=== PATIENT | female | born 1940 | race Caucasian/White ===

== ENCOUNTER 2019-04-13 20:02 | Inpatient (IN) | payer MEDICARE ==
[~2019-04-13] VITALS: Ht 162.6 cm; Wt 77.3 kg
[2019-04-13] MEDS ORDERED: TENORMIN50 MG PO (20:10)
[2019-04-13] MEDS ORDERED: TAMOXIFEN CITRA20 MG (20:11)
[2019-04-13] MEDS ORDERED: MACROBID100 MG PO (20:11)
[2019-04-13 20:54] LABS: ALBUMIN 2.9 g/dL (3.4-5.0); BILIRUBIN - TOTAL 0.76 mg/dL (0.2-1.3); CALCIUM 8.2 mg/dL (8.5-10.1); CARBON DIOXIDE 24.2 mmol/L (21.0-32.0); CREATININE - SERUM 0.8 mg/dL (0.6-1.3); POTASSIUM - SERUM 3.2 mmol/L (3.5-5.1); PROTEIN - SERUM 6.4 g/dL (6.4-8.2)
--- NOTE | 2019-04-13 20:55 | NUR ---
PT INCONTINENT OF LARGE SOFT BROWN STOOL. PT CLEANSED, LINEN CHANGED.
[2019-04-13 21:00] LABS: BASOPHILS 0 % (0-2); EOSINOPHILS 2.4 % (0-7); HEMATOCRIT 34.5 % (36.0-48.0); HEMOGLOBIN 11.7 g/dL (12-16); IMMATURE GRANULOCYTES 0.2 % (0-5); LYMPHOCYTES 4.8 % (15-50); MCH 29.7 pg (26.0-34.0); MCHC 33.9 g/dL (31.0-37.0); MCV 87.6 fL (80.0-100.0); MEAN PLATELET VOLUME 9.6 fL (7.4-10.4); MONOCYTES 1.9 % (2-11); NEUTROPHILS 90.7 % (40-80); PLATELET COUNT 123 10x3/uL (130-400); RBC 3.94 10x6/uL (4.00-5.40); RDW 12.3 % (11.5-14.5); WBC 8.5 10x3/uL (4.8-10.8)
[2019-04-13] MEDS ORDERED: TENORETIC (21:06)
[2019-04-13] MEDS ORDERED: BIOTIN PO (21:06)
[2019-04-13] MEDS ORDERED: VITAMIN D31000 UNIT PO (21:06)
[2019-04-13] MEDS ORDERED: VITAMIN B-121000 MCG PO (21:07)
[2019-04-13] MEDS ORDERED: FERROUS GLUCONATE PO (21:12)
[2019-04-13] MEDS ORDERED: MIRALAX17 GM PO (21:13)
[2019-04-13] MEDS ORDERED: K-TAB10 MEQ PO (21:13)
[2019-04-13] MEDS ORDERED: HYTRIN1 MG PO (21:14)
[2019-04-13] MEDS ORDERED: VITAMIN A10000 UNIT PO (21:14)
[2019-04-13 21:36] LABS: APPEARANCE CLEAR (CLEAR); COLOR DK YELLOW (YELLOW)
[2019-04-13 21:37] LABS: BILIRUBIN NEGATIVE (NEGATIVE); GLUCOSE NEGATIVE (NEGATIVE); KETONE NEGATIVE (NEGATIVE); NITRITE NEGATIVE (NEGATIVE); PROTEIN 1+ mg/dL (NEGATIVE); UROBILINOGEN NORMAL (NORMAL)
[2019-04-13 21:38] LABS: WHITE CELLS - URINE 0-5 /hpf (NEGATIVE)
[2019-04-13 21:39] LABS: BACTERIA FEW /hpf (NEGATIVE); EPITHELIAL CELLS OCC /hpf (0-5)
--- NOTE | 2019-04-13 21:45 | NUR ---
PT RESTING ON BED. EYES CLOSED. PT FAMILY AT BEDSIDE.
[2019-04-13 21:54] VITALS: BP 117/52
[2019-04-13 22:08] LABS: CKMB 1.4 U/L (0.0-3.6); CREATINE KINASE 496 UL (21-215); LIPASE 959 U/L (73-393); MAGNESIUM - SERUM 1.7 mg/dL (1.8-2.4); TROPONIN-I < 0.017 ng/mL (0.000-0.060)
--- NOTE | 2019-04-13 22:30 | NUR ---
PT RESTING ON BED. NO S/S OF ACUTE DISTRESS NOTED. PT FAMILY AT BEDSIDE.
--- NOTE | 2019-04-13 23:20 | NUR ---
PT RESTING ON BED. PT REPORTS DECREASE IN SYMPTOMS. PT FAMILY AT BEDSIDE.
[2019-04-13 23:21] VITALS: BP 115/55
--- NOTE | 2019-04-14 00:46 | NUR ---
PT APPEARS TO BE SLEEPING ON BED. PT FAMILY AT BEDSIDE.
--- NOTE | 2019-04-14 01:45 | NUR ---
ADMITTED TO ROOM ALERT, FORGETFUL, POOR HISTORIAN DOES NOT KNOW WHAT MEDS SHE TAKES ONLY A BLOOD PRESSURE PILL, HUTTON CATH DRAINING FILOMENA COLORED URINE, IV NS INFUSING AT 200CC/HR, ORIENTIATED TO ROOM, CALL LIGHT IN REACH, SEE SHIFT ASSESSMENT, ISAIAS MAT IN USE
[2019-04-14 02:15] VITALS: BP 125/59; BMI 29.2
[2019-04-14 05:14] VITALS: BP 126/70
[2019-04-14 08:37] VITALS: BP 135/60
[2019-04-14 11:41] VITALS: BP 129/48
--- NOTE | 2019-04-14 14:11 | NUR ---
PT IS WITHOUT NEEDS.CALL LIGHT IN REACH
[2019-04-14 15:40] VITALS: BP 153/59
[2019-04-14 20:43] VITALS: BP 117/72
--- NOTE | 2019-04-14 21:00 | NUR ---
DISORIENTED TO TIME WITH NO ACUTE SIGNS OF DISTRESS, FAMILY AT BEDSIDE. FAMILY VOICES CONCERN ON LOC AND ABOUT RESULTS. TOLD FAMILY THAT I WOULD PASS ON IN REPORT ABOUT HAVING A PHONE CALL MADE ONCE MD SEES PT IN THE AM, SECURITY PASSWORD MADE. PLACED PT ON FALL PRECAUTIONS WITH POESY ALARM ON. IV TO THE RT AC WITH NO REDNESS OR SWELLING. HUTTON IN PLACE. DENIES PAIN OR OTHER NEEDS AT THIS TIME. CONTINUE WITH PLAN OF CARE.
[2019-04-15] VITALS (7 sets, daily range): BP systolic 109–150; BP diastolic 46–72
[2019-04-15 05:41] LABS: BASOPHILS 0.4 % (0-2); HEMATOCRIT 32.2 % (36.0-48.0); HEMOGLOBIN 10.8 g/dL (12-16); IMMATURE GRANULOCYTES 0.4 % (0-5); LYMPHOCYTES 23.7 % (15-50); MCH 29.2 pg (26.0-34.0); MCHC 33.5 g/dL (31.0-37.0); MEAN PLATELET VOLUME 11.1 fL (7.4-10.4); MONOCYTES 6.6 % (2-11); NEUTROPHILS 61.9 % (40-80); PLATELET COUNT 124 10x3/uL (130-400); RDW 12.8 % (11.5-14.5); WBC 7.5 10x3/uL (4.8-10.8)
[2019-04-15 06:19] LABS: ALBUMIN 2.2 g/dL (3.4-5.0); ALKALINE PHOSPHATASE 42 U/L (46-116); AMYLASE - SERUM 97 U/L (25-115); BILIRUBIN - TOTAL 0.32 mg/dL (0.2-1.3); CALCIUM 7.4 mg/dL (8.5-10.1); CARBON DIOXIDE 23.1 mmol/L (21.0-32.0); CHLORIDE - SERUM 108 mmol/L (98-107); CKMB 1.3 U/L (0.0-3.6); CREATINE KINASE 180 UL (21-215); CREATININE - SERUM 0.7 mg/dL (0.6-1.3); LIPASE 687 U/L (73-393); MAGNESIUM - SERUM 1.8 mg/dL (1.8-2.4); PHOSPHOROUS 1.7 mg/dL (2.5-4.9); POTASSIUM - SERUM 3.2 mmol/L (3.5-5.1); PROTEIN - SERUM 5.1 g/dL (6.4-8.2); SODIUM 140 mmol/L (136-145); eGFR NON AFRICAN AMERICAN 86 mL/min (90-120)
[2019-04-15 06:23] LABS: ALT (SGPT) 35 U/L (10-68); CALC OSMOLALITY 276 mosm/kg (275-300); GLUCOSE 77 mg/dL (74-106); TROPONIN-I < 0.017 ng/mL (0.000-0.060); UREA NITROGEN 11 mg/dL (7-18)
--- NOTE | 2019-04-15 07:15 | NUR ---
REC'D IN BED AWAKE AND ALERT WITH NOTED CONFUSION AT TIME. RESP EVEN AND UNLABORED WITH NO DISTRESS NOTED. CAN EXPRESS NEEDS AND WANTS. NO C/O NOTED OR VOICED. ASSESSMENT COMPLETED. C/LI N REACH AT BEDSIDE.
--- NOTE | 2019-04-15 07:16 | HP ---
PATIENT: ETIENNE PEREZ MEDICAL RECORD: [id number] ACCOUNT: [id number] LOCATION:D.MS [id number] : 40 ADMISSION DATE: 04/14/19 PCP: BETITO GRACE MD HISTORY AND PHYSICAL EXAMINATION REASON FOR ADMISSION: Fever and back pain. HISTORY OF PRESENT ILLNESS: The patient is a 78-year-old female who was in good state of health and yesterday, she was walking in her house and just passed out. She had no presyncopal symptoms. She awoke on the floor and her back was hurting so bad that she could not get up and answer the phone. Eventually her son came to her house to check on her and called EMS due to back pain and she was taken to the ED at [facility]. Evaluation there by the ER nurses showed normal CBC and BMP, and UA showed minimal bacteriuria. CT scan of the brain was unremarkable. They did discharge her home after being on telemetry without arrhythmias. As the patient got home, she developed onset of 105 fever. By her history, it was confusion and her called EMS and came to this Emergency Room for evaluation. The patient had an E. coli UTI treated approximately a week ago with Macrodantin, which was sensitive to, it did have some mild resistance. She denied any dysuria. No recent cough, headaches, visual changes, or confusion. She denies incontinence of bowel or bladder, history of seizures. She notes that her back pain is better, but she has not tried to get up to walk. PAST MEDICAL HISTORY: History of breast cancer with bilateral mastectomy followed by Dr. Chema Davidson at [facility], history of hyperlipidemia, DVT, hypertension, lipoma in axilla, meniscus tear, TMJ, osteoarthritis of left knee post-replacement, hypertension. PAST SURGICAL HISTORY: section, left knee replacement in 2017, bilateral mastectomies, tonsillectomy. SOCIAL HISTORY: Rare alcohol drinker, nonsmoker. She lives alone. Family in town cares for her. FAMILY HISTORY: Father of CAD, [place]. Mother had breast cancer and stroke. MEDICATIONS: Eliquis 5 mg p.o. b.i.d., atenolol 50 mg p.o. daily, potassium ER 10 mEq p.o. daily, tamoxifen 20 mg p.o. daily. ALLERGIES: None mentioned. REVIEW OF SYSTEMS: CONSTITUTIONAL: Fever as mentioned above, last evening. Has not felt malaise. HEENT: No recent visual change, sinus congestion, sore throat, or headache. RESPIRATORY: No SOB or cough. CARDIAC: No exertional chest pain, claudication or edema. GASTROINTESTINAL: No nausea, vomiting, change in stools or blood per rectum. Denies abdominal pain. GENITOURINARY: No dysuria, mild incontinence. GYNECOLOGIC: No vaginal bleeding. ENDOCRINE: Denies polyuria, polydipsia, heat or cold intolerance. NEUROLOGIC: No history of stroke, TIA, vascular headaches, seizures or head trauma. MUSCULOSKELETAL: Complaining of low back pain currently, but has improved about HISTORY AND PHYSICAL [id number] CHRIS,ETIENNE HAND 50% from her fall. Denies any radicular pain. PSYCHIATRIC: Denies depress mood. PHYSICAL EXAMINATION: VITAL SIGNS: On arrival to the ED her temperature is 101.5, now 98.1; blood pressure 104/53 initially, now 126/70; sats 95% on room air; heart rate 74 and regular. GENERAL: The patient is alert and oriented and gives a good history, but has no recollection of her fall or cause of her fall. HEENT: Eyes are clear. Pupils reactive. EOMI vision intact. NECK: Supple, without bruits, masses, JVD or tenderness. CHEST: Clear without wheeze or rales. HEART: Regular rate and rhythm without murmur. BREASTS: Surgically absent. LUNGS: Clear. ABDOMEN: Soft, nontender throughout. Bowel sounds are active. PELVIC: Deferred. EXTREMITIES: She has healed left total knee replacement scar, good range of motion of the knee. Straight leg raise negative bilaterally in lower extremities. I did not stand the patient at this point. I did not test gait. SKIN: No evidence of rash or bruising currently. NEUROLOGIC: Oriented to person, place, and time. Cranial nerves intact symmetrically. Reflexes intact symmetrically. IMAGING: CT scan reviewed of the brain from [facility] this morning shows no acute findings. LABORATORY DATA: Laboratory work there was within normal limits. Chest x-ray here shows some atelectasis in the left base. White count 8500 with 91% neutrophils, platelet count 123,000, hemoglobin 11.2. Potassium is low at 3.2. Sodium is 137. Lactic acid is 2. Magnesium low at 1.7. Creatinine kinase is 496. Cardiac enzymes are negative. Lipase is 959. UA 1+ protein, trace blood, 0-5 white cells, few bacteria. EKG apparently was not performed an EGD. ASSESSMENT: 1. Syncopal episode, etiology unknown. 2. Febrile illness, etiology unknown, recent urinary tract infection, asymptomatic. 3. Hypokalemia. 4. Hypomagnesemia. 5. History of hypertension, currently mildly hypotensive. 6. Low back pain from fall. 7. History of breast cancer. PLAN: The patient will be placed in a monitored bed. She is given fluid resuscitation. We will correct electrolyte abnormalities. Telemetry to rule out arrhythmia, lumbar spine series. I am not sure why her lipase is mildly elevated. She is not an alcohol user and denies any abdominal pain currently. We will trend that and perform CT scan of abdomen if indicated. TRANSINT:[id number] Voice Confirmation ID: [id number] DOCUMENT ID: [id number] HISTORY AND PHYSICAL [id number] ETIENNE PEREZ TIMOTHY MD at 0716 CC: [id number] DICTATION DATE: 04/14/19720 MANAGER FIELD INVESTIGATIONS: 04/14/19 0855 ADM IN [facility] [address] [place] [address]
--- NOTE | 2019-04-15 07:45 | NUR ---
TODD HUTTON AT THIS TIME. C/L IN REACH AT BEDSIDE.
--- NOTE | 2019-04-15 11:08 | EC ---
PATIENT:ETIENNE PEREZ DATE OF SERVICE: 04/14/19 SEX: F MEDICAL RECORD: [id number] DATE OF : 40 LOCATION:D.MS [facility] AGE OF PATIENT: 78 ADMISSION DATE: 04/14/19 REFERRING PHYSICIAN: INTERPRETING PHYSICIAN: SANA SAMAYOA MD ECHOCARDIOGRAM REPORT ECHO CHARGES 4 ECHO COMPLETE Date: 04/14/19 CLINICAL DIAGNOSIS: SYNCOPE, HYPOTENSION ECHOCARDIOGRAPHIC MEASUREMENTS (adult normal given) AC root (d.<3.7cm) 3.0 cm LV Septum d (<1.2 cm> 0.9 cm Valve Excursion 1.4 cm LV Septum (systole) 1.2 cm Left Atria (s.<4.0cm> 3.6 cm LVPW d(<1.2cm) 1.3 cm RV (d.<2.3cm) 2.6 cm LVPW (sytole) 1.5 cm LV diastole(<5.6CM) 4.8 cm MV E-F(>70mm/sec) cm LV systole 3.5 cm LVOT Diameter 1.7 cm MV exc.(>10mm) cm Est.ejection fraction (50-75%) % DOPPLER: LVIT cm/sec A 106 cm/sec E 73 cm/sec LA cm/sec RVSP 32.0 mmHg LVOT 136 cm/sec AOP1/2T m/s Asc. Ao 163 cm/sec RVOT 72 cm/sec RA cm/sec PA 91 cm/sec AV Gradient Peak 10.6 mmHg AV Mean 5.9 mmHg AV Area 1.9 cm MV Gradient Peak 5.1 mmHg MV Mean 2.2 mmHg MV Area cm COMMENTS: Regulatory Affairs Spec: Celina MONTE Manager Trade Marketing: 3 Dr. Buckley TAPE# PACS Pericardial Effusion N DATE OF SERVICE: Adequate 2D, color flow imaging, spectral Doppler, and M-mode. No LVH. LV internal dimension is normal. Wall motion is normal. EF is greater than or equal to 25%. Aortic valve is tricuspid. No evidence of stenosis by Doppler interrogation. Left atrium is normal at 3.6 cm. Mitral valve shows no prolapse. Trace MR. Right-sided chamber is grossly normal. Trace TR. TRANSINT:[id number] Voice Confirmation ID: [id number] DOCUMENT ID: [id number] ECHOCARDIOGRAM REPORT [id number] CHRSI,ETIENNE HAND SANA SAMAYOA MD at 1108 CC: [id number] DICTATION DATE: 04/14/19 1505 LEAD ELECTRICAL CONTROLS ENGINEER: 04/15/19 0056 ADM IN [facility] [address] [id number]
--- NOTE | 2019-04-15 11:21 | NUR ---
THIS NURSE WAS CALLED OVER RADIO TO ALERT HER OF PT HEART RATE BEING 200 UPON ENTERING PT ROOM SHE WAS UP WALKING WITH THERAPY. PT WAS ASSISTED BACK TO BED AFTER 15 MINUTES. REC'D ANOTHER CALL TO ALERT THAT PT HEART RATE IS NOW 170 AND UPON CHECKING ON PT SHE JUST LYING IN BED GETTING ULTRA SOUND DONE. CALL WAS PLACED TO DR. GRACE EXPLAIN PT CHANGE IN CONDITION REC'D NEW ORDERS FOR CARDIZEM 10 MG IVP X 1 AND THEN TO START CARDIZEM DRIP AT 5 MG/HR. REPORT WAS CALLED OVER TO NURSE RECEIVING PT. IN STABLE CONDITION UPON DEPARTURE. SON WAS CALLED AND NOTIFIED OF TRANSFER.
--- NOTE | 2019-04-15 12:10 | NUR ---
TRANSFER FROM GA BY W/Gina MCGEE TO ROOM. CALL LIGHT IN REACH. WILL CONT. PLAN OF CARE. TELEMETRY UCAF HR 120. WILL MONITOR.
--- NOTE | 2019-04-15 13:46 | NUR ---
CONVERTED TO SR HR 95. WILL CONT. PLAN OF CARE.
[2019-04-16] VITALS: BP 131/52
[2019-04-16 04:00] VITALS: BP 124/50
[2019-04-16 05:50] LABS: BASOPHILS 0.2 % (0-2); HEMATOCRIT 28.3 % (36.0-48.0); HEMOGLOBIN 9.9 g/dL (12-16); IMMATURE GRANULOCYTES 0.4 % (0-5); LYMPHOCYTES 21.8 % (15-50); MCH 29.6 pg (26.0-34.0); MEAN PLATELET VOLUME 10.3 fL (7.4-10.4); MONOCYTES 4.8 % (2-11); NEUTROPHILS 66.8 % (40-80); PLATELET COUNT 137 10x3/uL (130-400); RBC 3.35 10x6/uL (4.00-5.40); RDW 12.7 % (11.5-14.5); WBC 9.3 10x3/uL (4.8-10.8)
[2019-04-16 05:53] LABS: MCV 84.5 fL (80.0-100.0)
[2019-04-16 06:12] LABS: CALC OSMOLALITY 281 mosm/kg (275-300); CALCIUM 7.5 mg/dL (8.5-10.1); CARBON DIOXIDE 20.3 mmol/L (21.0-32.0); CHLORIDE - SERUM 109 mmol/L (98-107); CREATININE - SERUM 0.7 mg/dL (0.6-1.3); POTASSIUM - SERUM 3.2 mmol/L (3.5-5.1); SODIUM 141 mmol/L (136-145); TROPONIN-I < 0.017 ng/mL (0.000-0.060); UREA NITROGEN 9 mg/dL (7-18); eGFR NON AFRICAN AMERICAN 86 mL/min (90-120)
[2019-04-16 06:23] LABS: GLUCOSE 130 mg/dL (74-106)
--- NOTE | 2019-04-16 07:15 | NUR ---
RECEIVED PT IN BED AAOX3 CONFUSED TO SITUATION RESP UNLABORED SKIN W/D COLOR WNL RAC RED AND SWOLLEN IV INFILTRATED DCD WITH IV CATHETER INTACT RESITED TO LFA WITH 20 GA IV CATHETER X 1 USING ASEPTIC TECHNIQUE PT TOLERATED WELL
[2019-04-16 10:38] VITALS: BP 138/58
--- NOTE | 2019-04-16 13:31 | CN ---
PATIENT NAME:ETIENNE RAMIREZ MEDICAL RECORD: [id number] : 40 LOCATION:D. D.2118 ADMIT DATE: 04/14/19 ACCOUNT: [id number] CONSULTING PHYSICIAN: OCHOA ADAM MD REFERRING PHYSICIAN: BETITO GRACE MD DATE OF CONSULTATION: 04/15/2019 DIAGNOSES: 1. Atrial fibrillation with rapid ventricular response. 2. Syncope. 3. Urinary tract infection. 4. Hypertension. 5. Hyperlipidemia. HISTORY OF PRESENT ILLNESS: Mrs. Ramirez had an episode of syncope, presented to [facility] ER where she had a workup including head CT, prolonged telemetry and cardiac enzymes, all of which were normal. She then went home, became confused, had a temperature, was now admitted with UTI. She today went into atrial fibrillation with rapid ventricular response, heart rate in the 200 range. She remains in atrial fibrillation with heart rates in the 130-160 range. At this time, her systolic blood pressures in the 150 range. She is on atenolol at home. She has had no history of syncope. She had an echocardiogram yesterday. The dictation reads an ejection fraction greater than 25%; however, I have reviewed the echo myself and her ejection fraction is greater than 55%. I think that was a typographical error. She has normal overall cardiac structures and normal valvular structures. No bad mitral regurgitation or mitral stenosis. Her atenolol has been on hold since she was admitted. PHYSICAL EXAMINATION: CONSTITUTIONAL/GENERAL APPEARANCE: Well nourished, well developed, appears stated age. EYES: Lids and conjunctivae noninjected. No discharge. No pallor. ENT: Lips within normal limit. No cyanosis. No pallor. NECK: Carotid arteries, bilateral normal upstroke. No bruits. No thrills. No jugular venous pressure or distention. CERVICAL LYMPH NODES: Nontender. Nonenlarged. THYROID: Not enlarged. No nodules. CARDIOVASCULAR: Precordial exam, nondisplaced. No heaves or pericardial thrills. Rate and rhythm, regular. Heart sounds, normal S1, normal S2. No S3, no gallop, no rub. Systolic murmur, not heard. Diastolic murmur, not heard. RESPIRATORY: Respiratory effort, unlabored. Normal curvature. No thoracic deformity. No chest wall tenderness. Percussion, resonant. Auscultation, clear. No wheezes, no rales, no rhonchi. ABDOMEN: Soft, nondistended, nontender. No abdominal pain, no vomiting and normal appetite. MUSCULOSKELETAL: No joint tenderness, normal gait, normal tone. SKIN: Warm and dry. OVERALL IMPRESSION: Atrial fibrillation with rapid ventricular response. This is most likely the etiology of her syncope at home. We will, at this time, discontinue her atenolol, start her on sotalol, bridge her with a Cardizem drip to slow her down acutely. Hopefully she will convert to sinus rhythm with the recent echo. No other cardiac workup is necessary other than a troponin in the morning. CONSULT REPORT [id number] ETIENNE RAMIREZ HAND TRANSINT:[id number] Voice Confirmation ID: [id number] DOCUMENT ID: [id number] OCHOA ADAM MD at 1331 CC: [id number] DICTATION DATE: 04/15/19 1154 CONSTRUCTION COST ESTIMATOR: 04/15/19 1242 ADM IN [place] [id number] [id number]
[2019-04-16 13:50] VITALS: BP 135/62
[2019-04-16 17:40] VITALS: BP 167/87
--- NOTE | 2019-04-16 19:35 | NUR ---
PT RESTING IN BED WITH EYES CLOSED. RESPIRATIONS EVEN AND UNLABORED. I AM MAKING MY ROUNDS TO SEE IF SHE NEEDS ANYTHING. SHE IS ALERT WITH VERBAL STIMULI.HER SON IS AT THE BEDSIDE. SHE IS ORIENTED TO PERSON ONLY.SHE ASKS IF I HAVE SEEN THE CAT.REORIENTED TO PLACE,TIME AND SITUATION.NEEDS FURTHER REINFORCEMENT.BED IN THE LOWEST POSITION AND BED ALARM ON FOR SAFETY. CALL LIGHT IN REACH. SHE DENIES NEEDS OR PAIN.
[2019-04-16 20:00] VITALS: BP 134/80
--- NOTE | 2019-04-16 23:25 | NUR ---
PT TRYING TO GET OUT OF BED. BED ALARM ON. SHE IS CONFUSED AND AGITATED. SHE STATES SHE IS READY TO GO LAY ON HER COUCH. ATTEMPTED TO REORIENT TO TIME AND PLACE. SHE BECAME EVEN MORE AGITATED SAYING SHE IS NOT IN A HOSPITAL, SHE IS AT HOME AND THERE ARE SNOW MEN WITH AXES AND WHITE POSSUMS OUTSIDE HER DOOR. SHE BANGS ON THE WALL AND APPEARS TO THINK THAT THE WALL IS A DOOR TO OUTSIDE. ATTEMPTED AGAIN TO REORIENT WITH THE HELP OF MICHELLE RODRIGEZ AND HUMPHREY PÉREZ. GOT HER BACK IN BED. SHE IS LESS AGITATED. SHE DENIES PAIN OR NEEDING TO GO TO THE BATHROOM. GAVE HER FRESH WATER AND SHE TOOK A FEW SIPS. PAGED. ORDERS FOR PRN RESTORIL GIVEN. PT IS NOW RESTING IN BED. NO DISRESS NOTED. RESPIRATIONS EVEN AND UNLABORED. BED LOW AND BED ALARM SET. WILL CONTINUE TO MONITOR.
[2019-04-17 05:44] LABS: CALC OSMOLALITY 283 mosm/kg (275-300); CALCIUM 7.8 mg/dL (8.5-10.1); CARBON DIOXIDE 23.9 mmol/L (21.0-32.0); CHLORIDE - SERUM 110 mmol/L (98-107); CREATININE - SERUM 0.7 mg/dL (0.6-1.3); GLUCOSE 98 mg/dL (74-106); POTASSIUM - SERUM 3.9 mmol/L (3.5-5.1); SODIUM 143 mmol/L (136-145); UREA NITROGEN 10 mg/dL (7-18); eGFR NON AFRICAN AMERICAN 86 mL/min (90-120)
[2019-04-17 09:39] VITALS: BP 150/55
[2019-04-17 12:53] VITALS: Ht 162.6 cm; Wt 77.3 kg
[2019-04-17 13:31] VITALS: BP 119/75
[2019-04-17 17:27] VITALS: BP 176/75
--- NOTE | 2019-04-17 19:30 | NUR ---
INITIAL ROUNDS AND ASSESSMENT COMPLETED. PT RESTING WITH EYES CLOSED. FAMILY X 3 AT BEDSIDE. SR /77 PER TELEMETRY. NONLABORED RESPIRATIONS ON ROOM AIR. SALINE LOCK TO LFA. CPOC.
--- NOTE | 2019-04-17 23:35 | NUR ---
PT AWAKE/ALERT, ANSWERING QUESTIONS APPROPRIATELY. DINNER TRAY WAS HEATED AND SHE ATE 50%. C/O NECK PAIN. ULTRAM GIVEN. CURRENTLY SITTING IN BEDSIDE CHAIR WITH CALL LIGHT IN REACH.
--- NOTE | 2019-04-18 02:14 | NUR ---
SITTING UP IN BEDSIDE CHAIR, AWAKE AND WATCHING TV. NO NEEDS VOICED. ALERT/ORIENTED. NAD. CPOC.
[2019-04-18 04:00] VITALS: BP 143/74
[2019-04-18 05:00] LABS: BASOPHILS 0.5 % (0-2); HEMATOCRIT 33.1 % (36.0-48.0); HEMOGLOBIN 11.3 g/dL (12-16); IMMATURE GRANULOCYTES 0.9 % (0-5); LYMPHOCYTES 20.1 % (15-50); MCH 29.9 pg (26.0-34.0); MCHC 34.1 g/dL (31.0-37.0); MEAN PLATELET VOLUME 10.6 fL (7.4-10.4); MONOCYTES 7.3 % (2-11); NEUTROPHILS 65.2 % (40-80); RBC 3.78 10x6/uL (4.00-5.40); RDW 12.7 % (11.5-14.5)
[2019-04-18 05:11] LABS: MCV 87.6 fL (80.0-100.0); PLATELET COUNT 213 10x3/uL (130-400)
[2019-04-18 05:51] LABS: ANION GAP 13.2 mmol/L (8-16); CALCIUM 8.4 mg/dL (8.5-10.1); CARBON DIOXIDE 24.5 mmol/L (21.0-32.0); CREATININE - SERUM 0.8 mg/dL (0.6-1.3); POTASSIUM - SERUM 3.7 mmol/L (3.5-5.1)
[2019-04-18 09:22] VITALS: BP 150/72
--- NOTE | 2019-04-18 10:52 | NUR ---
TELEMETRY SR. UP AMBULATING HALLWAY WITH PT ASSIST. WILL CONT. PLAN OF CARE.
--- NOTE | 2019-04-18 12:31 | CN ---
PATIENT NAME:ETIENNE PEREZ MEDICAL RECORD: [id number] : 40 LOCATION:. D.2118 ADMIT DATE: 04/14/19 ACCOUNT: [id number] CONSULTING PHYSICIAN: REBECCA MENDIETA MD REFERRING PHYSICIAN: BETITO GRACE MD DATE OF CONSULTATION: 04/17/2019 PSYCHIATRIC CONSULTATION IDENTIFYING DATA: The patient is 78 years old and she is admitted to the hospital secondary to both a urinary tract infection and pancreatitis. CHIEF COMPLAINT: Hallucinations. HISTORY OF PRESENT ILLNESS: The patient is a very nice lady who is a very cooperative. She tells me that she has been having hallucinations and that they do not really bother her, but they bother her son. She tells me that she recognizes that they are hallucinations and the one she can tell me about most recently is a anderson sitting up in the corner of her dining room wearing some kind of a harness. She says she recognize it is abnormal and not real, she is not distressed by it. She tells me she has not had any hallucinations since she has been in the hospital, but that is not consistent with what I am seeing in the chart or at least not consistent with what I am understanding to be in the chart. The patient has some abnormalities, particularly anemia today. But generally there is no fever, she is not taking medications that would be prone to cause visual hallucinations and I understand why the presence of these is something of a mystery. Taking her history, she tells me that she lives alone. Her son does the yard work, but she does the grocery shopping, handles the mail, pays the bills, does her own cooking and generally is independent. She says she has not had any trouble doing that. Unfortunately, on her mental status exam, she identifies the month as 03/26/2019. Slightly off, but still it is off. She also has serious impairment of her short-term memory and indeed some of her long-term memory is impaired. She knew she worked outside the home, but she could not remember what she did. She clearly is struggling to remember specific details about her past and is trying to mask that embarrassment with humor. She is really quite pleasant. She has no history of drug or alcohol abuse. No history of mental illness and I am sure functioned well socially and occupationally. She has been for 20 years. ASSESSMENT: Probable dementia, type uncertain, probably Alzheimer's. PLAN: The hallucinations or something of a mystery. They may well be related to something toxic or metabolic related to some of the medicine she had previously taken and/or the combination of some electrolyte or infectious process. She did have a very serious E. coli infection that apparently has been successfully treated. There is no fever now. She is, however, anemic, but that does not cause hallucinations. I suspect a possible delirium, but she is not really showing evidence of a delirium. I would be reluctant to treat her with medications at this point and would suggest that she just simply go home with supportive care and observation. Unfortunately, I have nothing to compare her previous level of functioning or even the accuracy of what she is telling me. She may be much more dependent upon others than she is indicating at this point. There is no evidence of acute or direct dangerousness. It is obvious that she CONSULT REPORT [id number] ETIENNE PEREZ has very supportive and close sons who are involved with her care. If these problems persist or worsen, a low dose of an antipsychotic might be appropriate to address it. I am just reluctant to do that right now given her current presentation. With the high clinical suspicion of an underlying dementia starting her on a cholinesterase inhibitor would be a reasonable to move. From a social standpoint, her family needs to be making plans about what will happen if she becomes unable to care for herself mentally or physically. TRANSINT:[id number] Voice Confirmation ID: [id number] DOCUMENT ID: [id number] REBECCA MENDIETA MD at 1231 CC: [id number] DICTATION DATE: 04/17/19 1541 SALES SUPPORT REP: 04/17/19 1621 ADM IN [facility] [address] [place] [address]
--- NOTE | 2019-04-18 12:35 | NUR ---
REHAB PRESCREEN THANK YOU FOR THIS EVAL, AT THIS TIME THIS PATIENT HAS BLUE CROSS INSURANCE AND DOES REQUIRE A PRIOR AUTH BEFORE BEING ABLE TO DETURMINE IF ACCEPTED. WILL FOLLOW UNTIL WE GET A REPLY FROM INSURANCE. MERARY CORTES LPN CLINICAL LIASION
[2019-04-18 14:35] VITALS: BP 167/73
[2019-04-18 18:19] VITALS: BP 198/75
--- NOTE | 2019-04-18 19:50 | NUR ---
INITIAL ROUNDS AND ASSESSMENT COMPLETED. SONS IN ROOM VISITING WITH PATIENT. THEY SAY SHE HAS BEEN MENTALLY BETTER TODAY, BUT STILL HAVING SOME ISSUES WITH SEEING THINGS, BUT MUCH IMPROVED COMPARED TO HER FIRST FEW DAYS. PT IS ALERT/ORIENTATION IS DIFFICULT TO DETERMINE BECAUSE SHE SEEMS TO CATCH HERSELF WHEN SHE BEGINS TO RAMBLE AND THEN CHANGES THE SUBJECT OR SAYS SHE KNOWS SHE ISN'T REALLY SEEING ANYTHING. CPOC. CALL LIGHT IN REACH.
[2019-04-18 20:00] VITALS: BP 143/68
--- NOTE | 2019-04-18 22:39 | NUR ---
PT RESTING IN BED. BEDTIME MEDS GIVEN.CPOC.
--- NOTE | 2019-04-19 06:27 | NUR ---
PT RESTING IN BED WITH BED ALARM IN PLACE. SHE HAS REFUSED THE LAST TWO SETS OF VITAL SIGNS WITH SOME CONFUSION NOTED. CPOC AND REPORT TO ONCOMING NURSE.
[2019-04-19 08:13] VITALS: BP 157/82
--- NOTE | 2019-04-19 10:28 | NUR ---
HAS CONVERTED BACK TO SR. LEAVING FOR X-RAY BY W/C. WILL CONT. PLAN OF CARE.
[2019-04-19 11:32] VITALS: BP 142/68
[2019-04-19 17:10] VITALS: BP 113/59
--- NOTE | 2019-04-19 19:49 | NUR ---
INITIAL ROUNDS AND ASSESSMENT COMPLETED. PT RESTING IN BED. RESPS EVEN/NONLABORED ON ROOM AIR. UCAF 120 PER TELEMETRY. SALINE LOCK TO LFA. BED ALARM IN PLACE. SON NOW LEAVING FOR THE NIGHT. CPOC.
[2019-04-19 20:00] VITALS: BP 129/64
--- NOTE | 2019-04-19 21:16 | NUR ---
BEDTIME MED GIVEN. PT RESTING WITH NO DISTRESS. MILD CONFUSION NOTED. BED ALARM IN PLACE. CPOC. CALL LIGHT IN REACH. SON HAS GONE HOME FOR THE EVENING.
[2019-04-20] VITALS: BP 134/87
[2019-04-20 04:00] VITALS: BP 135/53
--- NOTE | 2019-04-20 05:27 | NUR ---
NO CHANGE FROM INITIAL SHIFT ASSESSMENT. PT RESTING IN BED. CPOC. STILL WITH SOME MILD CONFUSION/FORGETFULNESS. IV LASIX GIVEN EARLIER. BED ALARM IN PLACE.
[2019-04-20 05:39] LABS: BASOPHILS 0.7 % (0-2); EOSINOPHILS 4.4 % (0-7); HEMATOCRIT 28.5 % (36.0-48.0); HEMOGLOBIN 9.7 g/dL (12-16); IMMATURE GRANULOCYTES 1.4 % (0-5); LYMPHOCYTES 19.8 % (15-50); MCH 29.4 pg (26.0-34.0); MCV 86.4 fL (80.0-100.0); MEAN PLATELET VOLUME 9.9 fL (7.4-10.4); MONOCYTES 10.1 % (2-11); NEUTROPHILS 63.6 % (40-80); PLATELET COUNT 253 10x3/uL (130-400); RDW 12.4 % (11.5-14.5); WBC 11.3 10x3/uL (4.8-10.8)
[2019-04-20 06:11] LABS: CALC OSMOLALITY 281 mosm/kg (275-300); CALCIUM 8.3 mg/dL (8.5-10.1); CARBON DIOXIDE 29.7 mmol/L (21.0-32.0); CHLORIDE - SERUM 103 mmol/L (98-107); CREATININE - SERUM 0.7 mg/dL (0.6-1.3); GLUCOSE 129 mg/dL (74-106); SODIUM 141 mmol/L (136-145); UREA NITROGEN 10 mg/dL (7-18); eGFR NON AFRICAN AMERICAN 86 mL/min (90-120)
[2019-04-20 06:31] LABS: POTASSIUM - SERUM 2.8 mmol/L (3.5-5.1)
--- NOTE | 2019-04-20 07:15 | NUR ---
RECEIVED PT SITTING IN CHAIR AAOX3 NOT AWARE OF SITUATION RESP UNLABORED SKIN W/D COLOR WNL DENIES ANY PAIN OR DISCOMFORT SR ON MONITOR FLIPP ED BACK TO SR AT 2100 ACCORDING TO NIGHT NURSE KEYONNA HERNANDEZ RN
[2019-04-20 09:27] VITALS: BP 135/62
[2019-04-20 13:39] VITALS: BP 140/69
[2019-04-20 14:16] LABS: ANION GAP 12.9 mmol/L (8-16); CALCIUM 8.3 mg/dL (8.5-10.1); CARBON DIOXIDE 28.6 mmol/L (21.0-32.0); POTASSIUM - SERUM 3.5 mmol/L (3.5-5.1)
--- NOTE | 2019-04-20 17:27 | MORECARE ---
CASE MANAGEMENT DISCHARGE SUMMARY PATIENT: ETIENNE PEREZ HAND UNIT: [id number] ADM DATE: 04/14/19 AGE: 78 : 40 SEX: F ROOM/BED: D.9998 AUTHOR: SU LAURENT PHYSICIAN: REFERRING PHYSICIAN: BETITO GRACE MD DATE OF SERVICE: 04/20/19 Discharge Plan Patient Name: ETIENNE PEREZ Facility: [facility]:[place] : 1940 Planned Disposition: Anticipated Discharge Date: Discharge Date: Expected LOS: Initial Reviewer: [email or web address] Initial Review Date: 04/20/2019 Generated: 04/20/19 6:26 pm Comments DCP- Discharge Planning Updated by [email or web address]: Guanakito Ramos on 04/20/19 4:[address] Patient Name: ETIENNE PEREZ Admission Status: ER Accout number: [id number] Admission Date: 04-14-2019 : 1940 Admission Diagnosis: Attending: BETITO GRACE Current LOS: 6 Anticipated DC Date: Planned Disposition: Primary Insurance: [employer] [facility] Discharge Planning Comments: CM RECEIVED ORDER FOR INPATIENT REHAB PRESCREENING. CM ATTEMPTED TO MEET WITH PT FOR INITIAL ASSESSMENT OF DISCHARGE NEEDS. PT WAS HAVING PATIENT CARE BY SCHOOL CAFETERIA HEAD COOK IN ROOM AT THE TIME. CM TO ATTEMPT ASSESSMENT OF PT AT A LATER TIME. Commercial Construction Project Manager: Guanakito Ramos Patient Name: ETIENNE PEREZ Page [id number] at 1727 All edits/amendments must be made on the electronic document DICTATION DATE: 04/20/191725 CLINICAL TECHNICIAN: HIEN 04/20/191725 RPT#: [id number] DC DATE: STATUS: ADM IN [facility] [address] [place] [address] END OF REPORT
[2019-04-20 17:49] VITALS: BP 131/56
--- NOTE | 2019-04-20 19:36 | NUR ---
BEDSIDE REPORT RECEIVED. PATIENT IS AAO X 2 WITH COACHING FROM FAMILY. PATIENT SITTING UP IN CHAIR. RESPIRATIONS ARE EVEN AND UNLABORED. NO S/S OF DISTRESS. NO C/O PAIN. CALL LIGHT WITHIN REACH. BED ALARM ENABLED. WILL CPOC.
[2019-04-20 20:00] VITALS: BP 135/61
--- NOTE | 2019-04-20 23:49 | NUR ---
RECEIVED TELEPHONE CALL FROM PATIENT SON MAY. MAY WAS CONCERNED THAT IS MOTHER HAD CALLED HIM 5 TIMES AND IS CONFUSED. PATIENT STATED TO HIM THAT THERE WERE STRIPPERS DANCING AROUND. PATIENT SHE WAS NAKED AND NEEDED PANTS. I WENT TO CHECK ON PATIENT. PATIENT IN NO DISTRESS. PATIENT HAS GOTTEN INCREASINGLY CONFUSED THROUGHOUT THE NIGHT. PATIENT SON MAY REQUESTS THAT DR. GRACE CALL HIM. CELL PHONE [phone]
[2019-04-21] VITALS: BP 133/49
[2019-04-21 04:00] VITALS: BP 152/64
[2019-04-21 05:43] LABS: ANION GAP 11.8 mmol/L (8-16); CALCIUM 8.4 mg/dL (8.5-10.1); CARBON DIOXIDE 29.3 mmol/L (21.0-32.0); CREATININE - SERUM 0.9 mg/dL (0.6-1.3); POTASSIUM - SERUM 3.1 mmol/L (3.5-5.1)
--- NOTE | 2019-04-21 07:15 | NUR ---
RECEIVED PT IN BED EYES CLOSED RESP UNLABORED NAD NOTED WILL CONTINUE TO MONITOR
[2019-04-21 09:45] VITALS: BP 153/54
--- NOTE | 2019-04-21 10:06 | MORECARE ---
CASE MANAGEMENT DISCHARGE SUMMARY PATIENT: ETIENNE PEREZ HAND UNIT: [id number] ADM DATE: 04/14/19 AGE: 78 : 40 SEX: F ROOM/BED: D.3418 AUTHOR: SU LAURENT PHYSICIAN: REFERRING PHYSICIAN: BETITO GRACE MD DATE OF SERVICE: 04/21/19 Discharge Plan Patient Name: ETIENNE PEREZ Facility: [facility]:[place] : 1940 Planned Disposition: Inpatient Rehab Anticipated Discharge Date: Discharge Date: Expected LOS: Initial Reviewer: [id number] Initial Review Date: 04/20/2019 Generated: 04/21/19 11:05 am Comments DCP- Discharge Planning Updated by WANG: Guanakito Ramos on 04/20/19 4:[address] Patient Name: ETIENNE PEREZ Admission Status: ER Accout number: [id number] Admission Date: 04-14-2019 : 1940 Admission Diagnosis: Attending: BETITO GRACE Current LOS: 6 Anticipated DC Date: Planned Disposition: Primary Insurance: [facility] Discharge Planning Comments: CM RECEIVED ORDER FOR INPATIENT REHAB PRESCREENING. CM ATTEMPTED TO MEET WITH PT FOR INITIAL ASSESSMENT OF DISCHARGE NEEDS. PT WAS HAVING PATIENT CARE BY BUTTONHOLE MAKER HAND IN ROOM AT THE TIME. CM TO ATTEMPT ASSESSMENT OF PT AT A LATER TIME. Lightning Rod Erector: Guanakito Ramos Coverage Notice Reviewer: [id number] - Guanakito Ramos Notice Issued Date-Time: 04/21/2019 8:40 Notice Type: IM Discharge Notice Notice Delivered To: Patient Relationship to Patient: School Principal Name: Delivery Method: HAND - Hand Delivered Cheyenne Days: Prior Verbal Notification: Recipient Understood Notice: Yes Recipient Signature: Yes Med Rec Note Co-signed by Attending: Coverage Notice Comment: Last DP export: 04/20/19 4:27 Patient Name: ETIENNE PEREZ Page 87028 at 1006 All edits/amendments must be made on the electronic document DICTATION DATE: 04/21/19 1005 FOOD PRODUCTION SUPERVISOR: HIEN 04/21/19 1005 RPT#: [id number] DC DATE: STATUS: ADM IN [facility] [address] [place] [address] END OF REPORT
--- NOTE | 2019-04-21 10:13 | MORECARE ---
CASE MANAGEMENT DISCHARGE SUMMARY PATIENT: ETIENNE PEREZ HAND UNIT: [id number] ADM DATE: 04/14/19 AGE: 78 : 40 SEX: F ROOM/BED: D.1596 AUTHOR: SU LAURENT PHYSICIAN: REFERRING PHYSICIAN: BETITO GRACE MD DATE OF SERVICE: 04/21/19 Discharge Plan Patient Name: ETIENNE PEREZ [facility] : 1940 Planned Disposition: Inpatient Rehab Anticipated Discharge Date: Discharge Date: Expected LOS: Initial Reviewer: [id number] Initial Review Date: 04/20/2019 Generated: 04/21/19 11:12 am Comments DCP- Discharge Planning Updated by [id number]: Guanakito Ramos on 04/21/19 9:[address] Patient Name: ETIENNE PEREZ Admission Status: ER Accout number: [id number] Admission Date: 04-14-2019 : 1940 Admission Diagnosis: Attending: BETITO GRACE Current LOS: 7 Anticipated DC Date: Planned Disposition: Inpatient Rehab Primary Insurance: [employer] [facility] PLANNED EXTERNAL PROVIDER: [facility] INPATIENT REHAB Discharge Planning Comments: CM MET WITH PT IN ROOM TO DISCUSS DISCHARGE PLANNING AND NEEDS. PT REPORTS LIVING AT HOME INDEPENDENTLY AND ALONE. PT REPORTS ONE STEP OUTSIDE INTO THE HOME AND HER LAUNDRY ROOM IS DOWNSTAIRS IN THE HOME, APPROXIMATELY 12-14 STEPS. PT HAS A CANE WITH NO MEDICAL EQUIPMENT PROVIDER PREFERNECE. PT HAS NO OUTSIDE SERVICES ASSISTING IN THE HOME. CM DISCUSSED AVAILABILITY OF HOME HEALTH, REHAB SERVICES AND MEDICAL EQUIPMENT. PT WOULD LIKE REHAB AT [facility], REPORTS HER SON WILL PICK HER UP FOR DISCHARGE HOME. IMPORTANT MESSAGE FROM MEDICARE PROVIDED AND EXPLAINED. PT ASKING FOR REHAB AT [facility]. CM WAITING RESULTS OF INPATIENT REHAB PRESCREENING. Bankruptcy Processor: Guanakito Raoms DCP- Discharge Planning Updated by [id number]: Guanakito Ramos on 04/20/19 4:[address] Patient Name: ETIENNE PEREZ Admission Status: ER Accout number: [id number] Admission Date: 04-14-2019 : 1940 Admission Diagnosis: Attending: BETITO GRACE Current LOS: 6 Anticipated DC Date: Planned Disposition: Primary Insurance: [employer] [facility] P[facility] Discharge Planning Comments: CM RECEIVED ORDER FOR INPATIENT REHAB PRESCREENING. CM ATTEMPTED TO MEET WITH PT FOR INITIAL ASSESSMENT OF DISCHARGE NEEDS. PT WAS HAVING PATIENT CARE BY ENVIRONMENTAL TECHNICAL OFFICER IN ROOM AT THE TIME. CM TO ATTEMPT ASSESSMENT OF PT AT A LATER TIME. Bankruptcy Processor: Guanakito Ramos DCPIA - Discharge Planning Initial Assessment Updated by [id number]: Guanakito Ramos on 04/21/19 10:06 am * Is the patient Alert and Oriented? Yes * How many steps to enter\exit or inside your home? 1-O 12-I * PCP DR. GRACE * [facility]. * Preadmission Environment Home Alone * ADLs Independent * Equipment Cane * Other Equipment NO MEDICAL EQUIPMENT PROVIDER PREFERENCE * List name and contact numbers for known caregivers / representatives who currently or will assist patient after discharge: MAY PEREZ, SON, * Verbal permission to speak to the caregivers and representatives has been obtained from the patient. Yes * Community resources currently utilized None * Please name any agencies selected above. NONE * Additional services required to return to the preadmission environment? Yes * Has this patient been hospitalized within the prior 30 days at any hospital? No Coverage Notice Reviewer: [id number] - Guanakito Ramos Notice Issued Date-Time: 04/21/2019 8:40 Notice Type: IM Discharge Notice Notice Delivered To: Patient Relationship to Patient: Full Fashioned Garment Knitter Name: Delivery Method: HAND - Hand Delivered Cheyenne Days: Prior Verbal Notification: Recipient Understood Notice: Yes Recipient Signature: Yes Med Rec Note Co-signed by Attending: Coverage Notice Comment: Last DP export: 04/21/19 9:06 Patient Name: ETIENNE PEREZ Page 83430 at 1013 All edits/amendments must be made on the electronic document DICTATION DATE: 04/21/19 1012 SILK SCREEN ETCHER: HIEN 04/21/19 1012 RPT#: [id number] DC DATE: STATUS: ADM IN [facility] [address] [place] [address] END OF REPORT
[2019-04-21 12:37] VITALS: BP 134/67
--- NOTE | 2019-04-21 13:54 | NUR ---
OT NOTE: PT MORE CONFUSED THAN YESTERDAY. PERFORMED BED MOB WITH MIN ASSIST; AMB TO BATHROOM WITH MIN ASSIST; TOILET HYGIENE WITH MIN ASSIST; CLOTHING MGMT WITH MIN/MOD ASSIST; ABLE TO JR SOCKS WITH SET UP. MARVEL CASANOVA, OTR/L
--- NOTE | 2019-04-21 13:55 | NUR ---
OT NOTE: PT COMPLETED TOILETING TASKS WITH MIN A. PT COMPLETED ADL MOB WITH CGA. PT COMPLETED BED MOB WITH SBA. PT REQUIRED EXTENSIVE CUES SECONDARY TO CONFUSION. THANK YOU, RHONDA SANCHEZ
--- NOTE | 2019-04-21 15:02 | NUR ---
Rehab Note- The patient has been signed off by PT to nursing and OT Eval completed and patient is high level of independence. THe patient is too high level for inpatient acute rehab. Spoke with JAY Dudley. Thank you for this referral! Karin Ochoa RN Clinical Liaison, [facility] Rehab
--- NOTE | 2019-04-21 15:18 | MORECARE ---
CASE MANAGEMENT DISCHARGE SUMMARY PATIENT: ETIENNE PEREZ HAND UNIT: [id number] ADM DATE: 04/14/19 AGE: 78 : 40 SEX: F ROOM/BED: D.1719 AUTHOR: SU LAURENT PHYSICIAN: REFERRING PHYSICIAN: BETITO GRACE MD DATE OF SERVICE: 04/21/19 Discharge Plan Patient Name: ETIENNE PEREZ [facility] : 1940 Planned Disposition: Senior Living Facility Anticipated Discharge Date: Discharge Date: Expected LOS: Initial Reviewer: [id number] Initial Review Date: 04/20/2019 Generated: 04/21/19 4:17 pm Comments DCP- Discharge Planning Updated by [id number]: Guanakito Ramos on 04/21/19 9:[address] Patient Name: ETIENNE PEREZ Admission Status: ER Accout number: [id number] Admission Date: 04-14-2019 : 1940 Admission Diagnosis: Attending: BETITO GRACE Current LOS: 7 Anticipated DC Date: Planned Disposition: Inpatient Rehab Primary Insurance: [employer] [facility] PLANNED EXTERNAL PROVIDER: [facility] INPATIENT REHAB Discharge Planning Comments: CM MET WITH PT IN ROOM TO DISCUSS DISCHARGE PLANNING AND NEEDS. PT REPORTS LIVING AT HOME INDEPENDENTLY AND ALONE. PT REPORTS ONE STEP OUTSIDE INTO THE HOME AND HER LAUNDRY ROOM IS DOWNSTAIRS IN THE HOME, APPROXIMATELY 12-14 STEPS. PT HAS A CANE WITH NO MEDICAL EQUIPMENT PROVIDER PREFERNECE. PT HAS NO OUTSIDE SERVICES ASSISTING IN THE HOME. CM DISCUSSED AVAILABILITY OF HOME HEALTH, REHAB SERVICES AND MEDICAL EQUIPMENT. PT WOULD LIKE REHAB AT [facility], REPORTS HER SON WILL PICK HER UP FOR DISCHARGE HOME. IMPORTANT MESSAGE FROM MEDICARE PROVIDED AND EXPLAINED. PT ASKING FOR REHAB AT [facility]. CM WAITING RESULTS OF INPATIENT REHAB PRESCREENING. Hand Bobbin Cleaner: Guanakito Ramos DCP- Discharge Planning Updated by [id number]: Guanakito Ramos on 04/20/19 4:[address] Patient Name: ETIENNE PEREZ Admission Status: ER Accout number: [id number] Admission Date: 04-14-2019 : 1940 Admission Diagnosis: Attending: BETITO GRACE Current LOS: 6 Anticipated DC Date: Planned Disposition: Primary Insurance: [employer] [facility] PFFS Discharge Planning Comments: CM RECEIVED ORDER FOR INPATIENT REHAB PRESCREENING. CM ATTEMPTED TO MEET WITH PT FOR INITIAL ASSESSMENT OF DISCHARGE NEEDS. PT WAS HAVING PATIENT CARE BY RETAIL DEPARTMENT SUPERVISOR IN ROOM AT THE TIME. CM TO ATTEMPT ASSESSMENT OF PT AT A LATER TIME. Hand Bobbin Cleaner: Guanakito Ramos DCPIA - Discharge Planning Initial Assessment Updated by [id number]: Guanakito Ramos on 04/21/19 10:06 am * Is the patient Alert and Oriented? Yes * How many steps to enter\exit or inside your home? 1-O / 12-I * PCP DR. GRACE * Pharmacy [facility] ON [facility]. * Preadmission Environment Home Alone * ADLs Independent * Equipment Cane * Other Equipment NO MEDICAL EQUIPMENT PROVIDER PREFERENCE * List name and contact numbers for known caregivers / representatives who currently or will assist patient after discharge: MAY PEREZ, SON, * Verbal permission to speak to the caregivers and representatives has been obtained from the patient. Yes * Community resources currently utilized None * Please name any agencies selected above. NONE * Additional services required to return to the preadmission environment? Yes * Has this patient been hospitalized within the prior 30 days at any hospital? No Coverage Notice Reviewer: [id number] - Guanakito Ramos Notice Issued Date-Time: 04/21/2019 8:40 Notice Type: IM Discharge Notice Notice Delivered To: Patient Relationship to Patient: Disease And Insect Control Boss Name: Delivery Method: HAND - Hand Delivered Cheyenne Days: Prior Verbal Notification: Recipient Understood Notice: Yes Recipient Signature: Yes Med Rec Note Co-signed by Attending: Coverage Notice Comment: Last DP export: 04/21/19 9:13 Patient Name: ETIENNE PEREZ Page 11548 at 1518 All edits/amendments must be made on the electronic document DICTATION DATE: 04/21/191516 DIESEL ENGINE ERECTOR: HIEN 04/21/191516 RPT#: [id number] DC DATE: STATUS: ADM IN [facility] [address] [place] [address] END OF REPORT
--- NOTE | 2019-04-21 15:28 | MORECARE ---
CASE MANAGEMENT DISCHARGE SUMMARY PATIENT: ETIENNE PEREZ UNIT: [id number] ADM DATE: 04/14/19 AGE: 78 : 40 SEX: F ROOM/BED: D.4188 AUTHOR: SU LAURENT PHYSICIAN: REFERRING PHYSICIAN: BETITO GRACE MD DATE OF SERVICE: 04/21/19 Discharge Plan Patient Name: ETIENNE PEREZ Facility: [facility]:[place] : 1940 Planned Disposition: Intermediate Facility Anticipated Discharge Date: Discharge Date: Expected LOS: Initial Reviewer: [id number] Initial Review Date: 04/20/2019 Generated: 04/21/19 4:27 pm Comments DCP- Discharge Planning Updated by [id number]: Guanakito Ramos on 04/21/19 2:[address] Patient Name: ETIENNE PEREZ Encounter No: [id number] : 1940 Primary Insurance: [employer] [facility] PF Anticipated DC Date: Planned Disposition: Intermediate Facility External Planned Provider: WAITING PATIENT DECISION DCP follow-up note: CM RECEIVED MESSAGE FROM RAJESH OF [facility] INPATIENT REHAB, PT TOO HIGH FUNCTIONING FOR INPATIENT REHAB, INSURANCE WILL NOT APPROVE. CM SPOKE TO PT IN ROOM REGARDING SENIOR LIVING REHAB OR HOME HEALTH. PROVIDER LISTINGS GIVEN FOR BOTH SERVICES. PT WANT TO TALK TO DR. GRACE AND HER SON PRIOR TO MAKING FURTHER DECISIONS. CM WAITING PT TO SPEAK TO DOCTOR AND HER SON REGARDING SENIOR LIVING REHAB VS HOME HEALTH. CM TO CONTINUE TO FOLLOW AND ASSIST NEEDED. PATITO JARRELL DCP- Discharge Planning Updated by [id number]: Guanakito Ramos on 04/21/19 9:[address] Patient Name: ETIENNE PEREZ Admission Status: ER Accout number: [id number] Admission Date: 04-14-2019 : 1940 Admission Diagnosis: Attending: BETITO GRACE Current LOS: 7 Anticipated DC Date: Planned Disposition: Inpatient Rehab Primary Insurance: abeo [facility] PF PLANNED EXTERNAL PROVIDER: [facility] INPATIENT REHAB Discharge Planning Comments: CM MET WITH PT IN ROOM TO DISCUSS DISCHARGE PLANNING AND NEEDS. PT REPORTS LIVING AT HOME INDEPENDENTLY AND ALONE. PT REPORTS ONE STEP OUTSIDE INTO THE HOME AND HER LAUNDRY ROOM IS DOWNSTAIRS IN THE HOME, APPROXIMATELY 12-14 STEPS. PT HAS A CANE WITH NO MEDICAL EQUIPMENT PROVIDER PREFERNECE. PT HAS NO OUTSIDE SERVICES ASSISTING IN THE HOME. CM DISCUSSED AVAILABILITY OF HOME HEALTH, REHAB SERVICES AND MEDICAL EQUIPMENT. PT WOULD LIKE REHAB AT [facility], REPORTS HER SON WILL PICK HER UP FOR DISCHARGE HOME. IMPORTANT MESSAGE FROM MEDICARE PROVIDED AND EXPLAINED. PT ASKING FOR REHAB AT [facility]. CM WAITING RESULTS OF INPATIENT REHAB PRESCREENING. Windows Server Architect: Guanakito Ramos DCP- Discharge Planning Updated by [id number]: Guanakito Ramos on 04/20/19 4:[address] Patient Name: ETIENNE PEREZ Admission Status: ER Accout number: [id number] Admission Date: 04-14-2019 : 1940 Admission Diagnosis: Attending: BETITO GRACE Current LOS: 6 Anticipated DC Date: Planned Disposition: Primary Insurance: [employer] [facility] Discharge Planning Comments: CM RECEIVED ORDER FOR INPATIENT REHAB PRESCREENING. CM ATTEMPTED TO MEET WITH PT FOR INITIAL ASSESSMENT OF DISCHARGE NEEDS. PT WAS HAVING PATIENT CARE BY HOSE INSPECTOR AND PATCHER IN ROOM AT THE TIME. CM TO ATTEMPT ASSESSMENT OF PT AT A LATER TIME. Windows Server Architect: Guanakito Ramos DCPIA - Discharge Planning Initial Assessment Updated by [email or web address]: Guanakito Ramos on 04/21/19 10:06 am * Is the patient Alert and Oriented? Yes * How many steps to enter\exit or inside your home? 1-O / 12-I * PCP DR. GRACE * Pharmacy [facility] ON [facility]. * Preadmission Environment Home Alone * ADLs Independent * Equipment Cane * Other Equipment NO MEDICAL EQUIPMENT PROVIDER PREFERENCE * List name and contact numbers for known caregivers / representatives who currently or will assist patient after discharge: MAY PEREZ, SON, * Verbal permission to speak to the caregivers and representatives has been obtained from the patient. Yes * Community resources currently utilized None * Please name any agencies selected above. NONE * Additional services required to return to the preadmission environment? Yes * Has this patient been hospitalized within the prior 30 days at any hospital? No Coverage Notice Reviewer: [id number] Chinyere Ramos Notice Issued Date-Time: 04/21/2019 8:40 Notice Type: IM Discharge Notice Notice Delivered To: Patient Relationship to Patient: Two Needle Machine Operator Name: Delivery Method: HAND - Hand Delivered Cheyenne Days: Prior Verbal Notification: Recipient Understood Notice: Yes Recipient Signature: Yes Med Rec Note Co-signed by Attending: Coverage Notice Comment: Last DP export: 04/21/19 2:18 Patient Name: ETIENNE PEREZ Page 70221 at 1528 All edits/amendments must be made on the electronic document DICTATION DATE: 04/21/191526 UNDERWATER ROBOTICIST: HIEN 04/21/191526 RPT#: [id number] DC DATE: STATUS: ADM IN [facility] [address] [place] [address] END OF REPORT
[2019-04-21 18:06] VITALS: BP 115/58
[2019-04-21 20:00] VITALS: BP 138/53
[2019-04-22] VITALS: BP 131/47
[2019-04-22 04:00] VITALS: BP 137/59
[2019-04-22 06:34] LABS: ANION GAP 11.6 mmol/L (8-16); CALCIUM 8.7 mg/dL (8.5-10.1); CARBON DIOXIDE 31.2 mmol/L (21.0-32.0); CREATININE - SERUM 0.8 mg/dL (0.6-1.3); POTASSIUM - SERUM 3.8 mmol/L (3.5-5.1)
[2019-04-22 09:06] VITALS: BP 142/72
--- NOTE | 2019-04-22 09:40 | MORECARE ---
CASE MANAGEMENT DISCHARGE SUMMARY PATIENT: ETIENNE PEREZ UNIT: [id number] ADM DATE: 04/14/19 AGE: 78 : 40 SEX: F ROOM/BED: D.7668 AUTHOR: SU LAURENT PHYSICIAN: REFERRING PHYSICIAN: BETITO GRACE MD DATE OF SERVICE: 04/22/19 Discharge Plan Patient Name: ETIENNE PEREZ Facility: [facility]:[place] : 1940 Planned Disposition: Fdc Facility Anticipated Discharge Date: 04/22/19 Discharge Date: Expected LOS: 8 Initial Reviewer: [id number] Initial Review Date: 04/20/2019 Generated: 04/22/19 10:40 am Comments DCP- Discharge Planning Updated by [id number]: Guanakito Ramos on 04/21/19 2:[address] Patient Name: ETIENNE PEREZ Encounter No: [id number] : 1940 Primary Insurance: [employer] [facility] PFFS Anticipated DC Date: Planned Disposition: Fdc Facility External Planned Provider: WAITING PATIENT DECISION DCP follow-up note: CM RECEIVED MESSAGE FROM RAJESH OF [facility] INPATIENT REHAB, PT TOO HIGH FUNCTIONING FOR INPATIENT REHAB, INSURANCE WILL NOT APPROVE. CM SPOKE TO PT IN ROOM REGARDING RETIREMENT REHAB OR HOME HEALTH. PROVIDER LISTINGS GIVEN FOR BOTH SERVICES. PT WANT TO TALK TO DR. GRACE AND HER SON PRIOR TO MAKING FURTHER DECISIONS. CM WAITING PT TO SPEAK TO DOCTOR AND HER SON REGARDING RETIREMENT REHAB VS HOME HEALTH. CM TO CONTINUE TO FOLLOW AND ASSIST NEEDED. PATITO JARRELL DCP- Discharge Planning Updated by [id number]: Guanakito Ramos on 04/21/19 9:[address] Patient Name: ETIENNE PEREZ Admission Status: ER Accout number: [id number] Admission Date: 04-14-2019 : 1940 Admission Diagnosis: Attending: BETITO GRACE Current LOS: 7 Anticipated DC Date: Planned Disposition: Inpatient Rehab Primary Insurance: [employer] [facility] PFFS PLANNED EXTERNAL PROVIDER: [facility] INPATIENT REHAB Discharge Planning Comments: CM MET WITH PT IN ROOM TO DISCUSS DISCHARGE PLANNING AND NEEDS. PT REPORTS LIVING AT HOME INDEPENDENTLY AND ALONE. PT REPORTS ONE STEP OUTSIDE INTO THE HOME AND HER LAUNDRY ROOM IS DOWNSTAIRS IN THE HOME, APPROXIMATELY 12-14 STEPS. PT HAS A CANE WITH NO MEDICAL EQUIPMENT PROVIDER PREFERNECE. PT HAS NO OUTSIDE SERVICES ASSISTING IN THE HOME. CM DISCUSSED AVAILABILITY OF HOME HEALTH, REHAB SERVICES AND MEDICAL EQUIPMENT. PT WOULD LIKE REHAB AT [facility], REPORTS HER SON WILL PICK HER UP FOR DISCHARGE HOME. IMPORTANT MESSAGE FROM MEDICARE PROVIDED AND EXPLAINED. PT ASKING FOR REHAB AT [facility]. CM WAITING RESULTS OF INPATIENT REHAB PRESCREENING. Systems Auditor: Guanakito Ramos DCP- Discharge Planning Updated by [id number]: Guanakito Ramos on 04/20/19 4:[address] Patient Name: ETIENNE PEREZ Admission Status: ER Accout number: [id number] Admission Date: 04-14-2019 : 1940 Admission Diagnosis: Attending: BETITO GRACE Current LOS: 6 Anticipated DC Date: Planned Disposition: Primary Insurance: [employer] [facility] Discharge Planning Comments: CM RECEIVED ORDER FOR INPATIENT REHAB PRESCREENING. CM ATTEMPTED TO MEET WITH PT FOR INITIAL ASSESSMENT OF DISCHARGE NEEDS. PT WAS HAVING PATIENT CARE BY GEEK SQUAD AUTOTECH IN ROOM AT THE TIME. CM TO ATTEMPT ASSESSMENT OF PT AT A LATER TIME. Systems Auditor: Guanakito Ramos DCPIA - Discharge Planning Initial Assessment Updated by [email or web address]: Guanakito Ramos on 04/21/19 10:06 am * Is the patient Alert and Oriented? Yes * How many steps to enter\exit or inside your home? 1-O / 12-I * PCP DR. GRACE * Pharmacy [facility]. * Preadmission Environment Home Alone * ADLs Independent * Equipment Cane * Other Equipment NO MEDICAL EQUIPMENT PROVIDER PREFERENCE * List name and contact numbers for known caregivers / representatives who currently or will assist patient after discharge: MAY PEREZ, SON, * Verbal permission to speak to the caregivers and representatives has been obtained from the patient. Yes * Community resources currently utilized None * Please name any agencies selected above. NONE * Additional services required to return to the preadmission environment? Yes * Has this patient been hospitalized within the prior 30 days at any hospital? No External Providers External Provider: [facility] Next Contact Date: 04/22/2019 Service Request Date: Service Type: Resolution: Reviewer: Comments: Coverage Notice Reviewer: [id number] - Guanakito Ramos Notice Issued Date-Time: 04/21/2019 8:40 Notice Type: IM Discharge Notice Notice Delivered To: Patient Relationship to Patient: Pathology Manager Name: Delivery Method: HAND - Hand Delivered Cheyenne Days: Prior Verbal Notification: Recipient Understood Notice: Yes Recipient Signature: Yes Med Rec Note Co-signed by Attending: Coverage Notice Comment: Last DP export: 04/21/19 2:28 Patient Name: ETIENNE PEREZ Page 37679 at 0940 All edits/amendments must be made on the electronic document DICTATION DATE: 04/22/19938 REPAIRER VENEER SHEET: HIEN 04/22/19938 RPT#: [id number] DC DATE: STATUS: ADM IN [facility] [address] [place] [address] END OF REPORT
--- NOTE | 2019-04-22 10:06 | MORECARE ---
CASE MANAGEMENT DISCHARGE SUMMARY PATIENT: ETIENNE PEREZ HAND UNIT: [id number] ADM DATE: 04/14/19 AGE: 78 : 40 SEX: F ROOM/BED: D.3818 AUTHOR: SU LAURENT PHYSICIAN: REFERRING PHYSICIAN: BETITO GRACE MD DATE OF SERVICE: 04/22/19 Discharge Plan Patient Name: ETIENNE PEREZ Facility: [facility]:[place] : 1940 Planned Disposition: Senior Living Facility Anticipated Discharge Date: 04/22/19 Discharge Date: Expected LOS: 8 Initial Reviewer: [id number] Initial Review Date: 04/20/2019 Generated: 04/22/19 11:06 am Comments DCP- Discharge Planning Updated by [id number]: Guanakito Sanders on 04/22/19 9:[address] Patient Name: ETIENNE PEREZ Encounter No: [id number] : 1940 Primary Insurance: [employer] [facility] Anticipated DC Date: 04-22-2019 Planned Disposition: Senior Living Facility External Planned Provider[facility] DCP follow-up note: CM REVIEWED CHART. CM MET WITH PT IN ROOM, PT REPORTS SPEAKING TO THE DOCTOR AND ONE OF HER SONS, THEY WANT [facility] FOR REHAB. CHOICE SIGNED. CM NOTIFIED PT THAT THE DOCTOR IS READY FOR HER TO DISCHARGE TO REHAB TODAY. PT IN AGREEMENT WITH PLAN FOR REHAB TODAY AT [facility]. CM CALLED AND PROVIDED REFERRAL TO [facility] AT [phone]. CM NOTIFIED [facility] THAT PT IS READY TO DISCHARGE TO REHAB TODAY. CM FAXED REFERRAL TO [facility] FOR [facility] AT [phone]. CM WAITING ADMISSION DETERMINATION FROM [facility]. Guanakito Sanders, CASE JOSEPH DCP- Discharge Planning Updated by [id number]: Guanakito Sanders on 04/21/19 2:[address] Patient Name: ETIENNE PEREZ Encounter No: [id number] : 1940 Primary Insurance: [employer] [facility] PFFS Anticipated DC Date: Planned Disposition: Senior Living Facility External Planned Provider: WAITING PATIENT DECISION DCP follow-up note: CM RECEIVED MESSAGE FROM RAJESH OF [facility] INPATIENT REHAB, PT TOO HIGH FUNCTIONING FOR INPATIENT REHAB, INSURANCE WILL NOT APPROVE. CM SPOKE TO PT IN ROOM REGARDING RETIREMENT REHAB OR HOME HEALTH. PROVIDER LISTINGS GIVEN FOR BOTH SERVICES. PT WANT TO TALK TO DR. GRACE AND HER SON PRIOR TO MAKING FURTHER DECISIONS. CM WAITING PT TO SPEAK TO DOCTOR AND HER SON REGARDING RETIREMENT REHAB VS HOME HEALTH. CM TO CONTINUE TO FOLLOW AND ASSIST NEEDED. GUANAKITO SANDERS, CASE MANAGEMENT DCP- Discharge Planning Updated by [id number]: Guanakito Sanders on 04/21/19 9:[address] Patient Name: ETIENNE PEREZ Admission Status: ER Accout number: [id number] Admission Date: 04-14-2019 : 1940 Admission Diagnosis: Attending: BETITO GRACE Current LOS: 7 Anticipated DC Date: Planned Disposition: Inpatient Rehab Primary Insurance: EDUS [facility] PLANNED EXTERNAL PROVIDER: [facility] INPATIENT REHAB Discharge Planning Comments: CM MET WITH PT IN ROOM TO DISCUSS DISCHARGE PLANNING AND NEEDS. PT REPORTS LIVING AT HOME INDEPENDENTLY AND ALONE. PT REPORTS ONE STEP OUTSIDE INTO THE HOME AND HER LAUNDRY ROOM IS DOWNSTAIRS IN THE HOME, APPROXIMATELY 12-14 STEPS. PT HAS A CANE WITH NO MEDICAL EQUIPMENT PROVIDER PREFERNECE. PT HAS NO OUTSIDE SERVICES ASSISTING IN THE HOME. CM DISCUSSED AVAILABILITY OF HOME HEALTH, REHAB SERVICES AND MEDICAL EQUIPMENT. PT WOULD LIKE REHAB AT [facility], REPORTS HER SON WILL PICK HER UP FOR DISCHARGE HOME. IMPORTANT MESSAGE FROM MEDICARE PROVIDED AND EXPLAINED. PT ASKING FOR REHAB AT [facility]. CM WAITING RESULTS OF INPATIENT REHAB PRESCREENING. Business Proposal Rep: Guanakito Sanders DCP- Discharge Planning Updated by [id number]: Guanakito Sanders on 04/20/19 4:[address] Patient Name: ETIENNE PEREZ Admission Status: ER Accout number: [id number] Admission Date: 04-14-2019 : 1940 Admission Diagnosis: Attending: BETITO GRACE Current LOS: 6 Anticipated DC Date: Planned Disposition: Primary Insurance: [employer] [facility] Discharge Planning Comments: CM RECEIVED ORDER FOR INPATIENT REHAB PRESCREENING. CM ATTEMPTED TO MEET WITH PT FOR INITIAL ASSESSMENT OF DISCHARGE NEEDS. PT WAS HAVING PATIENT CARE BY SCREEN CUTTER AND TRIMMER IN ROOM AT THE TIME. CM TO ATTEMPT ASSESSMENT OF PT AT A LATER TIME. Business Proposal Rep: Guanakito Rachel DCPIA - Discharge Planning Initial Assessment Updated by [id number]: Guanakito Sanders on 04/21/19 10:06 am * Is the patient Alert and Oriented? Yes * How many steps to enter\exit or inside your home? 1-O / 12-I * PCP DR. GRACE * Pharmacy [facility]. * Preadmission Environment Home Alone * ADLs Independent * Equipment Cane * Other Equipment NO MEDICAL EQUIPMENT PROVIDER PREFERENCE * List name and contact numbers for known caregivers / representatives who currently or will assist patient after discharge: MAY PEREZ, SON, * Verbal permission to speak to the caregivers and representatives has been obtained from the patient. Yes * Community resources currently utilized None * Please name any agencies selected above. NONE * Additional services required to return to the preadmission environment? Yes * Has this patient been hospitalized within the prior 30 days at any hospital? No Coverage Notice Reviewer: [id number] Sanders Notice Issued Date-Time: 04/21/2019 8:40 Notice Type: IM Discharge Notice Notice Delivered To: Patient Relationship to Patient: Bath Mix Operator Name: Delivery Method: HAND - Hand Delivered Cheyenne Days: Prior Verbal Notification: Recipient Understood Notice: Yes Recipient Signature: Yes Med Rec Note Co-signed by Attending: Coverage Notice Comment: Reviewer: [id number] Sanders Notice Issued Date-Time: 04/22/2019 9:25 Notice Type: Patient Choice Letter Notice Delivered To: Patient Relationship to Patient: Bath Mix Operator Name: Delivery Method: HAND - Hand Delivered Cheyenne Days: Prior Verbal Notification: Recipient Understood Notice: Yes Recipient Signature: Yes Med Rec Note Co-signed by Attending: Coverage Notice Comment: [facility] Last DP export: 04/22/19 8:40 Patient Name: ETIENNE PEREZ Page 51750 at 1006 All edits/amendments must be made on the electronic document DICTATION DATE: 04/22/19 1006 RUBBER CURER: HIEN 04/22/19 1006 RPT#: [id number] DC DATE: STATUS: ADM IN [facility] [address] [place] [address] END OF REPORT
--- NOTE | 2019-04-22 11:59 | NUR ---
OT NOTE: LESS CONFUSION TODAY. HUMOR BEGINING TO RETURN. AMB TO BATHROOM WITH MIN ASSIST; TOILETING WITH CGA; AMB TO SINK TO PERFORM SINK HYGIENE WITH CGA; BED MOB WITH CGA; UE AROM EXS WITH MIN REST BREAKS AND NO SOB. MARVEL CASANOVA, OTR/L
[2019-04-22 12:04] VITALS: BP 129/72
[2019-04-22 16:29] VITALS: BP 132/62
--- NOTE | 2019-04-22 17:08 | NUR ---
OT NOTE: PT COMPLETED TOILETING TASKS WITH SBA. PT COMPLETED ADL MOB TASKS WITH SBA/CGA. PT COMPLETED EOB SITTING BALANCE WITH SBA. PT IS LESS CONFUSED TODAY AND REQUIRED LESS CUES. THANK YOU,RHONDA SANCHEZ
--- NOTE | 2019-04-22 17:08 | MORECARE ---
CASE MANAGEMENT DISCHARGE SUMMARY PATIENT: ETIENNE PEREZ HAND UNIT: [id number] ADM DATE: 04/14/19 AGE: 78 : 40 SEX: F ROOM/BED: D.1145 AUTHOR: SU LAURENT PHYSICIAN: REFERRING PHYSICIAN: BETITO GRACE MD DATE OF SERVICE: 04/22/19 Discharge Plan Patient Name: ETIENNE PEREZ Facility: [facility]:[place] : 1940 Planned Disposition: Care Home Facility Anticipated Discharge Date: 04/22/19 Discharge Date: Expected LOS: 8 Initial Reviewer: [id number] Initial Review Date: 04/20/2019 Generated: 04/22/19 6:08 pm Comments DCP- Discharge Planning Updated by [email or web address]: Guanakito Sanders on 04/22/19 4:[address] Patient Name: ETIENNE PEREZ Encounter No: [id number] : 1940 Primary Insurance: [employer] [facility] PFFS Anticipated DC Date: 04-22-2019 Planned Disposition: Care Home Facility External Planned Provider: [facility], MEDICARE REHAB BED DCP follow-up note: JAY CALLED [facility] AT [phone]. [facility] ADVISED SHE IS WORKING ON REFERRAL FOR REHAB NOW, SHE IS NOT SURE IF THEY WILL HAVE AVAILABLE BED AT [facility] BUT SHE WILL CHECK AND PROCEED WITH REFERRAL. CM WAITING ADMISSION DETERMINATION FROM [facility]. Guanakito Sanedrs, CASE MANAGEMENT DCP- Discharge Planning Updated by [id number]: Guanakito Sanders on 04/22/19 9:[address] Patient Name: ETIENNE PEREZ Encounter No: [id number] : 1940 Primary Insurance: [employer] [facility] PFFS Anticipated DC Date: 04-22-2019 Planned Disposition: Care Home Facility External Planned Provider: [facility], MEDICARE REHAB BED DCP follow-up note: CM REVIEWED CHART. CM MET WITH PT IN ROOM, PT REPORTS SPEAKING TO THE DOCTOR AND ONE OF HER SONS, THEY WANT [facility] FOR REHAB. CHOICE SIGNED. CM NOTIFIED PT THAT THE DOCTOR IS READY FOR HER TO DISCHARGE TO REHAB TODAY. PT IN AGREEMENT WITH PLAN FOR REHAB TODAY AT [facility]. CM CALLED AND PROVIDED REFERRAL TO [facility] AT [phone]. CM NOTIFIED [facility] THAT PT IS READY TO DISCHARGE TO REHAB TODAY. CM FAXED REFERRAL TO [facility] AT [phone]. CM WAITING ADMISSION DETERMINATION FROM [facility]. Guanakito Sanders CASE MANAGEMENT DCP- Discharge Planning Updated by [id number]: Guanakito Sanders on 04/21/19 2:[address] Patient Name: ETIENNE PEREZ Encounter No: [id number] : 1940 Primary Insurance: [employer]er[employer] [facility] Anticipated DC Date: Planned Disposition: Care Home Facility External Planned Provider: WAITING PATIENT DECISION DCP follow-up note: CM RECEIVED MESSAGE FROM RAJESH OF [facility] INPATIENT REHAB, PT TOO HIGH FUNCTIONING FOR INPATIENT REHAB, INSURANCE WILL NOT APPROVE. CM SPOKE TO PT IN ROOM REGARDING INTERMEDIATE REHAB OR HOME HEALTH. PROVIDER LISTINGS GIVEN FOR BOTH SERVICES. PT WANT TO TALK TO DR. GRACE AND HER SON PRIOR TO MAKING FURTHER DECISIONS. CM WAITING PT TO SPEAK TO DOCTOR AND HER SON REGARDING INTERMEDIATE REHAB VS HOME HEALTH. CM TO CONTINUE TO FOLLOW AND ASSIST NEEDED. GUANAKITO SANDERS CASE JOSEPH DCP- Discharge Planning Updated by [id number]: Guanakito Sanders on 04/21/19 9:[address] Patient Name: ETIENNE PEREZ Admission Status: ER Accout number: [id number] Admission Date: 04-14-2019 : 1940 Admission Diagnosis: Attending: BETITO GRACE Current LOS: 7 Anticipated DC Date: Planned Disposition: Inpatient Rehab Primary Insurance: [employer]eran [facility] PLANNED EXTERNAL PROVIDER: [facility] INPATIENT REHAB Discharge Planning Comments: CM MET WITH PT IN ROOM TO DISCUSS DISCHARGE PLANNING AND NEEDS. PT REPORTS LIVING AT HOME INDEPENDENTLY AND ALONE. PT REPORTS ONE STEP OUTSIDE INTO THE HOME AND HER LAUNDRY ROOM IS DOWNSTAIRS IN THE HOME, APPROXIMATELY 12-14 STEPS. PT HAS A CANE WITH NO MEDICAL EQUIPMENT PROVIDER PREFERNECE. PT HAS NO OUTSIDE SERVICES ASSISTING IN THE HOME. CM DISCUSSED AVAILABILITY OF HOME HEALTH, REHAB SERVICES AND MEDICAL EQUIPMENT. PT WOULD LIKE REHAB AT [facility], REPORTS HER SON WILL PICK HER UP FOR DISCHARGE HOME. IMPORTANT MESSAGE FROM MEDICARE PROVIDED AND EXPLAINED. PT ASKING FOR REHAB AT [facility]. CM WAITING RESULTS OF INPATIENT REHAB PRESCREENING. Test Operator: Guanakito Sanders DCP- Discharge Planning Updated by WANG: Guanakito aSnders on 04/20/19 4:[address] Patient Name: ETIENNE PEREZ Admission Status: ER Accout number: [id number] Admission Date: 04-14-2019 : 1940 Admission Diagnosis: Attending: BETITO GRACE Current LOS: 6 Anticipated DC Date: Planned Disposition: Primary Insurance: [employer] [facility] PFFS Discharge Planning Comments: CM RECEIVED ORDER FOR INPATIENT REHAB PRESCREENING. CM ATTEMPTED TO MEET WITH PT FOR INITIAL ASSESSMENT OF DISCHARGE NEEDS. PT WAS HAVING PATIENT CARE BY GRAVEL INSPECTOR IN ROOM AT THE TIME. CM TO ATTEMPT ASSESSMENT OF PT AT A LATER TIME. Test Operator: Guanakito Sanders DCPIA - Discharge Planning Initial Assessment Updated by [id number]: Guanakito Sanders on 04/21/19 10:06 am * Is the patient Alert and Oriented? Yes * How many steps to enter\exit or inside your home? 1-O / 12-I * PCP DR. GRACE * Pharmacy [facility]. * Preadmission Environment Home Alone * ADLs Independent * Equipment Cane * Other Equipment NO MEDICAL EQUIPMENT PROVIDER PREFERENCE * List name and contact numbers for known caregivers / representatives who currently or will assist patient after discharge: MAY PEREZ, SON, * Verbal permission to speak to the caregivers and representatives has been obtained from the patient. Yes * Community resources currently utilized None * Please name any agencies selected above. NONE * Additional services required to return to the preadmission environment? Yes * Has this patient been hospitalized within the prior 30 days at any hospital? No Coverage Notice Reviewer: [id number] Chinyere Sanders Notice Issued Date-Time: 04/21/2019 8:40 Notice Type: IM Discharge Notice Notice Delivered To: Patient Relationship to Patient: Tool Planner Name: Delivery Method: HAND - Hand Delivered Cheyenne Days: Prior Verbal Notification: Recipient Understood Notice: Yes Recipient Signature: Yes Med Rec Note Co-signed by Attending: Coverage Notice Comment: Reviewer: [id number] Sanders Notice Issued Date-Time: 04/22/2019 9:25 Notice Type: Patient Choice Letter Notice Delivered To: Patient Relationship to Patient: Tool Planner Name: Delivery Method: HAND - Hand Delivered Cheyenne Days: Prior Verbal Notification: Recipient Understood Notice: Yes Recipient Signature: Yes Med Rec Note Co-signed by Attending: Coverage Notice Comment: [facility] Last DP export: 04/22/19 9:06 Patient Name: ETIENNE PEREZ Page 81271 at 1708 All edits/amendments must be made on the electronic document DICTATION DATE: 04/22/191707 CARDIAC NURSE PRACTITIONER: HIEN 04/22/191707 RPT#: [id number] DC DATE: STATUS: ADM IN [facility] [address] [place] [address] END OF REPORT
[2019-04-22 20:00] VITALS: BP 190/70
[2019-04-23] VITALS: BP 127/52
[2019-04-23 04:00] VITALS: BP 123/65
--- NOTE | 2019-04-23 07:04 | MORECARE ---
CASE MANAGEMENT DISCHARGE SUMMARY PATIENT: ETIENNE PEREZ HAND UNIT: [id number] ADM DATE: 04/14/19 AGE: 78 : 40 SEX: F ROOM/BED: D.4083 AUTHOR: SU LAURENT PHYSICIAN: REFERRING PHYSICIAN: BETITO GRACE MD DATE OF SERVICE: 04/23/19 Discharge Plan Patient Name: ETIENNE PEREZ Facility: [facility]:[place] : 1940 Planned Disposition: Senior Care Facility Anticipated Discharge Date: 04/23/19 Discharge Date: Expected LOS: 9 Initial Reviewer: [id number] Initial Review Date: 04/20/2019 Generated: 04/23/19 8:03 am Comments DCP- Discharge Planning Updated by [id number]: Guanakito Sanders on 04/22/19 4:[address] Patient Name: ETIENNE PEREZ Encounter No: [id number] : 1940 Primary Insurance: [employer] [facility] PFFS Anticipated DC Date: 04-22-2019 Planned Disposition: Senior Care Facility External Planned Provider: [facility], MEDICARE REHAB BED DCP follow-up note: JAY CALLED [facility] AT [phone]. [facility] ADVISED SHE IS WORKING ON REFERRAL FOR REHAB NOW, SHE IS NOT SURE IF THEY WILL HAVE AVAILABLE BED AT [facility] BUT SHE WILL CHECK AND PROCEED WITH REFERRAL. CM WAITING ADMISSION DETERMINATION FROM [facility]. Guanakito Sanders, CASE MANAGEMENT DCP- Discharge Planning Updated by [id number]: Guanakito Sanders on 04/22/19 9:[address] Patient Name: ETIENNE PEREZ Encounter No: [id number] : 1940 Primary Insurance: [employer] [facility] PFFS Anticipated DC Date: 04-22-2019 Planned Disposition: Senior Care Facility External Planned Provider: [facility], MEDICARE REHAB BED DCP follow-up note: CM REVIEWED CHART. CM MET WITH PT IN ROOM, PT REPORTS SPEAKING TO THE DOCTOR AND ONE OF HER SONS, THEY WANT [facility] FOR REHAB. CHOICE SIGNED. CM NOTIFIED PT THAT THE DOCTOR IS READY FOR HER TO DISCHARGE TO REHAB TODAY. PT IN AGREEMENT WITH PLAN FOR REHAB TODAY AT [facility]. CM CALLED AND PROVIDED REFERRAL TO [facility] [place] AT [phone]. CM NOTIFIED [facility] THAT PT IS READY TO DISCHARGE TO REHAB TODAY. CM FAXED REFERRAL TO [facility] AT [phone]. CM WAITING ADMISSION DETERMINATION FROM [facility]. Guanakito Sanders CASE MANAGEMENT DCP- Discharge Planning Updated by [id number]: Guanakito Sanders on 04/21/19 2:[address] Patient Name: ETIENNE PEREZ Encounter No: [id number] : 1940 Primary Insurance: ZE[employer] [facility] Anticipated DC Date: Planned Disposition: Senior Care Facility External Planned Provider: WAITING PATIENT DECISION DCP follow-up note: CM RECEIVED MESSAGE FROM RAJESH OF [facility] INPATIENT REHAB, PT TOO HIGH FUNCTIONING FOR INPATIENT REHAB, INSURANCE WILL NOT APPROVE. CM SPOKE TO PT IN ROOM REGARDING ALF REHAB OR HOME HEALTH. PROVIDER LISTINGS GIVEN FOR BOTH SERVICES. PT WANT TO TALK TO DR. GRACE AND HER SON PRIOR TO MAKING FURTHER DECISIONS. CM WAITING PT TO SPEAK TO DOCTOR AND HER SON REGARDING ALF REHAB VS HOME HEALTH. CM TO CONTINUE TO FOLLOW AND ASSIST NEEDED. GUANAKITO SANDERS CASE JOSEPH DCP- Discharge Planning Updated by [id number]: Guanakito Sanders on 04/21/19 9:[address] Patient Name: ETIENNE PEREZ Admission Status: ER Accout number: [id number] Admission Date: 04-14-2019 : 1940 Admission Diagnosis: Attending: BETITO GRACE Current LOS: 7 Anticipated DC Date: Planned Disposition: Inpatient Rehab Primary Insurance: ZEFR [facility] PLANNED EXTERNAL PROVIDER: [facility] INPATIENT REHAB Discharge Planning Comments: CM MET WITH PT IN ROOM TO DISCUSS DISCHARGE PLANNING AND NEEDS. PT REPORTS LIVING AT HOME INDEPENDENTLY AND ALONE. PT REPORTS ONE STEP OUTSIDE INTO THE HOME AND HER LAUNDRY ROOM IS DOWNSTAIRS IN THE HOME, APPROXIMATELY 12-14 STEPS. PT HAS A CANE WITH NO MEDICAL EQUIPMENT PROVIDER PREFERNECE. PT HAS NO OUTSIDE SERVICES ASSISTING IN THE HOME. CM DISCUSSED AVAILABILITY OF HOME HEALTH, REHAB SERVICES AND MEDICAL EQUIPMENT. PT WOULD LIKE REHAB AT [facility], REPORTS HER SON WILL PICK HER UP FOR DISCHARGE HOME. IMPORTANT MESSAGE FROM MEDICARE PROVIDED AND EXPLAINED. PT ASKING FOR REHAB AT [facility]. CM WAITING RESULTS OF INPATIENT REHAB PRESCREENING. Printing Press Machinist: Guanakito Sanders DCP- Discharge Planning Updated by WANG: Guanakito Sanedrs on 04/20/19 4:[address] Patient Name: ETIENEN PEREZ Admission Status: ER Accout number: [id number] Admission Date: 04-14-2019 : 1940 Admission Diagnosis: Attending: BETITO GRACE Current LOS: 6 Anticipated DC Date: Planned Disposition: Primary Insurance: [employer] [facility] PFFS Discharge Planning Comments: CM RECEIVED ORDER FOR INPATIENT REHAB PRESCREENING. CM ATTEMPTED TO MEET WITH PT FOR INITIAL ASSESSMENT OF DISCHARGE NEEDS. PT WAS HAVING PATIENT CARE BY BEHAVIOR ANALYST IN ROOM AT THE TIME. CM TO ATTEMPT ASSESSMENT OF PT AT A LATER TIME. Printing Press Machinist: Guanakito Sanders DCPIA - Discharge Planning Initial Assessment Updated by [id number]: Guanakito Sanders on 04/21/19 10:06 am * Is the patient Alert and Oriented? Yes * How many steps to enter\exit or inside your home? 1-O / 12-I * PCP DR. GRACE * Pharmacy [facility]. * Preadmission Environment Home Alone * ADLs Independent * Equipment Cane * Other Equipment NO MEDICAL EQUIPMENT PROVIDER PREFERENCE * List name and contact numbers for known caregivers / representatives who currently or will assist patient after discharge: MAY PEREZ, SON, * Verbal permission to speak to the caregivers and representatives has been obtained from the patient. Yes * Community resources currently utilized None * Please name any agencies selected above. NONE * Additional services required to return to the preadmission environment? Yes * Has this patient been hospitalized within the prior 30 days at any hospital? No Coverage Notice Reviewer: [id number] Chinyere Sanders Notice Issued Date-Time: 04/21/2019 8:40 Notice Type: IM Discharge Notice Notice Delivered To: Patient Relationship to Patient: Seamer Name: Delivery Method: HAND - Hand Delivered Cheyenne Days: Prior Verbal Notification: Recipient Understood Notice: Yes Recipient Signature: Yes Med Rec Note Co-signed by Attending: Coverage Notice Comment: Reviewer: [id number] Sanders Notice Issued Date-Time: 04/22/2019 9:25 Notice Type: Patient Choice Letter Notice Delivered To: Patient Relationship to Patient: Seamer Name: Delivery Method: HAND - Hand Delivered Cheyenne Days: Prior Verbal Notification: Recipient Understood Notice: Yes Recipient Signature: Yes Med Rec Note Co-signed by Attending: Coverage Notice Comment: [facility] Last DP export: 04/22/19 4:08 Patient Name: ETIENNE PEREZ Page 90226 at 0704 All edits/amendments must be made on the electronic document DICTATION DATE: 04/23/19702 REINFORCING ROD LAYER: HIEN 04/23/19702 RPT#: [id number] DC DATE: STATUS: ADM IN [facility] [address] [place] [address] END OF REPORT
--- NOTE | 2019-04-23 07:22 | MORECARE ---
CASE MANAGEMENT DISCHARGE SUMMARY PATIENT: ETIENNE PEREZ HAND UNIT: [id number] ADM DATE: 04/14/19 AGE: 78 : 40 SEX: F ROOM/BED: D.0640 AUTHOR: SU LAURENT PHYSICIAN: REFERRING PHYSICIAN: BETITO GRACE MD DATE OF SERVICE: 04/23/19 Discharge Plan Patient Name: ETIENNE PEREZ Facility: [facility]:[place] : 1940 Planned Disposition: Correction Facility Anticipated Discharge Date: 04/23/19 Discharge Date: Expected LOS: 9 Initial Reviewer: [id number] Initial Review Date: 04/20/2019 Generated: 04/23/19 8:22 am Comments DCP- Discharge Planning Updated by [email or web address]: Guanakito Sanders on 04/22/19 4:[address] Patient Name: ETIENNE PEREZ Encounter No: [id number] : 1940 Primary Insurance: [employer] [facility] PFFS Anticipated DC Date: 04-22-2019 Planned Disposition: Correction Facility External Planned Provider: [facility], MEDICARE REHAB BED DCP follow-up note: JAY CALLED [facility] [place] AT [phone]. [facility] ADVISED SHE IS WORKING ON REFERRAL FOR REHAB NOW, SHE IS NOT SURE IF THEY WILL HAVE AVAILABLE BED AT [facility] BUT SHE WILL CHECK AND PROCEED WITH REFERRAL. CM WAITING ADMISSION DETERMINATION FROM [facility]. Guanakito Sanders, CASE MANAGEMENT DCP- Discharge Planning Updated by [id number]: Guanakito Sanders on 04/22/19 9:[address] Patient Name: ETIENNE PEREZ Encounter No: [id number] : 1940 Primary Insurance: [employer] [facility] PFFS Anticipated DC Date: 04-22-2019 Planned Disposition: Correction Facility External Planned Provider: [facility], MEDICARE REHAB BED DCP follow-up note: CM REVIEWED CHART. CM MET WITH PT IN ROOM, PT REPORTS SPEAKING TO THE DOCTOR AND ONE OF HER SONS, THEY WANT [facility] [place] FOR REHAB. CHOICE SIGNED. CM NOTIFIED PT THAT THE DOCTOR IS READY FOR HER TO DISCHARGE TO REHAB TODAY. PT IN AGREEMENT WITH PLAN FOR REHAB TODAY AT [facility]. CM CALLED AND PROVIDED REFERRAL TO [facility] [place] AT [phone]. CM NOTIFIED [facility] THAT PT IS READY TO DISCHARGE TO REHAB TODAY. CM FAXED REFERRAL TO [facility] FOR [place] AT [phone]. CM WAITING ADMISSION DETERMINATION FROM [facility]. Guanakito Sanders CASE MANAGEMENT DCP- Discharge Planning Updated by [id number]: Guanakito Sanders on 04/21/19 2:[address] Patient Name: ETIENNE PEREZ Encounter No: [id number] : 1940 Primary Insurance: [employer] [facility] Anticipated DC Date: Planned Disposition: Correction Facility External Planned Provider: WAITING PATIENT DECISION DCP follow-up note: CM RECEIVED MESSAGE FROM RAJESH OF [facility] INPATIENT REHAB, PT TOO HIGH FUNCTIONING FOR INPATIENT REHAB, INSURANCE WILL NOT APPROVE. CM SPOKE TO PT IN ROOM REGARDING [facility] OR HOME HEALTH. PROVIDER LISTINGS GIVEN FOR BOTH SERVICES. PT WANT TO TALK TO DR. GRACE AND HER SON PRIOR TO MAKING FURTHER DECISIONS. CM WAITING PT TO SPEAK TO DOCTOR AND HER SON REGARDING [facility] VS HOME HEALTH. CM TO CONTINUE TO FOLLOW AND ASSIST NEEDED. GUANAKITO SANDERS CASE JOSEPH DCP- Discharge Planning Updated by [id number]: Guanakito Sanders on 04/21/19 9:[address] Patient Name: ETIENNE PEREZ Admission Status: ER Accout number: [id number] Admission Date: 04-14-2019 : 1940 Admission Diagnosis: Attending: BETITO GRACE Current LOS: 7 Anticipated DC Date: Planned Disposition: Inpatient Rehab Primary Insurance: [employer] [facility] PLANNED EXTERNAL PROVIDER: [facility] INPATIENT REHAB Discharge Planning Comments: CM MET WITH PT IN ROOM TO DISCUSS DISCHARGE PLANNING AND NEEDS. PT REPORTS LIVING AT HOME INDEPENDENTLY AND ALONE. PT REPORTS ONE STEP OUTSIDE INTO THE HOME AND HER LAUNDRY ROOM IS DOWNSTAIRS IN THE HOME, APPROXIMATELY 12-14 STEPS. PT HAS A CANE WITH NO MEDICAL EQUIPMENT PROVIDER PREFERNECE. PT HAS NO OUTSIDE SERVICES ASSISTING IN THE HOME. CM DISCUSSED AVAILABILITY OF HOME HEALTH, REHAB SERVICES AND MEDICAL EQUIPMENT. PT WOULD LIKE REHAB AT [facility], REPORTS HER SON WILL PICK HER UP FOR DISCHARGE HOME. IMPORTANT MESSAGE FROM MEDICARE PROVIDED AND EXPLAINED. PT ASKING FOR REHAB AT [facility]. CM WAITING RESULTS OF INPATIENT REHAB PRESCREENING. Armor Senior Sergeant: Guanakito Sanders DCP- Discharge Planning Updated by WANG: Guanakito Sanders on 04/20/19 4:[address] Patient Name: ETIENNE PEREZ Admission Status: ER Accout number: [id number] Admission Date: 04-14-2019 : 1940 Admission Diagnosis: Attending: BETITO GRACE Current LOS: 6 Anticipated DC Date: Planned Disposition: Primary Insurance: [employer] [facility] PFFS Discharge Planning Comments: CM RECEIVED ORDER FOR INPATIENT REHAB PRESCREENING. CM ATTEMPTED TO MEET WITH PT FOR INITIAL ASSESSMENT OF DISCHARGE NEEDS. PT WAS HAVING PATIENT CARE BY COLORED LIQUID PLASTIC APPLIER IN ROOM AT THE TIME. CM TO ATTEMPT ASSESSMENT OF PT AT A LATER TIME. Armor Senior Sergeant: Guanakito Sanders DCPIA - Discharge Planning Initial Assessment Updated by WANG: Guanakito Sanders on 04/21/19 10:06 am * Is the patient Alert and Oriented? Yes * How many steps to enter\exit or inside your home? 1-O / 12-I * PCP DR. GRACE * Pharmacy [facility] ON [facility]. * Preadmission Environment Home Alone * ADLs Independent * Equipment Cane * Other Equipment NO MEDICAL EQUIPMENT PROVIDER PREFERENCE * List name and contact numbers for known caregivers / representatives who currently or will assist patient after discharge: MAY PEREZ, SON, * Verbal permission to speak to the caregivers and representatives has been obtained from the patient. Yes * Community resources currently utilized None * Please name any agencies selected above. NONE * Additional services required to return to the preadmission environment? Yes * Has this patient been hospitalized within the prior 30 days at any hospital? No External Providers External Provider: [facility] Next Contact Date: 04/22/2019 Service Request Date: Service Type: Resolution: Reviewer: Comments: Coverage Notice Reviewer: WANG Sanders Notice Issued Date-Time: 04/21/2019 8:40 Notice Type: IM Discharge Notice Notice Delivered To: Patient Relationship to Patient: Shuttle Buggy Operator Name: Delivery Method: HAND - Hand Delivered Cheyenne Days: Prior Verbal Notification: Recipient Understood Notice: Yes Recipient Signature: Yes Med Rec Note Co-signed by Attending: Coverage Notice Comment: Reviewer: WANG Sanders Notice Issued Date-Time: 04/22/2019 9:25 Notice Type: Patient Choice Letter Notice Delivered To: Patient Relationship to Patient: Shuttle Buggy Operator Name: Delivery Method: HAND - Hand Delivered Cheyenne Days: Prior Verbal Notification: Recipient Understood Notice: Yes Recipient Signature: Yes Med Rec Note Co-signed by Attending: Coverage Notice Comment: [facility] Last DP export: 04/23/19 6:04 Patient Name: ETIENNE PEREZ Page 03714 at 0722 All edits/amendments must be made on the electronic document DICTATION DATE: 04/23/19721 CHAIN MACHINE OPERATOR: HIEN 04/23/19721 RPT#: [id number] DC DATE: STATUS: ADM IN [facility] [address] [place] [address] END OF REPORT
--- NOTE | 2019-04-23 07:29 | MORECARE ---
CASE MANAGEMENT DISCHARGE SUMMARY PATIENT: ETIENNE PEREZ HAND UNIT: [id number] ADM DATE: 04/14/19 AGE: 78 : 40 SEX: F ROOM/BED: D.8323 AUTHOR: SU LAURENT PHYSICIAN: REFERRING PHYSICIAN: BETITO GRACE MD DATE OF SERVICE: 04/23/19 Discharge Plan Patient Name: ETIENNE PEREZ Facility: [facility]:[place] : 1940 Planned Disposition: Retirement Facility Anticipated Discharge Date: 04/23/19 Discharge Date: Expected LOS: 9 Initial Reviewer: [id number] Initial Review Date: 04/20/2019 Generated: 04/23/19 8:28 am Comments DCP- Discharge Planning Updated by [email or web address]: Guanakito Ramos on 04/23/19 6:[address] Patient Name: ETIENNE PEREZ Encounter No: [id number] : 1940 Primary Insurance: [employer] [facility] PFFS Anticipated DC Date: 04-23-2019 Planned Disposition: Retirement Facility External Planned Provider: [facility], MEDICARE REHAB BED DCP follow-up note: CM FAXED UPDATED REFERRAL INFORMATION TO [facility] [place] AT [phone]. CM CONTINUES TO WAIT EVALUATION RESULTS FOR ADMISSION TO [facility]. CM WAITING ADMISSION DETERMINATION FROM [facility]. PATITO Jarrell DCP- Discharge Planning Updated by [id number]: Guanakito Ramos on 04/22/19 4:[address] Patient Name: ETIENNE PEREZ Encounter No: [id number] : 1940 Primary Insurance: [employer] [facility] PFFS Anticipated DC Date: 04-22-2019 Planned Disposition: Retirement Facility External Planned Provider: [facility], MEDICARE REHAB BED DCP follow-up note: JAY CALLED [facility] [place] AT [phone]. [facility] ADVISED SHE IS WORKING ON REFERRAL FOR REHAB NOW, SHE IS NOT SURE IF THEY WILL HAVE AVAILABLE BED AT [place] BUT SHE WILL CHECK AND PROCEED WITH REFERRAL. CM WAITING ADMISSION DETERMINATION FROM [facility]. Guanakito Rachel, CASE MANAGEMENT DCP- Discharge Planning Updated by [id number]: Guanakito Ramos on 04/22/19 9:[address] Patient Name: ETIENNE PEREZ Encounter No: [id number] : 1940 Primary Insurance: [employer] [facility] PF Anticipated DC Date: 04-22-2019 Planned Disposition: Retirement Facility External Planned Provider: [facility], MEDICARE REHAB BED DCP follow-up note: CM REVIEWED CHART. CM MET WITH PT IN ROOM, PT REPORTS SPEAKING TO THE DOCTOR AND ONE OF HER SONS, THEY WANT [place] FOR REHAB. CHOICE SIGNED. CM NOTIFIED PT THAT THE DOCTOR IS READY FOR HER TO DISCHARGE TO REHAB TODAY. PT IN AGREEMENT WITH PLAN FOR REHAB TODAY AT [place]. CM CALLED AND PROVIDED REFERRAL TO [facility] [place] AT [phone]. CM NOTIFIED [facility] THAT PT IS READY TO DISCHARGE TO REHAB TODAY. CM FAXED REFERRAL TO [facility] [place] AT [phone]. CM WAITING ADMISSION DETERMINATION FROM [facility]. PATITO Jarrell DCP- Discharge Planning Updated by [id number]: Guanakito Ramos on 04/21/19 2:[address] Patient Name: ETIENNE PEREZ Encounter No: [id number] : 1940 Primary Insurance: [employer] [facility] PF Anticipated DC Date: Planned Disposition: Retirement Facility External Planned Provider: WAITING PATIENT DECISION DCP follow-up note: CM RECEIVED MESSAGE FROM RAJESH [facility] INPATIENT REH[facility], PT TOO HIGH FUNCTIONING FOR INPATIENT REHAB, INSURANCE WILL NOT APPROVE. CM SPOKE TO PT IN ROOM REGARDING PRISON REHAB OR HOME HEALTH. PROVIDER LISTINGS GIVEN FOR BOTH SERVICES. PT WANT TO TALK TO DR. GRACE AND HER SON PRIOR TO MAKING FURTHER DECISIONS. CM WAITING PT TO SPEAK TO DOCTOR AND HER SON REGARDING PRISON REHAB VS HOME HEALTH. CM TO CONTINUE TO FOLLOW AND ASSIST NEEDED. PATITO JARRELL DCP- Discharge Planning Updated by [id number]: Guanakito Ramos on 04/21/19 9:[address] Patient Name: ETIENNE PEREZ Admission Status: ER Accout number: [id number] Admission Date: 04-14-2019 : 06-07-1941 Admission Diagnosis: Attending: BETITO GRACE Current LOS: 7 Anticipated DC Date: Planned Disposition: Inpatient Rehab Primary Insurance: [employer] [facility] PLANNED EXTERNAL PROVIDER: [facility] INPATIENT REHAB Discharge Planning Comments: CM MET WITH PT IN ROOM TO DISCUSS DISCHARGE PLANNING AND NEEDS. PT REPORTS LIVING AT HOME INDEPENDENTLY AND ALONE. PT REPORTS ONE STEP OUTSIDE INTO THE HOME AND HER LAUNDRY ROOM IS DOWNSTAIRS IN THE HOME, APPROXIMATELY 12-14 STEPS. PT HAS A CANE WITH NO MEDICAL EQUIPMENT PROVIDER PREFERNECE. PT HAS NO OUTSIDE SERVICES ASSISTING IN THE HOME. CM DISCUSSED AVAILABILITY OF HOME HEALTH, REHAB SERVICES AND MEDICAL EQUIPMENT. PT WOULD LIKE REHAB AT [facility], REPORTS HER SON WILL PICK HER UP FOR DISCHARGE HOME. IMPORTANT MESSAGE FROM MEDICARE PROVIDED AND EXPLAINED. PT ASKING FOR REHAB AT [facility]. CM WAITING RESULTS OF INPATIENT REHAB PRESCREENING. Spinneret Person: Guanakito Ramos DCP- Discharge Planning Updated by [email or web address]: Guanakito Ramos on 04/20/19 4:[address] Patient Name: ETIENNE PEREZ Admission Status: ER Accout number: [id number] Admission Date: 04-14-2019 : 1940 Admission Diagnosis: Attending: BETITO GRACE Current LOS: 6 Anticipated DC Date: Planned Disposition: Primary Insurance: [employer] [facility] Discharge Planning Comments: CM RECEIVED ORDER FOR INPATIENT REHAB PRESCREENING. CM ATTEMPTED TO MEET WITH PT FOR INITIAL ASSESSMENT OF DISCHARGE NEEDS. PT WAS HAVING PATIENT CARE BY LATHE MACHINE OPERATOR IN ROOM AT THE TIME. CM TO ATTEMPT ASSESSMENT OF PT AT A LATER TIME. Spinneret Person: Guanakito Ramos DCPIA - Discharge Planning Initial Assessment Updated by [id number]: Guanakito Ramos on 04/21/19 10:06 am * Is the patient Alert and Oriented? Yes * How many steps to enter\exit or inside your home? 1-O / 12-I * PCP DR. GRACE * Pharmacy [facility]. * Preadmission Environment Home Alone * ADLs Independent * Equipment Cane * Other Equipment NO MEDICAL EQUIPMENT PROVIDER PREFERENCE * List name and contact numbers for known caregivers / representatives who currently or will assist patient after discharge: MAY PEREZ, SON, * Verbal permission to speak to the caregivers and representatives has been obtained from the patient. Yes * Community resources currently utilized None * Please name any agencies selected above. NONE * Additional services required to return to the preadmission environment? Yes * Has this patient been hospitalized within the prior 30 days at any hospital? No Coverage Notice Reviewer: [id number] Ramos Notice Issued Date-Time: 04/21/2019 8:40 Notice Type: IM Discharge Notice Notice Delivered To: Patient Relationship to Patient: Processing Archivist Name: Delivery Method: HAND - Hand Delivered Cheyenne Days: Prior Verbal Notification: Recipient Understood Notice: Yes Recipient Signature: Yes Med Rec Note Co-signed by Attending: Coverage Notice Comment: Reviewer: [id number] Ramos Notice Issued Date-Time: 04/22/2019 9:25 Notice Type: Patient Choice Letter Notice Delivered To: Patient Relationship to Patient: Processing Archivist Name: Delivery Method: HAND - Hand Delivered Cheyenne Days: Prior Verbal Notification: Recipient Understood Notice: Yes Recipient Signature: Yes Med Rec Note Co-signed by Attending: Coverage Notice Comment: [facility] Last DP export: 04/23/19 6:22 Patient Name: ETIENNE PEREZ Page 71494 at 0729 All edits/amendments must be made on the electronic document DICTATION DATE: 04/23/19727 SPRAY MACHINE TENDER: HIEN 04/23/19727 RPT#: [id number] DC DATE: STATUS: ADM IN [facility] [address] [place] [address] END OF REPORT
[2019-04-23 08:09] LABS: ANION GAP 8.3 mmol/L (8-16); CALCIUM 8.7 mg/dL (8.5-10.1); CARBON DIOXIDE 32.4 mmol/L (21.0-32.0); CREATININE - SERUM 0.9 mg/dL (0.6-1.3); POTASSIUM - SERUM 3.7 mmol/L (3.5-5.1)
[2019-04-23 08:30] VITALS: BP 130/62
--- NOTE | 2019-04-23 09:19 | MORECARE ---
CASE MANAGEMENT DISCHARGE SUMMARY PATIENT: ETIENNE PEREZ HAND UNIT: [id number] ADM DATE: 04/14/19 AGE: 78 : 40 SEX: F ROOM/BED: D.3879 AUTHOR: SU LAURENT PHYSICIAN: REFERRING PHYSICIAN: BETITO GRACE MD DATE OF SERVICE: 04/23/19 Discharge Plan Patient Name: ETIENNE PEREZ Facility: [facility]:[place] : 1940 Planned Disposition: Assisted Facility Anticipated Discharge Date: 04/23/19 Discharge Date: Expected LOS: 9 Initial Reviewer: [id number] Initial Review Date: 04/20/2019 Generated: 04/23/19 10:18 am Comments DCP- Discharge Planning Updated by [id number]: Guanakito Ramos on 04/23/19 6:[address] Patient Name: ETIENNE PEREZ Encounter No: [id number] : 1940 Primary Insurance: [employer] [facility] PFFS Anticipated DC Date: 04-23-2019 Planned Disposition: Assisted Facility External Planned Provider: [facility], MEDICARE REHAB BED DCP follow-up note: CM FAXED UPDATED REFERRAL INFORMATION TO [facility] [place] AT [phone]. CM CONTINUES TO WAIT EVALUATION RESULTS FOR ADMISSION TO [facility]. CM WAITING ADMISSION DETERMINATION FROM [facility]. PATITO Jarrell DCP- Discharge Planning Updated by [id number]: Guanakito Ramos on 04/22/19 4:[address] Patient Name: ETIENNE PEREZ Encounter No: [id number] : 1940 Primary Insurance: [employer] [facility] PFFS Anticipated DC Date: 04-22-2019 Planned Disposition: Assisted Facility External Planned Provider: [facility], MEDICARE REHAB BED DCP follow-up note: JAY CALLED [facility] [place] AT [phone]. [facility] ADVISED SHE IS WORKING ON REFERRAL FOR REHAB NOW, SHE IS NOT SURE IF THEY WILL HAVE AVAILABLE BED AT [facility] BUT SHE WILL CHECK AND PROCEED WITH REFERRAL. CM WAITING ADMISSION DETERMINATION FROM [facility]. Guanakito Angelica, CASE MANAGEMENT DCP- Discharge Planning Updated by [id number]: Guanakito Ramos on 04/22/19 9:[address] Patient Name: ETIENNE PEREZ Encounter No: [id number] : 1940 Primary Insurance: [employer] [facility] PF Anticipated DC Date: 04-22-2019 Planned Disposition: Assisted Facility External Planned Provider: [facility], MEDICARE REHAB BED DCP follow-up note: CM REVIEWED CHART. CM MET WITH PT IN ROOM, PT REPORTS SPEAKING TO THE DOCTOR AND ONE OF HER SONS, THEY WANT [facility] FOR REHAB. CHOICE SIGNED. CM NOTIFIED PT THAT THE DOCTOR IS READY FOR HER TO DISCHARGE TO REHAB TODAY. PT IN AGREEMENT WITH PLAN FOR REHAB TODAY AT [facility]. CM CALLED AND PROVIDED REFERRAL TO [facility] [place] AT [phone]. CM NOTIFIED [facility] THAT PT IS READY TO DISCHARGE TO REHAB TODAY. CM FAXED REFERRAL TO [facility] [place] AT [phone]. CM WAITING ADMISSION DETERMINATION FROM [facility]. PATITO Jarrell DCP- Discharge Planning Updated by [id number]: Guanakiot Ramos on 04/21/19 2:[address] Patient Name: ETIENNE PEREZ Encounter No: [id number] : 1940 Primary Insurance: [employer] [facility] PF Anticipated DC Date: Planned Disposition: Assisted Facility External Planned Provider: WAITING PATIENT DECISION DCP follow-up note: CM RECEIVED MESSAGE FROM [facility] INPATIENT REH[facility], PT TOO HIGH FUNCTIONING FOR INPATIENT REHAB, INSURANCE WILL NOT APPROVE. CM SPOKE TO PT IN ROOM REGARDING SENIOR CARE REHAB OR HOME HEALTH. PROVIDER LISTINGS GIVEN FOR BOTH SERVICES. PT WANT TO TALK TO DR. GRACE AND HER SON PRIOR TO MAKING FURTHER DECISIONS. CM WAITING PT TO SPEAK TO DOCTOR AND HER SON REGARDING SENIOR CARE REHAB VS HOME HEALTH. CM TO CONTINUE TO FOLLOW AND ASSIST NEEDED. PATITO JARRELL DCP- Discharge Planning Updated by [id number]: Guanakito Ramos on 04/21/19 9:[address] Patient Name: ETIENNE PEREZ Admission Status: ER Accout number: [id number] Admission Date: 04-14-2019 : 06-07-1941 Admission Diagnosis: Attending: BETITO GRACE Current LOS: 7 Anticipated DC Date: Planned Disposition: Inpatient Rehab Primary Insurance: [employer] [facility] PLANNED EXTERNAL PROVIDER: [facility] INPATIENT REHAB Discharge Planning Comments: CM MET WITH PT IN ROOM TO DISCUSS DISCHARGE PLANNING AND NEEDS. PT REPORTS LIVING AT HOME INDEPENDENTLY AND ALONE. PT REPORTS ONE STEP OUTSIDE INTO THE HOME AND HER LAUNDRY ROOM IS DOWNSTAIRS IN THE HOME, APPROXIMATELY 12-14 STEPS. PT HAS A CANE WITH NO MEDICAL EQUIPMENT PROVIDER PREFERNECE. PT HAS NO OUTSIDE SERVICES ASSISTING IN THE HOME. CM DISCUSSED AVAILABILITY OF HOME HEALTH, REHAB SERVICES AND MEDICAL EQUIPMENT. PT WOULD LIKE REHAB AT [facility], REPORTS HER SON WILL PICK HER UP FOR DISCHARGE HOME. IMPORTANT MESSAGE FROM MEDICARE PROVIDED AND EXPLAINED. PT ASKING FOR REHAB AT [facility]. CM WAITING RESULTS OF INPATIENT REHAB PRESCREENING. Law Writer: Guanakito Ramos DCP- Discharge Planning Updated by [id number]: Guanakito Ramos on 04/20/19 4:[address] Patient Name: ETIENNE PEREZ Admission Status: ER Accout number: [id number] Admission Date: 04-14-2019 : 1940 Admission Diagnosis: Attending: BETITO GRACE Current LOS: 6 Anticipated DC Date: Planned Disposition: Primary Insurance: [employer] [facility] Discharge Planning Comments: CM RECEIVED ORDER FOR INPATIENT REHAB PRESCREENING. CM ATTEMPTED TO MEET WITH PT FOR INITIAL ASSESSMENT OF DISCHARGE NEEDS. PT WAS HAVING PATIENT CARE BY WINE CELLAR WORKER IN ROOM AT THE TIME. CM TO ATTEMPT ASSESSMENT OF PT AT A LATER TIME. Law Writer: Guanakito Ramos DCPIA - Discharge Planning Initial Assessment Updated by [id number]: Guanakito Ramos on 04/21/19 10:06 am * Is the patient Alert and Oriented? Yes * How many steps to enter\exit or inside your home? 1-O / 12-I * PCP DR. GRACE * Pharmacy [facility]. * Preadmission Environment Home Alone * ADLs Independent * Equipment Cane * Other Equipment NO MEDICAL EQUIPMENT PROVIDER PREFERENCE * List name and contact numbers for known caregivers / representatives who currently or will assist patient after discharge: MAY PEREZ, SON, * Verbal permission to speak to the caregivers and representatives has been obtained from the patient. Yes * Community resources currently utilized None * Please name any agencies selected above. NONE * Additional services required to return to the preadmission environment? Yes * Has this patient been hospitalized within the prior 30 days at any hospital? No Coverage Notice Reviewer: [id number] Ramos Notice Issued Date-Time: 04/21/2019 8:40 Notice Type: IM Discharge Notice Notice Delivered To: Patient Relationship to Patient: Mold Cleaner Name: Delivery Method: HAND - Hand Delivered Cheyenne Days: Prior Verbal Notification: Recipient Understood Notice: Yes Recipient Signature: Yes Med Rec Note Co-signed by Attending: Coverage Notice Comment: Reviewer: [id number] Ramos Notice Issued Date-Time: 04/22/2019 9:25 Notice Type: Patient Choice Letter Notice Delivered To: Patient Relationship to Patient: Mold Cleaner Name: Delivery Method: HAND - Hand Delivered Chey[place] Days: Prior Verbal Notification: Recipient Understood Notice: Yes Recipient Signature: Yes Med Rec Note Co-signed by Attending: Coverage Notice Comment: 1 - [facility] 2 - [facility] DP export: 04/23/19 6:29 Patient Name: ETIENNE PEREZ Page 15577 at 0919 All edits/amendments must be made on the electronic document DICTATION DATE: 04/23/19917 HAND BOOTMAKER: HIEN 04/23/19917 RPT#: [id number] DC DATE: STATUS: ADM IN [facility] [address] [place] [address] END OF REPORT
--- NOTE | 2019-04-23 09:26 | MORECARE ---
CASE MANAGEMENT DISCHARGE SUMMARY PATIENT: ETIENNE PEREZ HAND UNIT: [id number] ADM DATE: 04/14/19 AGE: 78 : 40 SEX: F ROOM/BED: D.8301 AUTHOR: SU LAURENT PHYSICIAN: REFERRING PHYSICIAN: BETITO GRACE MD DATE OF SERVICE: 04/23/19 Discharge Plan Patient Name: ETIENNE PEREZ Facility: [facility]:[place] : 1940 Planned Disposition: [facility] Facility Anticipated Discharge Date: 04/23/19 Discharge Date: Expected LOS: 9 Initial Reviewer: WANG Initial Review Date: 04/20/2019 Generated: 04/23/19 10:25 am Comments DCP- Discharge Planning Updated by WANG: Guanakito Sanders on 04/23/19 8:[address] Patient Name: ETIENNE PEREZ Encounter No: [id number] : 1940 Primary Insurance: [facility] PFFS Anticipated DC Date: 04-23-2019 Planned Disposition: [facility] Facility External Planned Provider: [facility], MEDICARE REHAB BED DCP follow-up note: CM FAXED UPDATED REFERRAL INFORMATION TO [facility] FOR [facility] AT [phone]. CM CONTINUES TO WAIT EVALUATION RESULTS FOR ADMISSION TO [facility] AND [facility]. CM WAITING ADMISSION DETERMINATION FROM [facility]. Guanakito Sanders, CASE MANAGEMENT Appended by Guanakito Sanders on 04/23/2019 9:20 CDT: JAY SPOKE TO PT IN ROOM REGARDING REFERRAL TO [facility], ADVISED THAT [facility] MAY NOT HAVE A BED. PT ASKED THAT REFERRAL BE SENT TO HER SECOND CHOICE, [facility], WHERE HER FRIEND IS IN MILITARY SCIENCE TEACHER CARE. CM NOTIFIED [facility] WHO SCREENS FOR BOTH [facility] AND [facility]. NETTA VERIFIED THAT [facility] DOES NOT HAVE ANY REHAB BEDS AT THIS TIME AND SHE WILL SEND REFERRAL TODAY TO [facility]. JAY ADVISED THAT PT IS READY TO DISCHARGE TODAY. PT IN AGREEMENT WITH DISCHARGE PLAN TO [facility], CHOICE HAS ALREADY BEEN SIGNED. CM WAITING ADMISSION DETERMINATION FROM [facility] NURSING AND RE[facility]AB. PATITO JARRELL MANAGEMENT DCP- Discharge Planning Updated by [id number]: Guanakito Sanders on 04/22/19 4:[address] Patient Name: ETIENNE PEREZ Encounter No: [id number] : 1940 Primary Insurance: [employer] [facility] PFFS Anticipated DC Date: 04-22-2019 Planned Disposition: [facility] Facility External Planned Provider: [facility], MEDICARE REHAB BED DCP follow-up note: CM CALLED [facility] FOR [facility] AT [phone]. [facility]TA ADVISED SHE IS WORKING ON REFERRAL FOR REHAB NOW, SHE IS NOT SURE IF THEY WILL HAVE AVAILABLE BED AT [facility] BUT SHE WILL CHECK AND PROCEED WITH REFERRAL. CM WAITING ADMISSION DETERMINATION FROM [facility]. Guanakito Sandesr CASE MANAGEMENT DCP- Discharge Planning Updated by [id number]: Guanakito Sanders on 04/22/19 9:[address] Patient Name: ETIENNE PEREZ Encounter No: [id number] : 1940 Primary Insurance: [employer] [facility] PFFS Anticipated DC Date: 04-22-2019 Planned Disposition: [facility] Facility External Planned Provider: [facility], MEDICARE REHAB BED DCP follow-up note: CM REVIEWED CHART. CM MET WITH PT IN ROOM, PT REPORTS SPEAKING TO THE DOCTOR AND ONE OF HER SONS, THEY WANT [facility] FOR REHAB. CHOICE SIGNED. CM NOTIFIED PT THAT THE DOCTOR IS READY FOR HER TO DISCHARGE TO REHAB TODAY. PT IN AGREEMENT WITH PLAN FOR REHAB TODAY AT [facility]. CM CALLED AND PROVIDED REFERRAL TO [facility] AT [phone]. CM NOTIFIED [facility] THAT PT IS READY TO DISCHARGE TO REHAB TODAY. CM FAXED REFERRAL TO [facility] FOR [facility] AT [phone]. CM WAITING ADMISSION DETERMINATION FROM [facility]. Guanakito Sanders CASE MANAGEMENT DCP- Discharge Planning Updated by [id number]: Guanakito Sanders on 04/21/19 2:[address] Patient Name: ETIENNE PEREZ Encounter No: [id number] : 1940 Primary Insurance: [employer] [facility] PFFS Anticipated DC Date: Planned Disposition: [facility] Facility External Planned Provider: WAITING PATIENT DECISION DCP follow-up note: CM RECEIVED MESSAGE FROM [facility] IN[facility]IENT RE[facility], PT TOO HIGH FUNCTIONING FOR INPATIENT REHAB, INSURANCE WILL NOT APPROVE. CM SPOKE TO PT IN ROOM REGARDING RETIREMENT REHAB OR HOME HEALTH. PROVIDER LISTINGS GIVEN FOR BOTH SERVICES. PT WANT TO TALK TO DR. GRACE AND HER SON PRIOR TO MAKING FURTHER DECISIONS. CM WAITING PT TO SPEAK TO DOCTOR AND HER SON REGARDING RETIREMENT REHAB VS HOME HEALTH. CM TO CONTINUE TO FOLLOW AND ASSIST NEEDED. GUANAKITO SANDERS, CASE MANAGEMENT DCP- Discharge Planning Updated by [id number]: Guanakito Sanders on 04/21/19 9:[address] Patient Name: ETIENNE PEREZ Admission Status: ER Accout number: [id number] Admission Date: 04-14-2019 : 1940 Admission Diagnosis: Attending: BETITO GRACE Current LOS: 7 Anticipated DC Date: Planned Disposition: Inpatient Rehab Primary Insurance: [employer] [facility] PLANNED EXTERNAL PROVIDER: [facility] INPATIENT REHAB Discharge Planning Comments: CM MET WITH PT IN ROOM TO DISCUSS DISCHARGE PLANNING AND NEEDS. PT REPORTS LIVING AT HOME INDEPENDENTLY AND ALONE. PT REPORTS ONE STEP OUTSIDE INTO THE HOME AND HER LAUNDRY ROOM IS DOWNSTAIRS IN THE HOME, APPROXIMATELY 12-14 STEPS. PT HAS A CANE WITH NO MEDICAL EQUIPMENT PROVIDER PREFERNECE. PT HAS NO OUTSIDE SERVICES ASSISTING IN THE HOME. CM DISCUSSED AVAILABILITY OF HOME HEALTH, REHAB SERVICES AND MEDICAL EQUIPMENT. PT WOULD LIKE REHAB AT [facility], REPORTS HER SON WILL PICK HER UP FOR DISCHARGE HOME. IMPORTANT MESSAGE FROM MEDICARE PROVIDED AND EXPLAINED. PT ASKING FOR REHAB AT [facility]. CM WAITING RESULTS OF INPATIENT REHAB PRESCREENING. Bulk Delivery Driver: Guanakito Sanders DCP- Discharge Planning Updated by [id number]: Guanakito Sanders on 04/20/19 4:[address] Patient Name: ETIENNE PEREZ Admission Status: ER Accout number: [id number] Admission Date: 04-14-2019 : 1940 Admission Diagnosis: Attending: BETITO GRACE Current LOS: 6 Anticipated DC Date: Planned Disposition: Primary Insurance: [employer] [facility] Discharge Planning Comments: CM RECEIVED ORDER FOR INPATIENT REHAB PRESCREENING. CM ATTEMPTED TO MEET WITH PT FOR INITIAL ASSESSMENT OF DISCHARGE NEEDS. PT WAS HAVING PATIENT CARE BY BELL PERSON IN ROOM AT THE TIME. CM TO ATTEMPT ASSESSMENT OF PT AT A LATER TIME. Bulk Delivery Driver: Guanakito [place] DCPIA - Discharge Planning Initial Assessment Updated by [id number]: Guanakito Sanders on 04/21/19 10:06 am * Is the patient Alert and Oriented? Yes * How many steps to enter\exit or inside your home? 1-O / 12-I * PCP DR. GRACE * Pharmacy [facility]. * Preadmission Environment Home Alone * ADLs Independent * Equipment Cane * Other Equipment NO MEDICAL EQUIPMENT PROVIDER PREFERENCE * List name and contact numbers for known caregivers / representatives who currently or will assist patient after discharge: MAY PEREZ, SON, * Verbal permission to speak to the caregivers and representatives has been obtained from the patient. Yes * Community resources currently utilized None * Please name any agencies selected above. NONE * Additional services required to return to the preadmission environment? Yes * Has this patient been hospitalized within the prior 30 days at any hospital? No Coverage Notice Reviewer: [id number] Sanders Notice Issued Date-Time: 04/21/2019 8:40 Notice Type: IM Discharge Notice Notice Delivered To: Patient Relationship to Patient: Printing Equipment Mechanic Apprentice Name: Delivery Method: HAND - Hand Delivered Cheyenne Days: Prior Verbal Notification: Recipient Understood Notice: Yes Recipient Signature: Yes Med Rec Note Co-signed by Attending: Coverage Notice Comment: Reviewer: [id number] Chinyere Sanders Notice Issued Date-Time: 04/22/2019 9:25 Notice Type: Patient Choice Letter Notice Delivered To: Patient Relationship to Patient: Printing Equipment Mechanic Apprentice Name: Delivery Method: HAND - Hand Delivered Cheyenne Days: Prior Verbal Notification: Recipient Understood Notice: Yes Recipient Signature: Yes Med Rec Note Co-signed by Attending: Coverage Notice Comment: 1 - [facility] 2 - [facility] DP export: 04/23/19 8:19 Patient Name: ETIENNE PEREZ Page 12213 at 0926 All edits/amendments must be made on the electronic document DICTATION DATE: 04/23/19924 MEAT WASHER: HIEN 04/23/19924 RPT#: [id number] DC DATE: STATUS: ADM IN [facility] [address] [place] [address] END OF REPORT
[2019-04-23 12:30] VITALS: BP 138/47
--- NOTE | 2019-04-23 15:45 | NUR ---
OT NOTE: PT COMPLETED HYGIENE TASKS WITH MIN A. THANK YOU,RHONDA ASNCHEZ
[2019-04-23 16:37] VITALS: BP 140/61
--- NOTE | 2019-04-23 17:32 | MORECARE ---
CASE MANAGEMENT DISCHARGE SUMMARY PATIENT: ETIENNE PEREZ HAND UNIT: [id number] ADM DATE: 04/14/19 AGE: 78 : 40 SEX: F ROOM/BED: D.8566 AUTHOR: SU LAURENT PHYSICIAN: REFERRING PHYSICIAN: BETITO GRACE MD DATE OF SERVICE: 04/23/19 Discharge Plan Patient Name: ETIENNE PEREZ Facility: [facility]:[place] : 1940 Planned Disposition: [facility] Facility Anticipated Discharge Date: 04/24/19 Discharge Date: Expected LOS: 10 Initial Reviewer: [id number] Initial Review Date: 04/20/2019 Generated: 04/23/19 6:31 pm Comments DCP- Discharge Planning Updated by [id number]: Guanakito Sanders on 04/23/19 4:[address] Patient Name: ETIENNE PEREZ Encounter No: [id number] : 1940 Primary Insurance: [employer] [facility] PFFS Anticipated DC Date: 04-24-2019 Planned Disposition: [facility] Facility External Planned Provider: [facility], MEDICARE REHAB BED DCP follow-up note: CM RECEIVED CALL FROM [facility], THEY HAVE A BED AT [facility] FOR PT, PT CAN ADMIT TOMORROW. [facility] HAS NOTIFIED PT AND PT'S SON. [facility] TO [facility] AT 1000AM, 04-24-19. CM NOTIFIED STAINED GLASS INSTALLER NURSE AND DR. GRACE VIA PHONE. FOR DISCHARGEON 04-24-19, FAX DISCHARGE INFORMATION TO [facility] AT [phone], NURSE REPORT TO BE CALLED TO [facility] AT [phone]. [facility] FOR [facility] AT 1000AM . Guanakito Sanders, CASE MANAGEMENT DCP- Discharge Planning Updated by [id number]: Guanakito Sanders on 04/23/19 8:[address] Patient Name: ETIENNE PEREZ Encounter No: [id number] : 1940 Primary Insurance: [employer] [facility] PFFS Anticipated DC Date: 04-23-2019 Planned Disposition: [facility] Facility External Planned Provider: [facility], MEDICARE REHAB BED DCP follow-up note: CM FAXED UPDATED REFERRAL INFORMATION TO [facility] AT [phone]. CM CONTINUES TO WAIT EVALUATION RESULTS FOR ADMISSION TO [facility]. CM WAITING [facility] Guanakito Sanders, CASE MANAGEMENT Appended by Guanakito Sanders on 04/23/2019 9:20 CDT: CM SPOKE TO PT IN ROOM REGARDING REFERRAL TO [facility], ADVISED THAT [facility] MAY NOT HAVE A BED. PT ASKED THAT REFERRAL BE SENT TO HER SECOND CHOICE, [facility], WHERE HER FRIEND IS IN SKILLED NURSING CARE. CM NOTIFIED [facility] G[facility]TT [facility] WHO SCREENS FOR BOTH [facility] AND [facility]. [facility] VERIFIED THAT [facility] DOES NOT HAVE ANY REHAB BEDS AT THIS TIME AND SHE WILL SEND REFERRAL TODAY TO [facility]. CM ADVISED THAT PT IS READY TO DISCHARGE TODAY. PT IN AGREEMENT WITH DISCHARGE PLAN TO [facility], CHOICE HAS ALREADY BEEN SIGNED. CM WAITING ADMISSION DETERMINATION FROM [facility] NURSING AND REHAB. GUANAKITO SANDERS CASE MANAGEMENT DCP- Discharge Planning Updated by [id number]: Guanakito Sanders on 04/22/19 4:[address] Patient Name: ETIENNE PEREZ Encounter No: [id number] : 1940 Primary Insurance: [facility] PF Anticipated DC Date: 04-22-2019 Planned Disposition: [facility] Facility External Planned Provider: [facility], MEDICARE REHAB BED DCP follow-up note: JAY CALLED [facility] FOR [facility] AT [phone]. [facility] ADVISED SHE IS WORKING ON REFERRAL FOR REHAB NOW, SHE IS NOT SURE IF THEY WILL HAVE AVAILABLE BED AT [facility] BUT SHE WILL CHECK AND PROCEED WITH REFERRAL. CM WAITING ADMISSION DETERMINATION FROM [facility]. Guanakito Sanders CASE MANAGEMENT DCP- Discharge Planning Updated by [id number]: Guanakito Sanders on 04/22/19 9:[address] Patient Name: ETIENNE PEREZ Encounter No: [id number] : 1940 Primary Insurance: [employer] [facility] PFFS Anticipated DC Date: 04-22-2019 Planned Disposition: [facility] Facility External Planned Provider: [facility], MEDICARE REHAB BED DCP follow-up note: CM REVIEWED CHART. CM MET WITH PT IN ROOM, PT REPORTS SPEAKING TO THE DOCTOR AND ONE OF HER SONS, THEY WANT [facility] FOR REHAB. CHOICE SIGNED. CM NOTIFIED PT THAT THE DOCTOR IS READY FOR HER TO DISCHARGE TO REHAB TODAY. PT IN AGREEMENT WITH PLAN FOR REHAB TODAY AT [facility]. CM CALLED AND PROVIDED REFERRAL TO [facility] AT [phone]. CM NOTIFIED [facility] THAT PT IS READY TO DISCHARGE TO REHAB TODAY. CM FAXED REFERRAL TO [facility] FOR [facility] AT [phone]. CM WAITING ADMISSION DETERMINATION FROM [facility]. Guanakito Sanders CASE MANAGEMENT DCP- Discharge Planning Updated by [id number]: Guanakito Sanders on 04/21/19 2:[address] Patient Name: ETIENNE PEREZ Encounter No: [id number] : 1940 Primary Insurance: [facility] PF Anticipated DC Date: Planned Disposition: [facility] Facility External Planned Provider: WAITING PATIENT DECISION DCP follow-up note: CM RECEIVED MESSAGE FROM RAJESH OF [facility] INPATIENT REHAB, PT TOO HIGH FUNCTIONING FOR INPATIENT REHAB, INSURANCE WILL NOT APPROVE. CM SPOKE TO PT IN ROOM REGARDING [facility] REHAB OR HOME HEALTH. PROVIDER LISTINGS GIVEN FOR BOTH SERVICES. PT WANT TO TALK TO DR. GRACE AND HER SON PRIOR TO MAKING FURTHER DECISIONS. CM WAITING PT TO SPEAK TO DOCTOR AND HER SON REGARDING [facility] REHAB VS HOME HEALTH. CM TO CONTINUE TO FOLLOW AND ASSIST NEEDED. GUANAKITO SANDERS CASE JOSEPH DCP- Discharge Planning Updated by [id number]: Guanakito Sanders on 04/21/19 9:[address] Patient Name: ETIENNE PEREZ Admission Status: ER Accout number: [id number] Admission Date: 04-14-2019 : 1940 Admission Diagnosis: Attending: BETITO GRACE Current LOS: 7 Anticipated DC Date: Planned Disposition: Inpatient Rehab Primary Insurance: [facility] PLANNED EXTERNAL PROVIDER: [facility] INPATIENT REHAB Discharge Planning Comments: CM MET WITH PT IN ROOM TO DISCUSS DISCHARGE PLANNING AND NEEDS. PT REPORTS LIVING AT HOME INDEPENDENTLY AND ALONE. PT REPORTS ONE STEP OUTSIDE INTO THE HOME AND HER LAUNDRY ROOM IS DOWNSTAIRS IN THE HOME, APPROXIMATELY 12-14 STEPS. PT HAS A CANE WITH NO MEDICAL EQUIPMENT PROVIDER PREFERNECE. PT HAS NO OUTSIDE SERVICES ASSISTING IN THE HOME. CM DISCUSSED AVAILABILITY OF HOME HEALTH, REHAB SERVICES AND MEDICAL EQUIPMENT. PT WOULD LIKE REHAB AT [facility], REPORTS HER SON WILL PICK HER UP FOR DISCHARGE HOME. IMPORTANT MESSAGE FROM MEDICARE PROVIDED AND EXPLAINED. PT ASKING FOR REHAB AT [facility]. CM WAITING RESULTS OF INPATIENT REHAB PRESCREENING. Anesthesiology Resident: Guanakito Sanders DCP- Discharge Planning Updated by [id number]: Guanakito Sanders on 04/20/19 4:[address] Patient Name: ETIENNE PEREZ Admission Status: ER Accout number: [id number] Admission Date: 04-14-2019 : 1940 Admission Diagnosis: Attending: BETITO GRACE Current LOS: 6 Anticipated DC Date: Planned Disposition: Primary Insurance: [facility] Discharge Planning Comments: CM RECEIVED ORDER FOR INPATIENT REHAB PRESCREENING. CM ATTEMPTED TO MEET WITH PT FOR INITIAL ASSESSMENT OF DISCHARGE NEEDS. PT WAS HAVING PATIENT CARE BY SALES REPRESENTATIVE PRINTING PAPER IN ROOM AT THE TIME. CM TO ATTEMPT ASSESSMENT OF PT AT A LATER TIME. Anesthesiology Resident: Guanakito Sanders DCPIA - Discharge Planning Initial Assessment Updated by [id number]: Guanakito Sanders on 04/21/19 10:06 am * Is the patient Alert and Oriented? Yes * How many steps to enter\exit or inside your home? 1-O / 12-I * PCP DR. GRACE * [facility]. * Preadmission Environment Home Alone * ADLs Independent * Equipment Cane * Other Equipment NO MEDICAL EQUIPMENT PROVIDER PREFERENCE * List name and contact numbers for known caregivers / representatives who currently or will assist patient after discharge: MAY PEREZ, SON, * Verbal permission to speak to the caregivers and representatives has been obtained from the patient. Yes * Community resources currently utilized None * Please name any agencies selected above. NONE * Additional services required to return to the preadmission environment? Yes * Has this patient been hospitalized within the prior 30 days at any hospital? No Coverage Notice Reviewer: [id number] Chinyere Sanders Notice Issued Date-Time: 04/21/2019 8:40 Notice Type: IM Discharge Notice Notice Delivered To: Patient Relationship to Patient: Hl7 Developer Name: Delivery Method: HAND - Hand Delivered Cheyenne Days: Prior Verbal Notification: Recipient Understood Notice: Yes Recipient Signature: Yes Med Rec Note Co-signed by Attending: Coverage Notice Comment: Reviewer: [id number] Chinyere Sanders Notice Issued Date-Time: 04/22/2019 9:25 Notice Type: Patient Choice Letter Notice Delivered To: Patient Relationship to Patient: Hl7 Developer Name: Delivery Method: HAND - Hand Delivered Cheyenne Days: Prior Verbal Notification: Recipient Understood Notice: Yes Recipient Signature: Yes Med Rec Note Co-signed by Attending: Coverage Notice Comment: 1 - [facility] 2 - [facility] DP export: 04/23/19 8:26 Patient Name: ETIENNE PEREZ Page 05843 at 1732 All edits/amendments must be made on the electronic document DICTATION DATE: 04/23/191730 STORE RECEIVER: HIEN 04/23/191730 RPT#: [id number] DC DATE: STATUS: ADM IN [facility] [address] [place] [address] END OF REPORT
--- NOTE | 2019-04-23 19:17 | NUR ---
BEDSIDE REPORT RECEIVED. PATIENT ALERT AND ORIENTED X 2, RESTING COMFORTABLY IN BED. RESPIRATIONS ARE EVEN AND UNLABORED. NO S/S OF DISTRESS. NO C/O PAIN. CALL LIGHT WITHIN REACH. WILL CPOC.
[2019-04-23 20:00] VITALS: BP 148/65
[2019-04-24] VITALS: BP 130/51
[2019-04-24 04:00] VITALS: BP 146/52
[2019-04-24] MEDS ORDERED: BETAPACE 120 M120 MG PO (08:20)
--- NOTE | 2019-04-24 09:40 | MORECARE ---
CASE MANAGEMENT DISCHARGE SUMMARY PATIENT: ETIENNE PEREZ HAND UNIT: [id number] ADM DATE: 04/14/19 AGE: 78 : 40 SEX: F ROOM/BED: D.9908 AUTHOR: SU LAURENT PHYSICIAN: REFERRING PHYSICIAN: BETITO GRACE MD DATE OF SERVICE: 04/24/19 Discharge Plan Patient Name: ETIENNE PEREZ Facility: [facility]:[place] : 1940 Planned Disposition: Retirement Facility Anticipated Discharge Date: 04/24/19 Discharge Date: Expected LOS: 10 Initial Reviewer: [id number] Initial Review Date: 04/20/2019 Generated: 04/24/19 10:40 am Comments DCP- Discharge Planning Updated by [id number]: Guanakito Sanders on 04/23/19 4:[address] Patient Name: ETIENNE PEREZ Encounter No: [id number] : 1940 Primary Insurance: [employer] [facility] P[facility]S Anticipated DC Date: 04-24-2019 Planned Disposition: Retirement Facility External Planned Provider: [facility], MEDICARE REHAB BED DCP follow-up note: CM RECEIVED CALL FROM [facility], THEY HAVE A BED AT [facility] FOR [facility], PT CAN ADMIT TOMORROW. [facility] HAS NOTIFIED PT AND PT'S SON. [facility] TO [facility] AT 1000AM, 04-24-19. CM NOTIFIED ENGINE COWLING INSTALLER NURSE AND DR. GRACE VIA PHONE. FOR DISCHARGEON 04-24-19, FAX DISCHARGE INFORMATION TO [facility] AT [phone], NURSE REPORT TO BE CALLED TO [facility] AT [phone]. [facility] TO ARRANGE VAN TRANSPORTATION FOR BOLT SORTER AT 1000AM . Guanakito Sanders, CASE MANAGEMENT DCP- Discharge Planning Updated by [id number]: Guanakito Sanders on 04/23/19 8:[address] Patient Name: ETIENNE PEREZ Encounter No: [id number] : 1940 Primary Insurance: [employer] [facility] PFFS Anticipated DC Date: 04-23-2019 Planned Disposition: Retirement Facility External Planned Provider: [facility], MEDICARE REHAB BED DCP follow-up note: CM FAXED UPDATED REFERRAL INFORMATION TO [facility] AT [phone]. CM CONTINUES TO WAIT EVALUATION RESULTS FOR ADMISSION TO [facility]. CM WAITING [facility]. Guanakito Sanders, CASE MANAGEMENT Appended by Guanakito Sanders on 04/23/2019 9:20 CDT: CM SPOKE TO PT IN ROOM REGARDING REFERRAL TO [facility], ADVISED THAT [facility] MAY NOT HAVE A BED. PT ASKED THAT REFERRAL BE SENT TO HER SECOND CHOICE, [facility], WHERE HER FRIEND IS IN AEROSPACE CONTROL AND [employer]ING [employer]S CARE. CM NOTIFIED [facility] WHO SCREENS FOR BOTH [facility] AND [facility]. [facility] VERIFIED THAT [facility] DOES NOT HAVE ANY REHAB BEDS AT THIS TIME AND SHE WILL SEND REFERRAL TODAY TO [facility]. CM ADVISED THAT PT IS READY TO DISCHARGE TODAY. PT IN AGREEMENT WITH DISCHARGE PLAN TO [facility], CHOICE HAS ALREADY BEEN SIGNED. CM WAITING ADMISSION DETERMINATION FROM [facility]. GUANAKITO SANDERS CASE MANAGEMENT DCP- Discharge Planning Updated by [id number]: Guanakito Sanders on 04/22/19 4:[address] Patient Name: ETIENNE PEREZ Encounter No: [id number] : 1940 Primary Insurance: [employer] [facility] PF Anticipated DC Date: 04-22-2019 Planned Disposition: Retirement Facility External Planned Provider: [facility], MEDICARE REHAB BED DCP follow-up note: JAY CALLED [facility] AT [phone]. [facility] ADVISED SHE IS WORKING ON REFERRAL FOR REHAB NOW, SHE IS NOT SURE IF THEY WILL HAVE AVAILABLE BED AT [facility] BUT SHE WILL CHECK AND PROCEED WITH REFERRAL. CM WAITING ADMISSION DETERMINATION FROM [facility]. Guanakito Sanders CASE MANAGEMENT DCP- Discharge Planning Updated by [id number]: Guanakito Sanders on 04/22/19 9:[address] Patient Name: ETIENNE PEREZ Encounter No: [id number] : 1940 Primary Insurance: [employer] [facility] PFFS Anticipated DC Date: 04-22-2019 Planned Disposition: Retirement Facility External Planned Provider: [facility], MEDICARE REHAB BED DCP follow-up note: CM REVIEWED CHART. CM MET WITH PT IN ROOM, PT REPORTS SPEAKING TO THE DOCTOR AND ONE OF HER SONS, THEY WANT [facility] FOR REHAB. CHOICE SIGNED. CM NOTIFIED PT THAT THE DOCTOR IS READY FOR HER TO DISCHARGE TO REHAB TODAY. PT IN AGREEMENT WITH PLAN FOR REHAB TODAY AT [facility]. CM CALLED AND PROVIDED REFERRAL TO [facility] AT [phone]. CM NOTIFIED [facility] THAT PT IS READY TO DISCHARGE TO REHAB TODAY. CM FAXED REFERRAL TO [facility] AT [phone]. CM WAITING ADMISSION DETERMINATION FROM [facility]. Guanakito Sanders CASE MANAGEMENT DCP- Discharge Planning Updated by [id number]: Guanakito Sanders on 04/21/19 2:[address] Patient Name: ETIENNE PEREZ Encounter No: [id number] : 1940 Primary Insurance: [employer] [facility] PF Anticipated DC Date: Planned Disposition: Retirement Facility External Planned Provider: WAITING PATIENT DECISION DCP follow-up note: CM RECEIVED MESSAGE FROM RAJESH OF [facility] INPATIENT REHAB, PT TOO HIGH FUNCTIONING FOR INPATIENT REHAB, INSURANCE WILL NOT APPROVE. CM SPOKE TO PT IN ROOM REGARDING SNF REHAB OR HOME HEALTH. PROVIDER LISTINGS GIVEN FOR BOTH SERVICES. PT WANT TO TALK TO DR. GRACE AND HER SON PRIOR TO MAKING FURTHER DECISIONS. CM WAITING PT TO SPEAK TO DOCTOR AND HER SON REGARDING SNF REHAB VS HOME HEALTH. CM TO CONTINUE TO FOLLOW AND ASSIST NEEDED. GUANAKITO SANDERS CASE JOSEPH DCP- Discharge Planning Updated by [id number]: Guanakito Sanders on 04/21/19 9:[address] Patient Name: ETIENNE PEREZ Admission Status: ER Accout number: [id number] Admission Date: 04-14-2019 : 1940 Admission Diagnosis: Attending: BETITO GRACE Current LOS: 7 Anticipated DC Date: Planned Disposition: Inpatient Rehab Primary Insurance: [employer] [facility] PLANNED EXTERNAL PROVIDER: [facility] INPATIENT REHAB Discharge Planning Comments: CM MET WITH PT IN ROOM TO DISCUSS DISCHARGE PLANNING AND NEEDS. PT REPORTS LIVING AT HOME INDEPENDENTLY AND ALONE. PT REPORTS ONE STEP OUTSIDE INTO THE HOME AND HER LAUNDRY ROOM IS DOWNSTAIRS IN THE HOME, APPROXIMATELY 12-14 STEPS. PT HAS A CANE WITH NO MEDICAL EQUIPMENT PROVIDER PREFERNECE. PT HAS NO OUTSIDE SERVICES ASSISTING IN THE HOME. CM DISCUSSED AVAILABILITY OF HOME HEALTH, REHAB SERVICES AND MEDICAL EQUIPMENT. PT WOULD LIKE REHAB AT [facility], REPORTS HER SON WILL PICK HER UP FOR DISCHARGE HOME. IMPORTANT MESSAGE FROM MEDICARE PROVIDED AND EXPLAINED. PT ASKING FOR REHAB AT [facility]. CM WAITING RESULTS OF INPATIENT REHAB PRESCREENING. Shellfish Dredge Operator: Guanakito Sanders DCP- Discharge Planning Updated by [id number]: Guanakito Sanders on 04/20/19 4:[address] Patient Name: ETIENNE PEREZ Admission Status: ER Accout number: [id number] Admission Date: 04-14-2019 : 1940 Admission Diagnosis: Attending: BETITO GRACE Current LOS: 6 Anticipated DC Date: Planned Disposition: Primary Insurance: [employer] [facility] Discharge Planning Comments: CM RECEIVED ORDER FOR INPATIENT REHAB PRESCREENING. CM ATTEMPTED TO MEET WITH PT FOR INITIAL ASSESSMENT OF DISCHARGE NEEDS. PT WAS HAVING PATIENT CARE BY HAMMERER IN ROOM AT THE TIME. CM TO ATTEMPT ASSESSMENT OF PT AT A LATER TIME. Shellfish Dredge Operator: Guanakito Sanders DCPIA - Discharge Planning Initial Assessment Updated by [id number]: Guanakito Sanders on 04/21/19 10:06 am * Is the patient Alert and Oriented? Yes * How many steps to enter\exit or inside your home? 1-O / 12-I * PCP DR. GRACE * [facility] [address]. * Preadmission Environment Home Alone * ADLs Independent * Equipment Cane * Other Equipment NO MEDICAL EQUIPMENT PROVIDER PREFERENCE * List name and contact numbers for known caregivers / representatives who currently or will assist patient after discharge: MAY PEREZ, SON, * Verbal permission to speak to the caregivers and representatives has been obtained from the patient. Yes * Community resources currently utilized None * Please name any agencies selected above. NONE * Additional services required to return to the preadmission environment? Yes * Has this patient been hospitalized within the prior 30 days at any hospital? No Coverage Notice Reviewer: [id number] Chinyere Sanders Notice Issued Date-Time: 04/21/2019 8:40 Notice Type: IM Discharge Notice Notice Delivered To: Patient Relationship to Patient: Physiology Teacher Name: Delivery Method: HAND - Hand Delivered Cheyenne Days: Prior Verbal Notification: Recipient Understood Notice: Yes Recipient Signature: Yes Med Rec Note Co-signed by Attending: Coverage Notice Comment: Reviewer: [id number] Chinyere Sanders Notice Issued Date-Time: 04/22/2019 9:25 Notice Type: Patient Choice Letter Notice Delivered To: Patient Relationship to Patient: Physiology Teacher Name: Delivery Method: HAND - Hand Delivered Cheyenne Days: Prior Verbal Notification: Recipient Understood Notice: Yes Recipient Signature: Yes Med Rec Note Co-signed by Attending: Coverage Notice Comment: 1 - [facility] 2 - [facility] Reviewer: [id number] Chinyere Sanders Notice Issued Date-Time: 04/24/2019 7:50 Notice Type: IM Discharge Notice Notice Delivered To: Patient Relationship to Patient: Physiology Teacher Name: Delivery Method: HAND - Hand Delivered Cheyenne Days: Prior Verbal Notification: Recipient Understood Notice: Yes Recipient Signature: Yes Med Rec Note Co-signed by Attending: Coverage Notice Comment: Last DP export: 04/23/19 4:32 Patient Name: ETIENNE PEREZ Page 31248 at 0940 All edits/amendments must be made on the electronic document DICTATION DATE: 04/24/19939 STAFF ANESTHETIST: HIEN 04/24/19939 RPT#: [id number] DC DATE: STATUS: ADM IN [facility] [address] [place] [address] END OF REPORT
--- NOTE | 2019-04-24 09:48 | MORECARE ---
CASE MANAGEMENT DISCHARGE SUMMARY PATIENT: ETIENNE PEREZ HAND UNIT: [id number] ADM DATE: 04/14/19 AGE: 78 : 40 SEX: F ROOM/BED: D.4700 AUTHOR: SU LAURENT PHYSICIAN: REFERRING PHYSICIAN: BETITO GRACE MD DATE OF SERVICE: 04/24/19 Discharge Plan Patient Name: ETIENNE PEREZ Facility: [facility]:[place] : 1940 Planned Disposition: [facility] Facility Anticipated Discharge Date: 04/24/19 Discharge Date: Expected LOS: 10 Initial Reviewer: [id number] Initial Review Date: 04/20/2019 Generated: 04/24/19 10:48 am Comments DCP- Discharge Planning Updated by [id number]: Guanakito Sanders on 04/24/19 8:[address] Patient Name: ETIENNE PEREZ Encounter No: [id number] : 1940 Primary Insurance: [employer] [facility] PFFS Anticipated DC Date: 04-24-2019 Planned Disposition: [facility] Facility External Planned Provider: [facility], MEDICARE REHAB BED DCP follow-up note: CM RECEIVED DISCHARGE ORDER, FAXED DISCHARGE INFORMATION TO [facility] AT [phone], CM NOTIFIED PT WHO WAS ALREADY AWARE, PT REPORTS HER FAMILY IS AWARE OF DISCHARGE TO [facility] THIS MORNING. ALL IN AGREEMENT WITH PLAN. . IMPORTANT MESSAGE FROM MEDICARE PROVIDED AND EXPLAINED. IRONER MACHINE NURSE NOTIFIED. NURSE REPORT TO BE CALLED TO [facility] AT [phone]. [facility] TO ARRANGE VAN TRANSPORTATION FOR CONFIGURATION MANAGEMENT ANALYST AT 1000AM . Guanakito Sanders, CASE MANAGEMENT DCP- Discharge Planning Updated by [id number]: Guanakito Sanders on 04/23/19 4:[address] Patient Name: ETIENNE PEREZ Encounter No: [id number] : 1940 Primary Insurance: [employer] [facility] PFFS Anticipated DC Date: 04-24-2019 Planned Disposition: [facility] Facility External Planned Provider: [facility], MEDICARE REHAB BED DCP follow-up note: CM RECEIVED CALL FROM [facility], THEY HAVE A BED AT [facility] FOR PT, PT CAN ADMIT TOMORROW. [facility] HAS NOTIFIED PT AND PT'S SON. [facility] TO CONFIGURATION MANAGEMENT ANALYST AT 1000AM, 04-24-19. CM NOTIFIED IRONER MACHINE NURSE AND DR. GRACE VIA PHONE. FOR DISCHARGEON 04-24-19, FAX DISCHARGE INFORMATION TO [facility] AT [phone], NURSE REPORT TO BE CALLED TO [facility] AT [phone]. [facility] TO ARRANGE VAN TRANSPORTATION FOR CONFIGURATION MANAGEMENT ANALYST AT 1000AM . PATITO Jarrell DCP- Discharge Planning Updated by [id number]: Guanakito Sanders on 04/23/19 8:[address] Patient Name: ETIENNE PEREZ Encounter No: [id number] : 1940 Primary Insurance: [employer] [facility] PF Anticipated DC Date: 04-23-2019 Planned Disposition: [facility] Facility External Planned Provider: [facility], MEDICARE REHAB BED DCP follow-up note: CM FAXED UPDATED REFERRAL INFORMATION TO [facility] AT [phone]. CM CONTINUES TO WAIT EVALUATION RESULTS FOR ADMISSION TO [facility]. CM WAITING ADMISSION DETERMINATION FROM [facility]. uGanakito Sanders, CASE MANAGEMENT Appended by Guanakito Sanders on 04/23/2019 9:20 CDT: CM SPOKE TO PT IN ROOM REGARDING REFERRAL TO [facility], ADVISED THAT [facility] MAY NOT HAVE A BED. PT ASKED THAT REFERRAL BE SENT TO HER SECOND CHOICE, [facility], WHERE HER FRIEND IS IN SORTER/ASSAY TECH CARE. CM NOTIFIED [facility] WHO SCREENS FOR BOTH [facility] AND [facility]. [facility] VERIFIED THAT [facility] DOES NOT HAVE ANY REHAB BEDS AT THIS TIME AND SHE WILL SEND REFERRAL TODAY TO [facility]. CM ADVISED THAT PT IS READY TO DISCHARGE TODAY. PT IN AGREEMENT WITH DISCHARGE PLAN TO [facility], [facility] HAS ALREADY BEEN SIGNED. CM WAITING ADMISSION DETERMINATION FROM [facility]. PATITO JARRELL DCP- Discharge Planning Updated by [id number]: Guanakito Sanders on 04/22/19 4:[address] Patient Name: ETIENNE PEREZ Encounter No: [id number] : 1940 Primary Insurance: [employer] [facility] PF Anticipated DC Date: 04-22-2019 Planned Disposition: [facility] Facility External Planned Provider: [facility], MEDICARE REHAB BED DCP follow-up note: JAY CALLED [facility] FOR [facility] AT [phone]. [facility] ADVISED SHE IS WORKING ON REFERRAL FOR REHAB NOW, SHE IS NOT SURE IF THEY WILL HAVE AVAILABLE BED AT [facility] BUT SHE WILL CHECK AND PROCEED WITH REFERRAL. JAY WAITING ADMISSION DETERMINATION FROM [facility]. Guanakito Sanders CASE MANAGEMENT DCP- Discharge Planning Updated by [id number]: Guanakito Sanders on 04/22/19 9:[address] Patient Name: ETIENNE PEREZ Encounter No: [id number] : 1940 Primary Insurance: [employer] [facility] PFFS Anticipated DC Date: 04-22-2019 Planned Disposition: [facility] Facility External Planned Provider: [facility], MEDICARE REHAB BED DCP follow-up note: CM REVIEWED CHART. CM MET WITH PT IN ROOM, PT REPORTS SPEAKING TO THE DOCTOR AND ONE OF HER SONS, THEY WANT [facility] FOR REHAB. CHOICE SIGNED. CM NOTIFIED PT THAT THE DOCTOR IS READY FOR HER TO DISCHARGE TO REHAB TODAY. PT IN AGREEMENT WITH PLAN FOR REHAB TODAY AT [facility]. CM CALLED AND PROVIDED REFERRAL TO [facility] AT [phone]. CM NOTIFIED [facility] THAT PT IS READY TO DISCHARGE TO REHAB TODAY. CM FAXED REFERRAL TO [facility] FOR [facility] AT [phone]. CM WAITING ADMISSION DETERMINATION FROM [facility]. PATITO Jarrell DCP- Discharge Planning Updated by [id number]: Guanakito Sanders on 04/21/19 2:[address] Patient Name: ETIENNE PEREZ Encounter No: [id number] : 1940 Primary Insurance: [employer] [facility] PFFS Anticipated DC Date: Planned Disposition: [facility] Facility External Planned Provider: WAITING PATIENT DECISION DCP follow-up note: CM RECEIVED MESSAGE FROM [facility] REH[facility], PT TOO HIGH FUNCTIONING FOR INPATIENT REHAB, INSURANCE WILL NOT APPROVE. CM SPOKE TO PT IN ROOM REGARDING ASSISTED REHAB OR HOME HEALTH. PROVIDER LISTINGS GIVEN FOR BOTH SERVICES. PT WANT TO TALK TO DR. GRACE AND HER SON PRIOR TO MAKING FURTHER DECISIONS. CM WAITING PT TO SPEAK TO DOCTOR AND HER SON REGARDING ASSISTED REHAB VS HOME HEALTH. CM TO CONTINUE TO FOLLOW AND ASSIST NEEDED. GUANAKITO SANDERS, CASE MANAGEMENT DCP- Discharge Planning Updated by [id number]: Guanakito Sanders on 04/21/19 9:[address] Patient Name: ETIENNE PEREZ Admission Status: ER Accout number: [id number] Admission Date: 04-14-2019 : 1940 Admission Diagnosis: Attending: BETITO GRACE Current LOS: 7 Anticipated DC Date: Planned Disposition: Inpatient Rehab Primary Insurance: [employer] [facility] PLANNED EXTERNAL PROVIDER: [facility] INPATIENT REHAB Discharge Planning Comments: CM MET WITH PT IN ROOM TO DISCUSS DISCHARGE PLANNING AND NEEDS. PT REPORTS LIVING AT HOME INDEPENDENTLY AND ALONE. PT REPORTS ONE STEP OUTSIDE INTO THE HOME AND HER LAUNDRY ROOM IS DOWNSTAIRS IN THE HOME, APPROXIMATELY 12-14 STEPS. PT HAS A CANE WITH NO MEDICAL EQUIPMENT PROVIDER PREFERNECE. PT HAS NO OUTSIDE SERVICES ASSISTING IN THE HOME. CM DISCUSSED AVAILABILITY OF HOME HEALTH, REHAB SERVICES AND MEDICAL EQUIPMENT. PT WOULD LIKE REHAB AT [facility], REPORTS HER SON WILL PICK HER UP FOR DISCHARGE HOME. IMPORTANT MESSAGE FROM MEDICARE PROVIDED AND EXPLAINED. PT ASKING FOR REHAB AT [facility]. CM WAITING RESULTS OF INPATIENT REHAB PRESCREENING. Database Marketing Specialist: Guanakito Sanders DCP- Discharge Planning Updated by [id number]: Guanakito Sanders on 04/20/19 4:[address] Patient Name: ETIENNE PEREZ Admission Status: ER Accout number: [id number] Admission Date: 04-14-2019 : 1940 Admission Diagnosis: Attending: BETITO GRACE Current LOS: 6 Anticipated DC Date: Planned Disposition: Primary Insurance: [employer] [facility] Discharge Planning Comments: CM RECEIVED ORDER FOR INPATIENT REHAB PRESCREENING. CM ATTEMPTED TO MEET WITH PT FOR INITIAL ASSESSMENT OF DISCHARGE NEEDS. PT WAS HAVING PATIENT CARE BY TEMPLATE CUTTER IN ROOM AT THE TIME. CM TO ATTEMPT ASSESSMENT OF PT AT A LATER TIME. Database Marketing Specialist: Guanakito Sanders DCPIA - Discharge Planning Initial Assessment Updated by [id number]: Guanakito Sanders on 04/21/19 10:06 am * Is the patient Alert and Oriented? Yes * How many steps to enter\exit or inside your home? 1-O / 12-I * PCP DR. GRACE * Pharmacy [facility] [address]. * Preadmission Environment Home Alone * ADLs Independent * Equipment Cane * Other Equipment NO MEDICAL EQUIPMENT PROVIDER PREFERENCE * List name and contact numbers for known caregivers / representatives who currently or will assist patient after discharge: MAY PEREZ, SON, * Verbal permission to speak to the caregivers and representatives has been obtained from the patient. Yes * Community resources currently utilized None * Please name any agencies selected above. NONE * Additional services required to return to the preadmission environment? Yes * Has this patient been hospitalized within the prior 30 days at any hospital? No Coverage Notice Reviewer: WANG Sanders Notice Issued Date-Time: 04/24/2019 7:50 Notice Type: IM Discharge Notice Notice Delivered To: Patient Relationship to Patient: Staffing Associate Name: Delivery Method: HAND - Hand Delivered Cheyenne Days: Prior Verbal Notification: Recipient Understood Notice: Yes Recipient Signature: Yes Med Rec Note Co-signed by Attending: Coverage Notice Comment: Reviewer: WANG Sanders Notice Issued Date-Time: 04/21/2019 8:40 Notice Type: IM Discharge Notice Notice Delivered To: Patient Relationship to Patient: Staffing Associate Name: Delivery Method: HAND - Hand Delivered Cheyenne Days: Prior Verbal Notification: Recipient Understood Notice: Yes Recipient Signature: Yes Med Rec Note Co-signed by Attending: Coverage Notice Comment: Reviewer: WANG Sanders Notice Issued Date-Time: 04/22/2019 9:25 Notice Type: Patient Choice Letter Notice Delivered To: Patient Relationship to Patient: Staffing Associate Name: Delivery Method: HAND - Hand Delivered Cheyenne Days: Prior Verbal Notification: Recipient Understood Notice: Yes Recipient Signature: Yes Med Rec Note Co-signed by Attending: Coverage Notice Comment: 1 - [facility] 2 - [facility] Last DP export: 04/24/19 8:40 Patient Name: ETIENNE PEREZ Page [id number] at 0948 All edits/amendments must be made on the electronic document DICTATION DATE: 04/24/19947 KILN HEAD HOUSE OPERATOR: HIEN 04/24/19947 RPT#: [id number] DC DATE: STATUS: ADM IN [facility] [address] [place] [address] END OF REPORT
[2019-04-24 09:59] VITALS: BP 119/79
--- NOTE | 2019-04-24 11:20 | NUR ---
IV AND TELEMETRY DCD. DC PLANS CALLED TO REHAB CENTER. [facility]AVING [facility].
--- NOTE | 2019-06-08 07:28 | DS ---
PATIENT:ETIENNE PEREZ :40 MEDICAL RECORD: [id number] DISCHARGE SUMMARY ADMISSION DATE: 04/14/19 DISCHARGE DATE: 04/24/19 DISCHARGE DIAGNOSES: Atrial fibrillation with rapid ventricular response, syncope, UTI, hypertension, hyperlipidemia, altered mental status, syncopal episode due atrial fibrillation with RVR, altered mental status, febrile illness, hypomagnesemia, and hallucinosis. HOSPITAL COURSE: A 78-year-old female who had a syncopal episode at home. She initially went to the [facility] ED and was discharged to return here when she became more symptomatic. She was found to be in AFib with RVR. She was admitted, placed on telemetry. IV Cardizem. Cardiology consult with Dr. Lopez reviewed her echo, so she has good EF greater than 50% and no valvular issues. The patient gradually converted to sinus rhythm, was placed on sotalol. She complained of continued cervical and low back pain since admission. This was most likely from her fall at home with syncope. She underwent a C-spine series, showed severe multilevel cervical spondylosis and arthritis, but no fracture. Two-view lumbar spine series showed no evidence of fracture, dislocation, grade I anterolisthesis at L5-S1, multilevel intervertebral disc space narrowing consistent with degenerative disc disease, worse in the L1-L2. Due to continued pain, she underwent lumbar MRI, which showed no acute fracture. Severe bilateral neural foraminal narrowing at T12-L1, moderate spinal canal stenosis L2-L3, L3-L4, and L4-L5 because of altered mental status after CT was unremarkable, the brain MRI was performed showing no findings of intracranial ischemia or hemorrhage. Moderate cerebral atrophy with severe microangiopathic change throughout both cerebral hemispheres. Dr. Forte was consulted. After discussion with this, I assured him, I felt most likely her problems were due to sundowning and multiple medications and being more confused, mainly at night. It was Dr. 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 He was reluctant to treat with medication but the patient was actually clearing, although he did state at a low dose any psychotic might be appropriate. She persisted having trouble with hallucinosis at night. The patient continued to improve her low back pain improved with physical therapy. She had no hallucinosis for the last 48 hours or shortness of breath. Her chest x-ray showed clearing of pulmonary edema. Her Lasix was discontinued. She remained in sinus rhythm with all pleural effusion and was transferred to rehab for further PT. DISCHARGE DIET: Low sodium. DISCHARGE MEDICATIONS: Sotalol 120 mg p.o. b.i.d., tamoxifen 20 mg p.o. daily, vitamin D 1000 units p.o. daily, vitamin B12 1000 mcg tablet daily, ferrous gluconate 236 mg p.o. daily. MiraLax 17 mg daily, K-Tab 10 mEq p.o. daily, Hytrin 1 mg p.o. at bedtime, vitamin A 10,000 unit capsule p.o. daily. She will discontinue atenolol, and nitrofurantoin. ACTIVITY: Return to clinic to see me 1 week after discharge from rehab with BMP and UA at that time. TRANSINT:[id number] Voice Confirmation ID: [id number] DOCUMENT ID: [id number] DISCHARGE SUMMARY REPORT [id number] ETIENNE PEREZ TIMOTHY MD at 0728 CC: [id number] DICTATION DATE: 06/07/19 0953 CONSUMER INSIGHT MANAGER: 06/08/19 0101 DIS IN 04/24/19 [id number] [place] [address]
== END 2019-04-24 11:21 | DRG 690 ==
LOC: D.ER 20:02 → D.M2 04-14 00:38 → D.MS 04-14 00:38 → D.M2 04-15 11:40
PROVIDERS: Family Medicine; ADMIT Family Medicine; ATTEND Family Medicine
DX: N39.0 Urinary tract infection, site not specified (principal); F05 Delirium due to known physiological condition; M54.5 Low back pain; W19.XXXA Unspecified fall, initial encounter; R55 Syncope and collapse; E78.5 Hyperlipidemia, unspecified; I10 Essential (primary) hypertension; E83.42 Hypomagnesemia; E87.6 Hypokalemia; I95.9 Hypotension, unspecified; I48.91 Unspecified atrial fibrillation; I65.22 Occlusion and stenosis of left carotid artery; G30.9 Alzheimer's disease, unspecified; F02.80 Dementia in other diseases classified elsewhere, unspecified severity, without behavioral disturbance, psychotic disturbance, mood disturbance, and anxiety; M48.061 Spinal stenosis, lumbar region without neurogenic claudication; M54.2 Cervicalgia; Z86.718 Personal history of other venous thrombosis and embolism; Z85.3 Personal history of malignant neoplasm of breast

== ENCOUNTER 2019-06-30 16:47 | Inpatient (IN) | payer MEDICARE ==
[~2019-06-30] VITALS: Ht 162.6 cm; Wt 77.1 kg
[~2019-06-30 16:47] MED LIST: BETAPACE 120 M120 MG PO; BIOTIN PO; FERROUS GLUCONATE PO; HYTRIN1 MG PO; K-TAB10 MEQ PO; MACROBID100 MG PO; MIRALAX17 GM PO; TAMOXIFEN CITRA20 MG; TENORETIC; TENORMIN50 MG PO; VITAMIN A10000 UNIT PO; VITAMIN B-121000 MCG PO; VITAMIN D31000 UNIT PO
[2019-06-30 17:51] LABS: BASOPHILS 0 % (0-2); EOSINOPHILS 0.6 % (0-7); HEMATOCRIT 35.8 % (36.0-48.0); HEMOGLOBIN 12.4 g/dL (12-16); IMMATURE GRANULOCYTES 0.3 % (0-5); LYMPHOCYTES 1.7 % (15-50); MCHC 34.6 g/dL (31.0-37.0); MCV 86.5 fL (80.0-100.0); MEAN PLATELET VOLUME 9.2 fL (7.4-10.4); MONOCYTES 2.1 % (2-11); NEUTROPHILS 95.3 % (40-80); RBC 4.14 10x6/uL (4.00-5.40); RDW 12.5 % (11.5-14.5); WBC 12.3 10x3/uL (4.8-10.8)
[2019-06-30 17:53] LABS: PLATELET COUNT 156 10x3/uL (130-400)
[2019-06-30 18:05] LABS: CALC OSMOLALITY 286 mosm/kg (275-300); CALCIUM 8.8 mg/dL (8.5-10.1); CARBON DIOXIDE 27.2 mmol/L (21.0-32.0); CHLORIDE - SERUM 103 mmol/L (98-107); CREATININE - SERUM 1.1 mg/dL (0.6-1.3); GLUCOSE 158 mg/dL (74-106); SODIUM 142 mmol/L (136-145); UREA NITROGEN 15 mg/dL (7-18); eGFR NON AFRICAN AMERICAN 51 mL/min (90-120)
[2019-06-30 18:06] LABS: INR 1.05 (0.85-1.17); PROTIME 13.2 SECONDS (11.6-15.0)
[2019-06-30 18:10] LABS: APPEARANCE HAZY (CLEAR); BILIRUBIN NEGATIVE (NEGATIVE); COLOR YELLOW (YELLOW); GLUCOSE NEGATIVE (NEGATIVE); KETONE NEGATIVE (NEGATIVE); NITRITE NEGATIVE (NEGATIVE); PROTEIN NEGATIVE (NEGATIVE); UROBILINOGEN NORMAL (NORMAL)
[2019-06-30 18:18] LABS: BACTERIA MODERATE /hpf (NEGATIVE); RED CELLS - URINE 0-5 /hpf (0-5); WHITE CELLS - URINE 0-5 /hpf (NEGATIVE)
[2019-06-30 18:21] LABS: ALBUMIN 3.3 g/dL (3.4-5.0); ALKALINE PHOSPHATASE 60 U/L (46-116); ALT (SGPT) 26 U/L (10-68); BILIRUBIN - TOTAL 0.46 mg/dL (0.2-1.3); CKMB 0.5 U/L (0.0-3.6); CREATINE KINASE 42 UL (21-215); TROPONIN-I < 0.017 ng/mL (0.000-0.060)
[2019-06-30 19:23] VITALS: BP 116/62
[2019-06-30 19:45] VITALS: BP 129/60; BMI 29.2
--- NOTE | 2019-06-30 20:00 | NUR ---
PT BROUGHT TO FLOOR VIA WHEELCHAIR. AMBULATED WITHOUT DIFFICULTY. AOX4, SON AND DAUGHTER IN LAW AT BEDSIDE. VSS, STATES NO PAIN AT THIS TIME. SCDS PLACED BILAT AND EDUCATED ON USE. IV RIGHT HAND INFUSING NS BOLUS AT THIS TIME. TELE PLACED ON PT, HR 76SR. PROVIDED ICE WATER AND EXTRA PAIRS OF MEDIUM BRIEFS. DENIES OTHER NEEDS. CL IN REACH, WILL CTM
[2019-07-01 01:58] VITALS: BP 122/53
--- NOTE | 2019-07-01 04:30 | NUR ---
PT NAUSEOUS AND VOMITED IN FLOOR. CLEANED UP CLEAR EMESIS. PT STATES SHE FEELS LIKE SHE HAS INDIGESTION. GAVE ZOFRAN ORDERED. PROVIDED CRACKERS AND SPRITE. DENIES NEEDS. CL IN REACH, WILL CTM
[2019-07-01 04:51] LABS: BASOPHILS 0.1 % (0-2); EOSINOPHILS 0.5 % (0-7); HEMATOCRIT 32.8 % (36.0-48.0); HEMOGLOBIN 11.1 g/dL (12-16); IMMATURE GRANULOCYTES 0.2 % (0-5); LYMPHOCYTES 0.4 % (15-50); MCH 29.8 pg (26.0-34.0); MCHC 33.8 g/dL (31.0-37.0); MCV 88.2 fL (80.0-100.0); MEAN PLATELET VOLUME 9.4 fL (7.4-10.4); NEUTROPHILS 97.8 % (40-80); RBC 3.72 10x6/uL (4.00-5.40); RDW 12.8 % (11.5-14.5); WBC 14.9 10x3/uL (4.8-10.8)
[2019-07-01 04:54] LABS: PLATELET COUNT 119 10x3/uL (130-400)
[2019-07-01 05:11] LABS: ANION GAP 16.3 mmol/L (8-16); BILIRUBIN - TOTAL 0.62 mg/dL (0.2-1.3); CALCIUM 7.8 mg/dL (8.5-10.1); CARBON DIOXIDE 21.9 mmol/L (21.0-32.0); POTASSIUM - SERUM 3.2 mmol/L (3.5-5.1); PROTEIN - SERUM 5.7 g/dL (6.4-8.2)
[2019-07-01 05:17] LABS: ALBUMIN 2.4 g/dL (3.4-5.0)
[2019-07-01 08:09] VITALS: BP 94/37
--- NOTE | 2019-07-01 08:13 | NUR ---
PATIENT AWAKE WATCHING TV. REPOSITIONED IN BED. SAYS HER "PAIN HAS GOTTEN BETTER SINCE SHE THREW UP." CL IN REACH. NO NEEDS AT THIS TIME. DENIES NAUSEA. STATES PAIN IS "OK." NYDIA
--- NOTE | 2019-07-01 11:16 | NUR ---
PAGING DR GRACE OFFICE TO REPORT NO CHANGE IN LACTIC ACID LEVELS.
--- NOTE | 2019-07-01 13:19 | NUR ---
SCD'S PROVIDED. EMESIS BAGS PROVIDED. CL IN REACH. WCTM
--- NOTE | 2019-07-01 14:45 | NUR ---
PATIENT FOUND STANDING UP TANGLED IN IV TUBING AND TELEMETRY. BM ON BACK OF LEFT FOOT AND UPPER BUTTOCK. CLEANED UP. PROVIDED NEW TEGADERM FOR IV IT WAS FDC OFF. A TELEMETRY BAG TO HANG AROUND HER NECK. NEW NON SLIP SOCKS. WELL A BAG TO PUT HER DIRTY CLOTHES IN. BED ALARM ON BED NOW. PATIENT KEEP TALKING ABOUT HOW THE HALLWAY DOOR WAS THE BATHROOM EVEN THOUGH WE WERE IN THE BATHROOM. KNEW PRESIDENT WAS TRUMP. REORIENTED. CL IN REACH. TM
[2019-07-01 15:49] VITALS: BP 120/49
--- NOTE | 2019-07-01 15:52 | NUR ---
PATIENT WAS UP. BED ALARM GOING OFF. TELEMETRY TAKEN OFF. ASSISTED BACK TO LAY DOWN. TELEMETRY AND ELECTRODES REAPPLIED. CL IN REACH. BED ALARM ON. WCTM
--- NOTE | 2019-07-01 17:47 | NUR ---
PATIENT TELEMETRY REAPPLIED. CL IN REACH. NO NEEDS AT THIS TIME. WCTM
--- NOTE | 2019-07-01 20:00 | NUR ---
ALERT RESTING IN BED, FAMILY AT BEDSIDE, DENIES PAIN OR NEEDS AT THIS TIME, CALL LIGHT IN REACH AND FALL PRECAUTIONS IN PLACE SEE SHIFT ASSESSEMNT
[2019-07-02] VITALS: BP 111/43
[2019-07-02 05:16] LABS: BASOPHILS 0.1 % (0-2); EOSINOPHILS 3.7 % (0-7); HEMATOCRIT 29.4 % (36.0-48.0); HEMOGLOBIN 10.2 g/dL (12-16); IMMATURE GRANULOCYTES 0.2 % (0-5); LYMPHOCYTES 3.5 % (15-50); MCH 30.7 pg (26.0-34.0); MCHC 34.7 g/dL (31.0-37.0); MCV 88.6 fL (80.0-100.0); MEAN PLATELET VOLUME 9.7 fL (7.4-10.4); MONOCYTES 3.5 % (2-11); PLATELET COUNT 108 10x3/uL (130-400); RBC 3.32 10x6/uL (4.00-5.40)
[2019-07-02 05:28] LABS: WBC 8.3 10x3/uL (4.8-10.8)
[2019-07-02 05:47] LABS: ALBUMIN 2.1 g/dL (3.4-5.0); BILIRUBIN - TOTAL 0.36 mg/dL (0.2-1.3); CALCIUM 7.5 mg/dL (8.5-10.1); CARBON DIOXIDE 23.3 mmol/L (21.0-32.0); CREATININE - SERUM 1.1 mg/dL (0.6-1.3); MAGNESIUM - SERUM 1.6 mg/dL (1.8-2.4); PROTEIN - SERUM 5.2 g/dL (6.4-8.2)
[2019-07-02 05:49] LABS: ANION GAP 13.4 mmol/L (8-16); POTASSIUM - SERUM 2.7 mmol/L (3.5-5.1)
--- NOTE | 2019-07-02 07:12 | HP ---
PATIENT: ETIENNE PEREZ MEDICAL RECORD: [id number] ACCOUNT: [id number] LOCATION:[id number] : 40 ADMISSION DATE: 06/30/19 PCP: BETITO GRACE MD HISTORY AND PHYSICAL EXAMINATION REASON FOR ADMISSION: Fever and chills. HISTORY OF PRESENT ILLNESS: The patient is a 78-year-old female who was seen in followup in the office 2 days ago. At that time, she was noted to have asymptomatic pyuria and was placed on Macrobid based on a urine culture from April. She had 1 dose this evening developed onset of chills and fever to 101. She has been hospitalized in April of this year for similar episode and had an extended hospital course developed atrial fibrillation and altered mental status. For that reason, I have recommended her son bring her to the ED. On arrival, she was alert and oriented. Her temperature dropped after two Tylenol and four ibuprofen. She denies dysuria, back pain, but says occasionally he has trouble emptying her bladder. She denies cough, nausea, or vomiting. PAST MEDICAL HISTORY: PAF with RVR in April 2019, history of breast cancer, post bilateral mastectomies, hyperlipidemia, remote DVT, hypertension, meniscus tear right knee. TMJ, osteoarthritis of left knee post-replacement, and hypertension. PAST SURGICAL HISTORY: section, left knee replacement in 2016, bilateral mastectomies, and tonsillectomy. SOCIAL HISTORY: Rare alcohol drinker. She is a nonsmoker, lives alone, but family is in town and helps her. FAMILY HISTORY: Mother had breast cancer and stroke and from stroke. Father of CAD and [place]. ALLERGIES: None mentioned. HOME MEDICATIONS: Potassium chloride 10 mEq daily, vitamin A 10,000 units daily, tamoxifen 20 mg daily, MiraLax 17 grams daily, vitamin B12 1000 mcg p.o. daily, vitamin D 1000 units p.o. daily, sotalol 120 mg b.i.d., and nitrofurantoin 100 mg p.o. b.i.d. REVIEW OF SYSTEMS: GENERAL: Fever and chills as mentioned tonight. Otherwise, it felt well. RESPIRATORY: No SOB or cough. CARDIAC: No chest pain, claudication, palpitations. GASTROINTESTINAL: No nausea, vomiting, change in stools or blood per rectum. GENITOURINARY: She has mild urinary hesitancy at times, but no dysuria. No recent foul odor or blood in her urine. PSYCHIATRIC: Denies depressed mood. NEUROLOGIC: Denies headache, visual change, confusion. PHYSICAL EXAMINATION: VITAL SIGNS: Temperature is 98.4, heart rate was 75 and regular, respirations are 18, blood pressure 116/62 with a sat of 95% on room air. GENERAL: The patient is alert and oriented times 3, in no acute distress. HEENT: Eyes are clear. HISTORY AND PHYSICAL [id number] CHRIS,ETIENNE HAND NECK: No bruits or masses. CHEST WALL: Shows bilateral mastectomy scars well healed. HEART: Regular rate without MGR. PMI clear bilaterally. No retractions. ABDOMEN: Soft, nontender, no CVA tenderness. EXTREMITIES: No CCE. SKIN GENITOURINARY: Deferred. NEUROLOGIC: Oriented to person, place, and time. Cranial nerves intact. Gait is normal. LABORATORY DATA: White count is 12.3 thousand with 95% neutrophils, H and H is 12.4 and 35.8 respectively. Chemistry shows potassium of 3, GFR 51, glucose of 158, nonfasting. Lactic acid is high at 3. Liver functions are normal. BUN and creatinine are 15 and 1.1. UA is hazy, shows 2-5 epithelial cells, 0-5 white and red cells, moderate bacteria. INR is 1.01. Portable chest x-ray is unremarkable. ASSESSMENT: 1. UTI, possible urosepsis. 2. Hypokalemia. 3. History of breast cancer. PLAN: The patient will be admitted and placed on IV Rocephin 1 gram q.12 hours based on her prior culture. She was given sepsis protocol, IV fluids, potassium replacement will be begun. Further workup pending clinical course. TRANSINT:[id number] Voice Confirmation ID: [id number] DOCUMENT ID: [id number] BETITO GRACE MD at 0712 CC: [id number] DICTATION DATE: 06/30/192040 ORNAMENTAL IRONWORKER HELPER: 06/30/192133 ADM IN [id number] [place] [address]
[2019-07-02 08:43] VITALS: BP 105/47
[2019-07-02 09:03] VITALS: Ht 162.6 cm; Wt 77.1 kg
--- NOTE | 2019-07-02 10:22 | NUR ---
PATIENT RECIEVED THIS AM FROM PREVIOUS NURSE RESTING IN BED. ORIENTED X4 AT THIS TIME. PREVIOUS NURSE REPORTS SOME CONFUSION LATER YESTERDAY AND DURING PM. SON STATES THIS IS NEW FOR PATIEN BUT DOES OCCUR WITH UTI. PATIENT MADE NPO FOR SCAN LATER TODAY DUE TO N/V WITH EATING. CL IN REACH, FALL PRECAUTIONS IN PLACE.
[2019-07-02 16:40] VITALS: BP 123/76
[2019-07-02 20:00] VITALS: BP 107/46
--- NOTE | 2019-07-02 20:00 | NUR ---
PT SITTING UP IN BED WITHOUT DISTRESS, AOX4. SON AT BEDSIDE. DENIES NAUSEA OR PAIN. NO NEEDS. CL IN REACH, WILL CTM
[2019-07-03] VITALS: BP 112/61
--- NOTE | 2019-07-03 02:00 | NUR ---
PT BED ALARM SOUNDING, UPON ENTERING ROOM PT WAS SITTING ON SIDE OF BED CONFUSED AND TANGLED UP WITH IV LINES AND TELE MONITOR. IV WAS PULLED OUT OF HAND. STATED IT WAS HURTING HER HAND SO SHE PULLED IT OUT. CONFUSED TO SITUATION. REORIENTED PT, RESITED 22G IV TO LEFT HAND. HELPED PT GET COMFORTABLE IN BED, DENIES OTHER NEEDS. CL IN REACH, ISAIAS ON. WILL CTM
[2019-07-03 04:00] VITALS: BP 116/60
[2019-07-03 06:41] LABS: ANION GAP 10.3 mmol/L (8-16); CALCIUM 8.1 mg/dL (8.5-10.1); CREATININE - SERUM 0.9 mg/dL (0.6-1.3); POTASSIUM - SERUM 3.3 mmol/L (3.5-5.1)
--- NOTE | 2019-07-03 07:57 | MORECARE ---
CASE MANAGEMENT DISCHARGE SUMMARY PATIENT: ETIENNE PEREZ HAND UNIT: [id number] ADM DATE: 06/30/19 AGE: 78 : 40 SEX: F ROOM/BED: D.2205 AUTHOR: SU LAURENT PHYSICIAN: REFERRING PHYSICIAN: BETITO GRACE MD DATE OF SERVICE: 07/03/19 Discharge Plan Patient Name: ETIENNE PEREZ [facility] [facility] 1940 Planned Disposition: Home Anticipated Discharge Date: Discharge Date: Expected LOS: Initial Reviewer: [email or web address] Initial Review Date: 06/30/2019 Generated: 07/03/19 8:57 am DCPIA - Discharge Planning Initial Assessment Updated by [email or web address]: Idalmis Evans on 07/03/19 7:57 am * Is the patient Alert and Oriented? Yes * How many steps to enter\exit or inside your home? 15 down * PCP * Pharmacy [facility] [address] * Preadmission Environment Home Alone * ADLs Independent * Equipment Cane Walker * List name and contact numbers for known caregivers / representatives who currently or will assist patient after discharge: MAY PEREZ (SON)[phone] * Verbal permission to speak to the caregivers and representatives has been obtained from the patient. N/A * Community resources currently utilized None * Additional services required to return to the preadmission environment? No * Can the patient safely return to the preadmission environment? Yes * Has this patient been hospitalized within the prior 30 days at any hospital? No Patient Name: ETIENNE PEREZ Page 25640 at 0757 All edits/amendments must be made on the electronic document DICTATION DATE: 07/03/19756 CHANGE CONTROL COORDINATOR: HIEN 07/03/19756 RPT#: [id number] DC DATE: STATUS: ADM IN [facility] [address] [place] [address] END OF REPORT
--- NOTE | 2019-07-03 08:05 | MORECARE ---
CASE MANAGEMENT DISCHARGE SUMMARY PATIENT: ETIENNE PEREZ HAND UNIT: [id number] ADM DATE: 06/30/19 AGE: 78 : 40 SEX: F ROOM/BED: D.2205 AUTHOR: SU LAURENT PHYSICIAN: REFERRING PHYSICIAN: BETITO GRACE MD DATE OF SERVICE: 07/03/19 Discharge Plan Patient Name: ETIENNE PEREZ Facility: [facility]:[place] : 1940 Planned Disposition: Home Anticipated Discharge Date: Discharge Date: Expected LOS: Initial Reviewer: [email or web address] Initial Review Date: 06/30/2019 Generated: 07/03/19 9:04 am Comments DCP- Discharge Planning Updated by [email or web address]: Idalmis Evans on 07/03/19 6:[address] Patient Name: ETIENNE PEREZ Admission Status: ER Accout number: [id number] Admission Date: 06-30-2019 : 1940 Admission Diagnosis: Attending: BETITO GRACE Current LOS: 3 Anticipated DC Date: Planned Disposition: Home Primary Insurance: [employer] [facility] Discharge Planning Comments: CM met with patient to complete initial dc planning assessment. CM educated patient on the CM role and verbal consent given by patient to complete assessment. Patient lives at home by herself where she stated that she is independent with her care. At discharge patient plans to return home and feels this is a safe discharge. One of her sons will be her stage driver home. CM discussed availability of home health, rehab services, and medical equipment. She uses a cane at times and has a walker but does not use it. She did not think she needed home health either. Patient denied known discharge needs at this time. CM will continue to follow and will assist as needed with dc plans/needs. It Operations Analyst: Idalmis Evans DCPIA - Discharge Planning Initial Assessment Updated by [email or web address]: Idalmis Evans on 07/03/19 7:57 am * Is the patient Alert and Oriented? Yes * How many steps to enter\exit or inside your home? 15 down * PCP MICRONESIAN * [facility] [address] * Preadmission Environment Home Alone * ADLs Independent * Equipment Cane Walker * List name and contact numbers for known caregivers / representatives who currently or will assist patient after discharge: MAY PEREZ (SON)[phone] * Verbal permission to speak to the caregivers and representatives has been obtained from the patient. N/A * Community resources currently utilized None * Additional services required to return to the preadmission environment? No * Can the patient safely return to the preadmission environment? Yes * Has this patient been hospitalized within the prior 30 days at any hospital? No Last DP export: 07/03/19 6:57 Patient Name: ETIENNE PEREZ Page [id number] at 0805 All edits/amendments must be made on the electronic document DICTATION DATE: 07/03/19803 OIL [employer] FIELD SUPERVISOR: HIEN 07/03/19803 RPT#: [id number] DC DATE: STATUS: ADM IN [facility] [address] [place] [address] END OF REPORT
[2019-07-03 09:03] VITALS: BP 127/71
--- NOTE | 2019-07-03 09:31 | NUR ---
PT ALERT X 4. BREATH SOUNDS CLEAR BILAT. TELEMETRY IN PLACE. IV TO LEFT HAND, PATENT, DRESSING CDI. TRACE EDEMA TO BLE. PT REPORTING NO PAIN AT THIS TIME. BED LOW, CALL LIGHT IN REACH. NO OTHER NEEDS A THIS TIME.
[2019-07-03 12:10] VITALS: BP 133/61
[2019-07-03] MEDS ORDERED: DIFLUCAN100 MG PO (13:29)
[2019-07-03] MEDS ORDERED: MACROBID100 MG PO (13:29)
[2019-07-03] MEDS ORDERED: KLOR-CON 1010 MEQ PO (13:33)
--- NOTE | 2019-07-03 17:02 | NUR ---
DISCHARGE PAPERWORK SIGNED, ALL QUESTIONS ANSWERED. IV TO LEFT HAND DC'D, TIP INTACT. ESCORTED OUT BY WHEELCHAIR.
--- NOTE | 2019-07-07 07:28 | MORECARE ---
CASE MANAGEMENT DISCHARGE SUMMARY PATIENT: ETIENNE PEREZ HAND UNIT: [id number] ADM DATE: 07/03/19 AGE: 78 : 40 SEX: F ROOM/BED: D.2205 AUTHOR: SU LAURENT PHYSICIAN: REFERRING PHYSICIAN: BETITO GRACE MD DATE OF SERVICE: 07/07/19 Discharge Plan Patient Name: ETIENNE PEREZ Facility: [facility]:[place] : 1940 Planned Disposition: Home Anticipated Discharge Date: Discharge Date: 07/03/2019 Expected LOS: Initial Reviewer: [email or web address] Initial Review Date: 06/30/2019 Generated: 07/07/19 8:28 am Comments DCP- Discharge Planning Updated by [email or web address]: Idalmis Evans on 07/03/19 6:[address] Patient Name: ETIENNE PEREZ Admission Status: ER Accout number: [id number] Admission Date: 06-30-2019 : 1940 Admission Diagnosis: Attending: BETITO GRACE Current LOS: 3 Anticipated DC Date: Planned Disposition: Home Primary Insurance: [employer] [facility] Discharge Planning Comments: CM met with patient to complete initial dc planning assessment. CM educated patient on the CM role and verbal consent given by patient to complete assessment. Patient lives at home by herself where she stated that she is independent with her care. At discharge patient plans to return home and feels this is a safe discharge. One of her sons will be her piledriver carpenter home. CM discussed availability of home health, rehab services, and medical equipment. She uses a cane at times and has a walker but does not use it. She did not think she needed home health either. Patient denied known discharge needs at this time. CM will continue to follow and will assist as needed with dc plans/needs. Gold Prospector: Idalmis Evans DCPIA - Discharge Planning Initial Assessment Updated by [email or web address]: Idalmis Evans on 07/03/19 7:57 am * Is the patient Alert and Oriented? Yes * How many steps to enter\exit or inside your home? 15 down * PCP ANGUILLAN * [facility] [address] * Preadmission Environment Home Alone * ADLs Independent * Equipment Cane Walker * List name and contact numbers for known caregivers / representatives who currently or will assist patient after discharge: MAY PEREZ (SON)[phone] * Verbal permission to speak to the caregivers and representatives has been obtained from the patient. N/A * Community resources currently utilized None * Additional services required to return to the preadmission environment? No * Can the patient safely return to the preadmission environment? Yes * Has this patient been hospitalized within the prior 30 days at any hospital? No Last DP export: 07/03/19 7:05 Patient Name: ETIENNE PEREZ Page [phone] at 0728 All edits/amendments must be made on the electronic document DICTATION DATE: 07/07/19727 DIRECTOR CONSTRUCTION SERVICES: HIEN 07/07/19727 RPT#: [id number] DC DATE:07/03/19 STATUS: DIS IN [facility] [address] [place] [address] END OF REPORT
== END 2019-07-03 17:02 | disposition home or self-care (01) | DRG 690 ==
LOC: D.ER 16:47 → D.MS 18:44 → OBSVTIME 19:00 → D.MS 07-03 12:04
PROVIDERS: Family Medicine; ADMIT Family Medicine; ATTEND Family Medicine
DX: N39.0 Urinary tract infection, site not specified (principal); E87.6 Hypokalemia; Z85.3 Personal history of malignant neoplasm of breast; E78.5 Hyperlipidemia, unspecified; I10 Essential (primary) hypertension; K81.9 Cholecystitis, unspecified

== ENCOUNTER 2019-07-09 13:20 | Inpatient (IN) | payer MEDICARE ==
[~2019-07-09] VITALS: Ht 162.6 cm; Wt 72.7 kg
[~2019-07-09 13:20] MED LIST changes: +DIFLUCAN100 MG PO; +KLOR-CON 1010 MEQ PO
[2019-07-09 14:04] LABS: BASOPHILS 0.2 % (0-2); EOSINOPHILS 2.6 % (0-7); HEMATOCRIT 31.4 % (36.0-48.0); HEMOGLOBIN 10.7 g/dL (12-16); IMMATURE GRANULOCYTES 0.4 % (0-5); LYMPHOCYTES 5.2 % (15-50); MCH 29.6 pg (26.0-34.0); MCHC 34.1 g/dL (31.0-37.0); MEAN PLATELET VOLUME 9.6 fL (7.4-10.4); MONOCYTES 4.1 % (2-11); NEUTROPHILS 87.5 % (40-80); RBC 3.61 10x6/uL (4.00-5.40); RDW 12.8 % (11.5-14.5); WBC 16.4 10x3/uL (4.8-10.8)
[2019-07-09 14:05] VITALS: BP 117/40; BMI 31.8
[2019-07-09 14:10] LABS: PLATELET COUNT 162 10x3/uL (130-400)
[2019-07-09 14:12] LABS: ANION GAP 20.4 mmol/L (8-16); CALCIUM 8.8 mg/dL (8.5-10.1); CARBON DIOXIDE 18.1 mmol/L (21.0-32.0); CREATININE - SERUM 2.9 mg/dL (0.6-1.3); POTASSIUM - SERUM 3.5 mmol/L (3.5-5.1)
[2019-07-09 14:19] LABS: ALBUMIN 2.8 g/dL (3.4-5.0); BILIRUBIN - DIRECT 0.17 mg/dL (0.00-0.30); BILIRUBIN - INDIRECT 0.27 mg/dL (0.00-1.00); BILIRUBIN - TOTAL 0.44 mg/dL (0.2-1.3); PROTEIN - SERUM 6.2 g/dL (6.4-8.2)
[2019-07-09 16:30] VITALS: BP 117/40
[2019-07-09 20:00] VITALS: BP 126/51
[2019-07-09 23:41] VITALS: BP 117/49
--- NOTE | 2019-07-09 23:43 | NUR ---
LYING IN BED RESTING WITH EYES CLOSED NO SIGNS OR SYMPTOMS OF DISTRESS. RESPIRATIONS EVEN AND UNLABORED. BOWELL SOUNDS ACTIVE x4. ALERT TO PERSON PLACE AND SITUATION BUT DOES SHOW SOME CONFUSION AT TIMES. UP WITH ASSIST. CALL LIGHT IS WITHIN REACH AND BEDS IN LOWEST POSITION. PT ADVISE TO CALL FOR HELP WHEN FGETTING OUT OF BED. WILL CONTINE TO TO MONITOR.
[2019-07-10 04:00] VITALS: BP 121/77
--- NOTE | 2019-07-10 04:24 | NUR ---
I have reviewed this patient and I concur with the Shift Assessment completed by the Licensed Practical Nurse today this shift.
--- NOTE | 2019-07-10 05:31 | NUR ---
LYING IN BED WITH EYES OPEN. NO SIGNS OR SYMPTOMS OF DISTRESS NOTED. ASSIST TO RESTROOM. VOID X1. PT STATES LAST BM WAS 07/08/2019. 55 SR ON TELEMTRY. NO COMPLAINTS OF PAIN AT THIS TIME. BED IN LOWEST POSITION, BED ALARM ACTIVATED AND CALL LIGHT WITHIN REACH. ADVISED TO CALL AND NOT FALL. WILL CONTINUE TO MONITOR.
[2019-07-10 08:00] VITALS: BP 124/54
[2019-07-10 08:31] LABS: BASOPHILS 0.3 % (0-2); EOSINOPHILS 8.6 % (0-7); HEMATOCRIT 28.1 % (36.0-48.0); HEMOGLOBIN 9.5 g/dL (12-16); IMMATURE GRANULOCYTES 0.9 % (0-5); LYMPHOCYTES 16.7 % (15-50); MCH 29.2 pg (26.0-34.0); MCHC 33.8 g/dL (31.0-37.0); MCV 86.5 fL (80.0-100.0); MEAN PLATELET VOLUME 9.3 fL (7.4-10.4); MONOCYTES 7.7 % (2-11); NEUTROPHILS 65.8 % (40-80); PLATELET COUNT 171 10x3/uL (130-400); RBC 3.25 10x6/uL (4.00-5.40); RDW 12.8 % (11.5-14.5); WBC 9.2 10x3/uL (4.8-10.8)
[2019-07-10 08:39] LABS: ANION GAP 14.5 mmol/L (8-16); CALCIUM 8.5 mg/dL (8.5-10.1); CARBON DIOXIDE 21.7 mmol/L (21.0-32.0); POTASSIUM - SERUM 3.2 mmol/L (3.5-5.1)
--- NOTE | 2019-07-10 10:50 | NUR ---
IN/OUT CATH DONE FOR UA COLLECTION.
[2019-07-10 11:06] LABS: APPEARANCE CLEAR (CLEAR); COLOR YELLOW (YELLOW); SPECIFIC GRAVITY 1.015 (1.005-1.020)
[2019-07-10 11:07] LABS: BILIRUBIN NEGATIVE (NEGATIVE); GLUCOSE NEGATIVE (NEGATIVE); KETONE NEGATIVE (NEGATIVE); NITRITE NEGATIVE (NEGATIVE); PROTEIN TRACE mg/dL (NEGATIVE); UROBILINOGEN NORMAL (NORMAL)
[2019-07-10 12:43] VITALS: BP 138/60
--- NOTE | 2019-07-10 16:02 | MORECARE ---
CASE MANAGEMENT DISCHARGE SUMMARY PATIENT: ETIENNE PEREZ HAND UNIT: [id number] ADM DATE: 07/09/19 AGE: 78 : 40 SEX: F ROOM/BED: D.2105 AUTHOR: SU LAURENT PHYSICIAN: REFERRING PHYSICIAN: BETITO GRACE MD DATE OF SERVICE: 07/10/19 Discharge Plan Patient Name: ETIENNE PEREZ [facility] [facility] 1940 Planned Disposition: Anticipated Discharge Date: Discharge Date: Expected LOS: Initial Reviewer: [email or web address] Initial Review Date: 07/09/2019 Generated: 07/10/19 5:02 pm Patient Name: ETIENNE PEREZ Page 63077 at 1602 All edits/amendments must be made on the electronic document DICTATION DATE: 07/10/19 1602 SUPERVISOR PRESSING DEPARTMENT: HEIN 07/10/19 1602 RPT#: [id number] DC DATE: STATUS: ADM IN [facility] [address] [place] [address] END OF REPORT
[2019-07-10 16:13] VITALS: BP 131/62
[2019-07-10 20:00] VITALS: BP 149/67
[2019-07-11] VITALS: BP 136/68
[2019-07-11 04:00] VITALS: BP 126/53
[2019-07-11 05:09] LABS: BASOPHILS 0.6 % (0-2); EOSINOPHILS 10.6 % (0-7); HEMATOCRIT 26.3 % (36.0-48.0); HEMOGLOBIN 8.8 g/dL (12-16); LYMPHOCYTES 20.2 % (15-50); MCHC 33.5 g/dL (31.0-37.0); MCV 86.8 fL (80.0-100.0); MEAN PLATELET VOLUME 9.4 fL (7.4-10.4); NEUTROPHILS 57.6 % (40-80); PLATELET COUNT 187 10x3/uL (130-400); RBC 3.03 10x6/uL (4.00-5.40); RDW 12.8 % (11.5-14.5); WBC 7.8 10x3/uL (4.8-10.8)
[2019-07-11 05:31] LABS: ANION GAP 16.5 mmol/L (8-16); CALCIUM 8.1 mg/dL (8.5-10.1); CARBON DIOXIDE 17.8 mmol/L (21.0-32.0); CREATININE - SERUM 1.5 mg/dL (0.6-1.3); POTASSIUM - SERUM 3.3 mmol/L (3.5-5.1)
--- NOTE | 2019-07-11 07:05 | HP ---
PATIENT: ETIENNE PEREZ MEDICAL RECORD: [id number] ACCOUNT: [id number] LOCATION:[address] : 40 ADMISSION DATE: 07/09/19 PCP: BETITO GRACE MD HISTORY AND PHYSICAL EXAMINATION REASON FOR ADMISSION: Acute renal insufficiency. HISTORY OF PRESENT ILLNESS: The patient is a 78-year-old female who was discharged approximately a week and half ago for presumed UTI due to Beatrice, lactic acidosis, and acalculous cholecystitis. The patient's ejection fraction on her PIPIDA scan was 10%, but she is able to tolerate diet, did not want to have surgery unless indicated. She felt that oral potassium has been making her sick from a GI standpoint. Nonetheless, she improved, has tolerating diet, was discharged on 07/03/2019 to home with family care. She came in for followup in the office today and family states she seems more fatigued today. She admits not eating or drinking very much because it makes her stomach hurt. She still feels her potassium bothers her. She had no change in stools, blood per rectum or fever. On exam today, she was normotensive with heart rates in the 50s. The patient had stat BMP that showed a creatinine of 2.8, BUN of 55, potassium 3.7. Her UA was improved. For this reason, being admitted to observation for IV fluids and further evaluation. PAST MEDICAL HISTORY: Acalculous cholecystitis; recurrent UTI; Beatrice cystitis; history of remote breast cancer; history of paroxysmal atrial fibrillation with RVR, April of 2019; history of hyperlipidemia; remote DVT; hypertension; meniscus tear, right knee; TMJ; osteoarthritis of left knee post-replacement. PAST SURGICAL HISTORY: section, left knee replacement in 2017, bilateral mastectomies, tonsillectomy. SOCIAL HISTORY: Rare alcohol drinker, nonsmoker, lives alone, but has family locally. Admits she has not been eating and drinking very much recently. FAMILY HISTORY: Father of CAD and RI. Mother had breast cancer, stroke and from stroke. ALLERGIES: DYAZIDE, NORVASC, AND TERAZOSIN. HOME MEDICATIONS: Potassium chloride 10 mEq b.i.d., Macrobid 100 mg b.i.d., sotalol 120 mg b.i.d., terazosin 1 mg at bedtime, vitamin B12 100 mcg p.o. daily, vitamin D3 1000 units p.o. daily, Biotin 1000 mcg p.o. daily, Tenoretic 50/25 one q.a.m., tamoxifen 20 mg daily. REVIEW OF SYSTEMS: GENERAL: Fatigue without fever. HEENT: No recent visual change, hearing difficulty. RESPIRATORY: Mild shortness of breath on exertion. CARDIAC: No chest pain or palpitations. CARDIAC: No chest pain. GASTROINTESTINAL: No nausea, unless she eats or takes potassium. She has had no vomiting, diarrhea, postprandial dyspepsia or abdominal bloating or diarrhea. MUSCULOSKELETAL: Chronic arthralgias in the lumbar spine and right knee. ENDOCRINE: Denies polyuria, polydipsia, heat or cold intolerance. NEUROLOGIC: No history of stroke, TIA, vascular headaches, or seizures. HISTORY AND PHYSICAL [id number] CHRIS,ETIENNE HAND SKIN: Denies itching or rash. PHYSICAL EXAMINATION: GENERAL: The patient appears weak, but answers questions appropriately. VITAL SIGNS: Show temperature 99 degrees Fahrenheit, sat of 93% on room air, weight of 168, height 63 inches, BMI 29.3, blood pressure of 110/60, heart rate of 55 and regular. HEENT: Eyes are clear. Pupils are reactive. NECK: No bruits or masses. CHEST: Distant breath sounds without wheeze fine crackles in the left base. HEART: Bradycardic without gallop. ABDOMEN: Soft, nontender. No organomegaly. No CVA tenderness. BREASTS: Absent surgically. EXTREMITIES: 2+ pedal edema to the knees. She is able to walk with a cane unassisted. NEUROLOGICAL: Oriented to person, place, and time. Cranial nerves intact. Gait is normal. LABORATORY DATA: Stat BMP shows a potassium of 3.7, BUN 55, creatinine of 3.8. Her baseline is 0.9. UA, 5-7 white cells. ASSESSMENT: 1. Acute renal insufficiency, probably to poor oral intake and diuretic therapy. 2. History of paroxysmal atrial fibrillation, currently in sinus rhythm with bradycardia. 3. Hypertension, controlled. 4. Acalculous cholecystitis. 5. History of hyperkalemia, resolved. 6. Hypokalemia, resolved. 7. History of remote deep venous thrombosis. PLAN: The patient will be admitted for IV fluids. Renal diet. Monitor for continued GI symptomatology from her gallbladder and if so she may need a cholecystectomy at some point. TRANSINT:[id number] Voice Confirmation ID: [id number] DOCUMENT ID: [id number] BETITO GRACE MD at 0705 CC: [id number] DICTATION DATE: 07/09/19 1252 PUBLIC HEALTH ADVISOR: 07/09/19 1626 ADM IN [facility] [id number] [place] [address]
[2019-07-11 07:56] VITALS: BP 149/59
[2019-07-11 11:19] VITALS: BP 142/52
[2019-07-11 15:15] VITALS: BP 142/54
--- NOTE | 2019-07-11 19:23 | NUR ---
REPORT RECEIVED. PT UP IN CHAIR. FAMILY AT BEDSIDE. RR EVEN AND UNLABORED ON RA. NO S/SX OF DISTRESS OBSERVED. CALL LIGHT IN REACH. NO NEEDS EXPRESSSED. WILL CTM.
[2019-07-11 19:55] VITALS: BP 159/65
[2019-07-12 00:21] VITALS: BP 142/62
--- NOTE | 2019-07-12 01:20 | NUR ---
PTS CONFUSION HAS INCREASED DURING THE NIGHT. MAY, PTS SON CALLED VOICING CONCERNS THAT PT IS REPEATEDLY CALLING HIM AND IS "FRANTIC". SON VOICES CONCERNS THAT THIS IS A REOCCURING UTI, DESPITE THE CURRENT LAB RESULTS. RECEIVED NEW ORDERS FROM DR. GRACE XANAX 0.5MG NOW AND Q6 PRN. PT TOOK MEDICATION W/O DIFFICULTY, REDIRECTED PT BACK TO BED. NO FURHTER NEEDS EXPRESSED. CALL LIGHT IN REACH. WILL CTM.
[2019-07-12 05:20] LABS: BASOPHILS 0.9 % (0-2); EOSINOPHILS 14.6 % (0-7); HEMATOCRIT 26.5 % (36.0-48.0); HEMOGLOBIN 8.9 g/dL (12-16); IMMATURE GRANULOCYTES 1.1 % (0-5); LYMPHOCYTES 26.8 % (15-50); MCH 29.2 pg (26.0-34.0); MCHC 33.6 g/dL (31.0-37.0); MCV 86.9 fL (80.0-100.0); MEAN PLATELET VOLUME 9.7 fL (7.4-10.4); MONOCYTES 10.9 % (2-11); NEUTROPHILS 45.7 % (40-80); PLATELET COUNT 208 10x3/uL (130-400); RBC 3.05 10x6/uL (4.00-5.40); RDW 12.6 % (11.5-14.5); WBC 7.4 10x3/uL (4.8-10.8)
[2019-07-12 05:33] LABS: ANION GAP 14.6 mmol/L (8-16); CALCIUM 8.6 mg/dL (8.5-10.1); CREATININE - SERUM 1.2 mg/dL (0.6-1.3); POTASSIUM - SERUM 3.6 mmol/L (3.5-5.1)
[2019-07-12 07:53] VITALS: BP 164/71
--- NOTE | 2019-07-12 07:56 | NUR ---
PATIENT IS RESTING QUIETLY IN BED AT THIS TIME. DENEIES ANY NEEDS AT THIS TIME.
--- NOTE | 2019-07-12 11:23 | NUR ---
IV REMOVED FROM LEFT WRIST THAT WAS DISLODGED, CATHETER INTACT. PATIENT TOLERATED. ATTEMPTED IV IN RIGHT HAND AND WAS UNSUCCESSFUL. ATTEMPTED IV IN THE LEFT HAND BUT WAS UNSUCCESSFUL. CALLED ER TO SEE IF THEY COULD ATTEMPT. THEY INFORMED ME THAT THE VASCULAR ACCESS NURSE JUNE IS AVAILABLE THIS EVENING FOR VASCULAR ACCESS. DR GRACE ROUNDED THIS MORNING AND TOLD THE PATIENT THAT IF WE ARE UNABLE TO START AN IV, SHE COULD HAVE ONE STARTED IN SURGERY IN THE MORNING.
[2019-07-12 11:28] VITALS: BP 139/54
--- NOTE | 2019-07-12 12:58 | NUR ---
NEW IV PLACED IN THE LEFT UPPER ARM , 20 G PLACED BY MALINDA.
[2019-07-12 15:32] VITALS: BP 135/84
--- NOTE | 2019-07-12 19:10 | NUR ---
REPORT RECEIVED. PT CARE ASSUMED. PT IN BED RR EVEN AND UNALBORED. BOTH SONS PRESENT AT BEDSIDE. NO S/SX OF DISTRESS OBSERVED AT THIS TIME. NO NEEDS EXPRESSED. CALL LIGHT IN REACH, SR X2. WILL CTM.
[2019-07-12 20:30] VITALS: BP 145/59
[2019-07-13 00:45] VITALS: BP 144/56
[2019-07-13 04:25] VITALS: BP 137/58
--- NOTE | 2019-07-13 07:51 | NUR ---
PT SITTINGUP ON SIDE OF BED. ASSISTED TO BATHROOM X1 ASSIST. DENIES FURTHER NEEDS OR PAIN AT THIS TIME. AXO. SPOKE WITH SON ON PHONE ABOUT SURGERY LATER. VERBALIZED UNDERSTANDING. PT NOTIFIED OF SON'S CALL. BED IN LOWEST POSITION. CALL LIGHT WITHIN REACH. WILL CONTINUE TO MONITOR.
[2019-07-13 08:00] VITALS: BP 158/61
--- NOTE | 2019-07-13 09:30 | NUR ---
PT LEFT FOR SURGERY VIA BED. SON NOTIFIED.
[2019-07-13 13:09] VITALS: BP 152/69
--- NOTE | 2019-07-13 13:22 | NUR ---
PT BACK FROM SURGERY. SON WAS UPDATED ON SURGERY PER RECOVERY NURSE. PT IS SLEEPY BUT EASILY AROUSABLE. O2 SAT DROPPED TO 85% ON 2L. WHEN PT IS REMINDED TO TAKE DEEPER BREATHS O2 SAT INCREASES TO 95% ON 2L. SON @ BEDSIDE TO KEEP REMINDING HER. SEEMS STABLE AT THIS TIME. ALL OTHER VSS. DENIES NEEDS AT THIS TIME. CALL LIGHT WITHIN REACH. WILL CONTINUE TO MONITOR.
--- NOTE | 2019-07-13 16:21 | NUR ---
PT STATED SHE HAD SEVERE BACK PAIN BUT WAS UNABLE TO TELL ME HOW BAD ON A SCALE OF 1-10. PT WAS ROLLING BACK AND FORTH ON BED WITH EYES SHUT. ALSO ATTEMPTING TO TAKE OXYGEN OFF. WAS INSTRUCTED NOT TO TAKE NC OFF. SON @ BEDSIDE ENCOURAGING THE SAME. PT WAS ADJUSTED IN BED TO COMFORT AND RECIEVED NORCO PER ORDER. WILL CONTINUE TO MONITOR.
[2019-07-13 17:42] VITALS: BP 153/69
--- NOTE | 2019-07-13 17:47 | NUR ---
I have reviewed this patient and I concur with the Shift Assessment completed by the Licensed Practical Nurse today this shift.
--- NOTE | 2019-07-13 19:44 | NUR ---
AROUSES EASILY WITH VOICE AND DENIES NEEDS PT CO OF SLIGHT ABDOMINAL PAIN STIRISTRIPS OVER INCISIONS WITH JUST OLD SPOTTING OF BLOOD SKIN WARM AND DRY BED LOW AND LOCKED AND SON WITH PT
[2019-07-13 20:30] VITALS: BP 130/58
[2019-07-14 00:25] VITALS: BP 137/44
[2019-07-14 04:27] VITALS: BP 161/67
--- NOTE | 2019-07-14 07:15 | NUR ---
REPORT RECEIVED AND ASSUMED. PATIENT LAYING IN BED ON BACK WITH EYES CLOSED AND BREATHING EVENLY. PATIENT IS STABLE AND VSS. WILL CONTINUE WITH PLAN OF CARE. SR UPX 2 BED IN LOW POSITION AND CALL LIGHT IN REACH.
[2019-07-14 07:30] LABS: BASOPHILS 0.5 % (0-2); EOSINOPHILS 2.6 % (0-7); HEMATOCRIT 31.1 % (36.0-48.0); HEMOGLOBIN 10.3 g/dL (12-16); IMMATURE GRANULOCYTES 0.4 % (0-5); LYMPHOCYTES 9.8 % (15-50); MCH 29.1 pg (26.0-34.0); MCHC 33.1 g/dL (31.0-37.0); MCV 87.9 fL (80.0-100.0); MONOCYTES 5.4 % (2-11); NEUTROPHILS 81.3 % (40-80); PLATELET COUNT 232 10x3/uL (130-400); RBC 3.54 10x6/uL (4.00-5.40); RDW 12.6 % (11.5-14.5); WBC 15.3 10x3/uL (4.8-10.8)
[2019-07-14 07:43] LABS: ANION GAP 12.6 mmol/L (8-16); CALCIUM 8.8 mg/dL (8.5-10.1); CARBON DIOXIDE 24.7 mmol/L (21.0-32.0); POTASSIUM - SERUM 3.3 mmol/L (3.5-5.1)
--- NOTE | 2019-07-14 10:22 | OP ---
PATIENT NAME: ETIENNE PEREZ MEDICAL RECORD: [id number] :40 LOCATION:[address].2105 ADMISSION DATE:07/09/19 SURGEON: KIRK GALEAS MD DATE OF OPERATION: 07/13/2019 PREOPERATIVE DIAGNOSIS: 1. Biliary dyskinesia. 2. Epigastric abdominal pain. 3. Right upper quadrant abdominal pain. 4. Anemia. POSTOPERATIVE DIAGNOSES: 1. Biliary dyskinesia. 2. Epigastric abdominal pain. 3. Right upper quadrant abdominal pain. 4. Anemia. 5. Three significant gastric antral ulcers. Also, antral erosions. Certainly, the erosions and ulcers could account for the patient's anemia. 6. Hepatomegaly. PROCEDURE: 1. Laparoscopic cholecystectomy. 2. Intraoperative cholangiography, without immediate surgeon interpretation. 3. 14-gauge core needle liver biopsies. 4. EGD with antral biopsy. SURGEON: Kirk Galeas MD VENDOR QUALITY SUPERVISOR: None. BLOOD LOSS: Minimal. ANESTHESIA: General. COMPLICATIONS: None. The risks, possible complications and alternatives to the procedure were explained to the patient. She elects to proceed. The discussion specifically included, but was not limited to, bleeding requiring an emergency reoperation, infection, common ductal injury and an open procedure. OPERATIVE COURSE: The patient was conveyed to the operating room electively on 07/13/2019. General anesthesia was induced by the anesthesia staff. The abdomen was sterilely prepped and draped. A skin incision was accomplished in the left upper quadrant. A Veress needle was inserted through the skin incision into the peritoneal cavity. CO2 insufflation was begun. Once a sufficient pneumoperitoneum had been achieved, a 5-mm trocar was inserted in the right upper quadrant. Another 5-mm trocar was inserted in the left upper quadrant. Another 5-mm trocar was inserted far laterally in the right upper quadrant. A 12-mm trocar was inserted through an incision at the umbilicus. During insertion of the Veress needle and all trocars, there appeared to have been no injury to the bowels, any intraperitoneal or retroperitoneal structures. The indication for liver biopsy was hepatomegaly. Under laparoscopic guidance, OPERATIVE REPORT [id number] ETIENNE PEREZ I percutaneously accessed the right upper quadrant utilizing a 14-gauge core biopsy device. Cores were obtained over the convexity of the liver. The biopsy sites were made hemostatic with the electrocautery. I grasped the gallbladder. I advanced a cholangiogram trocar and punctured the fundus of the gallbladder. I aspirated bile. I then injected dye. Real time static cholangiographic images were obtained and these were sent to the radiologist for interpretation. I aspirated bile and removed the cholangiogram trocar. The gallbladder was grasped and retracted cephalad. The infundibulum was grasped and retracted laterally. Blunt dissection was begun in the triangle of Calot. One cystic artery and one cystic duct were identified. These were clipped multiply and divided between clips. The gallbladder was then placed within a bag retrieval device and was withdrawn through the umbilical fascial defect. The 12-mm trocar was replaced and the abdomen reinsufflated. I irrigated and aspirated the right upper quadrant. There was no bleeding even at low pressure of 8. The Atul-Lalen suture closure device and 0 Vicryl sutures were used to close the umbilical fascia. All the trocars were removed and the abdomen desufflated. The small trocar sites were closed with interrupted, intracuticular 3-0 Vicryls. The skin at the umbilicus was closed with interrupted 4-0 Vicryl Rapide sutures. Sterile dressings were applied. I then went about performing the EGD. A bite block was inserted. A gastroscope was inserted into the mouth. It was advanced easily into the hypopharynx. The esophagus was easily intubated as were the stomach and duodenum. Upon withdrawal, retroflexed and angulus views were obtained. Antral biopsies were obtained. The endoscope was then withdrawn under direct vision. From my standpoint, the patient can be dismissed home later today. I would recommend that she be placed on an acid adam or H2 adam pending the results of the antral biopsies which were performed to check for Helicobacter pylori. I would also recommend a stool softener and an analgesic. TRANSINT:[id number] Voice Confirmation ID: [id number] DOCUMENT ID: [id number] KIRK GALEAS MD at 1022 CC: BETITO GRACE [id number] DICTATION DATE: 07/13/19 1212 CERTIFIED TOWER CLIMBER: 07/13/19 1632 ADM IN [facility] [address] [place] [address]
--- NOTE | 2019-07-14 10:45 | NUR ---
PATIENT IS STABLE AND VSS. PATIENT DENIES ANY NEEDS OR PAIN. WILL CONTINUE TO MONITOR. SR UP X 2 BED IN LOW POSTION AND CALL LIGHT IN REACH.
[2019-07-14 11:01] VITALS: BP 183/81
[2019-07-14 12:54] VITALS: Ht 162.6 cm; Wt 72.7 kg
--- NOTE | 2019-07-14 14:40 | NUR ---
PATIENT UNCHANGED AND RESTING QUIETLY IN BED. WILL CONTINUE TO MONITOR.SR UP X 2 BED IN LOW POSITION AND CALL LIGHT IN REACH.
--- NOTE | 2019-07-14 16:02 | MORECARE ---
CASE MANAGEMENT DISCHARGE SUMMARY PATIENT: ETIENNE PEREZ HAND UNIT: [id number] ADM DATE: 07/09/19 AGE: 78 : 40 SEX: F ROOM/BED: D.2101 AUTHOR: SU LAURENT PHYSICIAN: REFERRING PHYSICIAN: BETITO GRACE MD DATE OF SERVICE: 07/14/19 Discharge Plan Patient Name: [facility]TIENNE PERE[facility] [facility] 1940 Planned Disposition: Anticipated Discharge Date: Discharge Date: Expected LOS: Initial Reviewer: [email or web address] Initial Review Date: 07/09/2019 Generated: 07/14/19 5:02 pm External Providers External Provider: [employer] Next Contact Date: 07/14/2019 Service Request Date: Service Type: Resolution: Reviewer: Comments: Last DP export: 07/10/19 3:02 pm Patient Name: ETIENNE PEREZ Page [phone] at 1602 All edits/amendments must be made on the electronic document DICTATION DATE: 07/14/19 160 APPLIANCE PARTS COUNTER CLERK: HIEN 07/14/19 160 RPT#: [id number] [place] DATE: STATUS: ADM IN [facility] [address] [place] [address] END OF REPORT
--- NOTE | 2019-07-14 16:10 | MORECARE ---
CASE MANAGEMENT DISCHARGE SUMMARY PATIENT: ETIENNE PEREZ HAND UNIT: [id number] ADM DATE: 07/09/19 AGE: 78 : 40 SEX: F ROOM/BED: D.2105 AUTHOR: SU LAURENT PHYSICIAN: REFERRING PHYSICIAN: BETITO GRACE MD DATE OF SERVICE: 07/14/19 Discharge Plan Patient Name: ETIENNE PEREZ [facility] [facility] 1940 Planned Disposition: Inpatient Rehab Anticipated Discharge Date: 07/16/19 Discharge Date: Expected LOS: 7 Initial Reviewer: [email or web address] Initial Review Date: 07/09/2019 Generated: 07/14/19 5:10 pm DCPIA - Discharge Planning Initial Assessment Updated by [email or web address]: Guanakito Ramos on 07/14/19 4:10 pm * Is the patient Alert and Oriented? Yes * How many steps to enter\exit or inside your home? 15 down * PCP DR GRACE * Pharmacy [facility] * Preadmission Environment Home Alone * ADLs Independent * Equipment Cane Walker * Other Equipment NO MEDICAL EQUIPMENT PROVIDER PREFERENCE * List name and contact numbers for known caregivers / representatives who currently or will assist patient after discharge: MAY PEREZ, SON, * Verbal permission to speak to the caregivers and representatives has been obtained from the patient. N/A * Community resources currently utilized None * Please name any agencies selected above. NONE * Additional services required to return to the preadmission environment? Yes * Can the patient safely return to the preadmission environment? Yes * Has this patient been hospitalized within the prior 30 days at any hospital? Yes Last DP export: 07/14/19 3:02 pm Patient Name: ETIENNE PEREZ Page [phone] at 1610 All edits/amendments must be made on the electronic document DICTATION DATE: 07/14/19 1610 COSMETOLOGIST APPRENTICE: HIEN 07/14/19 161 RPT#: [id number] DC DATE: STATUS: ADM IN [facility] [address] [place] [address] END OF REPORT
--- NOTE | 2019-07-14 16:18 | MORECARE ---
CASE MANAGEMENT DISCHARGE SUMMARY PATIENT: ETIENNE PEREZ HAND UNIT: [id number] ADM DATE: 07/09/19 AGE: 78 : 40 SEX: F ROOM/BED: D.8520 AUTHOR: ANASTASIIA,DOC PHYSICIAN: REFERRING PHYSICIAN: BETITO GRACE MD DATE OF SERVICE: 07/14/19 Discharge Plan Patient Name: ETIENNE PEREZ Facility: [facility]:[place] : 1940 Planned Disposition: Inpatient Rehab Anticipated Discharge Date: 07/16/19 Discharge Date: Expected LOS: 7 Initial Reviewer: [email or web address] Initial Review Date: 07/09/2019 Generated: 07/14/19 5:17 pm Comments DCP- Discharge Planning Updated by [email or web address]: Guanakito Ramos on 07/14/19 3:[address] Patient Name: ETIENNE PEREZ Admission Status: Elective Accout number: [id number] Admission Date: 07-09-2019 : 1940 Admission Diagnosis: Attending: BETITO GRACE Current LOS: 5 Anticipated DC Date: 07-16-2019 Planned Disposition: Inpatient Rehab Primary Insurance: [employer] [facility] PLANNED EXTERNAL PROVIDER: [facility] Discharge Planning Comments: CM RECEIVED ORDER FOR INPATIENT REHAB PRESCREENING. CM MET WITH PT IN ROOM TO DISCUSS DISCHARGE PLANNING AND NEEDS. PT REPORTS LIVING AT HOME INDEPENDENTLY AND ALONE. PT HAS CANE AND WALKER WITH NO MEDICAL EQUIPMENT PROVIDER PREFERENCE. PT HAS NO OUTSIDE SERVICES ASSISTING IN THE HOME. CM DISCUSSED AVAILABILITY OF HOME HEALTH, REHAB SERVICES AND MEDICAL EQUIPMENT. PT WOULD LIKE REHAB AND STATES SHE WOULD PREFER TO GO TO [facility] ON [address] AND IF THEY WILL NOT TAKE HER, THEN THE REHAB AT [place]. CHOICE SIGNED. IMPORTANT MESSAGE FROM MEDICARE PROVIDED AND EXPLAINED. CM CALLED MICHAEL OF [facility], , PROVIDED REFERRAL IFNORMATION. CM FAXED REFERRAL INFORMATION TO [facility] WITH CURRENT MAR AT [phone]. CM WAITING ADMISSION DETERMINATION FROM [facility]. Stadium Manager: Guanakito Ramos DCPIA - Discharge Planning Initial Assessment Updated by [email or web address]: Guanakito Ramos on 07/14/19 4:10 pm * Is the patient Alert and Oriented? Yes * How many steps to enter\exit or inside your home? 15 down * PCP DR GRACE * Pharmacy [facility] [address] * Preadmission Environment Home Alone * ADLs Independent * Equipment Cane Walker * Other Equipment NO MEDICAL EQUIPMENT PROVIDER PREFERENCE * List name and contact numbers for known caregivers / representatives who currently or will assist patient after discharge: MAY PEREZ, SON, * Verbal permission to speak to the caregivers and representatives has been obtained from the patient. N/A * Community resources currently utilized None * Please name any agencies selected above. NONE * Additional services required to return to the preadmission environment? Yes * Can the patient safely return to the preadmission environment? Yes * Has this patient been hospitalized within the prior 30 days at any hospital? Yes Coverage Notice Reviewer: [email or web address] Ramos Notice Issued Date-Time: 07/14/2019 8:30 Notice Type: IM Discharge Notice Notice Delivered To: Patient Relationship to Patient: Reimbursement Analyst Name: Delivery Method: HAND - Hand Delivered [place] Days: Prior Verbal Notification: Recipient Understood Notice: Yes Recipient Signature: Yes Med Rec Note Co-signed by Attending: Coverage Notice Comment: Reviewer: [email or web address] Ramos Notice Issued Date-Time: 07/14/2019 8:30 Notice Type: Patient Choice Letter Notice Delivered To: Patient Relationship to Patient: Reimbursement Analyst Name: Delivery Method: HAND - Hand Delivered [place] Days: Prior Verbal Notification: Recipient Understood Notice: Yes Recipient Signature: Yes Med Rec Note Co-signed by Attending: Coverage Notice Comment: 1- [facility], 2- [facility] IN[facility] REHAB Last DP export: 07/14/19 3:10 pm Patient Name: ETIENNE PEREZ Page [id number] at 1618 All edits/amendments must be made on the electronic document DICTATION DATE: 07/14/19 1617 SENIOR ENGINEERING MANAGER: HIEN 07/14/191616 RPT#: [id number] [place] DATE: STATUS: ADM IN [facility] [address] [place] [address] END OF REPORT
--- NOTE | 2019-07-14 17:52 | NUR ---
OT NOTE: PT REQUIRED MAX A WITH BED MOB TASKS. PT REQUIRED MAX A WITH LB HYGIENE TASKS. PT COMPLETED UE AROM AXS. PT VERY CONFUSED. ELLIS NOTIFIED NURSING THAT PT WOULD BENEFIT FROM ASSISTANCE WITH MEALS. [phone] THANK YOU, RHONDA SANCHEZ
--- NOTE | 2019-07-14 19:33 | NUR ---
AWAKE AND ALERT WITH FAMILY PRESENT X4 INCISIONS TO ABD WNL SOME PAIN AT SITE BED LOW AND SRX2 CALL LIGHT IS WITH PT
[2019-07-14 20:00] VITALS: BP 139/51
[2019-07-15] VITALS (7 sets, daily range): BP systolic 122–166; BP diastolic 51–62
--- NOTE | 2019-07-15 02:36 | NUR ---
I have reviewed this patient and I concur with the Shift Assessment completed by the Licensed Practical Nurse today this shift.
--- NOTE | 2019-07-15 12:39 | NUR ---
OT NOTE: PT DOING SO MUCH BETTER TODAY. MUCH LESS CONFUSED AND LETHARGIC. PT ABLE TO FEED SELF SMALL AMOUNT; BED MOB INCLUDING SUPINE TO SIT WITH MOD ASSIST AND C/O ABD PAIN. AROM IN R SHOULDER IS WNLS.. NO FURTHER C/O R SHOULDER PAIN SHE DID YESTERDAY. MIN ASSIST WITH SIT TO STAND; MIN/CGA FOR AMB IN ROOM WITH WALKER; MIN ASSIST WITH CLOTHING MGMT BUT REMAINS INCONT OF BLADDER. FUNCTIONAL TRANSFERS WITH WALKER AND MIN ASSIST. ABLE TO AMB INTO HALLWAY GREATER THAN 50 FT WITH CGA AND WALKER. MARVEL CASANOVA, OTR/L
--- NOTE | 2019-07-15 16:02 | NUR ---
OT NOTE: PT OCMPLETED TOILETING WITH SBA. PT COMPLETED GARMENT MANAGEMENT AND HYGIENE TASKS WITH SBA-CGA. PT COMPLETED ADL MOB WITH CGA. PT COMPLETED BUE AROM AXS WITH FUNCTIONAL TASKS. [phone] THANK YOU, RHONDA SANCHEZ
[2019-07-16 04:00] VITALS: BP 166/80
--- NOTE | 2019-07-16 04:53 | NUR ---
REPORT RECIEVED AND ROUNDING COMPLETE. PATIENT LAYING IN BED IN HIGH FOWLERS, EYES CLOSED BREATHING EVEN AND SHALLOW. PAITENT IS WEARING NASAL WITH 02 AT 2L. LEFT FOREAEM PIV SALINE LOCKED. PATIENT SHOWS NO S/SX OF DISTRESS AT THIS TIME. CALL LIGHT WITHIN REACH AND BED IN LOWEST LOCKED POSITION.
--- NOTE | 2019-07-16 07:18 | NUR ---
REPORT RECEIVED FROM HOMEBOUND TEACHER AND PATIENT CARE ASSUMED. PATIENT LAYING IN BED ON BACK WITH EYES CLOSED AND BREATHING EVENLY. PATIENT IS STABLE AND VSS. WILL CONTINUE WITH PLAN OF CARE. SR UP X 2 BED IN LOW POSITION AND CALL LIGHT IN REACH.
[2019-07-16 08:09] LABS: ANION GAP 10.1 mmol/L (8-16); CALCIUM 8.8 mg/dL (8.5-10.1); CARBON DIOXIDE 30.9 mmol/L (21.0-32.0); CREATININE - SERUM 0.9 mg/dL (0.6-1.3)
[2019-07-16 08:27] VITALS: BP 183/67
--- NOTE | 2019-07-16 08:43 | MORECARE ---
CASE MANAGEMENT DISCHARGE SUMMARY PATIENT: ETIENNE PEREZ HAND UNIT: [id number] ADM DATE: 07/09/19 AGE: 78 : 40 SEX: F ROOM/BED: D.0848 AUTHOR: SU LAURENT PHYSICIAN: REFERRING PHYSICIAN: BETITO GRACE MD DATE OF SERVICE: 07/16/19 Discharge Plan Patient Name: ETIENNE PEREZ Facility: [facility]:[place] : 1940 Planned Disposition: Inpatient Rehab Anticipated Discharge Date: 07/16/19 Discharge Date: Expected LOS: 7 Initial Reviewer: [id number] Initial Review Date: 07/09/2019 Generated: 07/16/19 9:43 am Comments DCP- Discharge Planning Updated by [id number]: Guanakito Ramos on 07/16/19 7:[address] Patient Name: ETIENNE PEREZ Encounter No: [id number] : 1940 Primary Insurance: [employer] [facility] PF Anticipated DC Date: 07-16-2019 Planned Disposition: Inpatient Rehab External Planned Provider: [facility] INPATIENT REHAB Discharge Planning Comments: CM CALLED MICHAEL OF [facility] INPATIENT REHAB, , PROVIDED REFERRAL UDPATE. RODRIGUEZ WILL FOLLOW UP WITH INSURANCE COMPANY. CM FAXED REFERRAL UPDATE TO [facility] WITH CURRENT MAR AT [phone]. CM WAITING AUTHORIZATION FROM PT'S INSURANCE COMPANY FOR INPAITIENT REHAB AT [facility]. New Accounts Representative: Guanakito Ramos DCP- Discharge Planning Updated by [email or web address]: Guanakito Ramos on 07/14/19 3:[address] Patient Name: ETIENNE PEREZ Admission Status: Elective Accout number: [id number] Admission Date: 07-09-2019 : 1940 Admission Diagnosis: Attending: BETITO GRACE Current LOS: 5 Anticipated DC Date: 07-16-2019 Planned Disposition: Inpatient Rehab Primary Insurance: [employer] [facility] PFFS PLANNED EXTERNAL PROVIDER: [facility] INPATIENT REHAB Discharge Planning Comments: CM RECEIVED ORDER FOR INPATIENT REHAB PRESCREENING. CM MET WITH PT IN ROOM TO DISCUSS DISCHARGE PLANNING AND NEEDS. PT REPORTS LIVING AT HOME INDEPENDENTLY AND ALONE. PT HAS CANE AND WALKER WITH NO MEDICAL EQUIPMENT PROVIDER PREFERENCE. PT HAS NO OUTSIDE SERVICES ASSISTING IN THE HOME. CM DISCUSSED AVAILABILITY OF HOME HEALTH, REHAB SERVICES AND MEDICAL EQUIPMENT. PT WOULD LIKE REHAB AND STATES SHE WOULD PREFER TO GO TO [facility] ON [address] AND IF THEY WILL NOT TAKE HER, THEN THE REHAB AT [place]. CHOICE SIGNED. IMPORTANT MESSAGE FROM MEDICARE PROVIDED AND EXPLAINED. CM CALLED MICHAEL OF [facility] INPATIENT REHAB, , PROVIDED REFERRAL IFNORMATION. CM FAXED REFERRAL INFORMATION TO [facility] WITH CURRENT MAR AT [phone]. CM WAITING ADMISSION DETERMINATION FROM [facility] INPATIENT REHAB. New Accounts Representative: Guanakito Ramos DCPIA - Discharge Planning Initial Assessment Updated by [email or web address]: Guanakito Ramos on 07/14/19 4:10 pm * Is the patient Alert and Oriented? Yes * How many steps to enter\exit or inside your home? 15 down * PCP DR GRACE * Pharmacy [facility] [address] * Preadmission Environment Home Alone * ADLs Independent * Equipment Cane Walker * Other Equipment NO MEDICAL EQUIPMENT PROVIDER PREFERENCE * List name and contact numbers for known caregivers / representatives who currently or will assist patient after discharge: MAY PEREZ, SON, * Verbal permission to speak to the caregivers and representatives has been obtained from the patient. N/A * Community resources currently utilized None * Please name any agencies selected above. NONE * Additional services required to return to the preadmission environment? Yes * Can the patient safely return to the preadmission environment? Yes * Has this patient been hospitalized within the prior 30 days at any hospital? Yes External Providers External Provider: [facility] Next Contact Date: 07/14/2019 Service Request Date: Service Type: Resolution: Reviewer: Comments: Coverage Notice Reviewer: [id number] Chinyere Ramos Notice Issued Date-Time: 07/14/2019 8:30 Notice Type: IM Discharge Notice Notice Delivered To: Patient Relationship to Patient: Title Curator Name: Delivery Method: HAND - Hand Delivered [place] Days: Prior Verbal Notification: Recipient Understood Notice: Yes Recipient Signature: Yes Med Rec Note Co-signed by Attending: Coverage Notice Comment: Reviewer: [id number] Chinyere Ramos Notice Issued Date-Time: 07/14/2019 8:30 Notice Type: Patient Choice Letter Notice Delivered To: Patient Relationship to Patient: Title Curator Name: Delivery Method: HAND - Hand Delivered [place] Days: Prior Verbal Notification: Recipient Understood Notice: Yes Recipient Signature: Yes Med Rec Note Co-signed by Attending: Coverage Notice Comment: 1- [facility], 2- [facility] INPT REHAB Last DP export: 07/14/19 3:18 pm Patient Name: ETIENNE PEREZ Page [id number] at 0843 All edits/amendments must be made on the electronic document DICTATION DATE: 07/16/19842 UTILITY WORKER ROLLER SHOP: HIEN 07/16/19842 RPT#: [id number] DC DATE: STATUS: ADM IN [facility] [address] [place] [address] END OF REPORT
--- NOTE | 2019-07-16 09:48 | NUR ---
Nutrition Follow-up: Pt seemed confused. Sitting in chair with uneaten breakfast tray; thought it was her lunch tray. Denies N/V. Diet: Regular, Ensure TID Wt: 160# (07/16); 160# (07/14); 160# (07/12); 158# (07/11) Last BM: 07/13 per chart Labs noted: K+ 3.0, Glu 128 Meds noted: Micro-K, Miralax -May consider appetite stimulant. -Encourage PO intake. -Monitor wt; noted daily wts ordered.
--- NOTE | 2019-07-16 10:30 | NUR ---
SPOKE WITH SON CRISSY ON THE PHONE. ANSWERED QUESTIONS TO SATISFACTION. PATIENT SITTING UP IN BS. PATIENT IS STABLE AND VS. WILL CONTINUE TO MONITOR. SR UP X 2 BED IN LOW POSITION AND CALL LIGHT IN REACH.
[2019-07-16 11:11] VITALS: BP 166/61
--- NOTE | 2019-07-16 14:26 | MORECARE ---
CASE MANAGEMENT DISCHARGE SUMMARY PATIENT: ETIENNE PEREZ HAND UNIT: [id number] ADM DATE: 07/09/19 AGE: 78 : 40 SEX: F ROOM/BED: D.4002 AUTHOR: SU LAURENT PHYSICIAN: REFERRING PHYSICIAN: BETITO GRACE MD DATE OF SERVICE: 07/16/19 Discharge Plan Patient Name: ETIENNE PEREZ Facility: [facility]:[place] : 1940 Planned Disposition: Inpatient Rehab Anticipated Discharge Date: 07/16/19 Discharge Date: Expected LOS: 7 Initial Reviewer: [id number] Initial Review Date: 07/09/2019 Generated: 07/16/19 3:25 pm Comments DCP- Discharge Planning Updated by [email or web address]: Guanakito Ramos on 07/16/19 7:[address] Patient Name: ETIENNE PEREZ Encounter No: [id number] : 1940 Primary Insurance: [employer] [facility] PF Anticipated DC Date: 07-16-2019 Planned Disposition: Inpatient Rehab External Planned Provider: [facility] INPATIENT REHAB Discharge Planning Comments: CM CALLED MICHAEL OF [facility] INPATIENT REHAB, , PROVIDED REFERRAL UDPATE. RODRIGUEZ WILL FOLLOW UP WITH INSURANCE COMPANY. CM FAXED REFERRAL UPDATE TO [facility] WITH CURRENT MAR AT [phone]. CM WAITING AUTHORIZATION FROM PT'S INSURANCE COMPANY FOR INPAITIENT REHAB AT [facility]. Commercial Finance Analyst: Guanakito Ramos DCP- Discharge Planning Updated by [id number]: Guanakito Ramos on 07/14/19 3:[address] Patient Name: ETIENNE PEREZ Admission Status: Elective Accout number: [id number] Admission Date: 07-09-2019 : 1940 Admission Diagnosis: Attending: BETITO GRACE Current LOS: 5 Anticipated DC Date: 07-16-2019 Planned Disposition: Inpatient Rehab Primary Insurance: [employer] [facility] PFFS PLANNED EXTERNAL PROVIDER: [facility] INPATIENT REHAB Discharge Planning Comments: CM RECEIVED ORDER FOR INPATIENT REHAB PRESCREENING. CM MET WITH PT IN ROOM TO DISCUSS DISCHARGE PLANNING AND NEEDS. PT REPORTS LIVING AT HOME INDEPENDENTLY AND ALONE. PT HAS CANE AND WALKER WITH NO MEDICAL EQUIPMENT PROVIDER PREFERENCE. PT HAS NO OUTSIDE SERVICES ASSISTING IN THE HOME. CM DISCUSSED AVAILABILITY OF HOME HEALTH, REHAB SERVICES AND MEDICAL EQUIPMENT. PT WOULD LIKE REHAB AND STATES SHE WOULD PREFER TO GO TO [facility] ON [address] AND IF THEY WILL NOT TAKE HER, THEN THE REHAB AT [place]. CHOICE SIGNED. IMPORTANT MESSAGE FROM MEDICARE PROVIDED AND EXPLAINED. CM CALLED MICHAEL OF [facility] INPATIENT REHAB, , PROVIDED REFERRAL IFNORMATION. CM FAXED REFERRAL INFORMATION TO [facility] WITH CURRENT MAR AT [phone]. CM WAITING ADMISSION DETERMINATION FROM [facility] INPATIENT REHAB. Commercial Finance Analyst: Guanakito Ramos DCPIA - Discharge Planning Initial Assessment Updated by [email or web address]: Guanakito Ramos on 07/14/19 4:10 pm * Is the patient Alert and Oriented? Yes * How many steps to enter\exit or inside your home? 15 down * PCP DR GRACE * Pharmacy [facility] [address] * Preadmission Environment Home Alone * ADLs Independent * Equipment Cane Walker * Other Equipment NO MEDICAL EQUIPMENT PROVIDER PREFERENCE * List name and contact numbers for known caregivers / representatives who currently or will assist patient after discharge: MAY PEREZ, SON, * Verbal permission to speak to the caregivers and representatives has been obtained from the patient. N/A * Community resources currently utilized None * Please name any agencies selected above. NONE * Additional services required to return to the preadmission environment? Yes * Can the patient safely return to the preadmission environment? Yes * Has this patient been hospitalized within the prior 30 days at any hospital? Yes External Providers External Provider: [facility] Next Contact Date: 07/16/2019 Service Request Date: Service Type: Resolution: Reviewer: Comments: Coverage Notice Reviewer: [id number] Chinyere Ramos Notice Issued Date-Time: 07/14/2019 8:30 Notice Type: IM Discharge Notice Notice Delivered To: Patient Relationship to Patient: Rubber Factory Worker Name: Delivery Method: HAND - Hand Delivered Cheyenne Days: Prior Verbal Notification: Recipient Understood Notice: Yes Recipient Signature: Yes Med Rec Note Co-signed by Attending: Coverage Notice Comment: Reviewer: [id number] Chinyere Ramos Notice Issued Date-Time: 07/14/2019 8:30 Notice Type: Patient Choice Letter Notice Delivered To: Patient Relationship to Patient: Rubber Factory Worker Name: Delivery Method: HAND - Hand Delivered [place] Days: Prior Verbal Notification: Recipient Understood Notice: Yes Recipient Signature: Yes Med Rec Note Co-signed by Attending: Coverage Notice Comment: 1- [facility], 2- [facility] INPT REHAB Last DP export: 07/16/19 7:43 am Patient Name: ETIENNE PEREZ Page [id number] at 1426 All edits/amendments must be made on the electronic document DICTATION DATE: 07/16/191424 RESEARCH BIOLOGIST: HIEN 07/16/19 1425 RPT#: [id number] DC DATE: STATUS: ADM IN [facility] [address] [place] [address] END OF REPORT
--- NOTE | 2019-07-16 14:36 | MORECARE ---
CASE MANAGEMENT DISCHARGE SUMMARY PATIENT: ETIENNE PEREZ UNIT: [id number] ADM DATE: 07/09/19 AGE: 78 : 40 SEX: F ROOM/BED: D.8410 AUTHOR: ANASTASIIA,DOC PHYSICIAN: REFERRING PHYSICIAN: BETITO GRACE MD DATE OF SERVICE: 07/16/19 Discharge Plan Patient Name: ETIENNE PEREZ Facility: [facility]:[place] : 1940 Planned Disposition: Home Anticipated Discharge Date: 07/16/19 Discharge Date: Expected LOS: 7 Initial Reviewer: [id number] Initial Review Date: 07/09/2019 Generated: 07/16/19 3:36 pm Comments DCP- Discharge Planning Updated by [email or web address]: Guanakito Sanders on 07/16/19 1:[address] Patient Name: ETIENNE PEREZ Encounter No: [id number] : 1940 Primary Insurance: [employer] [facility] PF Anticipated DC Date: 07-16-2019 Planned Disposition: Inpatient Rehab External Planned Provider: [facility] INPATIENT REHAB Discharge Planning Comments: CM CALLED MICHAEL OF [facility] INPATIENT REHAB, , PROVIDED REFERRAL UDPATE. MICHAEL WILL FOLLOW UP WITH INSURANCE COMPANY. CM FAXED REFERRAL UPDATE TO [facility] WITH CURRENT MAR AT [phone]. CM WAITING AUTHORIZATION FROM PT'S INSURANCE COMPANY FOR INPAITIENT REHAB AT [facility]. Pan Devulcanizer Helper: Guanakito Sanders Appended by Guanakito Sanders on 07/16/2019 14:30 WATER PURIFIER OPERATOR: CM RECEIVED CALL FROM MICHAEL OF [facility] / [facility] INPATIENT REHAB, PT IS TOO HIGH FUNCTIONING FOR INPATIENT REHAB, RECOMMENDED SENIOR LIVING REHAB OR HOME WITH HOME HEALTH. CM MET WITH PT IN ROOM TO DISCUSS DISCHARGE PLANNING AND NEEDS. CM DISCUSSED AVAILABILITY OF SENIOR LIVING REHAB WELL HOME HEALTH. PT DOES NOT WANT REHAB AT SENIOR LIVING FACILITY. PT FEELS SHE IS STRONG ENOUGH TO GO HOME AND CONTINUE HOME HEALTH WITH [facility] FOR PHYSICAL THERAPY. CHOICE SIGNED. CM NOTIFIED AYALA OF DR. GRACE'S OFFICE AND RECEIVED RETURN CALL AND WAS ADVSISED THAT THE DOCTOR WILL PROVIDE HOME HEALTH ORDERS. CM OBTAINED HOME HEALTH ORDER, CALLED AND SPOKE TO PARDEEP OF [facility], , PROVIDED REFERRAL INFORMATION. CM FAXED REFERRAL INFORMATION TO [facility] AT [phone]. PT TO ADMIT FOR HOME HEALTH ON SATURDAY. FOR DISCHARGE, NOTIFY [facility] AT [phone], FAX DISCHARGE INFORMATION TO [facility] AT [phone]. GUANAKITO SANDERS, CASE MANAGEMENT DCP- Discharge Planning Updated by [email or web address]: Guanakito Sanders on 07/14/19 3:[address] Patient Name: ETIENNE PEREZ Admission Status: Elective Accout number: [id number] Admission Date: 07-09-2019 : 1940 Admission Diagnosis: Attending: BETITO GRACE Current LOS: 5 Anticipated DC Date: 07-16-2019 Planned Disposition: Inpatient Rehab Primary Insurance: [employer] [facility] PLANNED EXTERNAL PROVIDER: [facility] INPATIENT REHAB Discharge Planning Comments: CM RECEIVED ORDER FOR INPATIENT REHAB PRESCREENING. CM MET WITH PT IN ROOM TO DISCUSS DISCHARGE PLANNING AND NEEDS. PT REPORTS LIVING AT HOME INDEPENDENTLY AND ALONE. PT HAS CANE AND WALKER WITH NO MEDICAL EQUIPMENT PROVIDER PREFERENCE. PT HAS NO OUTSIDE SERVICES ASSISTING IN THE HOME. CM DISCUSSED AVAILABILITY OF HOME HEALTH, REHAB SERVICES AND MEDICAL EQUIPMENT. PT WOULD LIKE REHAB AND STATES SHE WOULD PREFER TO GO TO [facility] ON [facility] AND IF THEY WILL NOT TAKE HER, THEN THE REHAB AT [place]. CHOICE SIGNED. IMPORTANT MESSAGE FROM MEDICARE PROVIDED AND EXPLAINED. CM CALLED MICHAEL OF [facility] INPATIENT REHAB, , PROVIDED REFERRAL IFNORMATION. CM FAXED REFERRAL INFORMATION TO [facility] WITH CURRENT MAR AT [phone]. CM WAITING ADMISSION DETERMINATION FROM [facility] INPATIENT REHAB. Pan Devulcanizer Helper: Guanakito Sanders DCPIA - Discharge Planning Initial Assessment Updated by [id number]: Guanakito Sanders on 07/14/19 4:10 pm * Is the patient Alert and Oriented? Yes * How many steps to enter\exit or inside your home? 15 down * PCP DR GRACE * Pharmacy [facility] [address] * Preadmission Environment Home Alone * ADLs Independent * Equipment Cane Walker * Other Equipment NO MEDICAL EQUIPMENT PROVIDER PREFERENCE * List name and contact numbers for known caregivers / representatives who currently or will assist patient after discharge: MAY PEREZ, SON, * Verbal permission to speak to the caregivers and representatives has been obtained from the patient. N/A * Community resources currently utilized None * Please name any agencies selected above. NONE * Additional services required to return to the preadmission environment? Yes * Can the patient safely return to the preadmission environment? Yes * Has this patient been hospitalized within the prior 30 days at any hospital? Yes Coverage Notice Reviewer: [id number] Sanders Notice Issued Date-Time: 07/14/2019 8:30 Notice Type: IM Discharge Notice Notice Delivered To: Patient Relationship to Patient: Aeronautical Design Engineer Name: Delivery Method: HAND - Hand Delivered Chey[place] Days: Prior Verbal Notification: Recipient Understood Notice: Yes Recipient Signature: Yes Med Rec Note Co-signed by Attending: Coverage Notice Comment: Reviewer: WANG Sanders Notice Issued Date-Time: 07/14/2019 8:30 Notice Type: Patient Choice Letter Notice Delivered To: Patient Relationship to Patient: Aeronautical Design Engineer Name: Delivery Method: HAND - Hand Delivered Che[place] Days: Prior Verbal Notification: Recipient Understood Notice: Yes Recipient Signature: Yes Med Rec Note Co-signed by Attending: Coverage Notice Comment: 1- [facility], 2- [facility] INPT REHAB Last DP export: 07/16/19 1:26 pm Patient Name: ETIENNE PEREZ Page [phone] at 1436 All edits/amendments must be made on the electronic document DICTATION DATE: 07/16/19 1436 EXCELLENCE COACH: HIEN 07/16/19 1436 RPT#: [id number] DC DATE: STATUS: ADM IN [facility] [address] [place] [address] END OF REPORT
--- NOTE | 2019-07-16 15:00 | NUR ---
PATIENT SITTING UP IN CHAIR. UPON ENTERING ROOM, PATIENT IS PULLING OFF TELEMETRY AND HAD ALREADY PULLED OUT IV. ATTEMPTED TO REPLACE TELEMETRY AND START NEW PIV AND PATIENT PUSHED MY HAND AWAY X 4 AND STATES"I DONT NEED ALL THAT." WILL CONTINUE TO MONITOR. CALL LIGHT IN REACH.
[2019-07-16 15:06] VITALS: BP 126/55
--- NOTE | 2019-07-16 15:25 | NUR ---
OT NOTE: PT COMPLETED TOILETING TASKS WITH CGA. PT COMPLETED HYGIENE TASKS WITH MOD A. PT COMPLETED ADL MOB WITH CGA. PT COMPLETED UE AROM AXS. [phone] THANK YOU, RHONDA SANCHEZ
--- NOTE | 2019-07-16 15:45 | NUR ---
PATIENT SITTING UP IN BS CHAIR WATCHING TV. PATIENT IS STABLE AND VSS. PATIENT DENIES ANY NEEDS OR PAIN. WILL CONTINUE TO MONITOR. SR UP X 2 BED IN LOW POSITION AND CALL LIGHT IN REACH.
--- NOTE | 2019-07-16 17:25 | MORECARE ---
CASE MANAGEMENT DISCHARGE SUMMARY PATIENT: ETIENNE PEREZ UNIT: [id number] ADM DATE: 07/09/19 AGE: 78 : 40 SEX: F ROOM/BED: D.1739 AUTHOR: ANASTASIIA,DOC PHYSICIAN: REFERRING PHYSICIAN: BETITO GRACE MD DATE OF SERVICE: 07/16/19 Discharge Plan Patient Name: ETIENNE PEREZ Facility: [facility]:[place] : 1940 Planned Disposition: Prison Facility Anticipated Discharge Date: 07/16/19 Discharge Date: Expected LOS: 7 Initial Reviewer: [id number] Initial Review Date: 07/09/2019 Generated: 07/16/19 6:24 pm Comments DCP- Discharge Planning Updated by [id number]: Guanakito Sanders on 07/16/19 1:[address] Patient Name: ETIENNE PEREZ Encounter No: [id number] : 1940 Primary Insurance: [email or web address] [facility] PFFS Anticipated DC Date: 07-16-2019 Planned Disposition: Inpatient Rehab External Planned Provider: [facility] INPATIENT REHAB Discharge Planning Comments: CM CALLED MICHAEL OF [facility] INPATIENT [facility], , PROVIDED REFERRAL UDPATE. MICHAEL WILL FOLLOW UP WITH INSURANCE COMPANY. CM FAXED REFERRAL UPDATE TO [facility] WITH CURRENT MAR AT [phone]. CM WAITING AUTHORIZATION FROM PT'S INSURANCE COMPANY FOR INPAITIENT REHAB AT [facility]. Egg Sorter: Guanakito Sanders Appended by Guanakito Sanders on 07/16/2019 14:30 RIVER BOAT CAPTAIN: CM RECEIVED CALL FROM MICHAEL OF [facility] / [facility] INPATIENT RE[facility], PT IS TOO HIGH FUNCTIONING FOR INPATIENT REHAB, RECOMMENDED [facility] RE[facility] OR HOME WITH HOME HEALTH. CM MET WITH PT IN ROOM TO DISCUSS DISCHARGE PLANNING AND NEEDS. CM DISCUSSED AVAILABILITY OF [facility] HOME HEALTH. PT DOES NOT WANT REHAB AT [facility] FACILITY. PT FEELS SHE IS STRONG ENOUGH TO GO HOME AND CONTINUE HOME HEALTH WITH [facility] FOR PHYSICAL THERAPY. CHOICE SIGNED. JAY NOTIFIED AYALA OF DR. GRACE'S OFFICE AND RECEIVED RETURN CALL AND WAS ADVSISED THAT THE DOCTOR WILL PROVIDE HOME HEALTH ORDERS. CM OBTAINED HOME HEALTH ORDER, CALLED AND SPOKE TO PARDEEP OF [facility], , PROVIDED REFERRAL INFORMATION. CM FAXED REFERRAL INFORMATION TO [facility] AT [phone]. PT TO ADMIT FOR HOME HEALTH ON SATURDAY. FOR DISCHARGE, NOTIFY [facility] AT [phone], FAX DISCHARGE INFORMATION TO [facility] AT [phone]. GUANAKITO SANDERS, CASE MANAGEMENT DCP- Discharge Planning Updated by [id number]: Guanakito Sanders on 07/14/19 3:[address] Patient Name: ETIENNE PEREZ Admission Status: Elective Accout number: [id number] Admission Date: 07-09-2019 : 1940 Admission Diagnosis: Attending: BETITO GRACE Current LOS: 5 Anticipated DC Date: 07-16-2019 Planned Disposition: Inpatient Rehab Primary Insurance: [email or web address] [facility] [place] PLANNED EXTERNAL PROVIDER: [facility] INPATIENT REH[facility] Discharge Planning Comments: CM RECEIVED ORDER FOR INPATIENT REHAB PRESCREENING. CM MET WITH PT IN ROOM TO DISCUSS DISCHARGE PLANNING AND NEEDS. PT REPORTS LIVING AT HOME INDEPENDENTLY AND ALONE. PT HAS CANE AND WALKER WITH NO MEDICAL EQUIPMENT PROVIDER PREFERENCE. PT HAS NO OUTSIDE SERVICES ASSISTING IN THE HOME. CM DISCUSSED AVAILABILITY OF HOME HEALTH, REHAB SERVICES AND MEDICAL EQUIPMENT. PT WOULD LIKE REHAB AND STATES SHE WOULD PREFER TO GO TO [facility] ON [facility] AND IF THEY WILL NOT TAKE HER, THEN THE REHAB AT [place]. CHOICE SIGNED. IMPORTANT MESSAGE FROM MEDICARE PROVIDED AND EXPLAINED. CM CALLED MICHAEL OF [facility] IN[facility], , PROVIDED REFERRAL IFNORMATION. CM FAXED REFERRAL INFORMATION TO [facility] WITH CURRENT MAR AT [phone]. CM WAITING ADMISSION DETERMINATION FROM [facility] INPATIENT RE[facility]. Egg Sorter: Guanakito Sanders DCPIA - Discharge Planning Initial Assessment Updated by [id number]: Guanakito Sanders on 07/14/19 4:10 pm * Is the patient Alert and Oriented? Yes * How many steps to enter\exit or inside your home? 15 down * PCP DR GRACE * Pharmacy [facility] [address] * Preadmission Environment Home Alone * ADLs Independent * Equipment Cane Walker * Other Equipment NO MEDICAL EQUIPMENT PROVIDER PREFERENCE * List name and contact numbers for known caregivers / representatives who currently or will assist patient after discharge: MAY PEREZ, SON, * Verbal permission to speak to the caregivers and representatives has been obtained from the patient. N/A * Community resources currently utilized None * Please name any agencies selected above. NONE * Additional services required to return to the preadmission environment? Yes * Can the patient safely return to the preadmission environment? Yes * Has this patient been hospitalized within the prior 30 days at any hospital? Yes External Providers External Provider: [facility] Next Contact Date: 07/16/2019 Service Request Date: Service Type: Resolution: Reviewer: Comments: Coverage Notice Reviewer: WANG Sanders Notice Issued Date-Time: 07/14/2019 8:30 Notice Type: IM Discharge Notice Notice Delivered To: Patient Relationship to Patient: Salvage Machine Operator Name: Delivery Method: HAND - Hand Delivered Cheyenne Days: Prior Verbal Notification: Recipient Understood Notice: Yes Recipient Signature: Yes Med Rec Note Co-signed by Attending: Coverage Notice Comment: Reviewer: WANG Sanedrs Notice Issued Date-Time: 07/14/2019 8:30 Notice Type: Patient Choice Letter Notice Delivered To: Patient Relationship to Patient: Salvage Machine Operator Name: Delivery Method: HAND - Hand Delivered Cheyenne Days: Prior Verbal Notification: Recipient Understood Notice: Yes Recipient Signature: Yes Med Rec Note Co-signed by Attending: Coverage Notice Comment: 1- [facility], 2- [facility] INPT REHAB Reviewer: WANG Sanders Notice Issued Date-Time: 07/16/2019 12:15 Notice Type: IM Discharge Notice Notice Delivered To: Patient Relationship to Patient: Salvage Machine Operator Name: Delivery Method: HAND - Hand Delivered Cheyenne Days: Prior Verbal Notification: Recipient Understood Notice: Yes Recipient Signature: Yes Med Rec Note Co-signed by Attending: Coverage Notice Comment: Reviewer: WANG Sanders Notice Issued Date-Time: 07/16/2019 12:15 Notice Type: Patient Choice Letter Notice Delivered To: Patient Relationship to Patient: Salvage Machine Operator Name: Delivery Method: HAND - Hand Delivered Cheynene Days: Prior Verbal Notification: Recipient Understood Notice: Yes Recipient Signature: Yes Med Rec Note Co-signed by Attending: Coverage Notice Comment: [facility] DECLINED SNF REHAB Reviewer: WANG Sanders Notice Issued Date-Time: 07/16/2019 16:30 Notice Type: Patient Choice Letter Notice Delivered To: Family Member Relationship to Patient: Son Salvage Machine Operator Name: MAY PEREZ Delivery Method: HAND - Hand Delivered Cheyenne Days: Prior Verbal Notification: Recipient Understood Notice: Yes Recipient Signature: Yes Med Rec Note Co-signed by Attending: Coverage Notice Comment: [facility] Last DP export: 07/16/19 1:36 pm Patient Name: ETIENNE PEREZ Page [id number] at 1725 All edits/amendments must be made on the electronic document DICTATION DATE: 07/16/191723 TOBACCO STRIPPER HAND: HIEN 07/16/191723 RPT#: [id number] DC DATE: STATUS: ADM IN [facility] [address] [place] [address] END OF REPORT
--- NOTE | 2019-07-16 17:33 | MORECARE ---
CASE MANAGEMENT DISCHARGE SUMMARY PATIENT: ETIENNE PEREZ HAND UNIT: [id number] ADM DATE: 07/09/19 AGE: 78 : 40 SEX: F ROOM/BED: D.2105 AUTHOR: SU LAURENT PHYSICIAN: REFERRING PHYSICIAN: BETITO GRACE MD DATE OF SERVICE: 07/16/19 Discharge Plan Patient Name: ETIENNE PEREZ Facility: [facility]:[place] : 1940 Planned Disposition: Halfway Facility Anticipated Discharge Date: 07/16/19 Discharge Date: Expected LOS: 7 Initial Reviewer: [id number] Initial Review Date: 07/09/2019 Generated: 07/16/19 6:32 pm Comments DCP- Discharge Planning Updated by [email or web address]: Guanakito Sanders on 07/16/19 4:[address] Patient Name: ETIENNE PEREZ Encounter No: [id number] : 1940 Primary Insurance: [employer] PFFS Anticipated DC Date: 07-16-2019 Planned Disposition: Halfway Facility External [facility] DCP follow-up note: CM RECEIVED REQUEST TO MEET WITH PT AND SON IN ROOM. CM MET WITH PT AND SON, MAY, IN ROOM. PT'S SON HAS DISCUSSED PLAN WITH PT AND THEY WANT REHAB AT [facility]. CHOICE SIGNED. PT'S SON CONCERNED THAT PT IS STILL CONFUSED AND WAS WONDERING IF WHITE COUNT HAD BEEN CHECKED AND IF IT WAS NORMAL. CM NOTIFIED BEDSIDE NURSE OF PT'S SON'S CONCERN. CM CALLED NETTA GARRETT OF [facility], , INFORMED OF REHAB REFERRAL AND REQUESTED ASSESSMENT SOON POSSIBLE. NETTA WILL ASSESS TOMORROW MORNING, 07-17-19. CM FAXED REFERRAL TO [facility] AT [phone]. CM WAITING ADMISSION DETERMINATION FROM [facility] INSURANCE AUTHORIZATION FOR REHAB SERVICES. Guanakito Sanders, CASE MANAGEMENT DCP- Discharge Planning Updated by [id number]: Guanakito Sanders on 07/16/19 1:[address] Patient Name: ETIENNE PEREZ Encounter No: [id number] : 06-07-1941 Primary Insurance: [employer] [facility] PF Anticipated DC Date: 07-16-2019 Planned Disposition: Inpatient Rehab External Planned Provider: [facility] INPATIENT REH[facility] Discharge Planning Comments: CM CALLED MICHAEL OF [facility] INPATIENT REH[facility], , PROVIDED REFERRAL UDPATE. MICHAEL WILL FOLLOW UP WITH INSURANCE COMPANY. CM FAXED REFERRAL UPDATE TO [facility] WITH CURRENT MAR AT [phone]. CM WAITING AUTHORIZATION FROM PT'S INSURANCE COMPANY FOR INPAITIENT REHAB AT [facility]. Ampoule Filler And Sealer: Guanakito Sanders Appended by Guanakito Sanders on 07/16/2019 14:30 CONFLICTS ANALYST: CM RECEIVED CALL FROM MICHAEL OF [facility] / [facility] INPATIENT REH[facility], PT IS TOO HIGH FUNCTIONING FOR INPATIENT REHAB, RECOMMENDED SNF REHAB OR HOME WITH HOME HEALTH. CM MET WITH PT IN ROOM TO DISCUSS DISCHARGE PLANNING AND NEEDS. CM DISCUSSED AVAILABILITY OF SNF REHAB WELL HOME HEALTH. PT DOES NOT WANT REHAB AT SNF FACILITY. PT FEELS SHE IS STRONG ENOUGH TO GO HOME AND CONTINUE HOME HEALTH WITH [facility] FOR PHYSICAL THERAPY. CHOICE SIGNED. CM NOTIFIED AYALA OF DR. GRACE'S OFFICE AND RECEIVED RETURN CALL AND WAS ADVSISED THAT THE DOCTOR WILL PROVIDE HOME HEALTH ORDERS. CM OBTAINED HOME HEALTH ORDER, CALLED AND SPOKE TO PARDEEP OF [facility], , PROVIDED REFERRAL INFORMATION. CM FAXED REFERRAL INFORMATION TO [facility] AT [phone]. PT TO ADMIT FOR HOME HEALTH ON SATURDAY. FOR DISCHARGE, NOTIFY [facility] AT [phone], FAX DISCHARGE INFORMATION TO [facility] AT [phone]. GUANAKITO SANDERS, CASE MANAGEMENT DCP- Discharge Planning Updated by [id number]: Guanakito Sanders on 07/14/19 3:[address] Patient Name: ETIENNE PEREZ Admission Status: Elective Accout number: [id number] Admission Date: 07-09-2019 : 1940 Admission Diagnosis: Attending: BETITO GRACE Current LOS: 5 Anticipated DC Date: 07-16-2019 Planned Disposition: Inpatient Rehab Primary Insurance: [employer] [facility] PFFS PLANNED EXTERNAL PROVIDER: [facility] INPATIENT REHAB Discharge Planning Comments: CM RECEIVED ORDER FOR INPATIENT REHAB PRESCREENING. CM MET WITH PT IN ROOM TO DISCUSS DISCHARGE PLANNING AND NEEDS. PT REPORTS LIVING AT HOME INDEPENDENTLY AND ALONE. PT HAS CANE AND WALKER WITH NO MEDICAL EQUIPMENT PROVIDER PREFERENCE. PT HAS NO OUTSIDE SERVICES ASSISTING IN THE HOME. CM DISCUSSED AVAILABILITY OF HOME HEALTH, REHAB SERVICES AND MEDICAL EQUIPMENT. PT WOULD LIKE REHAB AND STATES SHE WOULD PREFER TO GO TO [facility] ON [address] AND IF THEY WILL NOT TAKE HER, THEN THE REHAB AT [place]. CHOICE SIGNED. IMPORTANT MESSAGE FROM MEDICARE PROVIDED AND EXPLAINED. CM CALLED MICHAEL OF [facility] INPATIENT REH[facility], , PROVIDED REFERRAL IFNORMATION. CM FAXED REFERRAL INFORMATION TO [facility] WITH CURRENT MAR AT [phone]. CM WAITING ADMISSION DETERMINATION FROM [facility] INPATIENT REHAB. Ampoule Filler And Sealer: Guanakito Sanders DCPIA - Discharge Planning Initial Assessment Updated by [id number]: Guanakito Sanders on 07/14/19 4:10 pm * Is the patient Alert and Oriented? Yes * How many steps to enter\exit or inside your home? 15 down * PCP DR GRACE * [facility] [address] * Preadmission Environment Home Alone * ADLs Independent * Equipment Cane Walker * Other Equipment NO MEDICAL EQUIPMENT PROVIDER PREFERENCE * List name and contact numbers for known caregivers / representatives who currently or will assist patient after discharge: MAY PEREZ, SON, * Verbal permission to speak to the caregivers and representatives has been obtained from the patient. N/A * Community resources currently utilized None * Please name any agencies selected above. NONE * Additional services required to return to the preadmission environment? Yes * Can the patient safely return to the preadmission environment? Yes * Has this patient been hospitalized within the prior 30 days at any hospital? Yes Coverage Notice Reviewer: [id number] Chinyere Sanders Notice Issued Date-Time: 07/14/2019 8:30 Notice Type: IM Discharge Notice Notice Delivered To: Patient Relationship to Patient: Automatic Transmission Mechanic Name: Delivery Method: HAND - Hand Delivered Cheyenne Days: Prior Verbal Notification: Recipient Understood Notice: Yes Recipient Signature: Yes Med Rec Note Co-signed by Attending: Coverage Notice Comment: Reviewer: [id number] Sanders Notice Issued Date-Time: 07/14/2019 8:30 Notice Type: Patient Choice Letter Notice Delivered To: Patient Relationship to Patient: Automatic Transmission Mechanic Name: Delivery Method: HAND - Hand Delivered Cheyenne Days: Prior Verbal Notification: Recipient Understood Notice: Yes Recipient Signature: Yes Med Rec Note Co-signed by Attending: Coverage Notice Comment: 1- [facility], 2- [facility] IN[facility] REHAB Reviewer: WANG Sanders Notice Issued Date-Time: 07/16/2019 12:15 Notice Type: IM Discharge Notice Notice Delivered To: Patient Relationship to Patient: Automatic Transmission Mechanic Name: Delivery Method: HAND - Hand Delivered Cheyenne Days: Prior Verbal Notification: Recipient Understood Notice: Yes Recipient Signature: Yes Med Rec Note Co-signed by Attending: Coverage Notice Comment: Reviewer: WANG Sanders Notice Issued Date-Time: 07/16/2019 12:15 Notice Type: Patient Choice Letter Notice Delivered To: Patient Relationship to Patient: Automatic Transmission Mechanic Name: Delivery Method: HAND - Hand Delivered Cheyenne Days: Prior Verbal Notification: Recipient Understood Notice: Yes Recipient Signature: Yes Med Rec Note Co-signed by Attending: Coverage Notice Comment: [facility] DECL[facility] SN[facility] RE[facility] Reviewer: WANG Sanders Notice Issued Date-Time: 07/16/2019 16:30 Notice Type: Patient Choice Letter Notice Delivered To: Family Member Relationship to Patient: Son Automatic Transmission Mechanic Name: MAY PEREZ Delivery Method: HAND - Hand Delivered Cheyenne Days: Prior Verbal Notification: Recipient Understood Notice: Yes Recipient Signature: Yes Med Rec Note Co-signed by Attending: Coverage Notice Comment: [facility] Last DP export: 07/16/19 4:24 pm Patient Name: ETIENNE PEREZ Page [id number] at 1733 All edits/amendments must be made on the electronic document DICTATION DATE: 07/16/191731 NET MANAGER: HIEN 07/16/191731 RPT#: [id number] DC DATE: STATUS: ADM IN [facility] [address] [place] [address] END OF REPORT
--- NOTE | 2019-07-16 18:39 | NUR ---
PATIENT LAYING IN BED ON BACK VISITING WITH FAMILY. PATIENT IS STABLE AND VSS. PATIENT CONTINUES TO REFUSE IV AND TELEMETRY. WILL CONTINUE TO MONTIOR. SR UP X 2 BED IN LOW POSITION AND CALL LIGHT IN REACH.
[2019-07-16 20:00] VITALS: BP 144/54
[2019-07-16 23:00] VITALS: BP 138/54
[2019-07-17 04:00] VITALS: BP 150/70
--- NOTE | 2019-07-17 07:10 | NUR ---
REPORT RECEIVED FROM PARACHUTE MARKER AND PATIENT CARE ASSUMED. PATIENT LAYING IN BED AWAKE, ALERT AND ORIENTED X 4. PATIENT IS STABLE AND VSS. PATIENT DENIES ANY NEEDS OR PAIN. WILL CONTINUE WITH PLAN OF CARE. SR UP X 2 BED IN LOW POSITION AND CALL LIGHT IN REACH.
--- NOTE | 2019-07-17 07:56 | MORECARE ---
CASE MANAGEMENT DISCHARGE SUMMARY PATIENT: ETIENNE PEREZ HAND UNIT: [id number] ADM DATE: 07/09/19 AGE: 78 : 40 SEX: F ROOM/BED: D.2105 AUTHOR: SU LAURENT PHYSICIAN: REFERRING PHYSICIAN: BETITO GRACE MD DATE OF SERVICE: 07/17/19 Discharge Plan Patient Name: ETIENNE PEREZ Facility: [facility]:[place] : 1940 Planned Disposition: Long-Term Facility Anticipated Discharge Date: 07/17/19 Discharge Date: Expected LOS: 8 Initial Reviewer: [id number] Initial Review Date: 07/09/2019 Generated: 07/17/19 8:56 am Comments DCP- Discharge Planning Updated by [id number]: Guanakito Sanders on 07/16/19 4:[address] Patient Name: ETIENNE PEREZ Encounter No: [id number] : 1940 Primary Insurance: [employer] PFFS Anticipated DC Date: 07-16-2019 Planned Disposition: Long-Term Facility External [facility] DCP follow-up note: CM RECEIVED REQUEST TO MEET WITH PT AND SON IN ROOM. CM MET WITH PT AND SON, MAY, IN ROOM. PT'S SON HAS DISCUSSED PLAN WITH PT AND THEY WANT REHAB AT [facility]. CHOICE SIGNED. PT'S SON CONCERNED THAT PT IS STILL CONFUSED AND WAS WONDERING IF WHITE COUNT HAD BEEN CHECKED AND IF IT WAS NORMAL. CM NOTIFIED BEDSIDE NURSE OF PT'S SON'S CONCERN. CM CALLED NETTA GARRETT OF [facility], , INFORMED OF REHAB REFERRAL AND REQUESTED ASSESSMENT SOON POSSIBLE. NETTA WILL ASSESS TOMORROW MORNING, 07-17-19. CM FAXED REFERRAL TO [facility] AT [phone]. CM WAITING ADMISSION DETERMINATION FROM [facility] INSURANCE AUTHORIZATION FOR REHAB SERVICES. Guanakito Sanders, CASE MANAGEMENT DCP- Discharge Planning Updated by [id number]: Guanakito Sanders on 07/16/19 1:[address] Patient Name: ETIENNE PEREZ Encounter No: [id number] : 06-07-1941 Primary Insurance: [employer] [facility] PF Anticipated DC Date: 07-16-2019 Planned Disposition: Inpatient Rehab External Planned Provider: [facility] INPATIENT REHAB Discharge Planning Comments: CM CALLED MICHAEL OF [facility] INPATIENT RE[facility], , PROVIDED REFERRAL UDPATE. MICHAEL WILL FOLLOW UP WITH INSURANCE COMPANY. CM FAXED REFERRAL UPDATE TO [facility] WITH CURRENT MAR AT [phone]. CM WAITING AUTHORIZATION FROM PT'S INSURANCE COMPANY FOR INPAITIENT REHAB AT [facility]. Line Worker: Guanakito Sanders Appended by Guanakito Sanders on 07/16/2019 14:30 ASSISTANT PORTFOLIO MANAGER: CM RECEIVED CALL FROM MICHAEL OF [facility] / [facility] INPATIENT REHAB, PT IS TOO HIGH FUNCTIONING FOR INPATIENT REHAB, RECOMMENDED [facility] REHAB OR HOME WITH HOME HEALTH. CM MET WITH PT IN ROOM TO DISCUSS DISCHARGE PLANNING AND NEEDS. CM DISCUSSED AVAILABILITY OF [facility] REH[facility] WELL HOME HEALTH. PT DOES NOT WANT REHAB AT [facility]. PT FEELS SHE IS STRONG ENOUGH TO GO HOME AND CONTINUE HOME HEALTH WITH [facility] FOR PHYSICAL THERAPY. CHOICE SIGNED. CM NOTIFIED AYALA OF DR. GRACE'S OFFICE AND RECEIVED RETURN CALL AND WAS ADVSISED THAT THE DOCTOR WILL PROVIDE HOME HEALTH ORDERS. CM OBTAINED HOME HEALTH ORDER, CALLED AND SPOKE TO PARDEEP OF [employer], , PROVIDED REFERRAL INFORMATION. CM FAXED REFERRAL INFORMATION TO [employer] AT [phone]. PT TO ADMIT FOR HOME HEALTH ON SATURDAY. FOR DISCHARGE, NOTIFY [employer] AT [phone], FAX DISCHARGE INFORMATION TO [employer] AT [phone]. GUANAKITO SANDERS, CASE MANAGEMENT DCP- Discharge Planning Updated by [id number]: Guanakito Sanders on 07/14/19 3:[address] Patient Name: ETIENNE PEREZ Admission Status: Elective Accout number: [id number] Admission Date: 07-09-2019 : 1940 Admission Diagnosis: Attending: BETITO GRACE Current LOS: 5 Anticipated DC Date: 07-16-2019 Planned Disposition: Inpatient Rehab Primary Insurance: [email or web address] [facility] PFFS PLANNED EXTERNAL PROVIDER: [facility] INPATIENT REHAB Discharge Planning Comments: CM RECEIVED ORDER FOR INPATIENT REHAB PRESCREENING. CM MET WITH PT IN ROOM TO DISCUSS DISCHARGE PLANNING AND NEEDS. PT REPORTS LIVING AT HOME INDEPENDENTLY AND ALONE. PT HAS CANE AND WALKER WITH NO MEDICAL EQUIPMENT PROVIDER PREFERENCE. PT HAS NO OUTSIDE SERVICES ASSISTING IN THE HOME. CM DISCUSSED AVAILABILITY OF HOME HEALTH, REHAB SERVICES AND MEDICAL EQUIPMENT. PT WOULD LIKE REHAB AND STATES SHE WOULD PREFER TO GO TO [facility] ON [address] AND IF THEY WILL NOT TAKE HER, THEN THE REHAB AT [place]. CHOICE SIGNED. IMPORTANT MESSAGE FROM MEDICARE PROVIDED AND EXPLAINED. CM CALLED MICHAEL OF [facility], , PROVIDED REFERRAL IFNORMATION. CM FAXED REFERRAL INFORMATION TO [facility] WITH CURRENT MAR AT [phone]. CM WAITING ADMISSION DETERMINATION FROM [facility] INPATIENT RE[facility]. Line Worker: Guanakito Sanders DCPIA - Discharge Planning Initial Assessment Updated by [id number]: Guanakito Sanders on 07/14/19 4:10 pm * Is the patient Alert and Oriented? Yes * How many steps to enter\exit or inside your home? 15 down * PCP DR GRACE * [facility] [address] * Preadmission Environment Home Alone * ADLs Independent * Equipment Cane Walker * Other Equipment NO MEDICAL EQUIPMENT PROVIDER PREFERENCE * List name and contact numbers for known caregivers / representatives who currently or will assist patient after discharge: MAY PEREZ, SON, * Verbal permission to speak to the caregivers and representatives has been obtained from the patient. N/A * Community resources currently utilized None * Please name any agencies selected above. NONE * Additional services required to return to the preadmission environment? Yes * Can the patient safely return to the preadmission environment? Yes * Has this patient been hospitalized within the prior 30 days at any hospital? Yes Coverage Notice Reviewer: [id number] Chinyere Sanders Notice Issued Date-Time: 07/14/2019 8:30 Notice Type: IM Discharge Notice Notice Delivered To: Patient Relationship to Patient: Drywall Foreman Name: Delivery Method: HAND - Hand Delivered Cheyenne Days: Prior Verbal Notification: Recipient Understood Notice: Yes Recipient Signature: Yes Med Rec Note Co-signed by Attending: Coverage Notice Comment: Reviewer: [email or web address] Sanders Notice Issued Date-Time: 07/14/2019 8:30 Notice Type: Patient Choice Letter Notice Delivered To: Patient Relationship to Patient: Drywall Foreman Name: Delivery Method: HAND - Hand Delivered Cheyenne Days: Prior Verbal Notification: Recipient Understood Notice: Yes Recipient Signature: Yes Med Rec Note Co-signed by Attending: Coverage Notice Comment: 1- [facility], 2- [facility] IN[facility] REHAB Reviewer: WANG Sanders Notice Issued Date-Time: 07/16/2019 12:15 Notice Type: IM Discharge Notice Notice Delivered To: Patient Relationship to Patient: Drywall Foreman Name: Delivery Method: HAND - Hand Delivered Cheyenne Days: Prior Verbal Notification: Recipient Understood Notice: Yes Recipient Signature: Yes Med Rec Note Co-signed by Attending: Coverage Notice Comment: Reviewer: WANG Sanders Notice Issued Date-Time: 07/16/2019 12:15 Notice Type: Patient Choice Letter Notice Delivered To: Patient Relationship to Patient: Drywall Foreman Name: Delivery Method: HAND - Hand Delivered Cheyenne Days: Prior Verbal Notification: Recipient Understood Notice: Yes Recipient Signature: Yes Med Rec Note Co-signed by Attending: Coverage Notice Comment: [facility] RE[facility] Reviewer: WANG Sanders Notice Issued Date-Time: 07/16/2019 16:30 Notice Type: Patient Choice Letter Notice Delivered To: Family Member Relationship to Patient: Son Drywall Foreman Name: MAY PEREZ Delivery Method: HAND - Hand Delivered Cheyenne Days: Prior Verbal Notification: Recipient Understood Notice: Yes Recipient Signature: Yes Med Rec Note Co-signed by Attending: Coverage Notice Comment: [facility] Last DP export: 07/16/19 4:33 pm Patient Name: ETIENNE PEREZ Page [id number] at 0756 All edits/amendments must be made on the electronic document DICTATION DATE: 07/17/19 0756 DECKER OPERATOR: HIEN 07/17/19 0756 RPT#: [id number] DC DATE: STATUS: ADM IN [facility] [address] [place] [address] END OF REPORT
--- NOTE | 2019-07-17 08:03 | MORECARE ---
CASE MANAGEMENT DISCHARGE SUMMARY PATIENT: ETIENNE PEREZ HAND UNIT: [id number] ADM DATE: 07/09/19 AGE: 78 : 40 SEX: F ROOM/BED: D.2105 AUTHOR: SU LAURENT PHYSICIAN: REFERRING PHYSICIAN: BETITO GRACE MD DATE OF SERVICE: 07/17/19 Discharge Plan Patient Name: ETIENNE PEREZ Facility: [facility]:[place] : 1940 Planned Disposition: Intermediate Facility Anticipated Discharge Date: 07/17/19 Discharge Date: Expected LOS: 8 Initial Reviewer: [id number] Initial Review Date: 07/09/2019 Generated: 07/17/19 9:02 am Comments DCP- Discharge Planning Updated by [email or web address]: Guanakito Sanders on 07/16/19 4:[address] Patient Name: ETIENNE PEREZ Encounter No: [id number] : 1940 Primary Insurance: [employer] PFFS Anticipated DC Date: 07-16-2019 Planned Disposition: Intermediate Facility External [facility] DCP follow-up note: CM RECEIVED REQUEST TO MEET WITH PT AND SON IN ROOM. CM MET WITH PT AND SON, MAY, IN ROOM. PT'S SON HAS DISCUSSED PLAN WITH PT AND THEY WANT REHAB AT [facility]. CHOICE SIGNED. PT'S SON CONCERNED THAT PT IS STILL CONFUSED AND WAS WONDERING IF WHITE COUNT HAD BEEN CHECKED AND IF IT WAS NORMAL. CM NOTIFIED BEDSIDE NURSE OF PT'S SON'S CONCERN. CM CALLED NETTA GARRETT OF [facility], , INFORMED OF REHAB REFERRAL AND REQUESTED ASSESSMENT SOON POSSIBLE. NETTA WILL ASSESS TOMORROW MORNING, 07-17-19. CM FAXED REFERRAL TO [facility] AT [phone]. CM WAITING ADMISSION DETERMINATION FROM [facility] INSURANCE AUTHORIZATION FOR REHAB SERVICES. Guanakito Sanders, CASE MANAGEMENT DCP- Discharge Planning Updated by [id number]: Guanakito Sanders on 07/16/19 1:[address] Patient Name: ETIENNE PEREZ Encounter No: [id number] : 06-07-1941 Primary Insurance: [employer] [facility] PF Anticipated DC Date: 07-16-2019 Planned Disposition: Inpatient Rehab External Planned Provider: [facility] INPATIENT REHAB Discharge Planning Comments: CM CALLED MICHAEL OF [facility] INPATIENT REH[facility], , PROVIDED REFERRAL UDPATE. MICHAEL WILL FOLLOW UP WITH INSURANCE COMPANY. CM FAXED REFERRAL UPDATE TO [facility] WITH CURRENT MAR AT [phone]. CM WAITING AUTHORIZATION FROM PT'S INSURANCE COMPANY FOR INPAITIENT REHAB AT [facility]. Beater Out Leveling Machine: Guanakito Sanders Appended by Guanakito Sanders on 07/16/2019 14:30 CRIPPLE CHASER: CM RECEIVED CALL FROM MICHAEL OF [facility] / [facility] INPATIENT REHAB, PT IS TOO HIGH FUNCTIONING FOR INPATIENT REHAB, RECOMMENDED [facility] OR HOME WITH HOME HEALTH. CM MET WITH PT IN ROOM TO DISCUSS DISCHARGE PLANNING AND NEEDS. CM DISCUSSED AVAILABILITY OF [facility] WELL HOME HEALTH. PT DOES NOT WANT REHAB AT [facility]. PT FEELS SHE IS STRONG ENOUGH TO GO HOME AND CONTINUE HOME HEALTH WITH [facility] FOR [facility]YSICAL THERAPY. CHOICE SIGNED. CM NOTIFIED AYALA OF DR. GRACE'S OFFICE AND RECEIVED RETURN CALL AND WAS ADVSISED THAT THE DOCTOR WILL PROVIDE HOME HEALTH ORDERS. CM OBTAINED HOME HEALTH ORDER, CALLED AND SPOKE TO PARDEEP OF [employer], , PROVIDED REFERRAL INFORMATION. CM FAXED REFERRAL INFORMATION TO [employer] AT [phone]. PT TO ADMIT FOR HOME HEALTH ON SATURDAY. FOR DISCHARGE, NOTIFY [facility] AT [phone], FAX DISCHARGE INFORMATION TO [facility] AT [phone]. GUANAKITO SANDERS, CASE MANAGEMENT DCP- Discharge Planning Updated by [id number]: Guanakito Sanders on 07/14/19 3:[address] Patient Name: ETIENNE PEREZ Admission Status: Elective Accout number: [id number] Admission Date: 07-09-2019 : 1940 Admission Diagnosis: Attending: BETITO GRACE Current LOS: 5 Anticipated DC Date: 07-16-2019 Planned Disposition: Inpatient Rehab Primary Insurance: [employer] [facility] PFFS PLANNED EXTERNAL PROVIDER: [facility] INPATIENT REHAB Discharge Planning Comments: CM RECEIVED ORDER FOR INPATIENT REHAB PRESCREENING. CM MET WITH PT IN ROOM TO DISCUSS DISCHARGE PLANNING AND NEEDS. PT REPORTS LIVING AT HOME INDEPENDENTLY AND ALONE. PT HAS CANE AND WALKER WITH NO MEDICAL EQUIPMENT PROVIDER PREFERENCE. PT HAS NO OUTSIDE SERVICES ASSISTING IN THE HOME. CM DISCUSSED AVAILABILITY OF HOME HEALTH, REHAB SERVICES AND MEDICAL EQUIPMENT. PT WOULD LIKE REHAB AND STATES SHE WOULD PREFER TO GO TO [facility] ON [address] AND IF THEY WILL NOT TAKE HER, THEN THE REHAB AT [place]. CHOICE SIGNED. IMPORTANT MESSAGE FROM MEDICARE PROVIDED AND EXPLAINED. CM CALLED MICHAEL OF [facility] INPATIENT REH[facility], , PROVIDED REFERRAL IFNORMATION. CM FAXED REFERRAL INFORMATION TO [facility] WITH CURRENT MAR AT [phone]. CM WAITING ADMISSION DETERMINATION FROM [facility] INPATIENT REHAB. Beater Out Leveling Machine: Guanakito Sanders DCPIA - Discharge Planning Initial Assessment Updated by [id number]: Guanakito Sanders on 07/14/19 4:10 pm * Is the patient Alert and Oriented? Yes * How many steps to enter\exit or inside your home? 15 down * PCP DR GRACE * [facility] [address] * Preadmission Environment Home Alone * ADLs Independent * Equipment Cane Walker * Other Equipment NO MEDICAL EQUIPMENT PROVIDER PREFERENCE * List name and contact numbers for known caregivers / representatives who currently or will assist patient after discharge: MAY PEREZ, SON, * Verbal permission to speak to the caregivers and representatives has been obtained from the patient. N/A * Community resources currently utilized None * Please name any agencies selected above. NONE * Additional services required to return to the preadmission environment? Yes * Can the patient safely return to the preadmission environment? Yes * Has this patient been hospitalized within the prior 30 days at any hospital? Yes Coverage Notice Reviewer: [email or web address] Chinyeer Sanders Notice Issued Date-Time: 07/14/2019 8:30 Notice Type: IM Discharge Notice Notice Delivered To: Patient Relationship to Patient: Studio Couch Frame Builder Name: Delivery Method: HAND - Hand Delivered Cheyenne Days: Prior Verbal Notification: Recipient Understood Notice: Yes Recipient Signature: Yes Med Rec Note Co-signed by Attending: Coverage Notice Comment: Reviewer: [id number] Sanders Notice Issued Date-Time: 07/14/2019 8:30 Notice Type: Patient Choice Letter Notice Delivered To: Patient Relationship to Patient: Studio Couch Frame Builder Name: Delivery Method: HAND - Hand Delivered Cheyenne Days: Prior Verbal Notification: Recipient Understood Notice: Yes Recipient Signature: Yes Med Rec Note Co-signed by Attending: Coverage Notice Comment: [facility]- [facility], 2- [facility] Reviewer: WANG Sanders Notice Issued Date-Time: 07/16/2019 12:15 Notice Type: IM Discharge Notice Notice Delivered To: Patient Relationship to Patient: Studio Couch Frame Builder Name: Delivery Method: HAND - Hand Delivered Cheyenne Days: Prior Verbal Notification: Recipient Understood Notice: Yes Recipient Signature: Yes Med Rec Note Co-signed by Attending: Coverage Notice Comment: Reviewer: WANG Sanders Notice Issued Date-Time: 07/16/2019 12:15 Notice Type: Patient Choice Letter Notice Delivered To: Patient Relationship to Patient: Studio Couch Frame Builder Name: Delivery Method: HAND - Hand Delivered Cheyenne Days: Prior Verbal Notification: Recipient Understood Notice: Yes Recipient Signature: Yes Med Rec Note Co-signed by Attending: Coverage Notice Comment: [facility] Reviewer: WANG Sanders Notice Issued Date-Time: 07/16/2019 16:30 Notice Type: Patient Choice Letter Notice Delivered To: Family Member Relationship to Patient: Son Studio Couch Frame Builder Name: MAY PEREZ Delivery Method: HAND - Hand Delivered Cheyenne Days: Prior Verbal Notification: Recipient Understood Notice: Yes Recipient Signature: Yes Med Rec Note Co-signed by Attending: Coverage Notice Comment: [facility] Last DP export: 07/17/19 6:56 a Patient Name: ETIENNE PEREZ Page [id number] at 0803 All edits/amendments must be made on the electronic document DICTATION DATE: 07/17/19801 FUNDRAISING ASSISTANT: HIEN 07/17/19 08 RPT#: [id number] DC DATE: STATUS: ADM IN [facility] [address] [place] [address] END OF REPORT
[2019-07-17 09:10] LABS: BASOPHILS 0.6 % (0-2); EOSINOPHILS 8.8 % (0-7); HEMATOCRIT 27.8 % (36.0-48.0); HEMOGLOBIN 9.2 g/dL (12-16); IMMATURE GRANULOCYTES 0.2 % (0-5); LYMPHOCYTES 20.8 % (15-50); MCHC 33.1 g/dL (31.0-37.0); MCV 87.7 fL (80.0-100.0); MEAN PLATELET VOLUME 9.5 fL (7.4-10.4); NEUTROPHILS 61.6 % (40-80); PLATELET COUNT 268 10x3/uL (130-400); RBC 3.17 10x6/uL (4.00-5.40); RDW 12.6 % (11.5-14.5); WBC 8.8 10x3/uL (4.8-10.8)
[2019-07-17 09:16] LABS: ANION GAP 9.6 mmol/L (8-16); CALCIUM 8.4 mg/dL (8.5-10.1); CARBON DIOXIDE 30.8 mmol/L (21.0-32.0); POTASSIUM - SERUM 3.4 mmol/L (3.5-5.1)
--- NOTE | 2019-07-17 09:30 | NUR ---
PATIENT IS STABLE AND VSS. PATIENT UP TO BR WITH STAND BY ASSISTANCE. PATIENT TO BS CHAIR. ISAIAS ALARM IN CHAIR AND TURNED ON. WILL CONTINUE TO MONITOR. CALL LIGHT IN REACH.
--- NOTE | 2019-07-17 11:28 | NUR ---
OT NOTE: PT EXPRESSED CONCERNS WITH DIET, LE EDEMA, AND [employer]IVERS[employer] PRECAUTIONS OF PREPARER. ELLIS RELAYED PT CONCERNS TO DISTRICT MANAGER MAJOR [employer]S SALES. PT COMPLETED SUPINE TO SIT WITH SPV. PT COMPLETED EOB SITTING WITH SPV. PT COMPLETED BUE EXS AT EOB WITH SPV. [phone] THANK YOU, RHONDA SANCHEZ
--- NOTE | 2019-07-17 11:40 | NUR ---
OT NOTE: PT COMPLETED BED MOB TASKS WITH SBA. PT COMPLETED ADL MOB WITH CANE REQUIRED CGA. PT COMPLETED TOILETING TASKS WITH SBA. 7-250 THANK YOU,RHONDA SANCHEZ
[2019-07-17 13:18] VITALS: BP 155/58
[2019-07-17] MEDS ORDERED: LISINOPRIL10 MG PO (13:22)
[2019-07-17] MEDS ORDERED: MEGACE400 MG/10 PO (13:28)
--- NOTE | 2019-07-17 15:42 | MORECARE ---
CASE MANAGEMENT DISCHARGE SUMMARY PATIENT: ETIENNE PEREZ HAND UNIT: [id number] ADM DATE: 07/09/19 AGE: 78 : 40 SEX: F ROOM/BED: D.210 AUTHOR: SU LAURENT PHYSICIAN: REFERRING PHYSICIAN: BETITO GRACE MD DATE OF SERVICE: 07/17/19 Discharge Plan Patient Name: ETIENNE PEREZ Facility: [facility]:[place] : 1940 Planned Disposition: Correction Facility Anticipated Discharge Date: 07/17/19 Discharge Date: Expected LOS: 8 Initial Reviewer: [id number] Initial Review Date: 07/09/2019 Generated: 07/17/19 4:41 pm Comments DCP- Discharge Planning Updated by [id number]: David Sanders on 07/17/19 2:[address] Patient Name: ETIENNE PEREZ Encounter No: [id number] : 1940 Primary Insurance: [employer] [facility] P[facility]S Anticipated DC Date: 07-17-2019 Planned Disposition: Correction Facility External Planned Provider: [facility], MEDICARE REHAB BED DCP follow-up note: CM SPOKE TO NETTA TAMI OF [facility], , WHO ASSESSED PT TODAY, SHE IS TRYING TO GET INSURANCE AUTHORIZATION FOR PT TO GO TO [facility] TODAY AND WILL LET CM KNOW WHEN THEY GET IT. CM SPOKE TO DR. GRACE WHO ENTERED DISCHARGE ORDERS. CM FAXED DISCHARGE INFORMATION TO [facility] AT [phone]. CM NOTIFIED NETTA OF DISCHARGE, THEY ARE STILL WAITING ON INSURANCE AUTHORIZATION. CM WAITING INSURANCE AUTHORIZATION FOR REHAB SERVICES FOR HER INSURANCE COMPANY FOR [facility]. David Sanders, CASE MANAGEMENT DCP- Discharge Planning Updated by [id number]: David Sanders on 07/16/19 4:[address] Patient Name: ETIENNE PEREZ Encounter No: [id number] : 1940 Primary Insurance: [employer] [facility] PFFS Anticipated DC Date: 07-16-2019 Planned Disposition: Correction Facility External Planned Provider: [facility], MEDICARE REHAB BED DCP follow-up note: CM RECEIVED REQUEST TO MEET WITH PT AND SON IN ROOM. CM MET WITH PT AND SON, MAY, IN ROOM. PT'S SON HAS DISCUSSED PLAN WITH PT AND THEY WANT REHAB AT [facility]. CHOICE SIGNED. PT'S SON CONCERNED THAT PT IS STILL CONFUSED AND WAS WONDERING IF WHITE COUNT HAD BEEN CHECKED AND IF IT WAS NORMAL. CM NOTIFIED BEDSIDE NURSE OF PT'S SON'S CONCERN. CM CALLED NETTA GARRETT OF [facility], , INFORMED OF REHAB REFERRAL AND REQUESTED ASSESSMENT SOON POSSIBLE. NETTA WILL ASSESS TOMORROW MORNING, 07-17-19. CM FAXED REFERRAL TO [facility] AT [phone]. CM WAITING ADMISSION DETERMINATION FROM [facility] INSURANCE AUTHORIZATION FOR REHAB SERVICES. David Sanders, CASE MANAGEMENT DCP- Discharge Planning Updated by [id number]: David Sanders on 07/16/19 1:[address] Patient Name: ETIENNE PEREZ Encounter No: [id number] : 1940 Primary Insurance: [employer] [facility] Anticipated DC Date: 07-16-2019 Planned Disposition: Inpatient Rehab External Planned Provider: [facility] INPATIENT REHAB Discharge Planning Comments: CM CALLED MICHAEL OF [facility] INPATIENT REHAB, , PROVIDED REFERRAL UDPATE. MICHAEL WILL FOLLOW UP WITH INSURANCE COMPANY. CM FAXED REFERRAL UPDATE TO [facility] WITH CURRENT MAR AT [phone]. CM WAITING AUTHORIZATION FROM PT'S INSURANCE COMPANY FOR INPAITIENT REHAB AT [facility]. Advertising Operations Coordinator: David Sanders Appended by David Sanders on 07/16/2019 14:30 DIRECTOR DIGITAL CATALOGUE: CM RECEIVED CALL FROM MICHAEL OF [facility] / [facility] INPATIENT REHAB, PT IS TOO HIGH FUNCTIONING FOR INPATIENT REHAB, RECOMMENDED HALF-WAY REHAB OR HOME WITH HOME HEALTH. CM MET WITH PT IN ROOM TO DISCUSS DISCHARGE PLANNING AND NEEDS. CM DISCUSSED AVAILABILITY OF [facility]AY REHAB [facility] HOME HEALTH. PT DOES NOT WANT REHAB AT [facility]WAY FACILITY. PT FEELS SHE IS STRONG ENOUGH TO GO HOME AND CONTINUE HOME HEALTH WITH [facility] FOR PHYSICAL THERAPY. CHOICE SIGNED. JAY NOTIFIED AYALA OF DR. GRACE'S OFFICE AND RECEIVED RETURN CALL AND WAS ADVSISED THAT THE DOCTOR WILL PROVIDE HOME HEALTH ORDERS. CM OBTAINED HOME HEALTH ORDER, CALLED AND SPOKE TO PARDEEP OF [facility], , PROVIDED REFERRAL INFORMATION. CM FAXED REFERRAL INFORMATION TO [facility] AT [phone]. PT TO ADMIT FOR HOME HEALTH ON SATURDAY. FOR DISCHARGE, NOTIFY [facility] AT [phone], FAX DISCHARGE INFORMATION TO [facility] AT [phone]. DAVID SANDERS, CASE MANAGEMENT DCP- Discharge Planning Updated by [id number]: David Sanders on 07/14/19 3:[address] Patient Name: ETIENNE PEREZ Admission Status: Elective Accout number: [id number] Admission Date: 07-09-2019 : 1940 Admission Diagnosis: Attending: BETITO GRACE Current LOS: 5 Anticipated DC Date: 07-16-2019 Planned Disposition: Inpatient Rehab Primary Insurance: [employer] [facility] PLANNED EXTERNAL PROVIDER: [facility] INPATIENT REHAB Discharge Planning Comments: CM RECEIVED ORDER FOR INPATIENT REHAB PRESCREENING. CM MET WITH PT IN ROOM TO DISCUSS DISCHARGE PLANNING AND NEEDS. PT REPORTS LIVING AT HOME INDEPENDENTLY AND ALONE. PT HAS CANE AND WALKER WITH NO MEDICAL EQUIPMENT PROVIDER PREFERENCE. PT HAS NO OUTSIDE SERVICES ASSISTING IN THE HOME. CM DISCUSSED AVAILABILITY OF HOME HEALTH, REHAB SERVICES AND MEDICAL EQUIPMENT. PT WOULD LIKE REHAB AND STATES SHE WOULD PREFER TO GO TO [facility] ON [address] [facility] AND IF THEY WILL NOT TAKE HER, THEN THE REHAB AT [place]. CHOICE SIGNED. IMPORTANT MESSAGE FROM MEDICARE PROVIDED AND EXPLAINED. CM CALLED MICHAEL OF [facility] INPATIENT REHAB, , PROVIDED REFERRAL IFNORMATION. CM FAXED REFERRAL INFORMATION TO [facility] WITH CURRENT MAR AT [phone]. CM WAITING ADMISSION DETERMINATION FROM [facility] INPATIENT REHAB. Advertising Operations Coordinator: David Sanders DCPIA - Discharge Planning Initial Assessment Updated by [id number]: David Sanders on 07/14/19 4:10 pm * Is the patient Alert and Oriented? Yes * How many steps to enter\exit or inside your home? 15 down * PCP DR GRACE * Pharmacy [facility] [address] * Preadmission Environment Home Alone * ADLs Independent * Equipment Cane Walker * Other Equipment NO MEDICAL EQUIPMENT PROVIDER PREFERENCE * List name and contact numbers for known caregivers / representatives who currently or will assist patient after discharge: MAY PEREZ, SON, * Verbal permission to speak to the caregivers and representatives has been obtained from the patient. N/A * Community resources currently utilized None * Please name any agencies selected above. NONE * Additional services required to return to the preadmission environment? Yes * Can the patient safely return to the preadmission environment? Yes * Has this patient been hospitalized within the prior 30 days at any hospital? Yes Coverage Notice Reviewer: WANG Sanders Notice Issued Date-Time: 07/14/2019 8:30 Notice Type: IM Discharge Notice Notice Delivered To: Patient Relationship to Patient: Furnace Repair Mechanic Name: Delivery Method: HAND - Hand Delivered Cheyenne Days: Prior Verbal Notification: Recipient Understood Notice: Yes Recipient Signature: Yes Med Rec Note Co-signed by Attending: Coverage Notice Comment: Reviewer: WANG Sanders Notice Issued Date-Time: 07/14/2019 8:30 Notice Type: Patient Choice Letter Notice Delivered To: Patient Relationship to Patient: Furnace Repair Mechanic Name: Delivery Method: HAND - Hand Delivered Cheyenne Days: Prior Verbal Notification: Recipient Understood Notice: Yes Recipient Signature: Yes Med Rec Note Co-signed by Attending: Coverage Notice Comment: 1- [facility], 2- [facility] IN[facility] RE[facility]AB Reviewer: WANG Sanders Notice Issued Date-Time: 07/16/2019 12:15 Notice Type: IM Discharge Notice Notice Delivered To: Patient Relationship to Patient: Furnace Repair Mechanic Name: Delivery Method: HAND - Hand Delivered Cheyenne Days: Prior Verbal Notification: Recipient Understood Notice: Yes Recipient Signature: Yes Med Rec Note Co-signed by Attending: Coverage Notice Comment: Reviewer: WANG Sanders Notice Issued Date-Time: 07/16/2019 12:15 Notice Type: Patient Choice Letter Notice Delivered To: Patient Relationship to Patient: Furnace Repair Mechanic Name: Delivery Method: HAND - Hand Delivered Cheyenne Days: Prior Verbal Notification: Recipient Understood Notice: Yes Recipient Signature: Yes Med Rec Note Co-signed by Attending: Coverage Notice Comment: [facility] DECLINED SNF REHAB Reviewer: WANG Sanders Notice Issued Date-Time: 07/16/2019 16:30 Notice Type: Patient Choice Letter Notice Delivered To: Family Member Relationship to Patient: Son Furnace Repair Mechanic Name: MAY PEREZ Delivery Method: HAND - Hand Delivered Cheyenne Days: Prior Verbal Notification: Recipient Understood Notice: Yes Recipient Signature: Yes Med Rec Note Co-signed by Attending: Coverage Notice Comment: [facility] Last DP export: 07/17/19 7:03 a Patient Name: ETIENNE PEREZ Page 42209 at 1542 All edits/amendments must be made on the electronic document DICTATION DATE: 07/17/191540 DRAFTER PLUMBING: HIEN 07/17/191540 RPT#: [id number] DC DATE: STATUS: ADM IN [facility] [address] [place] [address] END OF REPORT
[2019-07-17 17:14] VITALS: BP 157/58
[2019-07-17 20:00] VITALS: BP 150/58
[2019-07-18] VITALS (7 sets, daily range): BP systolic 113–146; BP diastolic 6–72
--- NOTE | 2019-07-18 07:23 | NUR ---
REPORT RECEIVED FROM HOTEL SUPERINTENDENT AND PATIENT CARE ASSUMED. PATIENT LAYING IN BED AWAKE, ALERT AND ORIENTED X 4. PATIENT IS STABLE AND VSS. WILL CONTINUE TO MONITOR. SR UP X 2 BED IN LOW POSITION AND CALL LIGHT IN REACH.
--- NOTE | 2019-07-18 15:33 | MORECARE ---
CASE MANAGEMENT DISCHARGE SUMMARY PATIENT: ETIENNE PEREZ HAND UNIT: [id number] ADM DATE: 07/09/19 AGE: 78 : 40 SEX: F ROOM/BED: D.2946 AUTHOR: SU LAURENT PHYSICIAN: REFERRING PHYSICIAN: BETITO GRACE MD DATE OF SERVICE: 07/18/19 Discharge Plan Patient Name: ETIENNE PEREZ Facility: [facility]:[place] : 1940 Planned Disposition: Fdc Facility Anticipated Discharge Date: 07/17/19 Discharge Date: Expected LOS: 8 Initial Reviewer: [email or web address] Initial Review Date: 07/09/2019 Generated: 07/18/19 4:32 pm Comments DCP- Discharge Planning Updated by [id number]: Carley Lucio on 07/18/19 2:[address] Patient Name: ETIENNE PEREZ Admission Status: Elective Accout number: [id number] Admission Date: 07-09-2019 : 1940 Admission Diagnosis: Attending: BETITO GRACE Current LOS: 9 Anticipated DC Date: 07-17-2019 Planned Disposition: Fdc Facility Primary Insurance: [employer] [facility] PFFS Discharge Planning Comments: I SPOKE WITH NETTA WITH [facility] AND THEY RECEIVED AUTH BUT THEN THEIR BILLING OFFICE CALLED THEM AND PATIENT'S INSURANCE HAD NOT PAYED FOR HER LAST ADMISSION WITH THEM. THEY CAN NOT TAKE HER YET BUT THEY WILL CALL INSURANCE COMPANY FIRST THING SATURDAY AND LET US KNOW. I TALKED WITH PATIENT AND HER SON CRISSY AND HE IS AWARE. DOES NOT FEEL SHE WOULD BE SAFE FOR DC TO HOME WHERE SHE LIVES ALONE. CM TO FOLLOW. Apple Picking Supervisor: Carley Lucio DCP- Discharge Planning Updated by [id number]: David Sanders on 07/17/19 2:[address] Patient Name: ETIENNE PEREZ Encounter No: [id number] : 1940 Primary Insurance: [employer] [facility] PFFS Anticipated DC Date: 07-17-2019 Planned Disposition: Fdc Facility External Planned Provider: [facility] MED[facility] REHAB BED DCP follow-up note: CM SPOKE TO NETTA TAMI OF [place], , WHO ASSESSED PT TODAY, SHE IS TRYING TO GET INSURANCE AUTHORIZATION FOR PT TO GO TO [facility] AND REHAB TODAY AND WILL LET CM KNOW WHEN THEY GET IT. CM SPOKE TO DR. GRACE WHO ENTERED DISCHARGE ORDERS. CM FAXED DISCHARGE INFORMATION TO [facility] AT [phone]. CM NOTIFIED NETTA OF DISCHARGE, THEY ARE STILL WAITING ON INSURANCE AUTHORIZATION. CM WAITING INSURANCE AUTHORIZATION FOR REHAB SERVICES FOR HER INSURANCE COMPANY FOR [facility]. David Sanders CASE MANAGEMENT DCP- Discharge Planning Updated by [id number]: David Sanders on 07/16/19 4:[address] Patient Name: ETIENNE PEREZ Encounter No: [id number] : 1940 Primary Insurance: Therapydia [facility] Anticipated DC Date: 07-16-2019 Planned Disposition: Fdc Facility External [facility] DCP follow-up note: CM RECEIVED REQUEST TO MEET WITH PT AND SON IN ROOM. CM MET WITH PT AND SON, MAY, IN ROOM. PT'S SON HAS DISCUSSED PLAN WITH PT AND THEY WANT REHAB AT [place]. CHOICE SIGNED. PT'S SON CONCERNED THAT PT IS STILL CONFUSED AND WAS WONDERING IF WHITE COUNT HAD BEEN CHECKED AND IF IT WAS NORMAL. CM NOTIFIED BEDSIDE NURSE OF PT'S SON'S CONCERN. CM CALLED NETTA GARRETT OF [place], , INFORMED OF REHAB REFERRAL AND REQUESTED ASSESSMENT SOON POSSIBLE. NETTA WILL ASSESS TOMORROW MORNING, 07-17-19. CM FAXED REFERRAL TO [place] AT [phone]. CM WAITING ADMISSION DETERMINATION FROM [facility] AND [facility] INSURANCE AUTHORIZATION FOR REHAB SERVICES. David Sanders CASE JOSEPH DCP- Discharge Planning Updated by [email or web address]: David Sanders on 07/16/19 1:[address] Patient Name: ETIENNE PEREZ Encounter No: [id number] : 1940 Primary Insurance: [employer] [facility] PF Anticipated DC Date: 07-16-2019 Planned Disposition: Inpatient Rehab External Planned Provider: [facility] INPATIENT REHAB Discharge Planning Comments: CM CALLED MICHAEL OF [facility] INPATIENT REHAB, , PROVIDED REFERRAL UDPATE. MICHAEL WILL FOLLOW UP WITH INSURANCE COMPANY. CM FAXED REFERRAL UPDATE TO [facility] WITH CURRENT MAR AT [phone]. CM WAITING AUTHORIZATION FROM PT'S INSURANCE COMPANY FOR INPAITIENT REHAB AT [facility]. Apple Picking Supervisor: David Sanders Appended by David Sanders on 07/16/2019 14:30 DIRECTOR OF HEAD START: CM RECEIVED CALL FROM MICHAEL OF [facility] / [facility] INPATIENT REHAB, PT IS TOO HIGH FUNCTIONING FOR INPATIENT REHAB, RECOMMENDED GROUP HOME REHAB OR HOME WITH HOME HEALTH. CM MET WITH PT IN ROOM TO DISCUSS DISCHARGE PLANNING AND NEEDS. CM DISCUSSED AVAILABILITY OF GROUP HOME REHAB WELL HOME HEALTH. PT DOES NOT WANT REHAB AT GROUP HOME FACILITY. PT FEELS SHE IS STRONG ENOUGH TO GO HOME AND CONTINUE HOME HEALTH WITH [facility] FOR PHYSICAL THERAPY. CHOICE SIGNED. CM NOTIFIED AYALA OF DR. GRACE'S OFFICE AND RECEIVED RETURN CALL AND WAS ADVSISED THAT THE DOCTOR WILL PROVIDE HOME HEALTH ORDERS. CM OBTAINED HOME HEALTH ORDER, CALLED AND SPOKE TO PARDEEP OF [employer], , PROVIDED REFERRAL INFORMATION. CM FAXED REFERRAL INFORMATION TO [employer] AT [phone]. PT TO ADMIT FOR HOME HEALTH ON SATURDAY. FOR DISCHARGE, NOTIFY [employer] AT [phone], FAX DISCHARGE INFORMATION TO [employer] AT [phone]. DAVID SANDERS, CASE MANAGEMENT DCP- Discharge Planning Updated by [id number]: David Sanders on 07/14/19 3:[address] Patient Name: ETIENNE PEREZ Admission Status: Elective Accout number: [id number] Admission Date: 07-09-2019 : 1940 Admission Diagnosis: Attending: BETITO GRACE Current LOS: 5 Anticipated DC Date: 07-16-2019 Planned Disposition: Inpatient Rehab Primary Insurance: [employer] [facility] PLANNED EXTERNAL PROVIDER: [facility] INPATIENT REHAB Discharge Planning Comments: CM RECEIVED ORDER FOR INPATIENT REHAB PRESCREENING. CM MET WITH PT IN ROOM TO DISCUSS DISCHARGE PLANNING AND NEEDS. PT REPORTS LIVING AT HOME INDEPENDENTLY AND ALONE. PT HAS CANE AND WALKER WITH NO MEDICAL EQUIPMENT PROVIDER PREFERENCE. PT HAS NO OUTSIDE SERVICES ASSISTING IN THE HOME. CM DISCUSSED AVAILABILITY OF HOME HEALTH, REHAB SERVICES AND MEDICAL EQUIPMENT. PT WOULD LIKE REHAB AND STATES SHE WOULD PREFER TO GO TO [facility] ON [address] AND IF THEY WILL NOT TAKE HER, THEN THE REHAB AT [facility]. CHOICE SIGNED. IMPORTANT MESSAGE FROM MEDICARE PROVIDED AND EXPLAINED. CM CALLED MICHAEL OF [facility] INPATIENT REHAB, , PROVIDED REFERRAL IFNORMATION. CM FAXED REFERRAL INFORMATION TO [facility] WITH CURRENT MAR AT [phone]. CM WAITING ADMISSION DETERMINATION FROM [facility] INPATIENT REHAB. Apple Picking Supervisor: David Sanders DCPIA - Discharge Planning Initial Assessment Updated by [id number]: David Sanders on 07/14/19 4:10 pm * Is the patient Alert and Oriented? Yes * How many steps to enter\exit or inside your home? 15 down * PCP DR GRACE * Pharmacy [facility] [address] * Preadmission Environment Home Alone * ADLs Independent * Equipment Cane Walker * Other Equipment NO MEDICAL EQUIPMENT PROVIDER PREFERENCE * List name and contact numbers for known caregivers / representatives who currently or will assist patient after discharge: MAY PEREZ, JERAMIE, * Verbal permission to speak to the caregivers and representatives has been obtained from the patient. N/A * Community resources currently utilized None * Please name any agencies selected above. NONE * Additional services required to return to the preadmission environment? Yes * Can the patient safely return to the preadmission environment? Yes * Has this patient been hospitalized within the prior 30 days at any hospital? Yes Coverage Notice Reviewer: WANG Sanders Notice Issued Date-Time: 07/14/2019 8:30 Notice Type: IM Discharge Notice Notice Delivered To: Patient Relationship to Patient: Radio Division Officer Name: Delivery Method: HAND - Hand Delivered Cheyenne Days: Prior Verbal Notification: Recipient Understood Notice: Yes Recipient Signature: Yes Med Rec Note Co-signed by Attending: Coverage Notice Comment: Reviewer: WANG Sanders Notice Issued Date-Time: 07/14/2019 8:30 Notice Type: Patient Choice Letter Notice Delivered To: Patient Relationship to Patient: Radio Division Officer Name: Delivery Method: HAND - Hand Delivered Cheyenne Days: Prior Verbal Notification: Recipient Understood Notice: Yes Recipient Signature: Yes Med Rec Note Co-signed by Attending: Coverage Notice Comment: 1- [facility], 2- [facility] Reviewer: [id number] Sanders Notice Issued Date-Time: 07/16/2019 12:15 Notice Type: IM Discharge Notice Notice Delivered To: Patient Relationship to Patient: Radio Division Officer Name: Delivery Method: HAND - Hand Delivered Cheyenne Days: Prior Verbal Notification: Recipient Understood Notice: Yes Recipient Signature: Yes Med Rec Note Co-signed by Attending: Coverage Notice Comment: Reviewer: WANG Sanders Notice Issued Date-Time: 07/16/2019 12:15 Notice Type: Patient Choice Letter Notice Delivered To: Patient Relationship to Patient: Radio Division Officer Name: Delivery Method: HAND - Hand Delivered Cheyenne Days: Prior Verbal Notification: Recipient Understood Notice: Yes Recipient Signature: Yes Med Rec Note Co-signed by Attending: Coverage Notice Comment: [facility] DECLINED SNF REHAB Reviewer: [id number] Sanders Notice Issued Date-Time: 07/16/2019 16:30 Notice Type: Patient Choice Letter Notice Delivered To: Family Member Relationship to Patient: Son Radio Division Officer Name: MAY PEREZ Delivery Method: HAND - Hand Delivered Cheyenne Days: Prior Verbal Notification: Recipient Understood Notice: Yes Recipient Signature: Yes Med Rec Note Co-signed by Attending: Coverage Notice Comment: [facility] Last DP export: 07/17/19 2:42 p Patient Name: ETIENNE PEREZ Page [id number] at 1533 All edits/amendments must be made on the electronic document DICTATION DATE: 07/18/191531 PRODUCT MARKETING CONSULTANT: HIEN 07/18/191531 RPT#: [id number] DC DATE: STATUS: ADM IN [facility] [address] [place] [address] END OF REPORT
--- NOTE | 2019-07-18 17:16 | NUR ---
PATIENT IS STABLE AND VSS. PATIENT SITTING UP IN BED EATING SUPPER . PATIENT DENIES ANY NEEDS OR PAIN. WILL CONTINUE WITH PLAN OF CARE. SR UP X 2 BED IN LOW POSITION AND CALL LIGHT IN REACH.
[2019-07-19 04:36] VITALS: BP 133/58
[2019-07-19 06:20] LABS: ANION GAP 11.1 mmol/L (8-16); CALCIUM 8.2 mg/dL (8.5-10.1); CARBON DIOXIDE 26.4 mmol/L (21.0-32.0); CREATININE - SERUM 0.9 mg/dL (0.6-1.3); POTASSIUM - SERUM 3.5 mmol/L (3.5-5.1)
--- NOTE | 2019-07-19 07:30 | NUR ---
A/A/OX4. DENIES ANY PAIN OR DISCOMFORT AT PRESENT TIME AND NO REQUESTS VOICED. 02 ON VIA N/C AT 2 L/M WITH NO RESP DISTRESS NOTED. ASSESSMENT COMPLETED AND WILL CONTINUE POC. CALL LIGHT IN REACH AND BED IN LOWEST POSITION. ISAIAS BED ALARM OPERATIONAL.
[2019-07-19 08:00] VITALS: BP 125/51
[2019-07-19 12:00] VITALS: BP 154/64
--- NOTE | 2019-07-19 13:09 | NUR ---
C/O PAIN LEFT EPIGASTRIC AREA, NO N/V OR SOB WITH 02 ON VIA N/C. SON STATES SHE STARTED C/O THE PAIN AFTER HE GOT HER OUT OF CHAIR AND ASSISTED BACK TO BED. MEDICATED WITH NORCO DIRECTED AND EKG OBTAINED.
--- NOTE | 2019-07-19 14:32 | NUR ---
PT STATES PAIN HAS SUBSIDED AT THIS TIME.
--- NOTE | 2019-07-19 14:57 | NUR ---
RESTING AT THIS TIME. NO DISTRESS. PATIENT LYING IN BED WITH ATTENTION TOWARD TELEVISION. CALL LIGHT WITHIN REACH. NO DISTRESS. I CONCUR WITH THIS MANAGER PRODUCT MANAGEMENT ASSESSMENT.
--- NOTE | 2019-07-19 19:14 | NUR ---
PT AT REST WITHJ ERYES CLOSED EVEN RESP AT 21 AND BED LOW AND LOCKED CALL LIGHT IS IN REACH
[2019-07-19 20:30] VITALS: BP 120/47
--- NOTE | 2019-07-20 01:33 | NUR ---
PT TOLD ME SHE FEELS SCARED SO PRN GIVEN
[2019-07-20 04:30] VITALS: BP 116/45
--- NOTE | 2019-07-20 05:11 | NUR ---
I have reviewed this patient and I concur with the Shift Assessment completed by the Licensed Practical Nurse today this shift.
[2019-07-20 08:09] VITALS: BP 127/51
--- NOTE | 2019-07-20 08:39 | MORECARE ---
CASE MANAGEMENT DISCHARGE SUMMARY PATIENT: ETIENNE PEREZ HAND UNIT: [id number] ADM DATE: 07/09/19 AGE: 78 : 40 SEX: F ROOM/BED: D.8730 AUTHOR: SU LAURENT PHYSICIAN: REFERRING PHYSICIAN: BETITO GRACE MD DATE OF SERVICE: 07/20/19 Discharge Plan Patient Name: ETIENNE PEREZ Facility: [facility]:[place] : 1940 Planned Disposition: [facility] Facility Anticipated Discharge Date: 07/17/19 Discharge Date: Expected LOS: 8 Initial Reviewer: [id number] Initial Review Date: 07/09/2019 Generated: 07/20/19 9:38 am Comments DCP- Discharge Planning Updated by [id number]: David Sanders on 07/20/19 7:[address] Patient Name: ETIENNE PEREZ Encounter No: [id number] : 1940 Primary Insurance: [employer] [facility] PFFS Anticipated DC Date: 07-17-2019 Planned Disposition: [facility] Facility External Planned Provider: [facility] DCP follow-up note: CM UPDATED DR. GRACE. CM SPOKE TO PT AND PT'S SON MAY IN ROOM. CM EXPLAINED THAT PT'S INSURANCE DID NOT PAY FOR PT'S LAST STAY AT [facility]. [facility] WILL NOT TAKE PT AGAIN UNTIL THE PREVIOUS STAY IS PAID BY INSURANCE OR BY PT. CM DISCUSSED ISSUE THAT INSURANCE IS APPROVING THIS NEW STAY FOR GROUP HOME AND OFFERED TO SEND REFERRAL TO DIFFERENT GROUP HOME FACILITY WHERE PT DOES NOT OWE MONEY. PT'S SON DECLINED STATING HE WANTS PT AT [facility] WHERE SHE IS FAMILIAR WITH FACILITY AND RECEIVES GOOD SERVICES. MAY FURTHER DOES NOT BELIEVE PT IS WELL ENOUGH TO GO HOME ALONE AND SON, Cami OLVERA IS NOT CAPABLE OF PROVIDING REHAB SERVICES FOR PT AT HOME. MAY WILL CALL THE INSURANCE COMPANY THIS MORNING AND TRY TO WORK THIS PROBLEM OUT. CM WAITING ON PT'S SON TO WORK OUT PAYMENT WITH [facility]. David Sanders, CASE MANAGEMENT DCP- Discharge Planning Updated by [id number]: Carley Lucio on 07/18/19 2:[address] Patient Name: ETIENNE PEREZ Admission Status: Elective Accout number: [id number] Admission Date: 07-09-2019 : 1940 Admission Diagnosis: Attending: BETITO GRACE Current LOS: 9 Anticipated DC Date: 07-17-2019 Planned Disposition: [facility] Facility Primary Insurance: [employer] [facility] PFFS Discharge Planning Comments: I SPOKE WITH NETTA WITH [facility] AND THEY RECEIVED AUTH BUT THEN THEIR BILLING OFFICE CALLED THEM AND PATIENT'S INSURANCE HAD NOT PAYED FOR HER LAST ADMISSION WITH THEM. THEY CAN NOT TAKE HER YET BUT THEY WILL CALL INSURANCE COMPANY FIRST THING SATURDAY AND LET US KNOW. I TALKED WITH PATIENT AND HER SON CRISSY AND HE IS AWARE. DOES NOT FEEL SHE WOULD BE SAFE FOR DC TO HOME WHERE SHE LIVES ALONE. CM TO FOLLOW. Pharmaceutical Sales Specialist: Carley Lucio DCP- Discharge Planning Updated by [id number]: David Sanders on 07/17/19 2:[address] Patient Name: ETIENNE PEREZ Encounter No: [id number] : 1940 Primary Insurance: [employer] [facility] PFFS Anticipated DC Date: 07-17-2019 Planned Disposition: [facility] Facility External Planned Provider: [facility], MEDICARE REHAB BED DCP follow-up note: CM SPOKE TO NETTA GARRETT OF [facility], , WHO ASSESSED PT TODAY, SHE IS TRYING TO GET INSURANCE AUTHORIZATION FOR [facility] AND WILL LET CM KNOW WHEN THEY GET IT. CM SPOKE TO DR. GRACE WHO ENTERED DISCHARGE ORDERS. CM FAXED DISCHARGE INFORMATION TO [facility] AT [phone]. CM NOTIFIED NETTA OF DISCHARGE, THEY ARE STILL WAITING ON INSURANCE AUTHORIZATION. CM WAITING INSURANCE AUTHORIZATION FOR REHAB SERVICES FOR HER INSURANCE COMPANY FOR [facility]. David Sanders, CASE MANAGEMENT DCP- Discharge Planning Updated by [id number]: David Sanders on 07/16/19 4:[address] Patient Name: ETIENNE PEREZ Encounter No: [id number] : 1940 Primary Insurance: [employer] [facility] PFFS Anticipated DC Date: 07-16-2019 Planned Disposition: [facility] Facility External Planned Provider: [facility], MEDICARE REHAB BED DCP follow-up note: CM RECEIVED REQUEST TO MEET WITH PT AND SON IN ROOM. CM MET WITH PT AND SON, MAY, IN ROOM. PT'S SON HAS DISCUSSED PLAN WITH PT AND THEY WANT REHAB AT [facility]. CHOICE SIGNED. PT'S SON CONCERNED THAT PT IS STILL CONFUSED AND WAS WONDERING IF WHITE COUNT HAD BEEN CHECKED AND IF IT WAS NORMAL. CM NOTIFIED BEDSIDE NURSE OF PT'S SON'S CONCERN. CM CALLED NETTA GARRETT OF [facility], , INFORMED OF REHAB REFERRAL AND REQUESTED ASSESSMENT SOON POSSIBLE. NETTA WILL ASSESS TOMORROW MORNING, 07-17-19. CM FAXED REFERRAL TO [facility] AT [phone]. CM WAITING ADMISSION DETERMINATION FROM [facility] WELL INSURANCE AUTHORIZATION FOR REHAB SERVICES. David Sanders, CASE MANAGEMENT DCP- Discharge Planning Updated by [id number]: David Sanders on 07/16/19 1:[address] Patient Name: ETIENNE PEREZ Encounter No: [id number] : 1940 Primary Insurance: [employer] [facility] Anticipated DC Date: 07-16-2019 Planned Disposition: Inpatient Rehab External Planned Provider: [facility] Discharge Planning Comments: CM CALLED MICHAEL OF [facility], , PROVIDED REFERRAL UDPATE. MICHAEL WILL FOLLOW UP WITH INSURANCE COMPANY. CM FAXED REFERRAL UPDATE TO [facility] WITH CURRENT MAR AT [phone]. CM WAITING AUTHORIZATION FROM PT'S INSURANCE COMPANY FOR INPAITIENT REHAB AT [facility]. Pharmaceutical Sales Specialist: David Sanders Appended by David Sanders on 07/16/2019 14:30 CLINICAL INSTRUCTOR: CM RECEIVED CALL FROM MICHAEL OF [facility], PT IS TOO HIGH FUNCTIONING FOR INPATIENT REHAB, RECOMMENDED GROUP HOME REHAB OR HOME WITH HOME HEALTH. CM MET WITH PT IN ROOM TO DISCUSS DISCHARGE PLANNING AND NEEDS. CM DISCUSSED AVAILABILITY OF GROUP HOME REHAB WELL HOME HEALTH. PT DOES NOT WANT REHAB AT GROUP HOME FACILITY. PT FEELS SHE IS STRONG ENOUGH TO GO HOME AND CONTINUE HOME HEALTH WITH [facility]. CHOICE SIGNED. JAY NOTIFIED AYALA OF DR. GRACE'S OFFICE AND RECEIVED RETURN CALL AND WAS ADVSISED THAT THE DOCTOR WILL PROVIDE HOME HEALTH ORDERS. CM OBTAINED HOME HEALTH ORDER, CALLED AND SPOKE TO PARDEEP OF [employer], , PROVIDED REFERRAL INFORMATION. CM FAXED REFERRAL INFORMATION TO [employer] AT [phone]. PT TO ADMIT FOR HOME HEALTH ON SATURDAY. FOR DISCHARGE, NOTIFY [facility] AT [phone], FAX DISCHARGE INFORMATION TO [employer] AT [phone]. DAVID SANDERS, CASE MANAGEMENT DCP- Discharge Planning Updated by [id number]: David Sanders on 07/14/19 3:[address] Patient Name: ETIENNE PEREZ Admission Status: Elective Accout number: [id number] Admission Date: 07-09-2019 : 1940 Admission Diagnosis: Attending: BETITO GRACE Current LOS: 5 Anticipated DC Date: 07-16-2019 Planned Disposition: Inpatient Rehab Primary Insurance: [employer] [facility] PLANNED EXTERNAL PROVIDER: [facility] Discharge Planning Comments: CM RECEIVED ORDER FOR INPATIENT REHAB PRESCREENING. CM MET WITH PT IN ROOM TO DISCUSS DISCHARGE PLANNING AND NEEDS. PT REPORTS LIVING AT HOME INDEPENDENTLY AND ALONE. PT HAS CANE AND WALKER WITH NO MEDICAL EQUIPMENT PROVIDER PREFERENCE. PT HAS NO OUTSIDE SERVICES ASSISTING IN THE HOME. CM DISCUSSED AVAILABILITY OF HOME HEALTH, REHAB SERVICES AND MEDICAL EQUIPMENT. PT WOULD LIKE REHAB AND STATES SHE WOULD PREFER TO GO TO [facility] AND IF THEY WILL NOT TAKE HER, THEN THE REHAB AT [facility]. CHOICE SIGNED. IMPORTANT MESSAGE FROM MEDICARE PROVIDED AND EXPLAINED. CM CALLED MICHAEL OF [facility], , PROVIDED REFERRAL IFNORMATION. CM FAXED REFERRAL INFORMATION TO [facility] WITH CURRENT MAR AT [phone]. CM WAITING ADMISSION DETERMINATION FROM [facility]. Pharmaceutical Sales Specialist: David Sanders DCPIA - Discharge Planning Initial Assessment Updated by [id number]: David Sanders on 07/14/19 4:10 pm * Is the patient Alert and Oriented? Yes * How many steps to enter\exit or inside your home? 15 down * PCP DR GRACE * Pharmacy [facility] [address] * Preadmission Environment Home Alone * ADLs Independent * Equipment Cane Walker * Other Equipment NO MEDICAL EQUIPMENT PROVIDER PREFERENCE * List name and contact numbers for known caregivers / representatives who currently or will assist patient after discharge: MAY PEREZ, SON, * Verbal permission to speak to the caregivers and representatives has been obtained from the patient. N/A * Community resources currently utilized None * Please name any agencies selected above. NONE * Additional services required to return to the preadmission environment? Yes * Can the patient safely return to the preadmission environment? Yes * Has this patient been hospitalized within the prior 30 days at any hospital? Yes Coverage Notice Reviewer: WANG Sanders Notice Issued Date-Time: 07/14/2019 8:30 Notice Type: IM Discharge Notice Notice Delivered To: Patient Relationship to Patient: Social Worker Delinquency Prevention Name: Delivery Method: HAND - Hand Delivered [place] Days: Prior Verbal Notification: Recipient Understood Notice: Yes Recipient Signature: Yes Med Rec Note Co-signed by Attending: Coverage Notice Comment: Reviewer: WANG Sanders Notice Issued Date-Time: 07/14/2019 8:30 Notice Type: Patient Choice Letter Notice Delivered To: Patient Relationship to Patient: Social Worker Delinquency Prevention Name: Delivery Method: HAND - Hand Delivered [place] Days: Prior Verbal Notification: Recipient Understood Notice: Yes Recipient Signature: Yes Med Rec Note Co-signed by Attending: Coverage Notice Comment: 1- [facility], 2- [facility] Reviewer: WANG Sanders Notice Issued Date-Time: 07/16/2019 12:15 Notice Type: IM Discharge Notice Notice Delivered To: Patient Relationship to Patient: Social Worker Delinquency Prevention Name: Delivery Method: HAND - Hand Delivered [place] Days: Prior Verbal Notification: Recipient Understood Notice: Yes Recipient Signature: Yes Med Rec Note Co-signed by Attending: Coverage Notice Comment: Reviewer: WANG Sanders Notice Issued Date-Time: 07/16/2019 12:15 Notice Type: Patient Choice Letter Notice Delivered To: Patient Relationship to Patient: Social Worker Delinquency Prevention Name: Delivery Method: HAND - Hand Delivered [place] Days: Prior Verbal Notification: Recipient Understood Notice: Yes Recipient Signature: Yes Med Rec Note Co-signed by Attending: Coverage Notice Comment: [facility] DECLIN[facility] SN[facility] REHAB Reviewer: WANG Sanders Notice Issued Date-Time: 07/16/2019 16:30 Notice Type: Patient Choice Letter Notice Delivered To: Family Member Relationship to Patient: Son Social Worker Delinquency Prevention Name: MAY PEREZ Delivery Method: HAND - Hand Delivered [place] Days: Prior Verbal Notification: Recipient Understood Notice: Yes Recipient Signature: Yes Med Rec Note Co-signed by Attending: Coverage Notice Comment: [facility] Last DP export: 07/18/19 2:33 p Patient Name: ETIENNE PEREZ Page [id number] at 0839 All edits/amendments must be made on the electronic document DICTATION DATE: 07/20/19837 PLANNING DIRECTOR: HIEN 07/20/19837 RPT#: [id number] DC DATE: STATUS: ADM IN [facility] [address] [place] [address] END OF REPORT
[2019-07-20 11:32] VITALS: BP 93/39
--- NOTE | 2019-07-20 12:33 | NUR ---
1227-I CALLED DR GRACE OFFICE, SPOKE WITH AYALA, FOR FINAL DISCHARGE ORDERS. THESE WERE ORDEDED ON THE BUT WANTED TO SEE IF ANYTHING NEW ADDED. AWAITING CALL BACK.
--- NOTE | 2019-07-20 12:38 | MORECARE ---
CASE MANAGEMENT DISCHARGE SUMMARY PATIENT: ETIENNE PEREZ HAND UNIT: [id number] ADM DATE: 07/09/19 AGE: 78 : 40 SEX: F ROOM/BED: D.2105 AUTHOR: SU LAURENT PHYSICIAN: REFERRING PHYSICIAN: BETITO GRACE MD DATE OF SERVICE: 07/20/19 Discharge Plan Patient Name: ETIENNE PEREZ Facility: [facility]:[place] : 1940 Planned Disposition: Detention Facility Anticipated Discharge Date: 07/20/19 Discharge Date: Expected LOS: 11 Initial Reviewer: [email or web address] Initial Review Date: 07/09/2019 Generated: 07/20/19 1:37 pm Comments DCP- Discharge Planning Updated by [email or web address]: David Sanders on 07/20/19 11:[address] Patient Name: ETIENNE PEREZ Encounter No: [id number] : 1940 Primary Insurance: [employer] [facility] PFFS Anticipated DC Date: 07-20-2019 Planned Disposition: Detention Facility External Planned Provider: [facility], MEDICARE REHAB BED DCP follow-up note: CM RECEIVED CALL FROM NETTA GARRETT OF [facility], THEY WILL ACCEPT TODAY AND WILL MISSION COMMANDER AT 1:30PM TODAY. CM NOTIFIED SUPERVISOR CYTOLOGY NURSE, PT AND SON MAY. PT AND SON IN AGREEMENT WITH DISCHARGE TO [facility] TODAY. CM FAXED DISCHARGE INFORMATION TO [facility] AT [phone]. IMPORTANT MESSAGE FROM MEDICARE PROVIDED AND EXPLAINED. NURSE REPORT TO BE CALLED TO [facility] AT [phone]. [facility] TO [facility] PT AT 1:30PM TODAY. David Sanders, CASE MANAGEMENT DCP- Discharge Planning Updated by [id number]: David Sanders on 07/20/19 7:[address] Patient Name: ETIENNE PEREZ Encounter No: [id number] : 1940 Primary Insurance: [employer] [facility] PFFS Anticipated DC Date: 07-17-2019 Planned Disposition: Detention Facility External Planned Provider: [facility] DCP follow-up note: CM UPDATED DR. GRACE. CM SPOKE TO PT AND PT'S SON MAY IN ROOM. CM EXPLAINED THAT PT'S INSURANCE DID NOT PAY FOR PT'S LAST STAY AT [facility]. [facility] WILL NOT TAKE PT AGAIN UNTIL THE PREVIOUS STAY IS PAID BY INSURANCE OR BY PT. CM DISCUSSED ISSUE THAT INSURANCE IS APPROVING THIS NEW STAY FOR LONG TERM AND OFFERED TO SEND REFERRAL TO DIFFERENT LONG TERM FACILITY WHERE PT DOES NOT OWE MONEY. PT'S SON DECLINED STATING HE WANTS PT AT [facility] WHERE SHE IS FAMILIAR WITH FACILITY AND RECEIVES GOOD SERVICES. MAY FURTHER DOES NOT BELIEVE PT IS WELL ENOUGH TO GO HOME ALONE AND [facility]MA[facility] T IS NOT CAPABLE OF PROVIDING REHAB SERVICES FOR PT AT HOME. MAY WILL CALL THE INSURANCE COMPANY THIS MORNING AND TRY TO WORK THIS PROBLEM OUT. CM WAITING ON PT'S SON TO WORK OUT PAYMENT WITH [facility]. David Sanders, CASE MANAGEMENT DCP- Discharge Planning Updated by [id number]: Carley Lucio on 07/18/19 2:[address] Patient Name: ETIENNE PEREZ Admission Status: Elective Accout number: [id number] Admission Date: 07-09-2019 : 1940 Admission Diagnosis: Attending: BETITO GRACE Current LOS: 9 Anticipated DC Date: 07-17-2019 Planned Disposition: Detention Facility Primary Insurance: GCW [facility] PF Discharge Planning Comments: I SPOKE WITH NETTA WITH [facility] AND THEY RECEIVED AUTH BUT THEN THEIR BILLING OFFICE CALLED THEM AND PATIENT'S INSURANCE HAD NOT PAYED FOR HER LAST ADMISSION WITH THEM. THEY CAN NOT TAKE HER YET BUT THEY WILL CALL INSURANCE COMPANY FIRST THING SATURDAY AND LET US KNOW. I TALKED WITH PATIENT AND HER SON CRISSY AND HE IS AWARE. DOES NOT FEEL SHE WOULD BE SAFE FOR DC TO HOME WHERE SHE LIVES ALONE. CM TO FOLLOW. Brancher: Carley Lucio DCP- Discharge Planning Updated by [id number]: David Sanders on 07/17/19 2:[address] Patient Name: ETIENNE PEREZ Encounter No: [id number] : 1940 Primary Insurance: [employer] [facility] PFFS Anticipated DC Date: 07-17-2019 Planned Disposition: Detention Facility External Planned Provider: [facility], MEDICARE REHAB BED DCP follow-up note: CM SPOKE TO NETTA CARDOSOUT OF [facility], , WHO ASSESSED PT TODAY, SHE IS TRYING TO GET INSURANCE AUTHORIZATION FOR PT TO GO TO [facility] TODAY AND WILL LET CM KNOW WHEN THEY GET IT. CM SPOKE TO DR. GRACE WHO ENTERED DISCHARGE ORDERS. CM FAXED DISCHARGE INFORMATION TO [facility] AT [phone]. CM NOTIFIED NETTA OF DISCHARGE, THEY ARE STILL WAITING ON INSURANCE AUTHORIZATION. CM WAITING INSURANCE AUTHORIZATION FOR REHAB SERVICES FOR HER INSURANCE COMPANY FOR [facility]. David Sanders CASE MANAGEMENT DCP- Discharge Planning Updated by [id number]: David Sanders on 07/16/19 4:[address] Patient Name: ETIENNE PEREZ Encounter No: [id number] : 1940 Primary Insurance: GCW [facility] PF Anticipated DC Date: 07-16-2019 Planned Disposition: Detention Facility External [facility] DCP follow-up note: CM RECEIVED REQUEST TO MEET WITH PT AND SON IN ROOM. CM MET WITH PT AND SON, MAY, IN ROOM. PT'S SON HAS DISCUSSED PLAN WITH PT AND THEY WANT REHAB AT [facility]. CHOICE SIGNED. PT'S SON CONCERNED THAT PT IS STILL CONFUSED AND WAS WONDERING IF WHITE COUNT HAD BEEN CHECKED AND IF IT WAS NORMAL. CM NOTIFIED BEDSIDE NURSE OF PT'S SON'S CONCERN. CM CALLED NETTA GARRETT OF [facility], , INFORMED OF REHAB REFERRAL AND REQUESTED ASSESSMENT SOON POSSIBLE. NETTA WILL ASSESS TOMORROW MORNING, 07-17-19. CM FAXED REFERRAL TO [facility] AT [phone]. CM WAITING ADMISSION DETERMINATION FROM [facility] AND [facility] INSURANCE AUTHORIZATION FOR REHAB SERVICES. PATITO Wolff DCP- Discharge Planning Updated by [id number]: David Sanders on 07/16/19 1:[address] Patient Name: ETIENNE PEREZ Encounter No: [id number] : 1940 Primary Insurance: [employer]W [facility] PFFS Anticipated DC Date: 07-16-2019 Planned Disposition: Inpatient Rehab External Planned Provider: [facility] Discharge Planning Comments: CM CALLED MICHAEL OF [facility], , PROVIDED REFERRAL UDPATE. MICHAEL WILL FOLLOW UP WITH INSURANCE COMPANY. CM FAXED REFERRAL UPDATE TO [facility] WITH CURRENT MAR AT [phone]. CM WAITING AUTHORIZATION FROM PT'S INSURANCE COMPANY FOR INPAITIENT REHAB AT [facility]. Brancher: David Sanders Appended by David Sanders on 07/16/2019 14:30 TRAINING PROGRAM MANAGER: CM RECEIVED CALL FROM MICHAEL OF [facility] / [facility], PT IS TOO HIGH FUNCTIONING FOR INPATIENT REHAB, RECOMMENDED LONG TERM REHAB OR HOME WITH HOME HEALTH. CM MET WITH PT IN ROOM TO DISCUSS DISCHARGE PLANNING AND NEEDS. CM DISCUSSED AVAILABILITY OF LONG TERM REHAB WELL HOME HEALTH. PT DOES NOT WANT REHAB AT LONG TERM FACILITY. PT FEELS SHE IS STRONG ENOUGH TO GO HOME AND CONTINUE HOME HEALTH WITH [facility] FOR PHYSICAL THERAPY. CHOICE SIGNED. CM NOTIFIED AYALA OF DR. GRACE'S OFFICE AND RECEIVED RETURN CALL AND WAS ADVSISED THAT THE DOCTOR WILL PROVIDE HOME HEALTH ORDERS. CM OBTAINED HOME HEALTH ORDER, CALLED AND SPOKE TO PARDEEP OF [email or web address], , PROVIDED REFERRAL INFORMATION. CM FAXED REFERRAL INFORMATION TO [email or web address] AT [phone]. PT TO ADMIT FOR HOME HEALTH ON SATURDAY. FOR DISCHARGE, NOTIFY [email or web address] AT [phone], FAX DISCHARGE INFORMATION TO [email or web address] AT [phone]. DAVID SANDERS, CASE MANAGEMENT DCP- Discharge Planning Updated by [id number]: David Sanders on 07/14/19 3:[address] Patient Name: ETIENNE PEREZ Admission Status: Elective Accout number: [id number] Admission Date: 07-09-2019 : 1940 Admission Diagnosis: Attending: BETITO GRACE Current LOS: 5 Anticipated DC Date: 07-16-2019 Planned Disposition: Inpatient Rehab Primary Insurance: GCW [facility] PLANNED EXTERNAL PROVIDER: [facility] Discharge Planning Comments: CM RECEIVED ORDER FOR INPATIENT REHAB PRESCREENING. CM MET WITH PT IN ROOM TO DISCUSS DISCHARGE PLANNING AND NEEDS. PT REPORTS LIVING AT HOME INDEPENDENTLY AND ALONE. PT HAS CANE AND WALKER WITH NO MEDICAL EQUIPMENT PROVIDER PREFERENCE. PT HAS NO OUTSIDE SERVICES ASSISTING IN THE HOME. CM DISCUSSED AVAILABILITY OF HOME HEALTH, REHAB SERVICES AND MEDICAL EQUIPMENT. PT WOULD LIKE REHAB AND STATES SHE WOULD PREFER TO GO TO [facility] ON [address] AND IF THEY WILL NOT TAKE HER, THEN THE REHAB AT [place]. CHOICE SIGNED. IMPORTANT MESSAGE FROM MEDICARE PROVIDED AND EXPLAINED. CM CALLED MICHAEL OF [facility], , PROVIDED REFERRAL IFNORMATION. CM FAXED REFERRAL INFORMATION TO [facility] WITH CURRENT MAR AT [phone]. CM WAITING ADMISSION DETERMINATION FROM [facility]. Brancher: David Sanders DCPIA - Discharge Planning Initial Assessment Updated by [id number]: David Sanders on 07/14/19 4:10 pm * Is the patient Alert and Oriented? Yes * How many steps to enter\exit or inside your home? 15 down * PCP DR GRACE * Pharmacy [facility] [address] * Preadmission Environment Home Alone * ADLs Independent * Equipment Cane Walker * Other Equipment NO MEDICAL EQUIPMENT PROVIDER PREFERENCE * List name and contact numbers for known caregivers / representatives who currently or will assist patient after discharge: MAY PEREZ, JERAMIE, * Verbal permission to speak to the caregivers and representatives has been obtained from the patient. N/A * Community resources currently utilized None * Please name any agencies selected above. NONE * Additional services required to return to the preadmission environment? Yes * Can the patient safely return to the preadmission environment? Yes * Has this patient been hospitalized within the prior 30 days at any hospital? Yes Coverage Notice Reviewer: WANG Sanders Notice Issued Date-Time: 07/14/2019 8:30 Notice Type: IM Discharge Notice Notice Delivered To: Patient Relationship to Patient: Assembler Mechanical Ordnance Name: Delivery Method: HAND - Hand Delivered [place] Days: Prior Verbal Notification: Recipient Understood Notice: Yes Recipient Signature: Yes Med Rec Note Co-signed by Attending: Coverage Notice Comment: Reviewer: WANG Sanders Notice Issued Date-Time: 07/14/2019 8:30 Notice Type: Patient Choice Letter Notice Delivered To: Patient Relationship to Patient: Assembler Mechanical Ordnance Name: Delivery Method: HAND - Hand Delivered [place] Days: Prior Verbal Notification: Recipient Understood Notice: Yes Recipient Signature: Yes Med Rec Note Co-signed by Attending: Coverage Notice Comment: 1- [facility], 2- [facility] Reviewer: [id number] Sanders Notice Issued Date-Time: 07/16/2019 12:15 Notice Type: IM Discharge Notice Notice Delivered To: Patient Relationship to Patient: Assembler Mechanical Ordnance Name: Delivery Method: HAND - Hand Delivered [place] Days: Prior Verbal Notification: Recipient Understood Notice: Yes Recipient Signature: Yes Med Rec Note Co-signed by Attending: Coverage Notice Comment: Reviewer: [id number] Sanders Notice Issued Date-Time: 07/16/2019 12:15 Notice Type: Patient Choice Letter Notice Delivered To: Patient Relationship to Patient: Assembler Mechanical Ordnance Name: Delivery Method: HAND - Hand Delivered [place] Days: Prior Verbal Notification: Recipient Understood Notice: Yes Recipient Signature: Yes Med Rec Note Co-signed by Attending: Coverage Notice Comment: [facility] DECLINED SNF REHAB Reviewer: [id number] Chinyere Sanders Notice Issued Date-Time: 07/16/2019 16:30 Notice Type: Patient Choice Letter Notice Delivered To: Family Member Relationship to Patient: Son Assembler Mechanical Ordnance Name: MAY PEREZ Delivery Method: HAND - Hand Delivered [place] Days: Prior Verbal Notification: Recipient Understood Notice: Yes Recipient Signature: Yes Med Rec Note Co-signed by Attending: Coverage Notice Comment: [facility] Last DP export: 07/20/19 7:39 a Patient Name: ETIENNE PEREZ Page [id number] at 1238 All edits/amendments must be made on the electronic document DICTATION DATE: 07/20/19 1237 DENTAL LABORATORY TECHNICIAN APPRENTICE: HIEN 07/20/19 1237 RPT#: [id number] DC DATE: STATUS: ADM IN [facility] [address] [place] [address] END OF REPORT
--- NOTE | 2019-07-20 12:48 | MORECARE ---
CASE MANAGEMENT DISCHARGE SUMMARY PATIENT: ETIENNE PEREZ HAND UNIT: [id number] ADM DATE: 07/09/19 AGE: 78 : 40 SEX: F ROOM/BED: D.2105 AUTHOR: SU LAURENT PHYSICIAN: REFERRING PHYSICIAN: BETITO GRACE MD DATE OF SERVICE: 07/20/19 Discharge Plan Patient Name: ETIENNE PEREZ Facility: [facility]:[place] : 1940 Planned Disposition: Snf Facility Anticipated Discharge Date: 07/20/19 Discharge Date: Expected LOS: 11 Initial Reviewer: [id number] Initial Review Date: 07/09/2019 Generated: 07/20/19 1:48 pm Comments DCP- Discharge Planning Updated by [id number]: David Sanders on 07/20/19 11:[address] Patient Name: ETIENNE PEREZ Encounter No: [id number] : 1940 Primary Insurance: [employer] [facility] PFFS Anticipated DC Date: 07-20-2019 Planned Disposition: Snf Facility External Planned Provider: [facility], MEDICARE REHAB BED DCP follow-up note: CM RECEIVED CALL FROM NETTA GARRETT OF [facility], THEY WILL ACCEPT TODAY AND WILL JAVA LEAD AT 1:30PM TODAY. CM NOTIFIED PATTERN DATA OPERATOR NURSE, PT AND SON MAY. PT AND SON IN AGREEMENT WITH DISCHARGE TO [facility] TODAY. CM FAXED DISCHARGE INFORMATION TO [facility] AT [phone]. IMPORTANT MESSAGE FROM MEDICARE PROVIDED AND EXPLAINED. NURSE REPORT TO BE CALLED TO [facility] AT [phone]. [facility] TO JAVA LEAD PT AT 1:30PM TODAY. David Sanders, CASE MANAGEMENT DCP- Discharge Planning Updated by [id number]: David Sanders on 07/20/19 7:[address] Patient Name: ETIENNE PEREZ Encounter No: [id number] : 1940 Primary Insurance: [employer] [facility] PFFS Anticipated DC Date: 07-17-2019 Planned Disposition: Snf Facility External Planned Provider: [facility] DCP follow-up note: CM UPDATED DR. GRACE. CM SPOKE TO PT AND PT'S SON MAY IN ROOM. CM EXPLAINED THAT PT'S INSURANCE DID NOT PAY FOR PT'S LAST STAY AT [facility]. [facility] WILL NOT TAKE PT AGAIN UNTIL THE PREVIOUS STAY IS PAID BY INSURANCE OR BY PT. CM DISCUSSED ISSUE THAT INSURANCE IS APPROVING THIS NEW STAY FOR HALFWAY AND OFFERED TO SEND REFERRAL TO DIFFERENT HALFWAY FACILITY WHERE PT DOES NOT OWE MONEY. PT'S SON DECLINED STATING HE WANTS PT AT [facility] WHERE SHE IS FAMILIAR WITH FACILITY AND RECEIVES GOOD SERVICES. MAY FURTHER DOES NOT BELIEVE PT IS WELL ENOUGH TO GO HOME ALONE AND SONMAY T IS NOT CAPABLE OF PROVIDING REHAB SERVICES FOR PT AT HOME. MAY WILL CALL THE INSURANCE COMPANY THIS MORNING AND TRY TO WORK THIS PROBLEM OUT. CM WAITING ON PT'S SON TO WORK OUT PAYMENT WITH [facility]. David Sanders, CASE MANAGEMENT DCP- Discharge Planning Updated by [id number]: Carley Lucio on 07/18/19 2:[address] Patient Name: ETIENNE PEREZ Admission Status: Elective Accout number: [id number] Admission Date: 07-09-2019 : 1940 Admission Diagnosis: Attending: BETITO GRACE Current LOS: 9 Anticipated DC Date: 07-17-2019 Planned Disposition: Snf Facility Primary Insurance: [employer] [facility] PF Discharge Planning Comments: I SPOKE WITH NETTA WITH [facility] AND THEY RECEIVED AUTH BUT THEN THEIR BILLING OFFICE CALLED THEM AND PATIENT'S INSURANCE HAD NOT PAYED FOR HER LAST ADMISSION WITH THEM. THEY CAN NOT TAKE HER YET BUT THEY WILL CALL INSURANCE COMPANY FIRST THING SATURDAY AND LET US KNOW. I TALKED WITH PATIENT AND HER SON CRISSY AND HE IS AWARE. DOES NOT FEEL SHE WOULD BE SAFE FOR DC TO HOME WHERE SHE LIVES ALONE. CM TO FOLLOW. Motorcycle Mechanic Apprentice: Calrey Lucio DCP- Discharge Planning Updated by [id number]: David Sanders on 07/17/19 2:[address] Patient Name: ETIENNE PEREZ Encounter No: [id number] : 1940 Primary Insurance: [employer] [facility] PFFS Anticipated DC Date: 07-17-2019 Planned Disposition: Snf Facility External Planned Provider: [facility], MEDICARE REHAB BED DCP follow-up note: CM SPOKE TO NETTA CARDOSOUT OF [facility], , WHO ASSESSED PT TODAY, SHE IS TRYING TO GET INSURANCE AUTHORIZATION FOR PT TO GO TO [facility] AND REHAB TODAY AND WILL LET CM KNOW WHEN THEY GET IT. CM SPOKE TO DR. GRACE WHO ENTERED DISCHARGE ORDERS. CM FAXED DISCHARGE INFORMATION TO [facility] AT [phone]. CM NOTIFIED NETTA OF DISCHARGE, THEY ARE STILL WAITING ON INSURANCE AUTHORIZATION. CM WAITING INSURANCE AUTHORIZATION FOR REHAB SERVICES FOR HER INSURANCE COMPANY FOR [facility]. David Sanders CASE MANAGEMENT DCP- Discharge Planning Updated by [id number]: David Sanders on 07/16/19 4:[address] Patient Name: ETIENNE PEREZ Encounter No: [id number] : 1940 Primary Insurance: [employer] [facility] PF Anticipated DC Date: 07-16-2019 Planned Disposition: Snf Facility External [facility] DCP follow-up note: CM RECEIVED REQUEST TO MEET WITH PT AND SON IN ROOM. CM MET WITH PT AND SON, MAY, IN ROOM. PT'S SON HAS DISCUSSED PLAN WITH PT AND THEY WANT REHAB AT [facility]. CHOICE SIGNED. PT'S SON CONCERNED THAT PT IS STILL CONFUSED AND WAS WONDERING IF WHITE COUNT HAD BEEN CHECKED AND IF IT WAS NORMAL. CM NOTIFIED BEDSIDE NURSE OF PT'S SON'S CONCERN. CM CALLED NETTA GARRETT OF [facility], , INFORMED OF REHAB REFERRAL AND REQUESTED ASSESSMENT SOON POSSIBLE. NETTA WILL ASSESS TOMORROW MORNING, 07-17-19. CM FAXED REFERRAL TO [facility] AT [phone]. CM WAITING ADMISSION DETERMINATION FROM [facility] AND [facility] INSURANCE AUTHORIZATION FOR REHAB SERVICES. PATITO Wolff DCP- Discharge Planning Updated by [id number]: David Sanders on 07/16/19 1:[address] Patient Name: ETIENNE PEREZ Encounter No: [id number] : 1940 Primary Insurance: [employer] [facility] PFFS Anticipated DC Date: 07-16-2019 Planned Disposition: Inpatient Rehab External Planned Provider: [facility] INPATIENT REHAB Discharge Planning Comments: CM CALLED MICHAEL OF [facility] INPATIENT REH[facility], , PROVIDED REFERRAL UDPATE. MICHAEL WILL FOLLOW UP WITH INSURANCE COMPANY. CM FAXED REFERRAL UPDATE TO [facility] WITH CURRENT MAR AT [phone]. CM WAITING AUTHORIZATION FROM PT'S INSURANCE COMPANY FOR INPAITIENT REHAB AT [facility]. Motorcycle Mechanic Apprentice: David Sanders Appended by David Sanders on 07/16/2019 14:30 TECHNICAL SUPPORT TECHNICIAN: CM RECEIVED CALL FROM MICHAEL OF [facility] / [facility] INPATIENT REHAB, PT IS TOO HIGH FUNCTIONING FOR INPATIENT REHAB, RECOMMENDED HALFWAY REHAB OR HOME WITH HOME HEALTH. CM MET WITH PT IN ROOM TO DISCUSS DISCHARGE PLANNING AND NEEDS. CM DISCUSSED AVAILABILITY OF HALFWAY REHAB WELL HOME HEALTH. PT DOES NOT WANT REHAB AT HALFWAY FACILITY. PT FEELS SHE IS STRONG ENOUGH TO GO HOME AND CONTINUE HOME HEALTH WITH [facility] FOR [facility]YSICAL THERAPY. CHOICE SIGNED. CM NOTIFIED AYALA OF DR. GRACE'S OFFICE AND RECEIVED RETURN CALL AND WAS ADVSISED THAT THE DOCTOR WILL PROVIDE HOME HEALTH ORDERS. CM OBTAINED HOME HEALTH ORDER, CALLED AND SPOKE TO PARDEEP OF [facility], , PROVIDED REFERRAL INFORMATION. CM FAXED REFERRAL INFORMATION TO [facility] AT [phone]. PT TO ADMIT FOR HOME HEALTH ON SATURDAY. FOR DISCHARGE, NOTIFY [facility] AT [phone], FAX DISCHARGE INFORMATION TO [facility] AT [phone]. DAVID SANDERS, CASE MANAGEMENT DCP- Discharge Planning Updated by [id number]: David Sanders on 07/14/19 3:[address] Patient Name: ETIENNE PEREZ Admission Status: Elective Accout number: [id number] Admission Date: 07-09-2019 : 1940 Admission Diagnosis: Attending: BETITO GRACE Current LOS: 5 Anticipated DC Date: 07-16-2019 Planned Disposition: Inpatient Rehab Primary Insurance: [employer] [facility] PLANNED EXTERNAL PROVIDER: [facility] INPATIENT REHAB Discharge Planning Comments: CM RECEIVED ORDER FOR INPATIENT REHAB PRESCREENING. CM MET WITH PT IN ROOM TO DISCUSS DISCHARGE PLANNING AND NEEDS. PT REPORTS LIVING AT HOME INDEPENDENTLY AND ALONE. PT HAS CANE AND WALKER WITH NO MEDICAL EQUIPMENT PROVIDER PREFERENCE. PT HAS NO OUTSIDE SERVICES ASSISTING IN THE HOME. CM DISCUSSED AVAILABILITY OF HOME HEALTH, REHAB SERVICES AND MEDICAL EQUIPMENT. PT WOULD LIKE REHAB AND STATES SHE WOULD PREFER TO GO TO [facility] ON [address] AND IF THEY WILL NOT TAKE HER, THEN THE REHAB AT [facility]. CHOICE SIGNED. IMPORTANT MESSAGE FROM MEDICARE PROVIDED AND EXPLAINED. CM CALLED MICHAEL OF [facility] IN[facility], , PROVIDED REFERRAL IFNORMATION. CM FAXED REFERRAL INFORMATION TO [facility] WITH CURRENT MAR AT [phone]. CM WAITING ADMISSION DETERMINATION FROM [facility] INPATIENT REHAB. Motorcycle Mechanic Apprentice: David Sanders DCPIA - Discharge Planning Initial Assessment Updated by WANG: David Sanders on 07/14/19 4:10 pm * Is the patient Alert and Oriented? Yes * How many steps to enter\exit or inside your home? 15 down * PCP DR GRACE * Pharmacy [facility] [address] * Preadmission Environment Home Alone * ADLs Independent * Equipment Cane Walker * Other Equipment NO MEDICAL EQUIPMENT PROVIDER PREFERENCE * List name and contact numbers for known caregivers / representatives who currently or will assist patient after discharge: MAY PEREZ, JERAMIE, * Verbal permission to speak to the caregivers and representatives has been obtained from the patient. N/A * Community resources currently utilized None * Please name any agencies selected above. NONE * Additional services required to return to the preadmission environment? Yes * Can the patient safely return to the preadmission environment? Yes * Has this patient been hospitalized within the prior 30 days at any hospital? Yes Coverage Notice Reviewer: WANG Sanders Notice Issued Date-Time: 07/16/2019 16:30 Notice Type: Patient Choice Letter Notice Delivered To: Family Member Relationship to Patient: Son Management Trainee Program Stores Name: MAY PEREZ Delivery Method: HAND - Hand Delivered Chyeenne Days: Prior Verbal Notification: Recipient Understood Notice: Yes Recipient Signature: Yes Med Rec Note Co-signed by Attending: Coverage Notice Comment: [facility] Reviewer: [id number] Sanders Notice Issued Date-Time: 07/16/2019 12:15 Notice Type: Patient Choice Letter Notice Delivered To: Patient Relationship to Patient: Management Trainee Program Stores Name: Delivery Method: HAND - Hand Delivered Cheyenne Days: Prior Verbal Notification: Recipient Understood Notice: Yes Recipient Signature: Yes Med Rec Note Co-signed by Attending: Coverage Notice Comment: [facility] Reviewer: [id number] Sanders Notice Issued Date-Time: 07/14/2019 8:30 Notice Type: Patient Choice Letter Notice Delivered To: Patient Relationship to Patient: Management Trainee Program Stores Name: Delivery Method: HAND - Hand Delivered Cheyenne Days: Prior Verbal Notification: Recipient Understood Notice: Yes Recipient Signature: Yes Med Rec Note Co-signed by Attending: Coverage Notice Comment: [facility]- [facility], 2- [facility] Reviewer: WANG Sanders Notice Issued Date-Time: 07/20/2019 12:30 Notice Type: IM Discharge Notice Notice Delivered To: Patient Relationship to Patient: Management Trainee Program Stores Name: Delivery Method: HAND - Hand Delivered Cheyenne Days: Prior Verbal Notification: Recipient Understood Notice: Yes Recipient Signature: Yes Med Rec Note Co-signed by Attending: Coverage Notice Comment: Reviewer: WANG Sanders Notice Issued Date-Time: 07/16/2019 12:15 Notice Type: IM Discharge Notice Notice Delivered To: Patient Relationship to Patient: Management Trainee Program Stores Name: Delivery Method: HAND - Hand Delivered Cheyenne Days: Prior Verbal Notification: Recipient Understood Notice: Yes Recipient Signature: Yes Med Rec Note Co-signed by Attending: Coverage Notice Comment: Reviewer: WANG Sanders Notice Issued Date-Time: 07/14/2019 8:30 Notice Type: IM Discharge Notice Notice Delivered To: Patient Relationship to Patient: Management Trainee Program Stores Name: Delivery Method: HAND - Hand Delivered Cheyenne Days: Prior Verbal Notification: Recipient Understood Notice: Yes Recipient Signature: Yes Med Rec Note Co-signed by Attending: Coverage Notice Comment: Last DP export: 07/20/19 11:38 a Patient Name: ETIENNE PEREZ Page [id number] at 1248 All edits/amendments must be made on the electronic document DICTATION DATE: 07/20/19 1248 DUST CONTROL ENGINEER: HIEN 07/20/19 1248 RPT#: [id number] DC DATE: STATUS: ADM IN [facility] [address] [place] [address] END OF REPORT
--- NOTE | 2019-07-20 12:57 | NUR ---
DISCHARGE ORDERS FROM DR GRACE. NOTHING NEW TO ADD.
--- NOTE | 2019-07-20 13:30 | NUR ---
ALERT AND ORIENTED X4. SITTING UP IN CHAIR. DISCHARGE INSTRUCTIONS GIVEN VERBALLY AND WRITTEN. DISCHARGE PAPERS SIGNED ON CHART. NO IV ACCESS. REPORT CALLED TO SHAWN RALPH AT [facility]. ASSIST GETTING DRESSING AND BELONGINGS IN BAG. WAITING FOR REHAB TRANSPORTATION TO ARRIVE. CONTINUE PLAN OF CARE AND SAFETY PRECAUTIONS.
--- NOTE | 2019-07-20 15:47 | NUR ---
OT NOTE: PT COMPLETED BED MOB WITH CGA. PT COMPLETED ADL MOB WITH CGA. PT EXHIBITED DECREASED SAFETY AWARENESS. SON PRESENT. [phone] THANK YOU, RHONDA SANCHEZ
== END 2019-07-20 13:49 | DRG 417 ==
LOC: D.M2 13:20 → OBSVTIME 13:23 → D.M2 16:27
PROVIDERS: Surgery; ADMIT Family Medicine; ATTEND Family Medicine
PROC: BF101ZZ Fluoroscopy of Bile Ducts using Low Osmolar Contrast (ICD-10-PCS; 2019-07-13)
PROC: 0DB68ZX Excision of Stomach, Via Natural or Artificial Opening Endoscopic, Diagnostic (ICD-10-PCS; 2019-07-13)
PROC: 0FT44ZZ Resection of Gallbladder, Percutaneous Endoscopic Approach (ICD-10-PCS; principal; 2019-07-13 09:15)
PROC: 0FB04ZX Excision of Liver, Percutaneous Endoscopic Approach, Diagnostic (ICD-10-PCS; 2019-07-13 09:15)
DX: K81.0 Acute cholecystitis (principal); G93.41 Metabolic encephalopathy; N28.9 Disorder of kidney and ureter, unspecified; E87.6 Hypokalemia; K81.9 Cholecystitis, unspecified; I48.0 Paroxysmal atrial fibrillation; E78.5 Hyperlipidemia, unspecified; I10 Essential (primary) hypertension; D64.9 Anemia, unspecified; R16.0 Hepatomegaly, not elsewhere classified; K76.0 Fatty (change of) liver, not elsewhere classified; R63.0 Anorexia; Z68.27 Body mass index [BMI] 27.0-27.9, adult

== ENCOUNTER 2020-12-22 14:27 | Inpatient (IN) | payer MEDICARE ==
[~2020-12-22] VITALS: Ht 162.6 cm; Wt 68.5 kg
[~2020-12-22 14:27] MED LIST changes: +LISINOPRIL10 MG PO; +MEGACE400 MG/10 PO
[2020-12-22 15:22] LABS: BILIRUBIN NEGATIVE (NEGATIVE); KETONE NEGATIVE mg/dL (< 1+); NITRITE NEGATIVE (NEGATIVE); UROBILINOGEN NORMAL mg/dL (< 2)
[2020-12-22 16:06] LABS: UDS - AMPHET NEGATIVE QUAL (NEGATIVE); UDS - BARB NEGATIVE QUAL (NEGATIVE); UDS - BENZO NEGATIVE QUAL (NEGATIVE); UDS - COCAINE NEGATIVE QUAL (NEGATIVE); UDS - OPIATE NEGATIVE QUAL (NEGATIVE); UDS - PCP NEGATIVE QUAL (NEGATIVE); UDS - THC NEGATIVE QUAL (NEGATIVE)
[2020-12-22 16:28] LABS: BASOPHILS 0.3 % (0-2); EOSINOPHILS 0.3 % (0-7); HEMATOCRIT 31.8 % (36.0-48.0); HEMOGLOBIN 10.7 g/dL (12-16); LYMPHOCYTES 1.7 % (15-50); MCHC 33.8 g/dL (31.0-37.0); MEAN PLATELET VOLUME 6.8 fL (7.4-10.4); MONOCYTES 1.9 % (2-11); NEUTROPHILS 95.8 % (40-80); PLATELET COUNT 273 10x3/uL (130-400); RBC 3.83 10x6/uL (4.00-5.40); RDW 13.7 % (11.5-14.5); WBC 12.2 10x3/uL (4.8-10.8)
[2020-12-22 16:37] VITALS: BP 120/57
[2020-12-22 16:55] LABS: CALC OSMOLALITY 276 mosm/kg (275-300); CALCIUM 9.5 mg/dL (8.5-10.1); CARBON DIOXIDE 21.7 mmol/L (21.0-32.0); CHLORIDE - SERUM 101 mmol/L (98-107); CREATININE - SERUM 1.2 mg/dL (0.6-1.3); GLUCOSE 181 mg/dL (74-106); POTASSIUM - SERUM 3.7 mmol/L (3.5-5.1); SODIUM 134 mmol/L (136-145); UREA NITROGEN 23 mg/dL (7-18); eGFR NON AFRICAN AMERICAN 46 mL/min (90-120)
[2020-12-22 17:08] LABS: ALBUMIN 3.1 g/dL (3.4-5.0); ALKALINE PHOSPHATASE 88 U/L (30-120); ALT (SGPT) 19 U/L (10-68); BILIRUBIN - TOTAL 0.45 mg/dL (0.2-1.3); CREATINE KINASE 27 UL (21-215); MAGNESIUM - SERUM 2.1 mg/dL (1.8-2.4); PROTEIN - SERUM 7.7 g/dL (6.4-8.2); TROPONIN-I < 0.017 ng/mL (0.000-0.060)
--- NOTE | 2020-12-22 17:22 | NUR ---
PT TAKEN TO CT
[2020-12-22 17:29] LABS: CKMB 0.1 U/L (0.0-3.6); THYROID STIMULATING HORMONE 0.96 uIU/mL (0.36-3.74)
[2020-12-22 18:01] VITALS: BP 105/58
[2020-12-22 19:14] LABS: AMYLASE - SERUM 53 U/L (25-115); LIPASE 216 U/L (73-393)
--- NOTE | 2020-12-22 19:59 | NUR ---
NS INFUSING AT 75 ML/H WITH 600 ML REMAINING TO BE INFUSED ON TRANSFER TO ROOM
--- NOTE | 2020-12-22 20:00 | NUR ---
PT FROM ER VIA STRECTHER, PT CONFUSED, PT SOAKED FROM HEAD TO TOE WITH URINE FROM ER. PT RESP EVEN AND UNLABORED, NO DISTRESS NOTED, CL IN REACH, SR UP X 2.
--- NOTE | 2020-12-22 20:00 | NUR ---
LEVAQUIN INFUSING ON TRANSFER TO ROOM
[2020-12-22 20:39] VITALS: BP 133/83
[2020-12-22 21:15] VITALS: BP 133/83; BMI 25.9
[2020-12-23 01:14] VITALS: BP 144/58
[2020-12-23 01:33] VITALS: BP 82/50
--- NOTE | 2020-12-23 06:19 | NUR ---
I have reviewed this patient and I concur with the Shift Assessment completed by the Licensed Practical Nurse today this shift.
--- NOTE | 2020-12-23 06:30 | NUR ---
BEDSIDE REPORT RECEIVED PATIENT AWAKE ALERT AND MINIMAL CONFUSION. RESP EVEN AND UNLABORED ON ROOM AIR. IV PATENT TO LEFT WRIST.
[2020-12-23 06:37] LABS: BASOPHILS 0.3 % (0-2); EOSINOPHILS 2.1 % (0-7); HEMATOCRIT 26.2 % (36.0-48.0); HEMOGLOBIN 8.7 g/dL (12-16); LYMPHOCYTES 2.3 % (15-50); MCH 27.3 pg (26.0-34.0); MCHC 33.2 g/dL (31.0-37.0); MCV 82.1 fL (80.0-100.0); MONOCYTES 3.3 % (2-11); RBC 3.19 10x6/uL (4.00-5.40); RDW 13.9 % (11.5-14.5)
[2020-12-23 06:41] VITALS: BP 113/42
[2020-12-23 06:55] LABS: ANION GAP 15.2 mmol/L (8-16); CALCIUM 8.5 mg/dL (8.5-10.1); CARBON DIOXIDE 20.2 mmol/L (21.0-32.0); CREATININE - SERUM 1.4 mg/dL (0.6-1.3); POTASSIUM - SERUM 3.4 mmol/L (3.5-5.1)
[2020-12-23 07:33] LABS: PLATELET COUNT 192 10x3/uL (130-400); WBC 7.4 10x3/uL (4.8-10.8)
--- NOTE | 2020-12-23 08:28 | NUR ---
PATIENT AWAKE ALERT ABLE TO MAKE NEEDS KNOWN. PATIENT IS UP AT ROSALIND WITH STAND BY ASSIST. IV PATENT TO LEFT HAND. RESP EVEN AND UNLABORED ON ROOM AIR. O2 SAT 99. LUNG SOUNDS CLEAR. COUGH DEEP WITH NO SHORTNESS OF BREATH. HEART SOUNDS REGULAR RATE AND RYTHYM. BOWEL SOUND ACTIVE X 4.
[2020-12-23 09:17] LABS: % SATURATION 9 % (15-55); IRON 19 ug/dl (35-150); TOTAL IRON BIND CAPACITY 204 ug/dl (260-445); UNSAT IRON BIND CAPACITY 185 ug/dl (150-375)
[2020-12-23 09:45] LABS: ALBUMIN 2.4 g/dL (3.4-5.0); BILIRUBIN - DIRECT 0.09 mg/dL (0.00-0.30); BILIRUBIN - INDIRECT 0.15 mg/dL (0.00-1.00); BILIRUBIN - TOTAL 0.24 mg/dL (0.2-1.3); PROTEIN - SERUM 6.3 g/dL (6.4-8.2)
[2020-12-23 11:16] VITALS: BP 87/40
[2020-12-23 12:35] VITALS: BMI 25.9
[2020-12-23 16:04] VITALS: BP 104/41
--- NOTE | 2020-12-23 19:58 | NUR ---
INITIAL ROUNDS AND ASSESSMENT COMPLETED. PT RESTING NO DISTRESS. CALL LIGHT IN REACH. SEE SHIFT ASSESSMENT.
[2020-12-23 20:20] VITALS: BP 96/47
--- NOTE | 2020-12-23 22:53 | NUR ---
ALL BEDTIME MEDS GIVEN. PT RESTING WITH NO DISTRESS. CALL LIGHT IN REACH. SR UP X 2.
--- NOTE | 2020-12-23 23:26 | NUR ---
FAMILY MEMBER VISITING AT BEDSIDE.
[2020-12-24 00:51] VITALS: BP 96/40
--- NOTE | 2020-12-24 04:10 | NUR ---
IV ABT THERAPY INFUSING. PT RESTING WITH NO DISTRESS. CALL LIGHT IN REACH. SR UP X 3.
[2020-12-24 05:39] LABS: BASOPHILS 0.4 % (0-2); EOSINOPHILS 7.8 % (0-7); HEMATOCRIT 24.4 % (36.0-48.0); HEMOGLOBIN 8.6 g/dL (12-16); LYMPHOCYTES 9.1 % (15-50); MCH 28.2 pg (26.0-34.0); MCHC 35.3 g/dL (31.0-37.0); MEAN PLATELET VOLUME 6.9 fL (7.4-10.4); MONOCYTES 6.4 % (2-11); NEUTROPHILS 76.3 % (40-80); PLATELET COUNT 183 10x3/uL (130-400); RBC 3.05 10x6/uL (4.00-5.40); RDW 13.7 % (11.5-14.5)
[2020-12-24 05:40] LABS: WBC 5.2 10x3/uL (4.8-10.8)
[2020-12-24 05:42] LABS: ANION GAP 12.4 mmol/L (8-16); CALCIUM 8.4 mg/dL (8.5-10.1); CARBON DIOXIDE 21.8 mmol/L (21.0-32.0); CREATININE - SERUM 1.1 mg/dL (0.6-1.3); POTASSIUM - SERUM 3.2 mmol/L (3.5-5.1)
[2020-12-24 06:05] VITALS: BP 92/45
--- NOTE | 2020-12-24 06:50 | NUR ---
BEDSIDE REPORT RECEIVED. RESP EVEN AND UNLABORED. PATIENT CONTINUES ON ROOM AIR. IV SALINE LOCKED OT LEFT HAND.
[2020-12-24 07:53] VITALS: BP 97/57
--- NOTE | 2020-12-24 09:00 | NUR ---
PATIENT AWAKE AND ALERT. NO CONFUSION THIS MORNING. RESP EVEN AND UNLABORED ON ROOM AIR. LUNG SOUNDS CLEAR HEART SOUNDS REGULAR RATE AND RYTHYM. PATIENT IS UP WITH ASSIST TO BATHROOM. ABLE TO MAKE NEEDS KNOWN. SONS ACTIVE IN CARE
[2020-12-24 11:40] VITALS: BP 115/48
[2020-12-24 15:39] VITALS: BP 110/50
--- NOTE | 2020-12-24 16:22 | NUR ---
PATIENT CONFUSED UNABLE TO REDIRECT BELIEVES SHE IS AT HOME AND WE ARE TRYING TO MAKE HER LEAVE. ATTEMPTED TO REDIRECT. PATIENT STATED SHE DIDNT BELEIVE SHE WAS IN THE HOSPITAL AND SHE WAS IN A DIFFERENT ROOM BEFORE. I TOLD HER TO CALL HER SON FOR HIM TO EXPLAIN AND SHE STATED SHE TALKED TO MAY AND WAS STILL CONFUSED.
--- NOTE | 2020-12-24 19:39 | NUR ---
I have reviewed this patient and I concur with the Shift Assessment completed by the Licensed Practical Nurse today this shift.
[2020-12-24 20:00] VITALS: BP 134/79
[2020-12-25 06:10] VITALS: BP 109/55
[2020-12-25 06:20] LABS: BASOPHILS 0.8 % (0-2); EOSINOPHILS 6.6 % (0-7); HEMATOCRIT 24.1 % (36.0-48.0); HEMOGLOBIN 8.3 g/dL (12-16); LYMPHOCYTES 13.8 % (15-50); MCH 27.6 pg (26.0-34.0); MCHC 34.6 g/dL (31.0-37.0); MCV 79.7 fL (80.0-100.0); MEAN PLATELET VOLUME 7.8 fL (7.4-10.4); MONOCYTES 7.9 % (2-11); NEUTROPHILS 70.9 % (40-80); PLATELET COUNT 188 10x3/uL (130-400); RBC 3.02 10x6/uL (4.00-5.40); RDW 13.6 % (11.5-14.5)
[2020-12-25 06:33] LABS: ANION GAP 15.9 mmol/L (8-16); CALCIUM 8.8 mg/dL (8.5-10.1); CARBON DIOXIDE 19.4 mmol/L (21.0-32.0); CREATININE - SERUM 1.1 mg/dL (0.6-1.3); POTASSIUM - SERUM 3.3 mmol/L (3.5-5.1)
[2020-12-25 07:45] VITALS: BP 95/53
[2020-12-25 08:12] VITALS: BP 152/80
--- NOTE | 2020-12-25 08:41 | NUR ---
AM MEDS GIVEN AT THIS TIME. ALSO GAVE 40MEQ OF K FOR LOW K OF 3.3. PT WAS ABLE TO SWALLOW PILLS WITH NO TROUBLE SWALLOWING. PT A/O X3, RESP EVEN AND NONLABORED ON RA. PT STATES THAT WHEN IV IS BEING FLUSHED IT YOUNG. D/C IV WITH CATHETER TIP INTACT. NEW 22G IV STARTED TO RT FA X1 STICK. PT TOLERATED PROCEDURE WELL, DENIES ANY NEEDS, CALL LIGHT IN REACH, ISAIAS ALARM ON. WILL CONTINUE PLAN OF CARE.
--- NOTE | 2020-12-25 12:06 | NUR ---
BLOOD SUGAR OF 118, NO COVERAGE NEEDED PER S/S. PT'S SON AT BEDSIDE, UPDATED HIM ON THE PLAN OF CARE. PT RESTING COMFORTABLY IN BED, DENIES ANY NEEDS., CALL LIGHT IN REACH.
[2020-12-25 14:32] VITALS: BP 129/65
--- NOTE | 2020-12-25 16:21 | NUR ---
BLOOD SUGAR OF 176, 2UNITS GIVEN PER S/S. PT RESTING COMFORTABLY IN BED, DENIES ANY NEEDS AT THIS TIME. C ALL LIGHT IN REACH.
[2020-12-25 20:43] VITALS: BP 123/56
[2020-12-26 01:15] VITALS: BP 116/58
[2020-12-26 05:33] LABS: BASOPHILS 0.8 % (0-2); EOSINOPHILS 5.9 % (0-7); HEMATOCRIT 24.7 % (36.0-48.0); HEMOGLOBIN 8.3 g/dL (12-16); LYMPHOCYTES 15.2 % (15-50); MCH 27.1 pg (26.0-34.0); MCHC 33.5 g/dL (31.0-37.0); MEAN PLATELET VOLUME 7.3 fL (7.4-10.4); MONOCYTES 8.4 % (2-11); NEUTROPHILS 69.7 % (40-80); PLATELET COUNT 197 10x3/uL (130-400); RBC 3.05 10x6/uL (4.00-5.40); RDW 13.6 % (11.5-14.5); WBC 6.1 10x3/uL (4.8-10.8)
[2020-12-26 05:48] LABS: ANION GAP 13.4 mmol/L (8-16); CALCIUM 8.6 mg/dL (8.5-10.1); CARBON DIOXIDE 20.1 mmol/L (21.0-32.0); POTASSIUM - SERUM 3.5 mmol/L (3.5-5.1)
[2020-12-26 06:09] VITALS: BP 128/58
[2020-12-26 08:06] VITALS: BP 117/57
[2020-12-26 11:06] VITALS: BP 134/64
--- NOTE | 2020-12-26 13:43 | NUR ---
Nutrition Follow-up: Good/fair PO intake. Diet: Diabetic PO intake: 67% avg yesterday No new wt; last wt: 151# (12/22) Last BM: 12/22 per chart Labs noted: Na 135, Glu 105 Meds noted: Ferrous Sulfate, Pepcid, Humulin, NS @ 30, electrolyte protocol -Encourage PO intake and honor food preferences within diet restrictions. -Offer Glucerna if avg PO intake <50%. -Pt may benefit from bowel regimen. -Need new wt. -RD will follow up within 3-4 days.
[2020-12-26 15:49] VITALS: BP 111/57
--- NOTE | 2020-12-26 20:32 | NUR ---
HS MEDS GIVEN WITH FRESH ICE WATER. TYLENOL 650 GIVEN AT PTS REQUEST FOR C/O H.A. RATES PAIN AT A 6 ON PAIN SCALE. BED LOW, CL IN REACH.
[2020-12-26 21:59] VITALS: BP 123/64
[2020-12-27 00:17] VITALS: BP 110/60
--- NOTE | 2020-12-27 03:32 | NUR ---
I have reviewed this patient and I concur with the Shift Assessment completed by the Licensed Practical Nurse today this shift.
[2020-12-27 05:46] VITALS: BP 144/6
[2020-12-27 07:12] LABS: BASOPHILS 1.3 % (0-2); EOSINOPHILS 3.9 % (0-7); HEMATOCRIT 25.1 % (36.0-48.0); HEMOGLOBIN 8.6 g/dL (12-16); LYMPHOCYTES 16.8 % (15-50); MCH 27.6 pg (26.0-34.0); MCHC 34.1 g/dL (31.0-37.0); MCV 80.9 fL (80.0-100.0); MONOCYTES 7.3 % (2-11); NEUTROPHILS 70.7 % (40-80); PLATELET COUNT 210 10x3/uL (130-400); RDW 13.7 % (11.5-14.5)
[2020-12-27 07:16] LABS: WBC 8.8 10x3/uL (4.8-10.8)
[2020-12-27 07:32] LABS: ANION GAP 13.1 mmol/L (8-16); CALCIUM 8.5 mg/dL (8.5-10.1); CARBON DIOXIDE 20.2 mmol/L (21.0-32.0); CREATININE - SERUM 0.8 mg/dL (0.6-1.3); POTASSIUM - SERUM 3.3 mmol/L (3.5-5.1)
[2020-12-27 09:20] VITALS: BP 160/63; BP 180/60
--- NOTE | 2020-12-27 10:15 | NUR ---
PATIENT PRE OP AND WALKED TO RESTROOM BEFORE EGD
--- NOTE | 2020-12-27 10:35 | NUR ---
PATIENT TAKEN BACK FOR HER EGD
[2020-12-27 11:08] VITALS: Ht 162.6 cm; Wt 68.5 kg
--- NOTE | 2020-12-27 12:19 | MORECARE ---
CASE MANAGEMENT DISCHARGE SUMMARY PATIENT: ETIENNE PEREZ UNIT: [id number] ADM DATE: 12/22/20 AGE: 80 : 40 SEX: F ROOM/BED: DCounts include 234 beds at the [facility] AUTHOR: SU LAURENT PHYSICIAN: REFERRING PHYSICIAN: VALDO DENNIS MD DATE OF SERVICE: 12/27/20 Case Management Discharge Planning Summary DCP REVIEW SUMMARY ANTICIPATED D/C DATE: EXPECTED LOS : CASE STATUS: DCP Initiated INITIAL REVIEW: 12/22/2020 INITIAL REVIEWER: Marisol Taylor FINAL DISCHARGE DISPOSITION: : FINAL REVIEWER: FINAL REVIEW DATE: DCP Focus Questions & Answers QUESTION: ANSWER : PATIENT: ETIENNE PEREZ ENCOUNTER: [id number] MEDICAL RECORD#: [id number] ADMISSION DATE: 12/22/2020 DISCHARGE DATE: ATTENDING MD: VALDO KAM : AGE: 80 MARITAL STATUS: W DC PLAN ID: [id number] FACILITY: [facility] PRINTED ON: 12/27/20 12:19 CT All edits/amendments must be made on the electronic document DICTATION DATE: 12/27/20 121 TEAM PRIMARY CARE PHYSICIAN: DM 12/27/20 1219 RPT#: [id number] DC DATE: STATUS: ADM IN [facility] [address] [place] [address] END OF REPORT
--- NOTE | 2020-12-27 12:44 | MORECARE ---
CASE MANAGEMENT DISCHARGE SUMMARY PATIENT: ETIENNE RAMIREZ UNIT: [id number] ADM DATE: 12/22/20 AGE: 80 : 40 SEX: F ROOM/BED: D.2944 AUTHOR: ANASTASIIA,DOC PHYSICIAN: REFERRING PHYSICIAN: VALDO DENNIS MD DATE OF SERVICE: 12/27/20 Case Management Discharge Planning Summary COMMENTS ENTERED DATE: 12/27/20 12:24 CT COMMENT TYPE: Discharge Planning REVIEWER: Marisol Taylor CM met with patient to complete discharge planning assessment and offer availability of needed services. Patient states that she lived independently at home with support from her children prior to admission. CM spoke to son Rell Ramirez at time of DCP and verified that home environment is safe and has electricity and running water. Son voices concern for patients safety at home and wishes for her to go to [place] for a week or two of rehab. Pt agrees to need for rehab and strengthening prior to going back home. PCP is Urdu. CM offered and discussed home health, rehab services, and need for any medical equipment. Patient did not express need for offered services at this time, but does agree to go to [facility] for short term rehab. Patient verbalized understanding of signed forms. IMM served, and signed copy placed on chart. JORGE A form signed for refusal of additional services or needs at this time, placed on chart. DCP REVIEW SUMMARY ANTICIPATED D/C DATE: EXPECTED LOS : CASE STATUS: DCP Initiated INITIAL REVIEW: 12/22/2020 INITIAL REVIEWER: Marisol Taylor FINAL DISCHARGE DISPOSITION: : FINAL REVIEWER: FINAL REVIEW DATE: OKP Focus Questions & Answers QUESTION: ANSWER : PATIENT: ETIENNE RAMIREZ ENCOUNTER: [id number] MEDICAL RECORD#: [id number] ADMISSION DATE: 12/22/2020 DISCHARGE DATE: ATTENDING MD: VALDO KAM : AGE: 80 MARITAL STATUS: W DC PLAN ID: [id number] FACILITY: [facility] PRINTED ON: 12/27/20 12:44 CT All edits/amendments must be made on the electronic document DICTATION DATE: 12/27/20 124 BRAKE RELINER: HIEN 12/27/20 1244 RPT#: [id number] DC DATE: STATUS: ADM IN [facility] [address] [place] [address] END OF REPORT
--- NOTE | 2020-12-27 15:36 | OP ---
PATIENT NAME: ETIENNE PEREZ MEDICAL RECORD: [id number] :40 LOCATION:D[facility].2120 ADMISSION DATE:12/27/20 SURGEON: LEWIS GALEAS MD DATE OF OPERATION: 12/27/2020 PREOPERATIVE DIAGNOSIS: Anemia. POSTOPERATIVE DIAGNOSES: Anemia. Three gastric ulcers, two within the pylorus and one within the antrum, which could account for the patient's anemia through upper gastrointestinal bleeding. PROCEDURE: Esophagogastroduodenoscopy with antral biopsy. SURGEON: Lewis Galeas MD WIRELESS TELEGRAPHER: None. BLOOD LOSS: Minimal. ANESTHESIA: IV sedation. COMPLICATIONS: None. DESCRIPTION OF PROCEDURE: The patient was conveyed to the endoscopy suite electively on 12/27/2020. IV sedation was induced by the anesthesia staff. A bite block was inserted. A gastroscope was inserted into the mouth. It was advanced easily into the hypopharynx. The esophagus was easily intubated as were the stomach and duodenum. Upon withdrawal, retroflexed and angulus views were obtained. Antral biopsies were obtained to rule out H. pylori. The endoscope was then withdrawn under direct vision. I have discussed this case with Dr. Parnell by phone. The patient is already on a proton pump inhibitor. The biopsies were to rule out H. pylori. I will see her in the office in 2 to 3 weeks. The ulcers that I identified certainly could account for the patient's anemia. TRANSINT:[id number] Voice Confirmation ID: [id number] DOCUMENT ID: [id number] LEWIS GALEAS MD at 1536 CC: [id number] DICTATION DATE: 12/27/20 1109 ENGINEERING DRAFTER: 12/27/20 1118 ADM IN [facility] [address] [place] [address]
[2020-12-27 16:45] VITALS: BP 152/72
--- NOTE | 2020-12-27 17:00 | NUR ---
PATIENT IS CONFUSED. NURSE WAKES PATIENT UP TO EAT DINNER, BUT SHE SAYS SHE ALREADY ATE AT [facility] TODAY. PATIENT HAS BEEN IN HOSPITAL ALL DAY AND HAS NOT BEEN TO [facility]. PATIENT IS NOT ORIENTING WELL THIS AFTERNOON
[2020-12-27 19:00] VITALS: BP 144/65
[2020-12-28] VITALS: BP 117/42
--- NOTE | 2020-12-28 02:33 | NUR ---
I have reviewed this patient and I concur with the Shift Assessment completed by the Licensed Practical Nurse today this shift.
[2020-12-28 04:00] VITALS: BP 130/53
[2020-12-28 06:50] LABS: BASOPHILS 0.5 % (0-2); EOSINOPHILS 0.3 % (0-7); HEMATOCRIT 26.2 % (36.0-48.0); HEMOGLOBIN 8.9 g/dL (12-16); LYMPHOCYTES 10.8 % (15-50); MCH 27.2 pg (26.0-34.0); MCHC 33.9 g/dL (31.0-37.0); MCV 80.2 fL (80.0-100.0); MEAN PLATELET VOLUME 7.4 fL (7.4-10.4); MONOCYTES 8.3 % (2-11); NEUTROPHILS 80.1 % (40-80); PLATELET COUNT 230 10x3/uL (130-400); RBC 3.27 10x6/uL (4.00-5.40); RDW 13.5 % (11.5-14.5)
[2020-12-28 06:53] LABS: WBC 11.8 10x3/uL (4.8-10.8)
[2020-12-28 07:08] LABS: ANION GAP 16.5 mmol/L (8-16); CALCIUM 8.7 mg/dL (8.5-10.1); CARBON DIOXIDE 19.5 mmol/L (21.0-32.0); CREATININE - SERUM 0.8 mg/dL (0.6-1.3)
[2020-12-28 08:00] VITALS: BP 121/46
[2020-12-28 12:00] VITALS: BP 114/40
[2020-12-28] MEDS ORDERED: FERROUS SULFAT325 MG PO (13:15)
[2020-12-28] MEDS ORDERED: XANAX0.25 MG PO (13:16)
[2020-12-28 23:38] VITALS: BP 87/46
[2020-12-29 05:00] VITALS: BP 135/58
[2020-12-29 06:49] LABS: BASOPHILS 0.6 % (0-2); EOSINOPHILS 0.5 % (0-7); HEMATOCRIT 26.2 % (36.0-48.0); HEMOGLOBIN 8.7 g/dL (12-16); LYMPHOCYTES 16.4 % (15-50); MCH 27.1 pg (26.0-34.0); MCHC 33.1 g/dL (31.0-37.0); MCV 81.7 fL (80.0-100.0); MEAN PLATELET VOLUME 7.5 fL (7.4-10.4); MONOCYTES 7.3 % (2-11); NEUTROPHILS 75.2 % (40-80); PLATELET COUNT 266 10x3/uL (130-400); RDW 13.8 % (11.5-14.5); WBC 12.6 10x3/uL (4.8-10.8)
[2020-12-29 07:06] LABS: ANION GAP 16.1 mmol/L (8-16); CALCIUM 8.4 mg/dL (8.5-10.1); CARBON DIOXIDE 19.6 mmol/L (21.0-32.0); CREATININE - SERUM 0.8 mg/dL (0.6-1.3); POTASSIUM - SERUM 3.7 mmol/L (3.5-5.1)
[2020-12-29 07:30] VITALS: BP 119/62
--- NOTE | 2020-12-29 11:50 | NUR ---
REPORT CALLED TO [facility]. IV DCD. ESCORTED TO [facility] BY W/Gina
--- NOTE | 2020-12-29 11:57 | MORECARE ---
CASE MANAGEMENT DISCHARGE SUMMARY PATIENT: ETIENNE RAMIREZ UNIT: [id number] ADM DATE: 12/27/20 AGE: 80 : 40 SEX: F ROOM/BED: D.2726 AUTHOR: ANASTASIIA,DOC PHYSICIAN: REFERRING PHYSICIAN: VALDO DENNIS MD DATE OF SERVICE: 12/29/20 Case Management Discharge Planning Summary COMMENTS ENTERED DATE: 12/27/20 12:24 CT COMMENT TYPE: Discharge Planning REVIEWER: Marisol Taylor CM met with patient to complete discharge planning assessment and offer availability of needed services. Patient states that she lived independently at home with support from her children prior to admission. CM spoke to son Rell Ramirez at time of DCP and verified that home environment is safe and has electricity and running water. Son voices concern for patients safety at home and wishes for her to go to [place] for a week or two of rehab. Pt agrees to need for rehab and strengthening prior to going back home. PCP is [place]. CM offered and discussed home health, rehab services, and need for any medical equipment. Patient did not express need for offered services at this time, but does agree to go to [place] for short term rehab. Patient verbalized understanding of signed forms. IMM served, and signed copy placed on chart. JORGE A form signed for refusal of additional services or needs at this time, placed on chart. ARP REVIEW SUMMARY ANTICIPATED D/C DATE: EXPECTED LOS : CASE STATUS: DCP Initiated INITIAL REVIEW: 12/22/2020 INITIAL REVIEWER: Marisol Taylor FINAL DISCHARGE DISPOSITION: : FINAL REVIEWER: FINAL REVIEW DATE: ARP [facility] Questions & Answers QUESTION: ANSWER : PATIENT: ETIENNE RAMIREZ ENCOUNTER: [id number] MEDICAL RECORD#: [id number] ADMISSION DATE: 12/27/2020 DISCHARGE DATE: 12/29/2020 ATTENDING MD: VALDO KAM : AGE: 80 MARITAL STATUS: W DC PLAN ID: [id number] FACILITY: [facility] PRINTED ON: 12/29/20 11:57 CT All edits/amendments must be made on the electronic document DICTATION DATE: 12/29/20 1150 [employer] TECHNICIAN: HIEN 12/29/20 1157 RPT#: [id number] DC DATE:12/29/20 STATUS: DIS IN [facility] [address] [place] [address] END OF REPORT
--- NOTE | 2020-12-29 16:29 | MORECARE ---
CASE MANAGEMENT DISCHARGE SUMMARY PATIENT: ETIENNE RAMIREZ UNIT: [id number] ADM DATE: 12/27/20 AGE: 80 : 40 SEX: F ROOM/BED: D.0577 AUTHOR: ANASTASIIA,DOC PHYSICIAN: REFERRING PHYSICIAN: VALDO DENNIS MD DATE OF SERVICE: 12/29/20 Case Management Discharge Planning Summary COMMENTS ENTERED DATE: 12/27/20 12:24 CT COMMENT TYPE: Discharge Planning REVIEWER: Marisol Taylor CM met with patient to complete discharge planning assessment and offer availability of needed services. Patient states that she lived independently at home with support from her children prior to admission. CM spoke to son Rell Ramirez at time of DCP and verified that home environment is safe and has electricity and running water. Son voices concern for patients safety at home and wishes for her to go to [place] for a week or two of rehab. Pt agrees to need for rehab and strengthening prior to going back home. PCP is Persian. CM offered and discussed home health, rehab services, and need for any medical equipment. Patient did not express need for offered services at this time, but does agree to go to [place] for short term rehab. Patient verbalized understanding of signed forms. IMM served, and signed copy placed on chart. JORGE A form signed for refusal of additional services or needs at this time, placed on chart. NDP REVIEW SUMMARY ANTICIPATED D/C DATE: 12/29/2020 EXPECTED LOS : 2 CASE STATUS: DCP Initiated INITIAL REVIEW: 12/22/2020 INITIAL REVIEWER: Marisol Taylor FINAL DISCHARGE DISPOSITION: : FINAL REVIEWER: FINAL REVIEW DATE: NDP [facility] Questions & Answers QUESTION: ANSWER : PATIENT: ETIENNE RAMIREZ ENCOUNTER: [id number] MEDICAL RECORD#: [id number] ADMISSION DATE: 12/27/2020 DISCHARGE DATE: 12/29/2020 ATTENDING MD: VALDO KAM : AGE: 80 MARITAL STATUS: W DC PLAN ID: [id number] FACILITY: [facility] PRINTED ON: 12/29/20 16:29 CT All edits/amendments must be made on the electronic document DICTATION DATE: 12/29/201628 SENIOR [employer] INTELLIGENCE CONSULTANT: HIEN 12/29/201628 RPT#: [id number] DC DATE:12/29/20 STATUS: DIS IN [facility] [address] [place] [address] END OF REPORT
--- NOTE | 2020-12-29 22:23 | NUR ---
OT NOTE: PT REQUIRED MAX A FOR SIT TO STAND. PT EXHIBITED LEANING TO LEFT WHILE SITTING AT EOB. NURSING NOTIFIED. PT THEN SELF CORRECTED SITTING POSTURED TO MIDLINE. NURSING OBSERVED. PT REQUIRED MAX A FOR LB DRESSING. PT COMPLETED HAIR GROOMING WITH SETUP AT EOB. PT REQUIRED CGA FOR SITTING AT EOB. PT HAD SKIN TEAR ON LUE. NURSING NOTIFIED. NURSING TREATED SKIN TEAR. [phone] KRISTOPHER KHAN COTA
--- NOTE | 2021-01-01 17:36 | MORECARE ---
CASE MANAGEMENT DISCHARGE SUMMARY PATIENT: ETIENNE RAMIREZ UNIT: [id number] ADM DATE: 12/27/20 AGE: 80 : 40 SEX: F ROOM/BED: D.5970 AUTHOR: ANASTASIIA,DOC PHYSICIAN: REFERRING PHYSICIAN: VALDO DENNIS MD DATE OF SERVICE: 01/01/21 Case Management Discharge Planning Summary COMMENTS ENTERED DATE: 12/27/20 12:24 CT COMMENT TYPE: Discharge Planning REVIEWER: Marisol Taylor CM met with patient to complete discharge planning assessment and offer availability of needed services. Patient states that she lived independently at home with support from her children prior to admission. CM spoke to son Rell Ramirez at time of DCP and verified that home environment is safe and has electricity and running water. Son voices concern for patients safety at home and wishes for her to go to [place] for a week or two of rehab. Pt agrees to need for rehab and strengthening prior to going back home. PCP is [place]. CM offered and discussed home health, rehab services, and need for any medical equipment. Patient did not express need for offered services at this time, but does agree to go to [place] for short term rehab. Patient verbalized understanding of signed forms. IMM served, and signed copy placed on chart. JORG EA form signed for refusal of additional services or needs at this time, placed on chart. [facility] REVIEW SUMMARY ANTICIPATED D/C DATE: 12/29/2020 EXPECTED LOS : 2 CASE STATUS: DCP Initiated INITIAL REVIEW: 12/22/2020 INITIAL REVIEWER: Marisol Taylor FINAL DISCHARGE DISPOSITION: : FINAL REVIEWER: Lolis Herrera FINAL REVIEW DATE: [facility] Focus Questions & Answers QUESTION: ANSWER : PATIENT: ETIENNE RAMIREZ ENCOUNTER: [id number] MEDICAL RECORD#: [id number] ADMISSION DATE: 12/27/2020 DISCHARGE DATE: 12/29/2020 ATTENDING MD: VALDO KAM : AGE: 80 MARITAL STATUS: W DC PLAN ID: [id number] FACILITY: [facility] PRINTED ON: 01/01/21 17:36 CT All edits/amendments must be made on the electronic document DICTATION DATE: 01/01/211735 HOME AND SCHOOL VISITOR: HIEN 01/01/211735 RPT#: [id number] DC DATE:12/29/20 STATUS: DIS IN [facility] [address] [place] [address] END OF REPORT
--- NOTE | 2021-01-02 14:34 | MORECARE ---
CASE MANAGEMENT DISCHARGE SUMMARY PATIENT: ETIENNE RAMIREZ UNIT: [id number] ADM DATE: 12/27/20 AGE: 80 : 40 SEX: F ROOM/BED: D.6738 AUTHOR: ANASTASIIA,DOC PHYSICIAN: REFERRING PHYSICIAN: VALDO DENNIS MD DATE OF SERVICE: 01/02/21 Case Management Discharge Planning Summary COMMENTS ENTERED DATE: 12/27/20 12:24 CT COMMENT TYPE: Discharge Planning REVIEWER: Marisol Taylor CM met with patient to complete discharge planning assessment and offer availability of needed services. Patient states that she lived independently at home with support from her children prior to admission. CM spoke to son Rell Ramirez at time of DCP and verified that home environment is safe and has electricity and running water. Son voices concern for patients safety at home and wishes for her to go to [place] for a week or two of rehab. Pt agrees to need for rehab and strengthening prior to going back home. PCP is [place]. CM offered and discussed home health, rehab services, and need for any medical equipment. Patient did not express need for offered services at this time, but does agree to go to [place] for short term rehab. Patient verbalized understanding of signed forms. IMM served, and signed copy placed on chart. JORGE A form signed for refusal of additional services or needs at this time, placed on chart. [facility] REVIEW SUMMARY ANTICIPATED D/C DATE: 12/29/2020 EXPECTED LOS : 2 CASE STATUS: DCP Initiated INITIAL REVIEW: 12/22/2020 INITIAL REVIEWER: Marisol Taylor FINAL DISCHARGE DISPOSITION: : FINAL REVIEWER: Lolis Herrera FINAL REVIEW DATE: [facility] Focus Questions & Answers QUESTION: ANSWER : PATIENT: ETIENNE RAMIREZ ENCOUNTER: [id number] MEDICAL RECORD#: [id number] ADMISSION DATE: 12/27/2020 DISCHARGE DATE: 12/29/2020 ATTENDING MD: VALDO KAM : AGE: 80 MARITAL STATUS: W DC PLAN ID: [id number] FACILITY: [facility] PRINTED ON: 01/02/21 14:33 CT All edits/amendments must be made on the electronic document DICTATION DATE: 01/02/211432 SOCIAL STUDIES TEACHER: HIEN 01/02/21 143 RPT#: [id number] DC DATE:12/29/20 STATUS: DIS IN [facility] [address] [facility] [place] [address] END OF REPORT
== END 2020-12-29 11:51 | DRG 377 ==
LOC: D.ER 14:27 → OBSVTIME 18:21 → D.M2 18:21 → D.EDHOLD 18:21 → D.M2 19:24
PROVIDERS: Family Medicine; Surgery; ADMIT Family Medicine; ATTEND Family Medicine
PROC: 0DB68ZX Excision of Stomach, Via Natural or Artificial Opening Endoscopic, Diagnostic (ICD-10-PCS; principal; 2020-12-27 10:51)
DX: K25.4 Chronic or unspecified gastric ulcer with hemorrhage (principal); G93.41 Metabolic encephalopathy; R19.7 Diarrhea, unspecified; E86.0 Dehydration; R63.0 Anorexia; Z68.25 Body mass index [BMI] 25.0-25.9, adult; I10 Essential (primary) hypertension; E87.6 Hypokalemia; D50.0 Iron deficiency anemia secondary to blood loss (chronic)